=== PATIENT | male | born 1950 | race Caucasian/White ===

== ENCOUNTER 2017-03-23 23:19 | Emergency (ER) | payer MEDICARE, OTHER ==
[~2017-03-23] VITALS: Ht 182.9 cm; Wt 88.0 kg
[~2017-03-23 23:19] MED LIST: ASPI81 PO; LORTA5 PO; NAPR550 PO; PRED20 PO; TOPR25TA2 PO
[2017-03-23] MEDS ORDERED: IOHEXOL 350 MG/ML 10 ML VIAL (for RAD DIAG) IVCONTRAST ONE (23:20)
[2017-03-23 23:23] VITALS: BP 179/100; PULSE 106; RESP 18; TEMP 98; O2SAT 98
[2017-03-23] MEDS ORDERED: ALLO100T PO (23:42)
[2017-03-23] MEDS ORDERED: LISI10TA3 PO (23:42)
[2017-03-23] MEDS ORDERED: ASPI81TA23 PO (23:42)
[2017-03-23] MEDS ORDERED: METO1TAB43 PO (23:42)
[2017-03-23] MEDS ORDERED: SERT-132 PO (23:42)
[2017-03-23] MEDS ORDERED: HYDR12.57 PO (23:42)
[2017-03-23] MEDS ORDERED: METF500T PO (23:42)
[2017-03-23] MEDS ORDERED: OMEP20TA93 PO (23:42)
[2017-03-23] MEDS ORDERED: SODIUM CHLOR 0.9% 1000 ML INJ 1,000 ML IV SCH (23:47)
[2017-03-24] MEDS ORDERED: SODIUM CHLORIDE 0.9% FLUSH 10 ML FLUSH IV FLUSH PRN
[2017-03-24 00:01] VITALS: O2SAT 96
--- NOTE | 2017-03-24 00:03 | PD ---
HPI Chief Complaint: Abdominal Pain Time Seen by Provider: 23:42 Travel History International Travel<30 days: No Contact w/Intl Traveler<30days: No Traveled to known affect area: No History of Present Illness HPI 66-year-old male here for evaluation of abdominal pain. The patient reports having right mid and right lower quadrant abdominal pain for the last 2 days, worse today. He describes the pain as sharp, moderate to severe, worse with movements, improved with rest. He endorses history of diverticulitis with partial colectomy about 16 years ago. He denies fevers or chills. No trauma. No vomiting or diarrhea. No melena or hematochezia. No urinary symptoms. PFSH Past Medical History Arthritis: Yes Diminished Hearing: Yes ([facility]) Diverticulitis: Yes Hypertension: Yes Tetanus Vaccination: < 5 Years Influenza Vaccination: Yes Past Surgical History Abdominal Surgery: Yes (PART OF COLON REMOVED FROM DIVERTICULITIS) Appendectomy: Yes Genitourinary Surgery: Yes (VASECTOMY) Joint Replacement: Yes (left knee) Tonsillectomy: Yes Social History Alcohol Use: Yes (2 LIQUOR DRINKS DAILY) Tobacco Use: Yes (1/2 PPD) Substance Use: No Allergies-Medications (Allergen,Severity, Reaction): Coded Allergies: No Known Allergies (Verified Adverse Reaction, Unknown, 03/23/17) Reported Meds & Prescriptions Reported Meds & Active Scripts Active Reported Allopurinol 100 Mg Tab 100 Mg PO DAILY Aspirin EC (Aspirin) 81 Mg Tabdr 81 Mg PO DAILY Metformin (Metformin HCl) 500 Mg Tab 500 Mg PO DAILY With a meal Sertraline (Sertraline HCl) 50 Mg Tab 50 Mg PO DAILY Hydrochlorothiazide 12.5 Mg Cap 12.5 Mg PO DAILY Metoprolol Succinate ER 24 HR (Metoprolol Succinate) 100 Mg Tab 100 Mg PO DAILY Lisinopril 10 Mg Tab 10 Mg PO DAILY Omeprazole 20 Mg Tab 20 Mg PO DAILY Review of Systems Except as stated in HPI: all other systems reviewed are Neg Physical Exam Narrative GENERAL: Well-developed, well-nourished, awake, alert, no apparent distress. SKIN: Focused skin assessment warm/dry. No rash. HEAD: Atraumatic. Normocephalic. EYES: Pupils equal and round. No scleral icterus. No injection or drainage. ENT: Mucous membranes pink and moist. NECK: Trachea midline. No JVD. CARDIOVASCULAR: Regular rate and rhythm. No murmur appreciated. RESPIRATORY: No accessory muscle use. Clear to auscultation. Breath sounds equal bilaterally. GASTROINTESTINAL: Abdomen soft, nondistended. Moderate right mid and right lower quadrant tenderness without peritoneal signs. Normal bowel sounds. Large ventral hernia that is easily reducible. MUSCULOSKELETAL: No obvious deformities. No clubbing. No cyanosis. No edema. No CVA tenderness. NEUROLOGICAL: Awake and alert. No obvious cranial nerve deficits. Motor grossly within normal limits. Normal speech. PSYCHIATRIC: Appropriate mood and affect; insight and judgment normal. Data Data Last Documented VS Vital Signs Date Time Temp Pulse Resp B/P (MAP) Pulse Ox O2 Delivery O2 Flow Rate FiO2 03/24/17 00:01 96 Room Air 03/23/17 23:23 98.0 106 18 Orders Orders Complete Blood Count With Diff (03/23/17 23:47) Comprehensive Metabolic Panel (03/23/17 23:47) Lipase (03/23/17 23:47) Lactic Acid (03/23/17 23:47) Prothrombin Time / Inr (Pt) (03/23/17 23:47) Act Partial Throm Time (Ptt) (03/23/17 23:47) Urinalysis - C+S If Indicated (03/23/17 23:47) Ct Abd/Pel W Iv Contrast(Rout) (03/23/17 23:47) Iv Access Insert/Monitor (03/23/17 23:47) Ecg Monitoring (03/23/17 23:47) Oximetry (03/23/17 23:47) Sodium Chlor 0.9% 1000 Ml Inj (Ns 1000 M (03/23/17 23:47) Sodium Chloride 0.9% Flush (Ns Flush) (03/24/17 00:00) Morphine Inj (Morphine Inj) (03/24/17 00:00) Ondansetron Inj (Zofran Inj) (03/24/17 00:15) Ondansetron Inj (Zofran Inj) (03/24/17 00:11) Iohexol 350 Inj (Omnipaque 350 Inj) (03/23/17 23:20) Labs Laboratory Tests Test 03/24/17 00:12 White Blood Count 8.6 TH/MM3 Red Blood Count 4.17 MIL/MM3 Hemoglobin 16.6 GM/DL Hematocrit 46.3 % Mean Corpuscular Volume 111.0 FL Mean Corpuscular Hemoglobin 39.9 PG Mean Corpuscular Hemoglobin Concent 35.9 % Red Cell Distribution Width 13.6 % Platelet Count 178 TH/MM3 Mean Platelet Volume 8.2 FL Neutrophils (%) (Auto) 67.8 % Lymphocytes (%) (Auto) 20.3 % Monocytes (%) (Auto) 10.6 % Eosinophils (%) (Auto) 0.7 % Basophils (%) (Auto) 0.6 % Neutrophils # (Auto) 5.8 TH/MM3 Lymphocytes # (Auto) 1.7 TH/MM3 Monocytes # (Auto) 0.9 TH/MM3 Eosinophils # (Auto) 0.1 TH/MM3 Basophils # (Auto) 0.1 TH/MM3 CBC Comment DIFF FINAL Differential Comment Prothrombin Time 11.4 SEC Prothromb Time International Ratio 1.1 RATIO Activated Partial Thromboplast Time 29.2 SEC Blood Urea Nitrogen 12 MG/DL Creatinine 0.96 MG/DL Random Glucose 153 MG/DL Total Protein 7.8 GM/DL Albumin 3.8 GM/DL Calcium Level 8.9 MG/DL Alkaline Phosphatase 103 U/L Aspartate Amino Transf (AST/SGOT) 17 U/L Alanine Aminotransferase (ALT/SGPT) 20 U/L Total Bilirubin 1.8 MG/DL Sodium Level 137 MEQ/L Potassium Level 3.3 MEQ/L Chloride Level 100 MEQ/L Carbon Dioxide Level 27.8 MEQ/L Anion Gap 9 MEQ/L Estimat Glomerular Filtration Rate 79 ML/MIN Lactic Acid Level 1.2 mmol/L Lipase 132 U/L MDM Medical Decision Making Medical Screen Exam Complete: Yes Emergency Medical Condition: Yes Differential Diagnosis Colitis, diverticulitis, appendicitis, mesenteric ischemia, UTI, cystitis, adhesions, Narrative Course Vital signs reviewed. CBC: WBC 8.6, hemoglobin 16.6, hematocrit 46.3, platelets 178, MCV 111. CMP is remarkable for potassium 3.3, random glucose 153, otherwise unremarkable. Lipase is 132. Lactic acid is 1.2. CT abdomen pelvis: CONCLUSION: 1. Mild wall thickening of a short segment of distal ascending colon and hepatic flexure region of colon with surrounding inflammatory change. This could represent a colitis in the appropriate clinical setting. Suggest followup to confirm resolution. 2. 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 The patient was made aware of all findings. He is resting comfortably. There are no peritoneal signs on his exam. He was given a copy of his CT abdomen pelvis report. He will be started on Cipro and Flagyl and advised to follow-up with his primary care physician this week. I will also given the name of vascular surgeon community education specialist with whom to follow-up with. 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 He was advised on when to return to the emergency department. He verbalizes understanding and agreement with plan. Diagnosis Primary Impression: Colitis Additional Impressions: Atherosclerosis Abdominal aortic aneurysm Qualified Codes: I71.4 - Abdominal aortic aneurysm, without rupture Referrals: Lizandro Sunshine MD 3 days Vascular surgeon Primary Care Physician 3 days Additional Instructions: Follow-up with your primary care physician this week. Follow-up with your alum plant operator this week. Follow-up with vascular surgeon Dr. Sunshine this week. Take antibiotic as prescribed. Return to the emergency department for worsening symptoms or any other concerns. Scripts Ondansetron Odt (Zofran Odt) 4 Mg Tab 4 MG SL Q6HR Y for Nausea/Vomiting, #15 TAB 0 Refills Prov: Frankie Argueta MD 03/24/17 Hydrocodone-Acetaminophen (Hydrocodone-Acetaminophen) 5-325 mg Tab 1 TAB PO Q6H Y for PAIN, #15 TAB 0 Refills Prov: Frankie Argueta MD 03/24/17 Metronidazole (Flagyl) 500 Mg Tab 500 MG PO BID for Infection for 10 Days, #20 TAB 0 Refills Prov: Frankie Argueta MD 03/24/17 Ciprofloxacin (Cipro) 500 Mg Tab 500 MG PO BID for Infection for 10 Days, #20 TAB 0 Refills Prov: Frankie Argueta MD 03/24/17 Disposition: 01 DISCHARGE HOME Condition: Stable Frankie Argueta MD Mar 24, 2017 00:03
[2017-03-24] MEDS ORDERED: ONDANSETRON HCL 4 MG/2 ML VIAL ONE (00:11)
[2017-03-24] MEDS ORDERED: ONDANSETRON HCL 4 MG/2 ML VIAL IV PUSH ONE (00:15)
[2017-03-24 00:27] LABS: AUTOMATED NEUTROPHIL # 5.8 TH/MM3 (1.8-7.7); BASOPHIL # 0.1 TH/MM3 (0-0.2); BASOPHIL % 0.6 % (0.0-2.0); EOSINOPHIL # 0.1 TH/MM3 (0-0.4); EOSINOPHIL % 0.7 % (0.0-4.0); HEMATOCRIT 46.3 % (39.0-51.0); HEMOGLOBIN 16.6 GM/DL (13.0-17.0); LYMPH % 20.3 % (9.0-44.0); LYMPHOCYTE # 1.7 TH/MM3 (1.0-4.8); MEAN CORPUSCULAR HEMOGLOBIN 39.9 PG (27.0-34.0); MEAN CORPUSCULAR HGB CONC 35.9 % (32.0-36.0); MEAN PLATELET VOLUME 8.2 FL (7.0-11.0); MONO % 10.6 % (0.0-8.0); MONOCYTE # 0.9 TH/MM3 (0-0.9); NEUT % 67.8 % (16.0-70.0); PLATELET COUNT 178 TH/MM3 (150-450); RED BLOOD COUNT 4.17 MIL/MM3 (4.50-5.90); RED CELL DISTRIBUTION WIDTH 13.6 % (11.6-17.2); WHITE BLOOD COUNT 8.6 TH/MM3 (4.0-11.0)
[2017-03-24 00:37] LABS: INTERNATIONAL NORMALIZED RATIO 1.1 RATIO; PROTHROMBIN TIME - PATIENT 11.4 SEC (9.8-11.6)
[2017-03-24 00:41] LABS: ALBUMIN 3.8 GM/DL (3.4-5.0); ALT (GPT) 20 U/L (12-78); AST (GOT) 17 U/L (15-37); BICARBONATE 27.8 MEQ/L (21.0-32.0); BLOOD UREA NITROGEN 12 MG/DL (7-18); CALCIUM 8.9 MG/DL (8.5-10.1); CHLORIDE 100 MEQ/L (98-107); CREATININE 0.96 MG/DL (0.60-1.30); GLOMERULAR FILTRATION RATE 79 ML/MIN (>89); GLUCOSE,RANDOM 153 MG/DL (74-106); SODIUM (NA) 137 MEQ/L (136-145)
[2017-03-24 00:43] LABS: ALKALINE PHOSPHATASE 103 U/L (45-117); TOTAL BILIRUBIN ADULT 1.8 MG/DL (0.2-1.0); TOTAL PROTEIN 7.8 GM/DL (6.4-8.2)
--- NOTE | 2017-03-24 01:42 | RADRPT ---
EXAM DATE/TIME: 03/24/2017 01:17 [facility] COMPARISON: No previous studies available for comparison. INDICATIONS : Right sided abdomen pain past 2 days. IV CONTRAST: 95 cc Omnipaque 350 (iohexol) IV ORAL CONTRAST: No oral contrast ingested. RADIATION DOSE: 11.20 CTDIvol (mGy) MEDICAL HISTORY : Hypertension. Diverticulitis. SURGICAL HISTORY : Colon resection. Appendectomy.Total knee replacement, right. ENCOUNTER: Initial ACUITY: 2 days PAIN SCALE: 10/10 LOCATION: Right abdomen TECHNIQUE: Volumetric scanning of the abdomen and pelvis was performed. Using automated exposure control and ad justment of the mA and/or kV according to patient size, radiation dose was kept as low as reasonably achievable to obtain optimal diagnostic quality images. DICOM format image data is available electro nically for review and comparison. FINDINGS: LOWER LUNGS: There is atelectasis at the lung bases. LIVER: Homogeneous density with 2 incidental low density lesions measuring 5 mm and 6 mm that are too small to characterize. There is no dilation of the biliary tree. No calcified gallstones. SPLEEN: Normal size without lesion. PANCREAS: Within normal limits. KIDNEYS: Normal in size and shape. There is no mass, stone or hydronephrosis. ADRENAL GLANDS: Within normal limits. VASCULAR: There is severe atherosclerotic disease with infrarenal fusiform aneurysm measuring up to 3.1 cm. The re is a right common iliac artery aneurysm measuring 2 cm. Curvilinear calcification associated with the hepatic artery likely represents a 7 mm aneurysm. BOWEL/MESENTERY: The stomach and small bowel demonstrate no acute finding. There is mild wall thickening of a segment of distal ascending colon and hepatic flexure colon with mild inflammation of the adjacent fat. There is sigmoid diverticulosis and there has been prior surgery in the sigmoid colon region. There is no free intraperitoneal air or fluid. ABDOMINAL WALL: There is a fat containing right spigelian hernia. RETROPERITONEUM: There is no lymphadenopathy. BLADDER: No wall thickening or mass. REPRODUCTIVE: Prostate gland demonstrates no abnormality. There is calcification of the vas deferens. INGUINAL: There is no lymphadenopathy or hernia. MUSCULOSKELETAL: There are degenerative changes of the lumbar spine but no acute osseous abnormality is identified. CONCLUSION: 1. Mild wall thickening of a short segment of distal ascending colon and hepatic flexure region of co ole with surrounding inflammatory change. This could represent a colitis in the appropriate clinical setting. Suggest followup to confirm resolution. 2. 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 Stevenson Thomas MD on March 24, 2017 at 1:34 Board Certified Radiologist. This report was verified electronically.
[2017-03-24] MEDS ORDERED: CIPR-9 PO (01:57)
[2017-03-24] MEDS ORDERED: METR-1 PO (01:57)
[2017-03-24] MEDS ORDERED: ZOFR4TAB3 SL (01:57)
[2017-03-24] MEDS ORDERED: HYDR-3516 PO (01:57)
[2017-03-24] MEDS ORDERED: metroNIDAZOLE 500 MG TAB PO ONE (02:00)
[2017-03-24] MEDS ORDERED: MORPHINE SULFATE 2 MG/ML INJ IV PUSH ONE ×2 (02:00)
[2017-03-24] MEDS ORDERED: CIPROFLOXACIN 500 MG TAB PO ONE (02:00)
== END 2017-03-24 02:26 | disposition home or self-care (01) ==
LOC: NEPE 23:19
DX: K52.9 Noninfective gastroenteritis and colitis, unspecified (principal); I71.4 Abdominal aortic aneurysm, without rupture; I70.0 Atherosclerosis of aorta; M19.90 Unspecified osteoarthritis, unspecified site; I10 Essential (primary) hypertension; F17.200 Nicotine dependence, unspecified, uncomplicated; Z87.19 Personal history of other diseases of the digestive system; Z79.82 Long term (current) use of aspirin; Z79.899 Other long term (current) drug therapy
CPT/HCPCS: 74177; 80053; 83605; 83690; 85025; 85610; 85730; 96361; 96374; 96375; 96376; 99284; J2270; J2405; J7030; Q9967

== ENCOUNTER 2017-06-18 10:25 | Inpatient (IN) | payer MEDICARE, OTHER ==
[2017-06-18] VITALS (7 sets, daily range): BP systolic 151–179; BP diastolic 97–111; PULSE 82–104; RESP 14–16; TEMP 97.6–98.5; O2SAT 94–98
[~2017-06-18] VITALS: Ht 182.9 cm; Wt 76.6 kg
[~2017-06-18 10:25] MED LIST changes: +ALLO100T PO; -ASPI81 PO; +ASPI81TA23 PO; +CIPR-9 PO; +HYDR-3516 PO; +HYDR12.57 PO; +LISI10TA3 PO; -LORTA5 PO; +METF500T PO; +METO1TAB43 PO; +METR-1 PO; -NAPR550 PO; +OMEP20TA93 PO; -PRED20 PO; +SERT-132 PO; -TOPR25TA2 PO; +ZOFR4TAB3 SL
[2017-06-18 11:16] LABS: AUTOMATED NEUTROPHIL # 4.7 TH/MM3 (1.8-7.7); BASOPHIL % 0.4 % (0.0-2.0); EOSINOPHIL # 0.1 TH/MM3 (0-0.4); HEMATOCRIT 47.8 % (39.0-51.0); HEMOGLOBIN 16.9 GM/DL (13.0-17.0); LYMPH % 17.9 % (9.0-44.0); LYMPHOCYTE # 1.2 TH/MM3 (1.0-4.8); MEAN CORPUSCULAR HEMOGLOBIN 38.5 PG (27.0-34.0); MEAN CORPUSCULAR HGB CONC 35.3 % (32.0-36.0); MEAN PLATELET VOLUME 7.3 FL (7.0-11.0); MONO % 9.2 % (0.0-8.0); MONOCYTE # 0.6 TH/MM3 (0-0.9); NEUT % 71.5 % (16.0-70.0); PLATELET COUNT 150 TH/MM3 (150-450); RED BLOOD COUNT 4.39 MIL/MM3 (4.50-5.90); RED CELL DISTRIBUTION WIDTH 16.9 % (11.6-17.2); WHITE BLOOD COUNT 6.6 TH/MM3 (4.0-11.0)
[2017-06-18 11:24] LABS: INTERNATIONAL NORMALIZED RATIO 1.1 RATIO; PROTHROMBIN TIME - PATIENT 11.5 SEC (9.8-11.6)
[2017-06-18 11:34] LABS: ALBUMIN 3.7 GM/DL (3.4-5.0); ALT (GPT) 30 U/L (12-78); AST (GOT) 59 U/L (15-37); BICARBONATE 24.7 MEQ/L (21.0-32.0); BLOOD UREA NITROGEN 8 MG/DL (7-18); CHLORIDE 106 MEQ/L (98-107); CREATININE 0.81 MG/DL (0.60-1.30); GLOMERULAR FILTRATION RATE 96 ML/MIN (>89); GLUCOSE,RANDOM 124 MG/DL (74-106); SODIUM (NA) 141 MEQ/L (136-145)
[2017-06-18 11:36] LABS: ALKALINE PHOSPHATASE 105 U/L (45-117); TOTAL BILIRUBIN ADULT 1.5 MG/DL (0.2-1.0); TOTAL PROTEIN 7.1 GM/DL (6.4-8.2)
--- NOTE | 2017-06-18 12:32 | PD ---
HPI . Fall Chief Complaint: Fall Time Seen by Provider: 11:02 Travel History International Travel<30 days: No Contact w/Intl Traveler<30days: No Traveled to known affect area: No History of Present Illness HPI This patient presents to us status [place] market. History is obtained from the patient and his . His states that he has loose bowels every morning. This is normal for him. They were at the market when he became missing. She was looking for him and learned that someone had fallen in the restroom. She went to investigate and found that it was him. He had fallen and has apparently struck his head. He possibly had a brief loss of consciousness. He is complaining with feeling very weak. He is also complaining with some pain in the left shoulder and left chest wall. He has apparently struck these as well. Onset: Just prior to arrival Circumstances: As above Severity: Mild Modifying factors: Pain of his shoulder and chest is exacerbated by movement and breathing. PFSH Past Medical History Arthritis: Yes Diminished Hearing: Yes ([facility]) Diverticulitis: Yes Hypertension: Yes Past Surgical History Abdominal Surgery: Yes (PART OF COLON REMOVED FROM DIVERTICULITIS) Appendectomy: Yes Genitourinary Surgery: Yes (VASECTOMY) Joint Replacement: Yes (left knee) Tonsillectomy: Yes Social History Alcohol Use: Yes (2 LIQUOR DRINKS DAILY) Tobacco Use: Yes (1/2 PPD) Substance Use: No Allergies-Medications (Allergen,Severity, Reaction): Coded Allergies: No Known Allergies (Verified Adverse Reaction, Unknown, 03/23/17) Reported Meds & Prescriptions Reported Meds & Active Scripts Active Zofran Odt (Ondansetron Odt) 4 Mg Tab 4 Mg SL Q6HR PRN Hydrocodone-Acetaminophen 5-325 mg Tab 1 Tab PO Q6H PRN Flagyl (Metronidazole) 500 Mg Tab 500 Mg PO BID 10 Days Cipro (Ciprofloxacin HCl) 500 Mg Tab 500 Mg PO BID 10 Days Reported Allopurinol 100 Mg Tab 100 Mg PO DAILY Aspirin EC (Aspirin) 81 Mg Tabdr 81 Mg PO DAILY Metformin (Metformin HCl) 500 Mg Tab 500 Mg PO DAILY With a meal Sertraline (Sertraline HCl) 50 Mg Tab 50 Mg PO DAILY Hydrochlorothiazide 12.5 Mg Cap 12.5 Mg PO DAILY Metoprolol Succinate ER 24 HR (Metoprolol Succinate) 100 Mg Tab 100 Mg PO DAILY Lisinopril 10 Mg Tab 10 Mg PO DAILY Omeprazole 20 Mg Tab 20 Mg PO DAILY Review of Systems Except as stated in HPI: all other systems reviewed are Neg Physical Exam Narrative GENERAL: Awake and alert and in no acute distress. SKIN: warm/dry. He does have some bruising of the left anterior shoulder. There is a 1 cm laceration in the left eyebrow which is well approximated and scabbed over. HEAD: Normocephalic. He has some bruising to the left side of his face. EYES: Pupils equal and round. No scleral icterus. No injection or drainage. ENT: No nasal bleeding or discharge. Mucous membranes pink and moist. NECK: Trachea midline. Full range of motion without pain.. CARDIOVASCULAR: Regular rate and rhythm. Heart sounds are normal. RESPIRATORY: No accessory muscle use. Clear to auscultation. Breath sounds equal bilaterally. Left chest wall is tender to palpation. GASTROINTESTINAL: Abdomen soft. Nontender. Bowel sounds present. Nondistended. MUSCULOSKELETAL: No obvious deformities. NEUROLOGICAL: Awake and alert. No obvious cranial nerve deficits. Motor grossly within normal limits. Normal speech. PSYCHIATRIC: Appropriate mood and affect; insight and judgment normal. Data Data Last Documented VS Vital Signs Date Time Temp Pulse Resp B/P (MAP) Pulse Ox O2 Delivery O2 Flow Rate FiO2 06/18/17 14:12 96 16 166/107 (126) 98 Room Air 06/18/17 10:31 97.6 Orders Orders Electrocardiogram (06/18/17 10:53) Complete Blood Count With Diff (06/18/17 10:53) Comprehensive Metabolic Panel (06/18/17 10:53) Iv Access Insert/Monitor (06/18/17 10:53) Coag Profile (06/18/17 10:53) Ct Brain W/O Iv Contrast(Rout) (06/18/17 11:53) Ct Cerv Spine W/O Contrast (06/18/17 11:53) Troponin I (06/18/17 12:32) Chest, Pa & Lat (06/18/17 12:32) Morphine Inj (Morphine Inj) (06/18/17 14:00) Ondansetron Inj (Zofran Inj) (06/18/17 14:00) Labs Laboratory Tests Test 06/18/17 10:50 White Blood Count 6.6 TH/MM3 Red Blood Count 4.39 MIL/MM3 Hemoglobin 16.9 GM/DL Hematocrit 47.8 % Mean Corpuscular Volume 109.0 FL Mean Corpuscular Hemoglobin 38.5 PG Mean Corpuscular Hemoglobin Concent 35.3 % Red Cell Distribution Width 16.9 % Platelet Count 150 TH/MM3 Mean Platelet Volume 7.3 FL Neutrophils (%) (Auto) 71.5 % Lymphocytes (%) (Auto) 17.9 % Monocytes (%) (Auto) 9.2 % Eosinophils (%) (Auto) 1.0 % Basophils (%) (Auto) 0.4 % Neutrophils # (Auto) 4.7 TH/MM3 Lymphocytes # (Auto) 1.2 TH/MM3 Monocytes # (Auto) 0.6 TH/MM3 Eosinophils # (Auto) 0.1 TH/MM3 Basophils # (Auto) 0.0 TH/MM3 CBC Comment DIFF FINAL Differential Comment Prothrombin Time 11.5 SEC Prothromb Time International Ratio 1.1 RATIO Activated Partial Thromboplast Time 24.5 SEC Blood Urea Nitrogen 8 MG/DL Creatinine 0.81 MG/DL Random Glucose 124 MG/DL Total Protein 7.1 GM/DL Albumin 3.7 GM/DL Calcium Level 9.0 MG/DL Alkaline Phosphatase 105 U/L Aspartate Amino Transf (AST/SGOT) 59 U/L Alanine Aminotransferase (ALT/SGPT) 30 U/L Total Bilirubin 1.5 MG/DL Sodium Level 141 MEQ/L Potassium Level 3.3 MEQ/L Chloride Level 106 MEQ/L Carbon Dioxide Level 24.7 MEQ/L Anion Gap 10 MEQ/L Estimat Glomerular Filtration Rate 96 ML/MIN MDM Medical Decision Making Medical Screen Exam Complete: Yes Emergency Medical Condition: Yes Interpretation(s) EKG shows a sinus rhythm with a ventricular rate of 93. No acute ischemic changes. Differential Diagnosis Differential diagnosis of weakness includes but is not limited to infection, CVA , electrolyte disturbance, renal failure, hypoglycemia My differential diagnosis of head trauma includes but is not limited to scalp contusion, concussion, intracerebral hemorrhage. Narrative Course This patient presents to us for the evaluation of weakness causing a fall. Syncope workup is in process. CT of his head and neck is in process. CBC & BMP Diagram 06/18/17 10:50 Total Protein 7.1, Albumin 3.7, Calcium Level 9.0, Alkaline Phosphatase 105, Aspartate Amino Transf (AST/SGOT) 59 H, Alanine Aminotransferase (ALT/SGPT) 30, Total Bilirubin 1.5 H Last Impressions Chest X-Ray 06/18/17 1232 Signed Impressions: Service Date/Time: Sunday, June 18, 2017 13:32 - CONCLUSION: 1. No acute pulmonary infiltrates. 2. Nondisplaced fracture involving the lateral last at the left fourth rib. 3. Compensated cardiomegaly. Les Liao MD Head CT 06/18/17 1153 Signed Impressions: Service Date/Time: Sunday, June 18, 2017 13:43 - CONCLUSION: 1. Focal intra-axial hemorrhage in the bilateral frontal lobes consistent with hemorrhagic contusions. No definite extra-axial or intraventricular Hemorrhage. No hydrocephalus or herniation. Denzel Kelly MD Cervical Spine CT 06/18/17 1153 Signed Impressions: Service Date/Time: Sunday, June 18, 2017 13:43 - CONCLUSION: 1. No acute bony fracture. 2. Primary bony degenerative changes involving the cervical spine. Les Liao MD The laceration was repaired by the RN with a Steri-Strip. Physician Communication Physician Communication Dr. Cerrato will admit to obs Diagnosis Primary Impression: Frontal lobe contusion Qualified Codes: S06.330A - Contusion and laceration of cerebrum, unspecified , without loss of consciousness, initial encounter Additional Impression: Rib fracture Qualified Codes: S22.32XA - Fracture of one rib, left side, initial encounter for closed fracture Admitting Information Admitting Physician Requests: Observation Condition: Stable Viv Gonzalez MD June 18, 2017 12:32
--- NOTE | 2017-06-18 13:49 | RADRPT ---
EXAM DATE/TIME: 06/18/2017 13:32 [facility] COMPARISON: No previous studies available for comparison. INDICATIONS : Left side chest pain and bruising after syncope episode. MEDICAL HISTORY : Hypertension. Diverticulitis. SURGICAL HISTORY : Colon resection. Appendectomy.Total knee replacement, right. ENCOUNTER: Initial ACUITY: 1 day PAIN SCORE: 10/10 LOCATION: Left chest FINDINGS: PA and lateral views of the chest demonstrate the lungs to be symmetrically aerated without evidence of mass, infiltrate or effusion. No evidence of pneumothorax. The heart size is mildly enlarged.. Th ere appears to be a nondisplaced fracture involving the lateral aspect of the left fourth rib. CONCLUSION: 1. No acute pulmonary infiltrates. 2. Nondisplaced fracture involving the lateral last at the left fourth rib. 3. Compensated cardiomegaly. Les Liao MD on June 18, 2017 at 13:45 Board Certified Radiologist. This report was verified electronically.
[2017-06-18] MEDS ORDERED: MORPHINE SULFATE 4 MG/ML INJ IV PUSH ONE (14:00)
[2017-06-18] MEDS ORDERED: ONDANSETRON HCL 4 MG/2 ML VIAL IV PUSH ONE (14:00)
--- NOTE | 2017-06-18 14:13 | RADRPT ---
EXAM DATE/TIME: 06/18/2017 13:43 [facility] COMPARISON: No previous studies available for comparison. INDICATIONS : TRauma, patient fell hit head. RADIATION DOSE: 42.99 CTDIvol (mGy) MEDICAL HISTORY : Hypertension. SURGICAL HISTORY : None. ENCOUNTER: Initial ACUITY: 1 day PAIN SCALE: 4/10 LOCATION: neck TECHNIQUE: Volumetric scanning of the cervical spine was performed. Multiplanar reconstructions in the sagittal, coronal and oblique axial planes were performed. Using automated exposure control and adjustment o f the mA and/or kV according to patient size, radiation dose was kept as low as reasonably achievable to obtain optimal diagnostic quality images. DICOM format image data is available electronically f or review and comparison. FINDINGS: VERTEBRAE: Normal vertebral body height. No acute bony fractures. There are degenerative changes noted throughou t the cervical spine. There is disc space narrowing at C5-6 and C6-7. ALIGNMENT: No evidence of subluxation. C2-C3: The bony spinal canal is normal in size. No evidence of disc bulge or herniation. The neural forami na are bilaterally patent. Left-sided facet arthritis. C3-C4: The bony spinal canal is normal in size. No evidence of disc bulge or herniation. The neural forami na are bilaterally patent. C4-C5: Mild central bulging. The neural foramina are patent bilaterally. C5-C6: Mild broad-based bulging disc osteophyte complex. The neural foramina appear patent. C6-C7: The bony spinal canal is normal in size. No evidence of disc bulge or herniation. The neural forami na are bilaterally patent. C7-T1: The bony spinal canal is normal in size. No evidence of disc bulge or herniation. The neural forami na are bilaterally patent. CONCLUSION: 1. No acute bony fracture. 2. Primary bony degenerative changes involving the cervical spine. Les Liao MD on June 18, 2017 at 14:08 Board Certified Radiologist. This report was verified electronically.
--- NOTE | 2017-06-18 14:19 | RADRPT ---
EXAM DATE/TIME: 06/18/2017 13:43 [facility] COMPARISON: CT BRAIN W/O CONTRAST, July 10, 2012, 21:50. INDICATIONS : Trauma, patient fell hit head. RADIATION DOSE: 48.66 CTDIvol (mGy) MEDICAL HISTORY : Hypertension. SURGICAL HISTORY : None. ENCOUNTER: Initial ACUITY: 1 day PAIN SCALE: 3/10 LOCATION: cranial TECHNIQUE: Multiple contiguous axial images were obtained of the head. Using automated exposure control and adj ustment of the mA and/or kV according to patient size, radiation dose was kept as low as reasonably a chievable to obtain optimal diagnostic quality images. DICOM format image data is available electro nically for review and comparison. FINDINGS: CEREBRUM: Abnormal. There is an 8mm focal intra-axial hemorrhage in the left frontal high convexities. There is also a 13 mm focal intracranial hemorrhage in the right frontal mid convexities. No definite extra-a xial hemorrhage. Mild diffuse renal atrophy. Ventricles are normal for degree of atrophy. No intraven tricular hemorrhage. No significant mass effect or midline shift. POSTERIOR FOSSA: The cerebellum and brainstem are intact. The 4th ventricle is midline. The cerebellopontine angle i s unremarkable. EXTRACRANIAL: The visualized portion of the orbits is intact. SKULL: The calvaria is intact. No evidence of skull fracture. CONCLUSION: 1. Focal intra-axial hemorrhage in the bilateral frontal lobes consistent with hemorrhagic contusions . No definite extra-axial or intraventricular Hemorrhage. No hydrocephalus or herniation. Denzel Kelly MD on June 18, 2017 at 13:59 Board Certified Radiologist. This report was verified electronically.
[2017-06-18] MEDS ORDERED: CALCIUM GLUCONATE INJ 1 GM in SODIUM CHLORIDE 0.9% INJ 100 ML IV PRN (16:30)
[2017-06-18] MEDS ORDERED: GLUCAGON 1 MG/ML VIAL OTHER PRN (16:30)
[2017-06-18] MEDS ORDERED: DEXTROSE 50% IN WATER 50 ML VIAL(D50) IV PUSH PRN (16:30)
[2017-06-18] MEDS ORDERED: POTASSIUM CHLOR 20 MEQ PREMIX 100 ML IV PRN (16:30)
[2017-06-18] MEDS ORDERED: MENTHOL LOZENGE BUCCAL PRN (16:30)
[2017-06-18] MEDS ORDERED: ACETAMINOPHEN/HYDROcodone 325 MG/10 MG TAB PO PRN (16:30)
[2017-06-18] MEDS ORDERED: PROMETHAZINE INJ 25 MG/ML VIAL IM PRN (16:30)
[2017-06-18] MEDS ORDERED: SENNOSIDES 8.6 MG TAB PO PRN (16:30)
[2017-06-18] MEDS ORDERED: RESP: ALBUTEROL 2.5 MG/3 ML NEB (PRN) NEB (16:30)
[2017-06-18] MEDS ORDERED: MAGNESIUM HYDROXIDE SUSP 30 ML CUP PO PRN (16:30)
[2017-06-18] MEDS ORDERED: MAGNESIUM SULFATE INJ 2 GM in SODIUM CHLORIDE 0.9% INJ 100 ML IV PRN (16:30)
[2017-06-18] MEDS ORDERED: BISACODYL 10 MG SUPP RECTAL PRN (16:30)
[2017-06-18] MEDS ORDERED: ALUMINUM/MAGNESIUM/SIMETH 30 ML CUP PO PRN (16:30)
[2017-06-18] MEDS ORDERED: SODIUM CHLORIDE 0.9% FLUSH 10 ML FLUSH IV FLUSH PRN (16:30)
[2017-06-18] MEDS ORDERED: LACTULOSE SYRUP 20 GM/30 ML CUP PO PRN (16:30)
[2017-06-18] MEDS ORDERED: ZOLPIDEM TARTRATE 5 MG TAB PO PRN (16:30)
[2017-06-18] MEDS ORDERED: cloNIDine HCL 0.1 MG TAB PO PRN (16:30)
[2017-06-18] MEDS ORDERED: POTASSIUM CHLORIDE 10 MEQ CONTROLLED RELEASE TAB PO ONE (16:45)
--- NOTE | 2017-06-18 16:53 | RADRPT ---
EXAM DATE/TIME: 06/18/2017 16:45 [facility] COMPARISON: No previous studies available for comparison. INDICATIONS : Left shoulder bruising. Patient fell today. MEDICAL HISTORY : Hypertension. SURGICAL HISTORY : None. ENCOUNTER: Initial ACUITY: 1 day PAIN SCORE: 0/10 LOCATION: Left lateral shoulder. FINDINGS: Two view examination of the left shoulder demonstrates no evidence of fracture or dislocation. The g lenohumeral and acromioclavicular joints are maintained. Bony mineralization is normal. CONCLUSION: No acute fracture or joint dislocation. Les Liao MD on June 18, 2017 at 16:51 Board Certified Radiologist. This report was verified electronically.
[2017-06-18] MEDS: INSULIN NovoLIN REGULAR SUPPLEMENTAL SCALE SQ SCH ×2 (17:00→21:00)
[2017-06-18] MEDS ORDERED: niCARdipine INJ 25 MG in SODIUM CHLOR 0.9% 250 ML INJ 240 ML IV PRN (18:00)
[2017-06-18] MEDS: ACETAMINOPHEN/HYDROcodone 325 MG/10 MG TAB PO PRN ×2 (18:35→21:58)
--- NOTE | 2017-06-18 18:35 | HHI.HP ---
HPI Service Neurosurgery Primary Care Physician Unknown History of Present Illness 66-year-old gentleman who presented to [facility] emergency room after a fall. He relates a positive loss of consciousness and complains of severe left- sided chest wall pain and initially had left shoulder pain which has improved along with mild headache. He has a history of frequent falls and states that he is undergone extensive workup including evaluation at the [facility] and the only thing they could relate this to was possibly low blood pressure. He denies feeling lightheaded or dizzy or any chest pain prior to these falls and relates that his legs just give out on him and usually occurs about once a month. He had a similar episode today and fell [place] the bathroom [place] a market. Denies any nausea or vomiting and states that he is hungry. Denies any numbness or paresthesias in the upper lower extremities or any neck or back pain. Review of Systems Constitutional: DENIES: Diaphoretic episodes, Fatigue, Fever, Weight gain, Weight loss, Chills, Dizziness, Change in appetite, Night Sweats Endocrine: DENIES: Heat/cold intolerance, Polydipsia, Polyuria, Polyphagia Eyes: DENIES: Blurred vision, Diplopia, Eye inflammation, Eye pain, Vision loss , Photosensitivity, Double Vision Ears, nose, mouth, throat: DENIES: Tinnitus, Hearing loss, Vertigo, Nasal discharge, Oral lesions, Throat pain, Hoarseness, Ear Pain, Running Nose, Epistaxis, Sinus Pain, Toothache, Odynophagia Respiratory: DENIES: Apneas, Cough, Snoring, Wheezing, Hemoptysis, Sputum production, Shortness of breath Cardiovascular: COMPLAINS OF: Chest pain, DENIES: Palpitations, Syncope, Dyspnea on Exertion, PND, Lower Extremity Edema, Orthopnea, Claudication Gastrointestinal: DENIES: Abdominal pain, Black stools, Bloody stools, Constipation, Diarrhea, Nausea, Vomiting, Difficulty Swallowing, Anorexia Genitourinary: DENIES: Sexual dysfunction, Urinary frequency, Urinary incontinence, Urgency, Hematuria, Dysuria, Nocturia, Penile Discharge, Testicular Pain, Testicular Swelling Musculoskeletal: COMPLAINS OF: Joint pain, Muscle aches, Stiffness Integumentary: DENIES: Abnormal pigmentation, Nail changes, Pruritus, Rash Hematologic/lymphatic: COMPLAINS OF: Bruising, DENIES: Lymphadenopathy Immunologic/allergic: DENIES: Eczema, Urticaria Neurologic: COMPLAINS OF: Abnormal gait, Headache, Poor Balance, DENIES: Localized weakness, Paresthesias, Seizures, Speech Problems, Tremor Psychiatric: DENIES: Anxiety, Confusion, Mood changes, Depression, Hallucinations, Agitation, Suicidal Ideation, Homicidal Ideation, Delusions Past Family Social History Allergies: Coded Allergies: No Known Allergies (Verified Allergy, Unknown, 06/18/17) Past Medical History Diabetes mellitus, hypertension, osteoarthritis, gout, hard of hearing, diverticulitis Past Surgical History Abdominal Surgery: Yes (PART OF COLON REMOVED FROM DIVERTICULITIS) Appendectomy: Yes Genitourinary Surgery: Yes (VASECTOMY) Joint Replacement: Yes (left knee) Tonsillectomy: Yes Reported Medications Zofran Odt (Ondansetron Odt) 4 Mg Tab 4 Mg SL Q6HR PRN Hydrocodone-Acetaminophen 5-325 mg Tab 1 Tab PO Q6H PRN Flagyl (Metronidazole) 500 Mg Tab 500 Mg PO BID 10 Days Cipro (Ciprofloxacin HCl) 500 Mg Tab 500 Mg PO BID 10 Days Reported Allopurinol 100 Mg Tab 100 Mg PO DAILY Aspirin EC (Aspirin) 81 Mg Tabdr 81 Mg PO DAILY Metformin (Metformin HCl) 500 Mg Tab 500 Mg PO DAILY With a meal Sertraline (Sertraline HCl) 50 Mg Tab 50 Mg PO DAILY Hydrochlorothiazide 12.5 Mg Cap 12.5 Mg PO DAILY Metoprolol Succinate ER 24 HR (Metoprolol Succinate) 100 Mg Tab 100 Mg PO DAILY Lisinopril 10 Mg Tab 10 Mg PO DAILY Omeprazole 20 Mg Tab 20 Mg PO DAILY Active Ordered Medications Current Medications Medications (Trade) Dose Ordered Sig/Roby Route PRN Reason Start Time Stop Time Status Last Admin Dose Admin Sodium Chloride (NS Flush) 2 ml UNSCH PRN IV FLUSH FLUSH AFTER USING IV ACCESS 06/18/17 16:30 Sodium Chloride (NS Flush) 2 ml BID IV FLUSH 06/18/17 21:00 Lorazepam (Ativan Inj) 1 mg Q1H PRN IV PUSH SEIZURES 06/18/17 16:30 Al Hydrox/Mg Hydrox/Simethicone (Mag-Al Plus Susp Liq) 30 ml Q6H PRN PO DYSPEPSIA 06/18/17 16:30 Pantoprazole Sodium (Protonix) 40 mg DAILY PO 06/19/17 09:00 Ondansetron HCl (Zofran Inj) 4 mg Q6H PRN IV PUSH NAUSEA OR VOMITING 06/18/17 16:30 Promethazine HCl (Phenergan Inj) 25 mg Q4H PRN IM NAUSEA OR VOMITING 06/18/17 16:30 Calcium Gluconate 1 gm/Sodium Chloride 110 ml @ 110 mls/hr UNSCH PRN IV SEE LABEL COMMENTS 06/18/17 16:30 Potassium Chloride 100 ml @ 50 mls/hr UNSCH PRN IV POTASSIUM LESS THAN 4 06/18/17 16:30 Magnesium Sulfate 2 gm/Sodium Chloride 104 ml @ 100 mls/hr UNSCH PRN IV MAGNESIUM LESS THAN 2 06/18/17 16:30 Acetaminophen/ Hydrocodone Bitart ([place] 10-325 Mg) 1 tab Q4H PRN PO PAIN SCALE 1 TO 5 06/18/17 16:30 Acetaminophen/ Hydrocodone Bitart ([place] 10-325 Mg) 2 tab Q4H PRN PO PAIN SCALE 6 TO 10 06/18/17 16:30 Morphine Sulfate (Morphine Inj) 2 mg Q2H PRN IV PUSH breakthrough pain> 6 06/18/17 16:30 Labetalol HCl (Trandate Inj) 10 mg Q1H PRN IV PUSH SYS BP GREATER THAN 170 MMHG 06/18/17 16:30 Clonidine (Catapres) 0.1 mg Q6H PRN PO SYS BP GREATER THAN 170 MMHG 06/18/17 16:30 Acetaminophen (Tylenol) 650 mg Q4H PRN PO TEMPERATURE > 101.5 F 06/18/17 16:30 Bacitracin (Baciguent Oint) 1 applic BID TOP 06/18/17 21:00 Menthol ([place] Susan) 1 lozenge UNSCH PRN BUCCAL SORE THROAT 06/18/17 16:30 Zolpidem Tartrate (Ambien) 5 mg HS PRN PO INSOMNIA 06/18/17 16:30 Albuterol Sulfate (Albuterol Neb) 2.5 mg Q4HR NEB PRN NEB WHEEZING 06/18/17 16:30 Senna/Docusate Sodium (Jennifer-Colace) 1 tab BID PO 06/18/17 21:00 Magnesium Hydroxide (Milk Of Magnesia Liq) 30 ml Q12H PRN PO Mild constipation 06/18/17 16:30 Sennosides (Senokot) 17.2 mg Q12H PRN PO Moderate constipation 06/18/17 16:30 Bisacodyl (Dulcolax Supp) 10 mg DAILY PRN RECTAL SEVERE CONSITIPATION 06/18/17 16:30 Lactulose (Lactulose Liq) 30 ml DAILY PRN PO SEVERE CONSITIPATION 06/18/17 16:30 Allopurinol (Zyloprim) 100 mg DAILY PO 06/19/17 09:00 Ciprofloxacin (Cipro) 500 mg BID PO 06/18/17 21:00 Hydrochlorothiazide (Microzide) 12.5 mg DAILY PO 06/19/17 09:00 Lisinopril (Prinivil) 10 mg DAILY PO 06/19/17 09:00 Metronidazole (Flagyl) 500 mg BID PO 06/18/17 21:00 Sertraline HCl (Zoloft) 50 mg DAILY PO 06/19/17 09:00 Dextrose (D50w (Vial) Inj) 50 ml UNSCH PRN IV PUSH HYPOGLYCEMIA-SEE COMMENTS 06/18/17 16:30 Glucagon (Glucagon Inj) 1 mg UNSCH PRN OTHER HYPOGLYCEMIA-SEE COMMENTS 06/18/17 16:30 Insulin Human Regular (NovoLIN R SUPPLEMENTAL SCALE) 1 ACHS SLIDING SCALE SQ 06/18/17 17:00 Metoprolol Succinate (Toprol Xl) 100 mg DAILY PO 06/19/17 09:00 Nicardipine HCl 25 mg/Sodium Chloride 250 ml @ 50 mls/hr TITRATE PRN IV Blood pressure management 06/18/17 18:00 UNV Family History Unremarkable Social History He is and drinks 2 alcoholic beverages daily along with smoking half pack of cigarettes a day Physical Exam Vital Signs Vital Signs Date Time Temp Pulse Resp B/P (MAP) Pulse Ox O2 Delivery O2 Flow Rate FiO2 06/18/17 16:00 98 16 168/103 (124) 98 Room Air 06/18/17 14:12 96 16 166/107 (126) 98 Room Air 06/18/17 10:31 97.6 98 16 179/111 (133) 95 06/18/17 10:31 97 16 94 Room Air Physical Exam GENERAL: Well-nourished, well-developed patient in no acute distress. SKIN: Warm and dry. HEAD: Normocephalic, left eyebrow forehead laceration which has been Steri- Stripped. EYES: No scleral icterus. No injection or drainage. ENT: No nasal drainage noted. Mucous membranes pink. Airway patent. NECK: Supple, trachea midline. No JVD. CARDIOVASCULAR: Regular rate and rhythm without murmurs, gallops, or rubs. RESPIRATORY: Breath sounds equal bilaterally. No accessory muscle use. Complains of left-sided chest wall pain. GASTROINTESTINAL: Abdomen soft, non-tender, nondistended. EXTREMITIES: No cyanosis or edema in the legs. He has left shoulder ecchymosis. BACK: Nontender without obvious deformity. No CVA tenderness. NEUROLOGICAL: Awake and alert. Pupils Equal and reactive. EOMI. Face symmetric. Tongue midline. Cranial nerves II through XII intact. Motor and sensory grossly within normal limits. Five out of 5 muscle strength in all muscle groups. Normal speech. Normal comprehension. DTR's symmetric. Negative Veloz' s reflex. Negative Babinski. Laboratory Laboratory Tests Test 06/18/17 10:50 White Blood Count 6.6 Red Blood Count 4.39 Hemoglobin 16.9 Hematocrit 47.8 Mean Corpuscular Volume 109.0 Mean Corpuscular Hemoglobin 38.5 Mean Corpuscular Hemoglobin Concent 35.3 Red Cell Distribution Width 16.9 Platelet Count 150 Mean Platelet Volume 7.3 Neutrophils (%) (Auto) 71.5 Lymphocytes (%) (Auto) 17.9 Monocytes (%) (Auto) 9.2 Eosinophils (%) (Auto) 1.0 Basophils (%) (Auto) 0.4 Neutrophils # (Auto) 4.7 Lymphocytes # (Auto) 1.2 Monocytes # (Auto) 0.6 Eosinophils # (Auto) 0.1 Basophils # (Auto) 0.0 CBC Comment DIFF FINAL Differential Comment Prothrombin Time 11.5 Prothromb Time International Ratio 1.1 Activated Partial Thromboplast Time 24.5 Blood Urea Nitrogen 8 Creatinine 0.81 Random Glucose 124 Total Protein 7.1 Albumin 3.7 Calcium Level 9.0 Alkaline Phosphatase 105 Aspartate Amino Transf (AST/SGOT) 59 Alanine Aminotransferase (ALT/SGPT) 30 Total Bilirubin 1.5 Sodium Level 141 Potassium Level 3.3 Chloride Level 106 Carbon Dioxide Level 24.7 Anion Gap 10 Estimat Glomerular Filtration Rate 96 Troponin I LESS THAN 0.02 Result Diagram: 06/18/17 1050 06/18/17 1050 Imaging Last Impressions Chest X-Ray 06/18/17 1232 Signed Impressions: Service Date/Time: Sunday, June 18, 2017 13:32 - CONCLUSION: 1. No acute pulmonary infiltrates. 2. Nondisplaced fracture involving the lateral last at the left fourth rib. 3. Compensated cardiomegaly. Les Liao MD Head CT 06/18/17 1153 Signed Impressions: Service Date/Time: Sunday, June 18, 2017 13:43 - CONCLUSION: 1. Focal intra-axial hemorrhage in the bilateral frontal lobes consistent with hemorrhagic contusions. No definite extra-axial or intraventricular Hemorrhage. No hydrocephalus or herniation. Denzel Kelly MD Cervical Spine CT 06/18/17 1153 Signed Impressions: Service Date/Time: Sunday, June 18, 2017 13:43 - CONCLUSION: 1. No acute bony fracture. 2. Primary bony degenerative changes involving the cervical spine. Les Liao MD Shoulder X-Ray 06/18/17 0000 Signed Impressions: Service Date/Time: Sunday, June 18, 2017 16:45 - CONCLUSION: No acute fracture or joint dislocation. Les Liao MD Capjen VTE Risk Assessment Caprini VTE Risk Assessment: Mod/High Risk (score >= 2) VTE Pharm Contraindication: Hemorrhage Caprini Risk Assessment Model Point Value = 1 Point Value = 2 Point Value = 3 Point Value = 5 Age 41-60 Minor surgery BMI > 25 kg/m2 Swollen legs Varicose veins or History of unexplained or recurrent spontaneous Oral contraceptives or hormone replacement Sepsis (< 1 month) Serious lung disease, including pneumonia (< 1 month) Abnormal pulmonary function Acute myocardial infarction Congestive heart failure (< 1 month) History of inflammatory bowel disease Medical patient at bed rest Age 61-74 Arthroscopic surgery Major open surgery (> 45 min) Laparoscopic surgery (> 45 min) Malignancy Confined to bed (> 72 hours) Immobilizing plaster cast Central venous access Age >= 75 History of VTE Family history of VTE Factor V Leiden Prothrombin [id number] Lupus anticoagulant Anticardiolipin antibodies Elevated serum homocysteine Heparin-induced thrombocytopenia Other congenital or acquired thrombophilia Stroke (< 1 month) Elective arthroplasty Hip, pelvis, or leg fracture Acute spinal cord injury (< 1 month) Prophylaxis Regimen Total Risk Factor Score Risk Level Prophylaxis Regimen 0-1 Low Early ambulation 2 Moderate Order ONE of the following: *Sequential Compression Device (SCD) *Heparin 5000 units SQ BID 3-4 Higher Order ONE of the following medications: *Heparin 5000 units SQ TID *Enoxaparin/Lovenox 40 mg SQ daily (WT < 150 kg, CrCl > 30 mL/min) *Enoxaparin/Lovenox 30 mg SQ daily (WT < 150 kg, CrCl > 10-29 mL/min) *Enoxaparin/Lovenox 30 mg SQ BID (WT < 150 kg, CrCl > 30 mL/min) AND/OR *Sequential Compression Device (SCD) 5 or more Highest Order ONE of the following medications: *Heparin 5000 units SQ TID (Preferred with Epidurals) *Enoxaparin/Lovenox 40 mg SQ daily (WT < 150 kg, CrCl > 30 mL/min) *Enoxaparin/Lovenox 30 mg SQ daily (WT < 150 kg, CrCl > 10-29 mL/min) *Enoxaparin/Lovenox 30 mg SQ BID (WT < 150 kg, CrCl > 30 mL/min) AND *Sequential Compression Device (SCD) Assessment and Plan Diagnosis: (1) HTN (hypertension) ICD Codes: I10 - Essential (primary) hypertension (2) Diabetes ICD Codes: E11.9 - Type 2 diabetes mellitus without complications Status: Chronic (3) Frontal lobe contusion ICD Codes: S06.339A - Contusion and laceration of cerebrum, unspecified, with loss of consciousness of unspecified duration, initial encounter Status: Acute (4) Rib fracture ICD Codes: S22.39XA - Fracture of one rib, unspecified side, initial encounter for closed fracture Status: Acute Assessment and Plan 66-year-old gentleman with a chronic history of falls who apparently fell today with positive loss of consciousness with bilateral small frontal lobe contusions. Had extensive workup for his falls including evaluation at [facility] without any concrete underlying etiology other than what he states he relates that this could be related to possibly his blood pressure fluctuation. He has unregulated hypertension which will be controlled with the as needed medications and Cardene drip if needed to keep the systolic blood pressure less than 160. Insulin sliding scale coverage for his diabetes. Pain control for left-sided chest wall pain from rib fracture. Admit to intensive care unit for close neurologic monitoring and hypertension regulation along with pain control with follow-up CT scan of the head tomorrow morning to rule out any progression of the small areas of cerebral contusions. We will consult the trauma surgery for trauma clearance as well as hospitalist for assistance in his medical management. Problem Qualifiers (1) Diabetes: (2) Frontal lobe contusion: Qualified Codes: S06.331A - Contusion and laceration of cerebrum, unspecified, with loss of consciousness of 30 minutes or less, initial encounter (3) Rib fracture: Qualified Codes: S22.32XA - Fracture of one rib, left side, initial encounter for closed fracture Matt Cerrato MD June 18, 2017 18:35
[2017-06-18] MEDS: SODIUM CHLORIDE 0.9% FLUSH 10 ML FLUSH IV FLUSH SCH (21:00)
[2017-06-18] MEDS: DOCUSATE SODIUM 50 MG/SENNA 8.6 MG TAB PO SCH (21:00)
[2017-06-18] MEDS: metroNIDAZOLE 500 MG TAB PO SCH (21:39)
[2017-06-18] MEDS: CIPROFLOXACIN 500 MG TAB PO SCH (21:39)
[2017-06-18] MEDS: BACITRACIN TOP OINT 15 GM TUBE TOP SCH (21:39)
[2017-06-19] VITALS (15 sets, daily range): BP systolic 126–161; BP diastolic 81–95; PULSE 71–82; RESP 12–21; TEMP 98.2–98.9; O2SAT 94–100
[2017-06-19] MEDS: MORPHINE SULFATE 4 MG/ML INJ IV PUSH PRN ×3 (01:46→18:21)
[2017-06-19 06:15] LABS: AUTOMATED NEUTROPHIL # 4.6 TH/MM3 (1.8-7.7); BASOPHIL % 0.3 % (0.0-2.0); EOSINOPHIL # 0.1 TH/MM3 (0-0.4); EOSINOPHIL % 1.1 % (0.0-4.0); HEMATOCRIT 42.4 % (39.0-51.0); HEMOGLOBIN 15.2 GM/DL (13.0-17.0); LYMPH % 18.5 % (9.0-44.0); LYMPHOCYTE # 1.2 TH/MM3 (1.0-4.8); MEAN CELL VOLUME 109.6 FL (80.0-100.0); MEAN CORPUSCULAR HEMOGLOBIN 39.3 PG (27.0-34.0); MEAN CORPUSCULAR HGB CONC 35.8 % (32.0-36.0); MEAN PLATELET VOLUME 7.5 FL (7.0-11.0); MONO % 9.3 % (0.0-8.0); MONOCYTE # 0.6 TH/MM3 (0-0.9); NEUT % 70.8 % (16.0-70.0); PLATELET COUNT 125 TH/MM3 (150-450); RED BLOOD COUNT 3.87 MIL/MM3 (4.50-5.90); RED CELL DISTRIBUTION WIDTH 16.9 % (11.6-17.2); WHITE BLOOD COUNT 6.4 TH/MM3 (4.0-11.0)
[2017-06-19 06:54] LABS: BICARBONATE 25.4 MEQ/L (21.0-32.0); CALCIUM 8.6 MG/DL (8.5-10.1); CREATININE 0.64 MG/DL (0.60-1.30); MAGNESIUM 1.6 MG/DL (1.5-2.5)
[2017-06-19] MEDS: INSULIN NovoLIN REGULAR SUPPLEMENTAL SCALE SQ SCH ×4 (08:00→21:00)
[2017-06-19] MEDS: CIPROFLOXACIN 500 MG TAB PO SCH ×3 (09:00→21:30)
[2017-06-19] MEDS: metroNIDAZOLE 500 MG TAB PO SCH ×4 (09:00→21:55)
[2017-06-19] MEDS ORDERED: NON-FORMULARY DRUG (Metoprolol Succinate ER 24 HR 100 MG) PO SCH (09:00)
[2017-06-19] MEDS: BACITRACIN TOP OINT 15 GM TUBE TOP SCH ×2 (09:00→21:00)
[2017-06-19] MEDS: SODIUM CHLORIDE 0.9% FLUSH 10 ML FLUSH IV FLUSH SCH ×2 (09:00→21:00)
--- NOTE | 2017-06-19 09:17 | RADRPT ---
EXAM DATE/TIME: 06/19/2017 08:43 [facility] COMPARISON: CT BRAIN W/O CONTRAST, June 18, 2017, 13:43. INDICATIONS : Bilateral frontal lobe contusions. RADIATION DOSE: 56.35 CTDIvol (mGy) MEDICAL HISTORY : Diabetes mellitus type 2. Traumatic head injury. SURGICAL HISTORY : None. ENCOUNTER: Subsequent ACUITY: 2 days PAIN SCALE: 0/10 LOCATION: cranial TECHNIQUE: Multiple contiguous axial images were obtained of the head. Using automated exposure control and adj ustment of the mA and/or kV according to patient size, radiation dose was kept as low as reasonably a chievable to obtain optimal diagnostic quality images. DICOM format image data is available electro nically for review and comparison. FINDINGS: CEREBRUM: There has been interval increase in the size of the right lateral frontal hematoma, now measuring 1.9 cm (previously measured 1.2 cm). There is no significant mass effect or effacement of the surroundi ng sulci and the frontal horn of the right lateral ventricle is stable in appearance, not effaced. T he left high convexity medial frontal hemorrhage is stable in size measuring 8 mm. No new hemorrhage s seen. POSTERIOR FOSSA: The cerebellum and brainstem are intact. The 4th ventricle is midline. The cerebellopontine angle i s unremarkable. EXTRACRANIAL: The visualized portion of the orbits is intact. SKULL: The calvaria is intact. No evidence of skull fracture. CONCLUSION: 1. Increasing size right frontal hematoma, now measuring 1.9 cm. Stable left medial frontal hemorrha ge. 2. No new findings. Ronnell Pineda MD on June 19, 2017 at 9:13 Board Certified Radiologist. This report was verified electronically.
[2017-06-19] MEDS: HYDROCHLOROTHIAZIDE 12.5 MG CAP PO SCH (09:53)
[2017-06-19] MEDS: SERTRALINE HCL 50 MG TAB PO SCH (09:54)
[2017-06-19] MEDS: DOCUSATE SODIUM 50 MG/SENNA 8.6 MG TAB PO SCH ×2 (09:54→21:00)
[2017-06-19] MEDS: METOPROLOL SUCCINATE 50 MG EXTENDED RELEASE TAB PO SCH (09:54)
[2017-06-19] MEDS: LISINOPRIL 10 MG TAB PO SCH (09:54)
[2017-06-19] MEDS: PANTOPRAZOLE SOD 40 MG DELAYED RELEASE TAB PO SCH (09:54)
--- NOTE | 2017-06-19 10:11 | HHI.NSPN ---
(Mason Parker) History Chief Complaint: Mild headache. (Mason Parker) Interval History 66-year-old gentleman who presented to [facility] emergency room after a fall. He relates a positive loss of consciousness and complains of severe left- sided chest wall pain and initially had left shoulder pain which has improved along with mild headache. He has a history of frequent falls and states that he is undergone extensive workup including evaluation at the [facility] and the only thing they could relate this to was possibly low blood pressure. He denies feeling lightheaded or dizzy or any chest pain prior to these falls and relates that his legs just give out on him and usually occurs about once a month. He had a similar episode today and [place] market. Denies any nausea or vomiting and states that he is hungry. Denies any numbness or paresthesias in the upper lower extremities or any neck or back pain. 06/19/17: Pt awake and alert. Complains of headache but mild. No n/v. No paresthesias. Complains of left rib pain. (Mason Parker) Review of Systems General: Negative for: fever, chills, insomnia Respiratory: Negative for: shortness of breath, cough, sputum Cardiovascular: Negative for: chest pain Gastrointestinal: Negative for: nausea, vomitting, diarrhea, constipation ( Mason Parker) Exam Results Vital Signs Date Time Temp Pulse Resp B/P (MAP) Pulse Ox O2 Delivery O2 Flow Rate FiO2 06/19/17 07:00 98 Room Air 06/19/17 06:00 72 06/19/17 04:00 98.7 18 150/91 (110) Intake and Output 06/19/17 06/19/17 06/20/17 08:00 16:00 00:00 Intake Total 200 ml Balance 200 ml (Mason Parker) Physical Examination General: Pt sitting up in bed in NAD. Eyes: Pupils equal. Sclera anicteric. Resp: CTA bilaterally. Heart: NSR no murmurs Abd: Soft positive bs Skin: No cyanosis or erythema Muscle: Moves all 4 extremities. Some discomfort in left knee he states from previous left knee surgery. Neuro: Pt awake and alert. Follows commands well. Speech clear and appropriate. Sensation intact to light touch. (Mason Parker) Lab, Micro, Other Results Last Impressions Head CT 06/19/17 0800 Signed Impressions: Service Date/Time: June 08:43 - CONCLUSION: 1. Increasing size right frontal hematoma, now measuring 1.9 cm. Stable left medial frontal hemorrhage. 2. No new findings. Ronnell Pineda MD Chest X-Ray 06/18/17 1232 Signed Impressions: Service Date/Time: Sunday, June 18, 2017 13:32 - CONCLUSION: 1. No acute pulmonary infiltrates. 2. Nondisplaced fracture involving the lateral last at the left fourth rib. 3. Compensated cardiomegaly. Les Liao MD Cervical Spine CT 06/18/17 1153 Signed Impressions: Service Date/Time: Sunday, June 18, 2017 13:43 - CONCLUSION: 1. No acute bony fracture. 2. Primary bony degenerative changes involving the cervical spine. Les Liao MD Shoulder X-Ray 06/18/17 0000 Signed Impressions: Service Date/Time: Sunday, June 18, 2017 16:45 - CONCLUSION: No acute fracture or joint dislocation. Les Liao MD Laboratory Tests Test 06/18/17 10:50 06/18/17 20:51 06/19/17 05:27 White Blood Count 6.6 TH/MM3 6.4 TH/MM3 Red Blood Count 4.39 MIL/MM3 3.87 MIL/MM3 Hemoglobin 16.9 GM/DL 15.2 GM/DL Hematocrit 47.8 % 42.4 % Mean Corpuscular Volume 109.0 FL 109.6 FL Mean Corpuscular Hemoglobin 38.5 PG 39.3 PG Mean Corpuscular Hemoglobin Concent 35.3 % 35.8 % Red Cell Distribution Width 16.9 % 16.9 % Platelet Count 150 TH/MM3 125 TH/MM3 Mean Platelet Volume 7.3 FL 7.5 FL Neutrophils (%) (Auto) 71.5 % 70.8 % Lymphocytes (%) (Auto) 17.9 % 18.5 % Monocytes (%) (Auto) 9.2 % 9.3 % Eosinophils (%) (Auto) 1.0 % 1.1 % Basophils (%) (Auto) 0.4 % 0.3 % Neutrophils # (Auto) 4.7 TH/MM3 4.6 TH/MM3 Lymphocytes # (Auto) 1.2 TH/MM3 1.2 TH/MM3 Monocytes # (Auto) 0.6 TH/MM3 0.6 TH/MM3 Eosinophils # (Auto) 0.1 TH/MM3 0.1 TH/MM3 Basophils # (Auto) 0.0 TH/MM3 0.0 TH/MM3 CBC Comment DIFF FINAL DIFF FINAL Differential Comment Prothrombin Time 11.5 SEC Prothromb Time International Ratio 1.1 RATIO Activated Partial Thromboplast Time 24.5 SEC Blood Urea Nitrogen 8 MG/DL 11 MG/DL Creatinine 0.81 MG/DL 0.64 MG/DL Random Glucose 124 MG/DL 103 MG/DL Total Protein 7.1 GM/DL Albumin 3.7 GM/DL Calcium Level 9.0 MG/DL 8.6 MG/DL Alkaline Phosphatase 105 U/L Aspartate Amino Transf (AST/SGOT) 59 U/L Alanine Aminotransferase (ALT/SGPT) 30 U/L Total Bilirubin 1.5 MG/DL Sodium Level 141 MEQ/L 138 MEQ/L Potassium Level 3.3 MEQ/L 3.4 MEQ/L Chloride Level 106 MEQ/L 104 MEQ/L Carbon Dioxide Level 24.7 MEQ/L 25.4 MEQ/L Anion Gap 10 MEQ/L 9 MEQ/L Estimat Glomerular Filtration Rate 96 ML/MIN 126 ML/MIN Troponin I LESS THAN 0.02 NG/ML Nasal Screen MRSA (PCR) MRSA NOT DETECTED Magnesium Level 1.6 MG/DL (Mason Parker) Medical Decision Making Impression and Plan Diagnosis: (1) HTN (hypertension) ICD Codes: I10 - Essential (primary) hypertension (2) Diabetes ICD Codes: E11.9 - Type 2 diabetes mellitus without complications Status: Chronic (3) Frontal lobe contusion ICD Codes: S06.339A - Contusion and laceration of cerebrum, unspecified, with loss of consciousness of unspecified duration, initial encounter Status: Acute (4) Rib fracture ICD Codes: S22.39XA - Fracture of one rib, unspecified side, initial encounter for closed fracture Status: Acute Assessment and Plan 66-year-old gentleman with a chronic history of falls who apparently fell on 06/18 with positive loss of consciousness with bilateral small frontal lobe contusions. Had extensive workup for his falls including evaluation at [facility] without any concrete underlying etiology other than what he states he relates that this could be related to possibly his blood pressure fluctuation. He has unregulated hypertension which will be controlled with the as needed medications and Cardene drip if needed to keep the systolic blood pressure less than 160. Insulin sliding scale coverage for his diabetes. Pain control for left-sided chest wall pain from rib fracture. He has had some expansion of his cerebral contusions and will be monitored closely in intensive care unit. Continue with hypertension regulation along with pain control. (Mason Parker) Attending Statement The exam, history, and the medical decision-making described in the above note were completed with the assistance of the mid-level provider. I reviewed and agree with the findings presented. I attest that I had a [id number] encounter with the patient on the same day, and personally performed and documented my assessment and findings in the medical record. Follow-up CT scan of the head with the blossoming right frontal lobe contusion of the clinically exam is stable. Hypertension well-regulated at this point. Increase activity status as tolerated with observation and supportive care. (Matt Cerrato MD) Mason Parker June 19, 2017 10:11 Matt Cerarto MD June 19, 2017 13:00
[2017-06-19] MEDS: ALLOPURINOL 100 MG TAB PO SCH (10:12)
--- NOTE | 2017-06-19 10:35 | RADRPT ---
EXAM DATE/TIME: 06/19/2017 09:40 [facility] COMPARISON: CHEST PA & LAT, June 18, 2017, 13:32. SHOULDER LEFT LTD (2VWS), June 18, 2017, 16:45. INDICATIONS : Chest pain MEDICAL HISTORY : Hypertension. Diabetes mellitus type II. SURGICAL HISTORY : None. ENCOUNTER: Subsequent ACUITY: 2 days PAIN SCORE: 4/10 LOCATION: Left chest FINDINGS: The heart is mildly enlarged. There is blunting of the costophrenic sulcus at the left base. This wou ld suggest a small left basilar effusion. This is new when compared to previous dated 06/18/17. The rig ht lung is clear. No pneumothorax is seen. The osseous structures again demonstrate a minimally displaced left-sided rib fracture. CONCLUSION: 1. No pneumothorax identified. 2. Small left basilar effusion. 3. Left-sided rib fracture. Felipe Domingo MD on June 19, 2017 at 10:32 Board Certified Radiologist. This report was verified electronically.
[2017-06-19] MEDS: LABETALOL HCL 100 MG/20 ML VIAL IV PUSH PRN ×2 (11:20→18:34)
--- NOTE | 2017-06-19 11:51 | HHI.CCPN ---
Subjective Brief History Patient fell in the bathroom striking his head with a brief loss of consciousness. He was admitted to the neurosurgery service with bifrontal contusions and a single rib fracture. He is currently being worked up for frequent falls. Objective Vital Signs Date Time Temp Pulse Resp B/P (MAP) Pulse Ox O2 Delivery O2 Flow Rate FiO2 06/19/17 10:00 79 06/19/17 08:00 98.7 19 152/95 (114) 96 06/19/17 07:00 Room Air Intake and Output 06/19/17 06/19/17 06/20/17 08:00 16:00 00:00 Intake Total 200 ml Balance 200 ml Result Diagram: 06/19/17 0527 06/19/17 0527 Imaging Last [address] 06/19/17 0800 Signed Impressions: Service Date/Time: June 08:43 - CONCLUSION: 1. Increasing size right frontal hematoma, now measuring 1.9 cm. Stable left medial frontal hemorrhage. 2. No new findings. Ronnell Pineda MD Chest X-Ray 06/19/17 0000 Signed Impressions: Service Date/Time: June 09:40 - CONCLUSION: 1. No pneumothorax identified. 2. Small left basilar effusion. 3. Left-sided rib fracture. Felipe Domingo MD Chest X-Ray 06/18/17 1232 Signed Impressions: Service Date/Time: Sunday, June 18, 2017 13:32 - CONCLUSION: 1. No acute pulmonary infiltrates. 2. Nondisplaced fracture involving the lateral last at the left fourth rib. 3. Compensated cardiomegaly. Les Liao MD Head CT 06/18/17 115 Signed Impressions: Service Date/Time: Sunday, June 18, 2017 13:43 - CONCLUSION: 1. Focal intra-axial hemorrhage in the bilateral frontal lobes consistent with hemorrhagic contusions. No definite extra-axial or intraventricular Hemorrhage. No hydrocephalus or herniation. Denzel Kelly MD Cervical Spine CT 06/18/17 1150 Signed Impressions: Service Date/Time: Sunday, June 18, 2017 13:43 - CONCLUSION: 1. No acute bony fracture. 2. Primary bony degenerative changes involving the cervical spine. Les Liao MD Exam [employer] Alert and oriented no acute distress Hemodynamic/Cardiac Regular rate and rhythm Pulmonary/Respiratory Clear to auscultation bilaterally Abdomen/GI Nutrition Soft, nontender nondistended, tolerating diet Assessment and Plan Plan Continue management of the bifrontal contusions per neurosurgery Patient's chest x-ray appears stable with no indication for chest tube at this time. There is a small left-sided hemothorax recommend repeat chest x-ray tomorrow. Continue syncopal workup if indicated, patient is currently being worked up for this at an outside hospital Marco Julien MD June 19, 2017 11:51
--- NOTE | 2017-06-19 14:01 | EKG ---
Date Performed: 06/18/2017 Time Performed: 11:05:17 PTAGE: 66 years EKG: Sinus rhythm POSSIBLE LEFT ATRIAL ENLARGEMENT BORDERLINE ECG NO PREVIOUS TRACING DOCTOR: Cat Victor Interpretating Date/Time 06/19/2017 13:58:13
--- NOTE | 2017-06-19 14:53 | PD.CONS ---
HPI Service [facility] Consult Requested By Reason for Consult Medical Management Primary Care Physician Unknown Diagnoses: (1) Frontal lobe contusion (2) Rib fracture (3) HTN (hypertension) (4) Diabetes History of Present Illness This is a 66-year-old male with a history of hypertension and type 2 diabetes who fell at a grocery store yesterday. He fell onto his head causing loss of consciousness and suffered soft tissue injuries of the left shoulder as well as a left fractured rib. Due to head trauma he was admitted to neurosurgery, initial CT scan showed hematoma of the frontal lobe. Follow-up CT today shows worsening of his hematoma with expansion from 1.2 cm to 1.9 cm. He states that he still has a headache. He denies photophobia. Further history reveals that this is not his first fall. He had a small fall approximately 2 months ago and had a larger fall approximately 1 year ago. From his fall a year ago he suffered postconcussive syndrome for a few months, mostly exhibited as headaches and difficulty with concentration. His chief complaint at this time is left rib pain. Review of Systems Constitutional: DENIES: Diaphoretic episodes, Fatigue, Fever, Weight gain, Weight loss, Chills Eyes: DENIES: Blurred vision, Diplopia, Eye pain, Vision loss, Photosensitivity , Double Vision Ears, nose, mouth, throat: DENIES: Hearing loss, Throat pain, Ear Pain, Sinus Pain Respiratory: DENIES: Apneas, Cough, Wheezing, Hemoptysis, Sputum production Cardiovascular: DENIES: Chest pain, Palpitations, Syncope, Dyspnea on Exertion , PND, Lower Extremity Edema Gastrointestinal: DENIES: Black stools, Bloody stools, Constipation, Diarrhea, Nausea Musculoskeletal: COMPLAINS OF: Stiffness Neurologic: COMPLAINS OF: Headache, Poor Balance, DENIES: Abnormal gait, Localized weakness, Paresthesias, Seizures, Speech Problems, Tremor Psychiatric: DENIES: Anxiety, Confusion, Mood changes, Depression Past Family Social History Allergies: Coded Allergies: metronidazole (Verified Allergy, Mild, Itching, 06/19/17) Past Medical History Hypertension, type 2 diabetes, diverticulitis, postconcussive syndrome Past Surgical History Left knee replacement, right orthostatic knee cleanout, appendectomy, colonic resection for diverticulitis Family History Renal cell carcinoma and brother, breast cancer in sister Social History Drinks 2-3 glasses of scotch per day, smokes one half pack of cigarettes per day Physical Exam Vital Signs Vital Signs Date Time Temp Pulse Resp B/P (MAP) Pulse Ox O2 Delivery O2 Flow Rate FiO2 06/19/17 14:00 81 06/19/17 12:00 71 06/19/17 12:00 98.5 71 21 161/95 (117) 95 06/19/17 10:00 79 06/19/17 08:00 98.7 75 19 152/95 (114) 96 06/19/17 08:00 75 06/19/17 07:00 98 Room Air 06/19/17 06:00 72 06/19/17 04:00 72 06/19/17 04:00 98.7 72 18 150/91 (110) 95 06/19/17 02:00 72 06/19/17 00:00 98.5 75 12 126/81 (96) 96 06/19/17 00:00 78 06/18/17 22:00 94 06/18/17 21:00 98.5 82 14 151/104 (120) 94 06/18/17 19:15 104 16 160/97 (118) 96 Room Air 06/18/17 18:36 94 16 174/108 (130) 97 Room Air 06/18/17 16:00 98 16 168/103 (124) 98 Room Air Physical Exam GENERAL: This is a well-nourished, well-developed patient, uncomfortable from rib fractures SKIN: Bruise with Steri-Strips skin repair on left forehead HEAD: Atraumatic. Normocephalic. No temporal or scalp tenderness. EYES: Pupils equal round and reactive. Extraocular motions intact. No scleral icterus. No injection or drainage. ENT: Nose without bleeding, purulent drainage or septal hematoma. Throat without erythema, tonsillar hypertrophy or exudate. Uvula midline. Airway patent. NECK: Trachea midline. No JVD or lymphadenopathy. Supple, nontender, no meningeal signs. CARDIOVASCULAR: Sinus tachycardia without murmurs, gallops, or rubs. RESPIRATORY: Clear to auscultation. Breath sounds equal bilaterally. No wheezes , rales, or rhonchi. Shallow effort due to rib fracture GASTROINTESTINAL: Abdomen soft, non-tender, nondistended. No hepato-splenomegaly , or palpable masses. No guarding. MUSCULOSKELETAL: Extremities without clubbing, cyanosis, or edema. No joint tenderness, effusion, or edema noted. No calf tenderness. Negative Homans sign bilaterally. NEUROLOGICAL: Awake and alert. Cranial nerves II through XII intact. Motor and sensory grossly within normal limits. Five out of 5 muscle strength in all muscle groups. Normal speech. Laboratory Laboratory Tests Test 06/18/17 20:51 06/19/17 05:27 Nasal Screen MRSA (PCR) MRSA NOT DETECTED White Blood Count 6.4 Red Blood Count 3.87 Hemoglobin 15.2 Hematocrit 42.4 Mean Corpuscular Volume 109.6 Mean Corpuscular Hemoglobin 39.3 Mean Corpuscular Hemoglobin Concent 35.8 Red Cell Distribution Width 16.9 Platelet Count 125 Mean Platelet Volume 7.5 Neutrophils (%) (Auto) 70.8 Lymphocytes (%) (Auto) 18.5 Monocytes (%) (Auto) 9.3 Eosinophils (%) (Auto) 1.1 Basophils (%) (Auto) 0.3 Neutrophils # (Auto) 4.6 Lymphocytes # (Auto) 1.2 Monocytes # (Auto) 0.6 Eosinophils # (Auto) 0.1 Basophils # (Auto) 0.0 CBC Comment DIFF FINAL Differential Comment Blood Urea Nitrogen 11 Creatinine 0.64 Random Glucose 103 Calcium Level 8.6 Magnesium Level 1.6 Sodium Level 138 Potassium Level 3.4 Chloride Level 104 Carbon Dioxide Level 25.4 Anion Gap 9 Estimat Glomerular Filtration Rate 126 Result Diagram: 06/19/1752606/19/17526 Assessment and Plan Problem List: (1) Frontal lobe contusion ICD Code: S06.339A - Contusion and laceration of cerebrum, unspecified, with loss of consciousness of unspecified duration, initial encounter Status: Acute (2) Rib fracture ICD Code: S22.39XA - Fracture of one rib, unspecified side, initial encounter for closed fracture Status: Acute (3) Diabetes ICD Code: E11.9 - Type 2 diabetes mellitus without complications Status: Chronic (4) HTN (hypertension) ICD Code: I10 - Essential (primary) hypertension Assessment and Plan Fall with frontal lobe contusion Patient's mental status and physical abilities are clear Repeat CT shows evolution of frontal lobe hematoma from 1.2 cm to 1.9 cm Will monitor 1 more night in the ICU, if stable tomorrow can transfer to [facility] if neurosurgery agrees Continue supportive care and blood pressure management Left rib fracture Continue pain control with hydrocodone and morphine Hypertension Adequate control, systolic of 161, will add selected home medications Type 2 diabetes Sliding scale insulin coverage with Accu-Cheks DVT prophylaxis Chemoprophylaxis held due to traumatic frontal lobe hematoma Continue SCDs Problem Qualifiers (1) Frontal lobe contusion: Qualified Codes: S06.331A - Contusion and laceration of cerebrum, unspecified, with loss of consciousness of 30 minutes or less, initial encounter (2) Rib fracture: Qualified Codes: S22.32XA - Fracture of one rib, left side, initial encounter for closed fracture (3) Diabetes: Adan Estes MD June 19, 2017 14:53
[2017-06-19] MEDS: LORazepam 2 MG/ML VIAL IV PUSH PRN (19:15)
[2017-06-19] MEDS ORDERED: ETOMIDATE 40 MG/20 ML VIAL ONE (19:30)
[2017-06-19] MEDS ORDERED: SUCCINYLCHOLINE CHLORIDE 200 MG/10 ML VIAL ONE (19:30)
[2017-06-19] MEDS ORDERED: PROPOFOL 500 MG/50 ML INJ 50 ML ONE (19:39)
[2017-06-19] MEDS: PROPOFOL 1000 MG/100 ML INJ 100 ML IV PRN ×2 (19:51→21:31)
[2017-06-19] MEDS: CHLORHEXIDINE 0.12% (ORAL KIT) 15 ML CUP MT SCH (20:00)
--- NOTE | 2017-06-19 20:45 | RADRPT ---
EXAM DATE/TIME: 06/19/2017 20:15 [facility] COMPARISON: CT BRAIN W/O CONTRAST, June 19, 2017, 8:43. INDICATIONS : Altered mental status. Seizure. RADIATION DOSE: 66.34 CTDIvol (mGy) MEDICAL HISTORY : Diabetes mellitus type 2. Traumatic head injury. SURGICAL HISTORY : None. ENCOUNTER: Subsequent ACUITY: 2 days PAIN SCALE: Non-responsive LOCATION: cranial TECHNIQUE: Multiple contiguous axial images were obtained of the head. Using automated exposure control and adj ustment of the mA and/or kV according to patient size, radiation dose was kept as low as reasonably a chievable to obtain optimal diagnostic quality images. DICOM format image data is available electro nically for review and comparison. FINDINGS: Compare exam done earlier today. Approximately 2 cm hematoma in the right frontal lobe and 8 mm hemat trevor in the left frontal lobe are stable. Minimal surrounding edema. No new intracranial hemorrhage. N o mass effect or shift. No acute bony abnormality. CONCLUSION: 1. Relatively stable right frontal and left frontal lobe hematomas associated minimal edema. Comparis on exam from earlier today. Jonathan Jim MD on June 19, 2017 at 20:41 Board Certified Radiologist. This report was verified electronically.
[2017-06-19] MEDS ORDERED: MAGNESIUM OXIDE 400 MG TAB PO PRN (21:00)
[2017-06-19] MEDS ORDERED: MAGNESIUM SULFATE INJ 4 GM in SODIUM CHLORIDE 0.9% INJ 92 ML IV PRN (21:00)
[2017-06-19] MEDS ORDERED: POTASSIUM PHOSPHATE MONOBASIC 500 MG TAB PO PRN (21:00)
[2017-06-19] MEDS ORDERED: FLUMAZENIL 0.5 MG/5 ML VIAL IV PUSH PRN (21:00)
[2017-06-19] MEDS: levETIRAcetam INJ 100 ML IV SCH ×2 (21:00→21:30)
[2017-06-19] MEDS ORDERED: POTASSIUM CHLOR 20 MEQ PREMIX 100 ML IV PRN (21:00)
[2017-06-19] MEDS ORDERED: LORazepam 1 MG TAB PO PRN (21:00)
[2017-06-19] MEDS ORDERED: MAGNESIUM SULFATE INJ 2 GM in SODIUM CHLORIDE 0.9% INJ 96 ML IV PRN (21:00)
[2017-06-19] MEDS ORDERED: POTASSIUM CHLOR 40 MEQ PREMIX 100 ML IV PRN ×2 (21:00)
[2017-06-19] MEDS ORDERED: POTASSIUM CHLORIDE 25 MEQ EFFERVESCENT TAB PO PRN (21:00)
[2017-06-19] MEDS ORDERED: LORazepam 2 MG TAB PO PRN (21:00)
[2017-06-19] MEDS ORDERED: POTASSIUM PHOSPHATE MONOBASIC 500 MG TAB PO/TUBE PRN (21:00)
[2017-06-19] MEDS ORDERED: LORazepam 2 MG/ML VIAL IV PUSH PRN ×3 (21:00)
[2017-06-19] MEDS ORDERED: SODIUM PHOSPHATE INJ 30 MMOL in SODIUM CHLOR 0.9% 250 ML INJ 240 ML IV PRN (21:00)
[2017-06-19] MEDS ORDERED: POTASSIUM PHOSPHATE INJ 30 MMOL in SODIUM CHLOR 0.9% 250 ML INJ 250 ML IV PRN (21:00)
--- NOTE | 2017-06-19 21:01 | PD.CONS ---
HPI Service Critical Care Medicine Consult Requested By Primary Care Physician Unknown History of Present Illness 66-year-old gentleman presents after a fall. He did have a positive loss of consciousness and complains of severe left-sided chest wall pain and initially had left shoulder pain which has improved along with mild headache. He has a history of frequent falls and states that he is undergone extensive workup including evaluation at the [facility] and the only thing they could relate this to was possibly low blood pressure. The CT of the head performed in the emergency department shows right frontal hematoma, left medial frontal hemorrhage. He was admitted to the neurosurgical service. Today at around 7 PM he suffered with generalized seizure, with significant altered mental status and post ictal condition, unable to protect and airways requiring emergent intubation. Review of Systems ROS Unable to obtain patient sedated and intubated Past Family Social History Allergies: Coded Allergies: metronidazole (Verified Allergy, Mild, Itching, 06/19/17) Past Medical History Hypertension, type 2 diabetes, diverticulitis, postconcussive syndrome Past Surgical History Left knee replacement, right orthostatic knee cleanout, appendectomy, colonic resection for diverticulitis Reported Medications Reported Meds & Active Scripts Active Zofran Odt (Ondansetron Odt) 4 Mg Tab 4 Mg SL Q6HR PRN Hydrocodone-Acetaminophen 5-325 mg Tab 1 Tab PO Q6H PRN Flagyl (Metronidazole) 500 Mg Tab 500 Mg PO BID 10 Days Cipro (Ciprofloxacin HCl) 500 Mg Tab 500 Mg PO BID 10 Days Reported Allopurinol 100 Mg Tab 100 Mg PO DAILY Aspirin EC (Aspirin) 81 Mg Tabdr 81 Mg PO DAILY Metformin (Metformin HCl) 500 Mg Tab 500 Mg PO DAILY With a meal Sertraline (Sertraline HCl) 50 Mg Tab 50 Mg PO DAILY Hydrochlorothiazide 12.5 Mg Cap 12.5 Mg PO DAILY Metoprolol Succinate ER 24 HR (Metoprolol Succinate) 100 Mg Tab 100 Mg PO DAILY Lisinopril 10 Mg Tab 10 Mg PO DAILY Omeprazole 20 Mg Tab 20 Mg PO DAILY Active Ordered Medications Current Medications Medications (Trade) Dose Ordered Sig/Roby Route PRN Reason Start Time Stop Time Status Last Admin Dose Admin Sodium Chloride (NS Flush) 2 ml UNSCH PRN IV FLUSH FLUSH AFTER USING IV ACCESS 06/18/17 16:30 Sodium Chloride (NS Flush) 2 ml BID IV FLUSH 06/18/17 21:00 06/19/17 09:00 Lorazepam (Ativan Inj) 1 mg Q1H PRN IV PUSH SEIZURES 06/18/17 16:30 06/19/17 19:15 Al Hydrox/Mg Hydrox/Simethicone (Mag-Al Plus Susp Liq) 30 ml Q6H PRN PO DYSPEPSIA 06/18/17 16:30 Pantoprazole Sodium (Protonix) 40 mg DAILY PO 06/19/17 09:00 06/19/17 09:54 Ondansetron HCl (Zofran Inj) 4 mg Q6H PRN IV PUSH NAUSEA OR VOMITING 06/18/17 16:30 Promethazine HCl (Phenergan Inj) 25 mg Q4H PRN IM NAUSEA OR VOMITING 06/18/17 16:30 Calcium Gluconate 1 gm/Sodium Chloride 110 ml @ 110 mls/hr UNSCH PRN IV SEE LABEL COMMENTS 06/18/17 16:30 Potassium Chloride 100 ml @ 50 mls/hr UNSCH PRN IV POTASSIUM LESS THAN 4 06/18/17 16:30 06/19/17 09:55 Magnesium Sulfate 2 gm/Sodium Chloride 104 ml @ 100 mls/hr UNSCH PRN IV MAGNESIUM LESS THAN 2 06/18/17 16:30 Acetaminophen/ Hydrocodone Bitart (Maud 10-325 Mg) 1 tab Q4H PRN PO PAIN SCALE 1 TO 5 06/18/17 16:30 06/18/17 21:58 Acetaminophen/ Hydrocodone Bitart (Maud 10-325 Mg) 2 tab Q4H PRN PO PAIN SCALE 6 TO 10 06/18/17 16:30 Morphine Sulfate (Morphine Inj) 2 mg Q2H PRN IV PUSH breakthrough pain> 6 06/18/17 16:30 06/19/17 12:39 Labetalol HCl (Trandate Inj) 10 mg Q1H PRN IV PUSH SYS BP GREATER THAN 170 MMHG 06/18/17 16:30 06/19/17 18:34 Clonidine (Catapres) 0.1 mg Q6H PRN PO SYS BP GREATER THAN 170 MMHG 06/18/17 16:30 06/18/17 21:58 Acetaminophen (Tylenol) 650 mg Q4H PRN PO TEMPERATURE > 101.5 F 06/18/17 16:30 Bacitracin (Baciguent Oint) 1 applic BID TOP 06/18/17 21:00 06/19/17 09:00 Menthol ([place] Susan) 1 lozenge UNSCH PRN BUCCAL SORE THROAT 06/18/17 16:30 Zolpidem Tartrate (Ambien) 5 mg HS PRN PO INSOMNIA 06/18/17 16:30 Albuterol Sulfate (Albuterol Neb) 2.5 mg Q4HR NEB PRN NEB WHEEZING 06/18/17 16:30 Senna/Docusate Sodium (Jennifer-Colace) 1 tab BID PO 06/18/17 21:00 06/19/17 09:54 Magnesium Hydroxide (Milk Of Magnesia Liq) 30 ml Q12H PRN PO Mild constipation 06/18/17 16:30 Sennosides (Senokot) 17.2 mg Q12H PRN PO Moderate constipation 06/18/17 16:30 Bisacodyl (Dulcolax Supp) 10 mg DAILY PRN RECTAL SEVERE CONSITIPATION 06/18/17 16:30 Lactulose (Lactulose Liq) 30 ml DAILY PRN PO SEVERE CONSITIPATION 06/18/17 16:30 Allopurinol (Zyloprim) 100 mg DAILY PO 06/19/17 09:00 06/19/17 10:12 Ciprofloxacin (Cipro) 500 mg BID PO 06/18/17 21:00 06/18/17 21:39 Hydrochlorothiazide (Microzide) 12.5 mg DAILY PO 06/19/17 09:00 06/19/17 09:53 Lisinopril (Prinivil) 10 mg DAILY PO 06/19/17 09:00 06/19/17 09:54 Metronidazole (Flagyl) 500 mg BID PO 06/18/17 21:00 06/18/17 21:39 Sertraline HCl (Zoloft) 50 mg DAILY PO 06/19/17 09:00 06/19/17 09:54 Dextrose (D50w (Vial) Inj) 50 ml UNSCH PRN IV PUSH HYPOGLYCEMIA-SEE COMMENTS 06/18/17 16:30 Glucagon (Glucagon Inj) 1 mg UNSCH PRN OTHER HYPOGLYCEMIA-SEE COMMENTS 06/18/17 16:30 Insulin Human Regular (NovoLIN R SUPPLEMENTAL SCALE) 1 ACHS SLIDING SCALE SQ 06/18/17 17:00 Metoprolol Succinate (Toprol Xl) 100 mg DAILY PO 06/19/17 09:00 06/19/17 09:54 Nicardipine HCl 25 mg/Sodium Chloride 250 ml @ 50 mls/hr TITRATE PRN IV Blood pressure management 06/18/17 18:00 Chlorhexidine Gluconate (Peridex 0.12% Liq) 15 ml BID@08,20 MT 06/19/17 20:00 Propofol 100 ml @ 2.4 mls/hr TITRATE PRN IV SEDATION 06/19/17 19:45 06/19/17 19:51 Chlordiazepoxide (Librium) 50 mg Taper Q6H PO 06/19/17 20:00 06/27/17 19:59 Levetriacetam 100 ml @ 400 mls/hr Q12HR IV 06/19/17 20:00 Family History Renal cell carcinoma and brother, breast cancer in sister Social History Drinks 2-3 glasses of scotch per day, smokes one half pack of cigarettes per day Physical Exam Vital Signs Vital Signs Date Time Temp Pulse Resp B/P (MAP) Pulse Ox O2 Delivery O2 Flow Rate FiO2 06/19/17 20:35 100 100 06/19/17 20:33 100 45 06/19/17 18:00 82 06/19/17 16:00 72 06/19/17 16:00 98.2 72 21 143/92 (109) 97 06/19/17 14:00 81 06/19/17 12:00 71 06/19/17 12:00 98.5 71 21 161/95 (117) 95 06/19/17 10:00 79 06/19/17 08:00 98.7 75 19 152/95 (114) 96 06/19/17 08:00 75 06/19/17 07:00 98 Room Air 06/19/17 06:00 72 06/19/17 04:00 72 06/19/17 04:00 98.7 72 18 150/91 (110) 95 06/19/17 02:00 72 06/19/17 00:00 98.5 75 12 126/81 (96) 96 06/19/17 00:00 78 06/18/17 22:00 94 06/18/17 21:00 98.5 82 14 151/104 (120) 94 Physical Exam GENERAL: Well-nourished, well-developed patient. Sedated and intubated SKIN: Warm and dry. HEAD: Normocephalic. EYES: No scleral icterus. No injection or drainage. NECK: Supple, trachea midline. No JVD or lymphadenopathy. CARDIOVASCULAR: Regular rate and rhythm without murmurs, gallops, or rubs. RESPIRATORY: Breath sounds equal bilaterally. No accessory muscle use. GASTROINTESTINAL: Abdomen soft, non-tender, nondistended. MUSCULOSKELETAL: No cyanosis, or edema. BACK: Nontender without obvious deformity. NEURO EXAM: GCS:7T Mental Status: Now sedated and intubated, briskly localizes pain. In all 4 extremities Laboratory Laboratory Tests Test 06/18/17 20:51 06/19/17 05:27 Nasal Screen MRSA (PCR) MRSA NOT DETECTED White Blood Count 6.4 Red Blood Count 3.87 Hemoglobin 15.2 Hematocrit 42.4 Mean Corpuscular Volume 109.6 Mean Corpuscular Hemoglobin 39.3 Mean Corpuscular Hemoglobin Concent 35.8 Red Cell Distribution Width 16.9 Platelet Count 125 Mean Platelet Volume 7.5 Neutrophils (%) (Auto) 70.8 Lymphocytes (%) (Auto) 18.5 Monocytes (%) (Auto) 9.3 Eosinophils (%) (Auto) 1.1 Basophils (%) (Auto) 0.3 Neutrophils # (Auto) 4.6 Lymphocytes # (Auto) 1.2 Monocytes # (Auto) 0.6 Eosinophils # (Auto) 0.1 Basophils # (Auto) 0.0 CBC Comment DIFF FINAL Differential Comment Blood Urea Nitrogen 11 Creatinine 0.64 Random Glucose 103 Calcium Level 8.6 Magnesium Level 1.6 Sodium Level 138 Potassium Level 3.4 Chloride Level 104 Carbon Dioxide Level 25.4 Anion Gap 9 Estimat Glomerular Filtration Rate 126 Result Diagram: 06/19/17 0527 06/19/17 05 Imaging Last [address] 06/19/17 0800 Signed Impressions: Service Date/Time: June 08:43 - CONCLUSION: 1. Increasing size right frontal hematoma, now measuring 1.9 cm. Stable left medial frontal hemorrhage. 2. No new findings. Ronnell Pineda MD Chest X-Ray 06/19/17 0000 Signed Impressions: Service Date/Time: June 09:40 - CONCLUSION: 1. No pneumothorax identified. 2. Small left basilar effusion. 3. Left-sided rib fracture. Felipe Domingo MD Septic Shock Reassessment Septic shock perfusion: reassessment completed Assessment and Plan Assessment and Plan Respiratory failure -Intubated for airway protection -No weaning until neurologically improve -Vent bundle -DuoNeb's as needed Traumatic ICH -Repeat CT head -Coagulopathy within normal limits -No intervention indicated Seizure -Loaded with Keppra -Keppra 1000 every 12 Diabetes mellitus -Insulin sliding scale Hypertension -Labetalol as needed -Hydrochlorothiazide -Lisinopril -Metoprolol Alcohol abuse -CIWA protocol Hypokalemia -Electrolyte replacement per ICU protocol DVT GI prophylaxis -Quoc's and SCDs -No pharmacological DVT prophylaxis due to ICH -Protonix Critical Care: The total critical care time was 35 minutes. Time to perform other separately billable procedures was not included in the critical care time. Eddy Huerta MD June 19, 2017 21:01
--- NOTE | 2017-06-19 21:03 | PD.PROCEDR ---
Procedure Note Procedure Endotracheal Intubation A time-out was completed verifying correct patient, procedure, site, positioning , and special equipment if applicable. The patient was placed in a flat position. Sedation was obtained using Etomidate 20mg. The patient was easily ventilated using an ambu bag. The [employer]/ MAC 4 BLADE was used and inserted into the oropharynx at which time there was a Grade 1 view of the vocal cords. A 8-mongolian endotracheal tube was inserted and visualized going through the vocal cords. The stylette was removed. Colorimetric change was visualized on the CO2 meter. Breath sounds were heard in both lung vance equally. The endotracheal tube was placed at 23 cm, measured at the teeth. A chest x-ray was ordered to assess for pneumothorax and verify endotrachealtube placement. Estimated Blood Loss: 0 The patient tolerated the procedure well and there were no complications. Eddy Huerta MD June 19, 2017 9:03 pm
[2017-06-19] MEDS: chlordiazePOXIDE 25 MG CAP PO SCH (21:31)
[2017-06-19] MEDS: MAGNESIUM SULFATE 1 GM PREMIX 100 ML IV SCH (21:54)
--- NOTE | 2017-06-19 22:47 | RADRPT ---
EXAM DATE/TIME: 06/19/2017 22:16 [facility] COMPARISON: CHEST SINGLE AP, June 19, 2017, 9:40. INDICATIONS : Intubation MEDICAL HISTORY : Hypertension. Diabetes mellitus type II. SURGICAL HISTORY : None. ENCOUNTER: Subsequent ACUITY: 2 days PAIN SCORE: Non-responsive. LOCATION: Bilateral chest FINDINGS: Endotracheal tube and nasogastric tube in good position. Mild basilar airspace disease, left greater than right with small left effusion. No pneumothorax. CONCLUSION: 1. Endotracheal tube and nasogastric tube in good position. Mild left basilar airspace disease and sm all effusion. Jonathan Jim MD on June 19, 2017 at 22:44 Board Certified Radiologist. This report was verified electronically.
[2017-06-20] VITALS (17 sets, daily range): BP systolic 105–141; BP diastolic 67–90; PULSE 60–73; RESP 14–27; TEMP 97.9–99.5; O2SAT 98–100
[2017-06-20] MEDS: MAGNESIUM SULFATE 1 GM PREMIX 100 ML IV SCH (00:34)
[2017-06-20] MEDS: chlordiazePOXIDE 25 MG CAP PO SCH ×4 (01:35→19:44)
[2017-06-20] MEDS: PROPOFOL 1000 MG/100 ML INJ 100 ML IV PRN ×4 (04:09→20:00)
--- NOTE | 2017-06-20 04:15 | RADRPT ---
EXAM DATE/TIME: 06/20/2017 03:25 [facility] COMPARISON: CHEST SINGLE AP, June 19, 2017, 22:16. INDICATIONS : Hemothorax. MEDICAL HISTORY : Hypertension. Diabetes mellitus type II. SURGICAL HISTORY : None. ENCOUNTER: Subsequent ACUITY: 3 days PAIN SCORE: Non-responsive. LOCATION: Bilateral chest FINDINGS: Endotracheal tube and nasogastric tube are present in stable position. Left base consolidation and fl uid are unchanged. Minimal right base parenchymal opacity also appears unchanged. Cardiac catheter is grossly stable. CONCLUSION: No significant change Stevenson Landeros MD on June 20, 2017 at 4:13 Board Certified Radiologist. This report was verified electronically.
[2017-06-20] MEDS: CHLORHEXIDINE 0.12% (ORAL KIT) 15 ML CUP MT SCH ×2 (08:00→20:00)
[2017-06-20] MEDS: INSULIN NovoLIN REGULAR SUPPLEMENTAL SCALE SQ SCH ×4 (08:00→20:08)
[2017-06-20] MEDS: metroNIDAZOLE 500 MG TAB PO SCH (08:07)
[2017-06-20] MEDS: SODIUM CHLORIDE 0.9% FLUSH 10 ML FLUSH IV FLUSH SCH ×2 (08:07→19:44)
[2017-06-20] MEDS: CIPROFLOXACIN 500 MG TAB PO SCH (08:07)
[2017-06-20] MEDS: BACITRACIN TOP OINT 15 GM TUBE TOP SCH ×2 (08:08→19:44)
[2017-06-20] MEDS: METOPROLOL SUCCINATE 50 MG EXTENDED RELEASE TAB PO SCH (08:20)
[2017-06-20] MEDS: HYDROCHLOROTHIAZIDE 12.5 MG CAP PO SCH (08:20)
[2017-06-20] MEDS: levETIRAcetam INJ 100 ML IV SCH ×2 (08:20→19:44)
[2017-06-20] MEDS: SERTRALINE HCL 50 MG TAB PO SCH (08:20)
[2017-06-20] MEDS: DOCUSATE SODIUM 50 MG/SENNA 8.6 MG TAB PO SCH ×2 (08:20→19:44)
[2017-06-20] MEDS: ALLOPURINOL 100 MG TAB PO SCH (08:21)
[2017-06-20] MEDS: PANTOPRAZOLE SOD 40 MG DELAYED RELEASE TAB PO SCH (08:21)
[2017-06-20] MEDS: LISINOPRIL 10 MG TAB PO SCH (08:21)
[2017-06-20 09:45] LABS: HEMATOCRIT 44.5 % (39.0-51.0); HEMOGLOBIN 15.4 GM/DL (13.0-17.0); MEAN CELL VOLUME 110.9 FL (80.0-100.0); MEAN CORPUSCULAR HEMOGLOBIN 38.4 PG (27.0-34.0); MEAN CORPUSCULAR HGB CONC 34.6 % (32.0-36.0); MEAN PLATELET VOLUME 7.8 FL (7.0-11.0); PLATELET COUNT 117 TH/MM3 (150-450); RED BLOOD COUNT 4.01 MIL/MM3 (4.50-5.90); RED CELL DISTRIBUTION WIDTH 16.9 % (11.6-17.2); WHITE BLOOD COUNT 6.6 TH/MM3 (4.0-11.0)
--- NOTE | 2017-06-20 09:47 | HHI.NSPN ---
(Mason Parker) History Chief Complaint: Mild headache. (Mason Parker) Interval History 66-year-old gentleman who presented to [facility] emergency room after a fall. He relates a positive loss of consciousness and complains of severe left- sided chest wall pain and initially had left shoulder pain which has improved along with mild headache. He has a history of frequent falls and states that he is undergone extensive workup including evaluation at the [facility] and the only thing they could relate this to was possibly low blood pressure. He denies feeling lightheaded or dizzy or any chest pain prior to these falls and relates that his legs just give out on him and usually occurs about once a month. He had a similar episode today and [place]. Denies any nausea or vomiting and states that he is hungry. Denies any numbness or paresthesias in the upper lower extremities or any neck or back pain. 06/19/17: Pt awake and alert. Complains of headache but mild. No n/v. No paresthesias. Complains of left rib pain. 06/20/17: Pt sedated on Diprivan. He was intubated yesterday. He had a seizure yesterday. History of ETOH use. (Mason Parker) System Review Comments Not able to obtain. (Mason Parker) Exam Results Vital Signs Date Time Temp Pulse Resp B/P (MAP) Pulse Ox O2 Delivery O2 Flow Rate FiO2 06/20/17 08:01 100 30 06/20/17 08:00 98.1 61 14 131/84 (100) 06/20/17 07:00 Mechanical Ventilator Intake and Output 06/20/17 06/20/17 06/21/17 08:00 16:00 00:00 Intake Total 110 ml Output Total 700 ml Balance -590 ml (Mason Parker) Physical Examination General: Pt intubated and sedated on Diprivan. Eyes: Pupils equal 3mm bilaterally reactive bilaterally. Sclera anicteric. Resp: Intubated. Pressure controlled. FiO2 30%. Rate 14. Peep 5. CTA bilaterally. Heart: NSR no murmurs Abd: Soft positive bs Skin: No cyanosis or erythema Muscle: Moves all 4 extremities to pain but not following for me. Reportedly squeezed his hands to command for RN. Neuro: Pt sedated and Intubated. Pupils 3mm bilaterally reactive bilaterally. Not following commands for me but sedated. Moves and withdraws all 4 extremities to pain. (Mason Parker) Lab, Micro, Other Results Last Impressions Chest X-Ray 06/20/17 0600 Signed Impressions: Service Date/Time: Tuesday, June 20, 2017 03:25 - CONCLUSION: No significant change Stevenson Landeros MD Head CT 06/19/17 0800 Signed Impressions: Service Date/Time: June 08:43 - CONCLUSION: 1. Increasing size right frontal hematoma, now measuring 1.9 cm. Stable left medial frontal hemorrhage. 2. No new findings. Ronnell Pineda MD Cervical Spine CT 06/18/17 1153 Signed Impressions: Service Date/Time: Sunday, June 18, 2017 13:43 - CONCLUSION: 1. No acute bony fracture. 2. Primary bony degenerative changes involving the cervical spine. Les Liao MD Shoulder X-Ray 06/18/17 0000 Signed Impressions: Service Date/Time: Sunday, June 18, 2017 16:45 - CONCLUSION: No acute fracture or joint dislocation. Les Liao MD Laboratory Tests Test 06/19/17 22:14 06/20/17 09:00 Blood Gas Puncture Site RT BRACHIAL Blood Gas Patient Temperature 98.6 Blood Gas HCO3 24 mmol/L Blood Gas Base Excess -0.2 mmol/L Blood Gas Oxygen Saturation 96 % Arterial Blood pH 7.41 Arterial Blood Partial Pressure CO2 39 mmHg Arterial Blood Partial Pressure O2 101 mmHg Arterial Blood Oxygen Content 20.2 Vol % Arterial Blood Carboxyhemoglobin 1.8 % Arterial Blood Methemoglobin 1.0 % Blood Gas Hemoglobin 15.0 G/DL Oxygen Delivery Device VENTILATOR Blood Gas Ventilator Setting Blood Gas Inspired Oxygen 45 % (Mason Parker) Medical Decision Making Impression and Plan Diagnosis: (1) HTN (hypertension) ICD Codes: I10 - Essential (primary) hypertension (2) Diabetes ICD Codes: E11.9 - Type 2 diabetes mellitus without complications Status: Chronic (3) Frontal lobe contusion ICD Codes: S06.339A - Contusion and laceration of cerebrum, unspecified, with loss of consciousness of unspecified duration, initial encounter Status: Acute (4) Rib fracture ICD Codes: S22.39XA - Fracture of one rib, unspecified side, initial encounter for closed fracture Status: Acute Assessment and Plan 66-year-old gentleman with a chronic history of falls who apparently fell on 06/18 with positive loss of consciousness with bilateral small frontal lobe contusions. Had extensive workup for his falls including evaluation at [facility] without any concrete underlying etiology other than what he states he relates that this could be related to possibly his blood pressure fluctuation. He has unregulated hypertension which will be controlled with the as needed medications and Cardene drip if needed to keep the systolic blood pressure less than 160. Insulin sliding scale coverage for his diabetes. Pain control for left-sided chest wall pain from rib fracture. He has had some expansion of his cerebral contusions and will be monitored closely in intensive care unit. Continue with hypertension regulation along with pain control. Pt had seizures yesterday and was intubated. Follow up CT head was stable. Pt has history of ETOH use and is possibly going through withdrawal. He is on Keppra for seizures and Librium for possible ETOH withdrawal. (Mason Parker) Attending Statement The exam, history, and the medical decision-making described in the above note were completed with the assistance of the mid-level provider. I reviewed and agree with the findings presented. I attest that I had a [id number] encounter with the patient on the same day, and personally performed and documented my assessment and findings in the medical record. Patient intubated last night following a seizure for airway control. Follow-up CT scan of the head with stable small frontal contusions with no mass-effect or midline shift. Possibly alcohol withdrawal related seizures. Wean ventilation status as tolerated with a follow-up EEG study. Discussed with nursing staff. (Matt Cerrato MD) Mason Parker June 20, 2017 09:47 Matt Cerrato MD June 20, 2017 13:56
[2017-06-20 09:48] LABS: INTERNATIONAL NORMALIZED RATIO 1.2 RATIO; PROTHROMBIN TIME - PATIENT 12.6 SEC (9.8-11.6)
[2017-06-20 10:17] LABS: ALKALINE PHOSPHATASE 79 U/L (45-117); ALT (GPT) 17 U/L (12-78); AST (GOT) 29 U/L (15-37); BICARBONATE 24.5 MEQ/L (21.0-32.0); BLOOD UREA NITROGEN 8 MG/DL (7-18); CHLORIDE 101 MEQ/L (98-107); CREATININE 0.68 MG/DL (0.60-1.30); GLOMERULAR FILTRATION RATE 117 ML/MIN (>89); GLUCOSE,RANDOM 113 MG/DL (74-106); SODIUM (NA) 138 MEQ/L (136-145); TOTAL BILIRUBIN ADULT 1.2 MG/DL (0.2-1.0); TOTAL PROTEIN 5.9 GM/DL (6.4-8.2)
[2017-06-20] MEDS: POTASSIUM CHLOR 20 MEQ PREMIX 100 ML IV PRN ×4 (10:42→16:54)
--- NOTE | 2017-06-20 15:59 | HHI.CCPN ---
Subjective Remarks/Hospital Course 06/19: 66-year-old gentleman presents after a fall. He did have a positive loss of consciousness and complains of severe left-sided chest wall pain and initially had left shoulder pain which has improved along with mild headache. He has a history of frequent falls and states that he is undergone extensive workup including evaluation at [facility] and the only thing they could relate this to was possibly low blood pressure. The CT of the head performed in the emergency department shows right frontal hematoma, left medial frontal hemorrhage. He was admitted to the neurosurgical service. Today at around 7 PM he suffered with generalized seizure, with significant altered mental status and post ictal condition, unable to protect and airways requiring emergent intubation. 06/20: Remains sedated, orally intubated on mechanical ventilation. Objective Vital Signs Date Time Temp Pulse Resp B/P (MAP) Pulse Ox O2 Delivery O2 Flow Rate FiO2 06/20/17 14:00 62 06/20/17 12:00 40 06/20/17 12:00 99.2 17 115/81 (92) 100 06/20/17 07:00 Mechanical Ventilator Intake and Output 06/20/17 06/20/17 06/21/17 08:00 16:00 00:00 Intake Total 110 ml 395 ml Output Total 700 ml Balance -590 ml 395 ml Result Diagram: 06/20/17 0900 06/20/17 0900 Other Results Laboratory Tests Test 06/19/17 22:14 Blood Gas Puncture Site RT BRACHIAL Blood Gas Patient Temperature 98.6 Blood Gas HCO3 24 mmol/L (22-26) Blood Gas Base Excess -0.2 mmol/L (-2-2) Blood Gas Oxygen Saturation 96 % (90-100) Arterial Blood pH 7.41 (7.380-7.420) Arterial Blood Partial Pressure CO2 39 mmHg (38-42) Arterial Blood Partial Pressure O2 101 mmHg (61-120) Arterial Blood Oxygen Content 20.2 Vol % (12.0-20.0) Arterial Blood Carboxyhemoglobin 1.8 % (0-4) Arterial Blood Methemoglobin 1.0 % (0-2) Blood Gas Hemoglobin 15.0 G/DL (12.0-16.0) Oxygen Delivery Device VENTILATOR Blood Gas Ventilator Setting Blood Gas Inspired Oxygen 45 % Imaging Last [address] 06/19/17 0800 Signed Impressions: Service Date/Time: June 08:43 - CONCLUSION: 1. Increasing size right frontal hematoma, now measuring 1.9 cm. Stable left medial frontal hemorrhage. 2. No new findings. Ronnell Pineda MD Chest X-Ray 06/19/17 0000 Signed Impressions: Service Date/Time: June 09:40 - CONCLUSION: 1. No pneumothorax identified. 2. Small left basilar effusion. 3. Left-sided rib fracture. Felipe Domingo MD Objective Remarks GENERAL: Well-nourished, well-developed patient. Sedated and intubated SKIN: Warm and dry. HEAD: Normocephalic. EYES: No scleral icterus. No injection or drainage. NECK: Supple, trachea midline. No JVD or lymphadenopathy. CARDIOVASCULAR: Regular rate and rhythm without murmurs, gallops, or rubs. RESPIRATORY: Breath sounds equal bilaterally. No accessory muscle use. GASTROINTESTINAL: Abdomen soft, non-tender, nondistended. MUSCULOSKELETAL: No cyanosis, or edema. BACK: Nontender without obvious deformity. NEURO EXAM: GCS:7T Mental Status: Now sedated and intubated, briskly localizes pain. In all 4 extremities A/P Assessment and Plan Respiratory failure -Intubated for airway protection -No weaning until neurologically improve -Vent bundle -DuoNeb's as needed Traumatic ICH -Repeat CT head -Coagulopathy within normal limits -No intervention indicated Seizure -Loaded with Keppra -Keppra 1000 every 12 Diabetes mellitus -Insulin sliding scale Hypertension -Labetalol as needed -Hydrochlorothiazide -Lisinopril -Metoprolol Alcohol abuse -CINJ protocol Hypokalemia -Electrolyte replacement per ICU protocol DVT GI prophylaxis -Quoc's and SCDs -No pharmacological DVT prophylaxis due to ICH -Protonix Critical Care: The total critical care time was 35 minutes. Time to perform other separately billable procedures was not included in the critical care time. Manolo Donnelly MD June 20, 2017 15:59
--- NOTE | 2017-06-20 16:31 | MG ---
cc: Ed Hanson MD EEG NUMBER: [id number] INDICATION: Intubated, diprivan shut off for the EEG, right frontal hematoma, Keppra, Librium. DESCRIPTION: Diffuse beta rhythms along with some occasional sweat artifact and some at times 3 Hz slowing is noted. Recording overall synchronous and symmetric but I do not see any major hemispheric asymmetry. No epileptiform or seizure activity is noted. Photic stimulation was performed without significant posterior driving. IMPRESSION: Some mild to moderate diffuse slowing, but no focal abnormality was noted. No seizure activity was seen, especially on the right hemisphere. No seizure activity noted. Ed Hanson MD DJLester/HEYDI , 04:16 PM , 04:30 PM
[2017-06-21] VITALS (15 sets, daily range): BP systolic 11–143; BP diastolic 58–87; PULSE 70–101; RESP 14–28; TEMP 99.1–100.4; O2SAT 95–98
[2017-06-21] MEDS: chlordiazePOXIDE 25 MG CAP PO SCH ×2 (02:00→07:51)
[2017-06-21] MEDS: PROPOFOL 1000 MG/100 ML INJ 100 ML IV PRN ×2 (02:27→17:52)
[2017-06-21] MEDS: SERTRALINE HCL 50 MG TAB PO SCH (07:51)
[2017-06-21] MEDS: DOCUSATE SODIUM 50 MG/SENNA 8.6 MG TAB PO SCH ×2 (07:51→20:34)
[2017-06-21] MEDS: levETIRAcetam INJ 100 ML IV SCH ×2 (07:51→20:34)
[2017-06-21] MEDS: ALLOPURINOL 100 MG TAB PO SCH (07:51)
[2017-06-21] MEDS: HYDROCHLOROTHIAZIDE 12.5 MG CAP PO SCH (07:51)
[2017-06-21] MEDS: LISINOPRIL 10 MG TAB PO SCH (07:51)
[2017-06-21] MEDS: CHLORHEXIDINE 0.12% (ORAL KIT) 15 ML CUP MT SCH ×2 (08:00→20:34)
[2017-06-21] MEDS: INSULIN NovoLIN REGULAR SUPPLEMENTAL SCALE SQ SCH ×4 (08:00→21:00)
[2017-06-21] MEDS: METOPROLOL SUCCINATE 50 MG EXTENDED RELEASE TAB PO SCH (09:00)
[2017-06-21] MEDS: BACITRACIN TOP OINT 15 GM TUBE TOP SCH ×2 (09:00→20:35)
[2017-06-21] MEDS: SODIUM CHLORIDE 0.9% FLUSH 10 ML FLUSH IV FLUSH SCH ×2 (09:00→20:35)
[2017-06-21] MEDS: PANTOPRAZOLE SOD 40 MG DELAYED RELEASE TAB PO SCH (09:00)
[2017-06-21] MEDS ORDERED: FUROSEMIDE 20 MG/2 ML VIAL IV PUSH ONE (09:30)
--- NOTE | 2017-06-21 09:33 | HHI.CCPN ---
Subjective Remarks/Hospital Course 06/19: 66-year-old gentleman presents after a fall. He did have a positive loss of consciousness and complains of severe left-sided chest wall pain and initially had left shoulder pain which has improved along with mild headache. He has a history of frequent falls and states that he is undergone extensive workup including evaluation at the [facility] and the only thing they could relate this to was possibly low blood pressure. The CT of the head performed in the emergency department shows right frontal hematoma, left medial frontal hemorrhage. He was admitted to the neurosurgical service. Today at around 7 PM he suffered with generalized seizure, with significant altered mental status and post ictal condition, unable to protect and airways requiring emergent intubation. 06/20: Remains sedated, orally intubated on mechanical ventilation. 06/21: Sedation held for neuro exam. Follows commands bilateral lower extremity by wiggling toes. Not following an upper extremities at this time. Bilateral pupils are reactive. Start CPAP trial for possible extubation Objective Vital Signs Date Time Temp Pulse Resp B/P (MAP) Pulse Ox O2 Delivery O2 Flow Rate FiO2 06/21/17 09:23 95 35 06/21/17 08:00 75 06/21/17 08:00 99.1 17 11/69 (50) 06/21/17 07:00 Mechanical Ventilator Intake and Output 06/21/17 06/21/17 06/22/17 08:00 16:00 00:00 Intake Total 553 ml Output Total 300 ml Balance 253 ml Result Diagram: 06/20/17 0900 06/20/17 2334 Imaging Last [address] 06/19/17 0800 Signed Impressions: Service Date/Time: June 08:43 - CONCLUSION: 1. Increasing size right frontal hematoma, now measuring 1.9 cm. Stable left medial frontal hemorrhage. 2. No new findings. Ronnell Pineda MD Chest X-Ray 06/19/17 0000 Signed Impressions: Service Date/Time: June 09:40 - CONCLUSION: 1. No pneumothorax identified. 2. Small left basilar effusion. 3. Left-sided rib fracture. Felipe Domingo MD Objective Remarks GENERAL: Well-nourished, well-developed patient. Intubated, off on sedation SKIN: Warm and dry. HEAD: Normocephalic. EYES: No scleral icterus. No injection or drainage. NECK: Supple, trachea midline. No JVD or lymphadenopathy. CARDIOVASCULAR: Regular rate and rhythm without murmurs, gallops, or rubs. RESPIRATORY: Breath sounds equal bilaterally. No accessory muscle use. GASTROINTESTINAL: Abdomen soft, non-tender, nondistended. MUSCULOSKELETAL: No cyanosis, or edema. BACK: Nontender without obvious deformity. NEURO EXAM: GCS:10T Mental Status: Off sedation, follows commands bilateral lower extremity, partial eye opening A/P Assessment and Plan Respiratory failure -Intubated for airway protection -Start CPAP trials, evaluate for extubation -Vent bundle -DuoNeb's as needed Traumatic ICH -Repeat CT head 06/19 Increasing size right frontal hematoma, now measuring 1.9 cm. Stable left medial frontal hemorrhage. -Coagulopathy within normal limits -No surgical intervention indicated Seizure -Loaded with Keppra -Continue Keppra 1000 every 12 -EEG 06/20/2017 shows diffuse slowing, no seizure Diabetes mellitus -Insulin sliding scale Hypertension -Labetalol as needed -Hydrochlorothiazide -Lisinopril -Metoprolol Alcohol abuse -CIWA protocol Hypokalemia -Electrolyte replacement per ICU protocol DVT GI prophylaxis -Quoc's and SCDs -No pharmacological DVT prophylaxis due to ICH -Protonix Critical Care: The total critical care time was 35 minutes. Time to perform other separately billable procedures was not included in the critical care time. Remains critically ill with mild increase in frontal hemorrhage. Start weaning trials in an attempt to liberate from vent America Gamino MD June 21, 2017 09:33
--- NOTE | 2017-06-21 10:53 | HHI.NSPN ---
(Mason Parker) History Chief Complaint: Mild headache. (Mason Parker) Interval History 66-year-old gentleman who presented to [facility] emergency room after a fall. He relates a positive loss of consciousness and complains of severe left- sided chest wall pain and initially had left shoulder pain which has improved along with mild headache. He has a history of frequent falls and states that he is undergone extensive workup including evaluation at the [facility] and the only thing they could relate this to was possibly low blood pressure. He denies feeling lightheaded or dizzy or any chest pain prior to these falls and relates that his legs just give out on him and usually occurs about once a month. He had a similar episode today and [place] market. Denies any nausea or vomiting and states that he is hungry. Denies any numbness or paresthesias in the upper lower extremities or any neck or back pain. 06/19/17: Pt awake and alert. Complains of headache but mild. No n/v. No paresthesias. Complains of left rib pain. 06/20/17: Pt sedated on Diprivan. He was intubated yesterday. He had a seizure yesterday. History of ETOH use. 06/21/17: Pt sedated and intubated. He follows commands in all 4 extremities but not opening his eyes. (Mason Parker) System Review Comments Not able to obtain given level of alertness. (Mason Parker) Exam Results Vital Signs Date Time Temp Pulse Resp B/P (MAP) Pulse Ox O2 Delivery O2 Flow Rate FiO2 06/21/17 09:23 95 35 06/21/17 08:00 75 06/21/17 08:00 99.1 17 11/69 (50) 06/21/17 07:00 Mechanical Ventilator Intake and Output 06/21/17 06/21/17 06/22/17 08:00 16:00 00:00 Intake Total 553 ml Output Total 300 ml Balance 253 ml (Mason Parker) Physical Examination General: Pt intubated and sedated on Diprivan. Eyes: Pupils equal 3mm bilaterally reactive bilaterally. Sclera anicteric. Resp: Intubated. Pressure controlled. FiO2 30%. Rate 14. Peep 5. CTA bilaterally. Heart: NSR no murmurs Abd: Soft positive bs Skin: No cyanosis or erythema Muscle: Moves all 4 extremities, following commands. Neuro: Pt sedated and Intubated. Not opening eyes. Pupils 3mm bilaterally reactive bilaterally. Following commands in all 4 extremities. (Mason Parker) Lab, Micro, Other Results Last Impressions Chest X-Ray 06/20/17 0600 Signed Impressions: Service Date/Time: Tuesday, June 20, 2017 03:25 - CONCLUSION: No significant change Stevenson Landeros MD Head CT 06/19/17 0800 Signed Impressions: Service Date/Time: June 08:43 - CONCLUSION: 1. Increasing size right frontal hematoma, now measuring 1.9 cm. Stable left medial frontal hemorrhage. 2. No new findings. Ronnell Pineda MD Cervical Spine CT 06/18/17 1153 Signed Impressions: Service Date/Time: Sunday, June 18, 2017 13:43 - CONCLUSION: 1. No acute bony fracture. 2. Primary bony degenerative changes involving the cervical spine. Les Liao MD Shoulder X-Ray 06/18/17 0000 Signed Impressions: Service Date/Time: Sunday, June 18, 2017 16:45 - CONCLUSION: No acute fracture or joint dislocation. Les Liao MD Laboratory Tests Test 06/20/17 23:34 Potassium Level 4.5 MEQ/L (Mason Parker) Medical Decision Making Impression and Plan Diagnosis: (1) HTN (hypertension) ICD Codes: I10 - Essential (primary) hypertension (2) Diabetes ICD Codes: E11.9 - Type 2 diabetes mellitus without complications Status: Chronic (3) Frontal lobe contusion ICD Codes: S06.339A - Contusion and laceration of cerebrum, unspecified, with loss of consciousness of unspecified duration, initial encounter Status: Acute (4) Rib fracture ICD Codes: S22.39XA - Fracture of one rib, unspecified side, initial encounter for closed fracture Status: Acute Assessment and Plan 66-year-old gentleman with a chronic history of falls who apparently fell on 06/18 with positive loss of consciousness with bilateral small frontal lobe contusions. Had extensive workup for his falls including evaluation at [facility] without any concrete underlying etiology other than what he states he relates that this could be related to possibly his blood pressure fluctuation. He has unregulated hypertension which will be controlled with the as needed medications and Cardene drip if needed to keep the systolic blood pressure less than 160. Insulin sliding scale coverage for his diabetes. Pain control for left-sided chest wall pain from rib fracture. He has had some expansion of his cerebral contusions and will be monitored closely in intensive care unit. Continue with hypertension regulation along with pain control. Pt had seizures while he was in the ICU and was intubated. Follow up CT head was stable. Pt has history of ETOH use and is possibly going through withdrawal. He is on Keppra for seizures and Librium for possible ETOH withdrawal. (Mason Parker) Attending Statement The exam, history, and the medical decision-making described in the above note were completed with the assistance of the mid-level provider. I reviewed and agree with the findings presented. I attest that I had a [id number] encounter with the patient on the same day, and personally performed and documented my assessment and findings in the medical record. Tolerating CPAP trials well and follows simple commands but not alert enough to be extubated and protect airway yet. Continue with supportive care. Discussed with fitness manager Dr. Gamino. (Matt Cerrato MD) Mason Parker June 21, 2017 10:53 Matt Cerrato MD June 21, 2017 12:00
[2017-06-22] VITALS (15 sets, daily range): BP systolic 89–132; BP diastolic 55–86; PULSE 75–115; RESP 16–24; TEMP 98.6–100.7; O2SAT 93–98
[2017-06-22] MEDS ORDERED: SODIUM CHLORID 0.9% 500 ML INJ 500 ML IV ONE (01:30)
[2017-06-22] MEDS: SODIUM CHLOR 0.9% 1000 ML INJ 1,000 ML IV SCH ×2 (02:00→13:55)
[2017-06-22] MEDS: CHLORHEXIDINE 0.12% (ORAL KIT) 15 ML CUP MT SCH ×2 (08:00→20:00)
[2017-06-22] MEDS: INSULIN NovoLIN REGULAR SUPPLEMENTAL SCALE SQ SCH ×4 (08:00→21:00)
[2017-06-22] MEDS: ALLOPURINOL 100 MG TAB PO SCH (08:23)
[2017-06-22] MEDS: levETIRAcetam INJ 100 ML IV SCH ×2 (08:23→20:52)
[2017-06-22] MEDS: DOCUSATE SODIUM 50 MG/SENNA 8.6 MG TAB PO SCH ×2 (08:23→20:52)
[2017-06-22] MEDS: SERTRALINE HCL 50 MG TAB PO SCH (08:24)
[2017-06-22] MEDS: SODIUM CHLORIDE 0.9% FLUSH 10 ML FLUSH IV FLUSH SCH ×2 (09:00→20:52)
[2017-06-22] MEDS: PANTOPRAZOLE SOD 40 MG DELAYED RELEASE TAB PO SCH (09:00)
[2017-06-22] MEDS: HYDROCHLOROTHIAZIDE 12.5 MG CAP PO SCH (09:00)
[2017-06-22] MEDS: METOPROLOL SUCCINATE 50 MG EXTENDED RELEASE TAB PO SCH (09:00)
[2017-06-22] MEDS: BACITRACIN TOP OINT 15 GM TUBE TOP SCH ×2 (09:00→21:00)
[2017-06-22] MEDS: LISINOPRIL 10 MG TAB PO SCH (09:00)
--- NOTE | 2017-06-22 09:41 | HHI.NSPN ---
(Mason Parker) History Chief Complaint: Mild headache. (Mason Parker) Interval History 66-year-old gentleman who presented to [facility] emergency room after a fall. He relates a positive loss of consciousness and complains of severe left- sided chest wall pain and initially had left shoulder pain which has improved along with mild headache. He has a history of frequent falls and states that he is undergone extensive workup including evaluation at the [facility] and the only thing they could relate this to was possibly low blood pressure. He denies feeling lightheaded or dizzy or any chest pain prior to these falls and relates that his legs just give out on him and usually occurs about once a month. He had a similar episode today and [place]. Denies any nausea or vomiting and states that he is hungry. Denies any numbness or paresthesias in the upper lower extremities or any neck or back pain. 06/19/17: Pt awake and alert. Complains of headache but mild. No n/v. No paresthesias. Complains of left rib pain. 06/20/17: Pt sedated on Diprivan. He was intubated yesterday. He had a seizure yesterday. History of ETOH use. 06/21/17: Pt sedated and intubated. He follows commands in all 4 extremities but not opening his eyes. 06/22/17: Pt sedated on Diprivan. He is intubated. He was off sedation yesterday and placed on Diprivan last night. He follows commands when off sedation. (Mason Parker) System Review Comments Not able to obtain given clinical condition. (Mason Parker) Exam Results Vital Signs Date Time Temp Pulse Resp B/P (MAP) Pulse Ox O2 Delivery O2 Flow Rate FiO2 06/22/17 08:00 35 06/22/17 08:00 75 06/22/17 08:00 99.7 16 111/66 (81) 97 06/22/17 07:00 Mechanical Ventilator Intake and Output 06/22/17 06/22/17 06/23/17 08:00 16:00 00:00 Intake Total 672 ml Output Total 150 ml Balance 522 ml (Mason Parker) Physical Examination General: Pt intubated and sedated on Diprivan. Eyes: Pupils equal 3mm bilaterally reactive bilaterally. Sclera anicteric. Resp: Intubated. Pressure controlled. FiO2 50%. Rate 14. Peep 5. CTA bilaterally. Heart: NSR no murmurs Abd: Soft positive bs Skin: No cyanosis or erythema Muscle: Moves all 4 extremities, following commands when off sedation. Neuro: Pt sedated on Diprivan and Intubated. Not opening eyes. Pupils 3mm bilaterally reactive bilaterally. Following commands in all 4 extremities when off sedation. (Mason Parker) Lab, Micro, Other Results Last Impressions Chest X-Ray 06/20/17 0600 Signed Impressions: Service Date/Time: Tuesday, June 20, 2017 03:25 - CONCLUSION: No significant change Stevenson Landeros MD Head CT 06/19/17 0800 Signed Impressions: Service Date/Time: June 08:43 - CONCLUSION: 1. Increasing size right frontal hematoma, now measuring 1.9 cm. Stable left medial frontal hemorrhage. 2. No new findings. Ronnell Pineda MD Cervical Spine CT 06/18/17 1153 Signed Impressions: Service Date/Time: Sunday, June 18, 2017 13:43 - CONCLUSION: 1. No acute bony fracture. 2. Primary bony degenerative changes involving the cervical spine. Les Liao MD Shoulder X-Ray 06/18/17 0000 Signed Impressions: Service Date/Time: Sunday, June 18, 2017 16:45 - CONCLUSION: No acute fracture or joint dislocation. Les Liao MD (Mason Parker) Medical Decision Making Impression and Plan Diagnosis: (1) HTN (hypertension) ICD Codes: I10 - Essential (primary) hypertension (2) Diabetes ICD Codes: E11.9 - Type 2 diabetes mellitus without complications Status: Chronic (3) Frontal lobe contusion ICD Codes: S06.339A - Contusion and laceration of cerebrum, unspecified, with loss of consciousness of unspecified duration, initial encounter Status: Acute (4) Rib fracture ICD Codes: S22.39XA - Fracture of one rib, unspecified side, initial encounter for closed fracture Status: Acute Assessment and Plan 66-year-old gentleman with a chronic history of falls who apparently fell on 06/18 with positive loss of consciousness with bilateral small frontal lobe contusions. Had extensive workup for his falls including evaluation at [facility] without any concrete underlying etiology other than what he states he relates that this could be related to possibly his blood pressure fluctuation. He has unregulated hypertension which will be controlled with the as needed medications and Cardene drip if needed to keep the systolic blood pressure less than 160. Insulin sliding scale coverage for his diabetes. Pain control for left-sided chest wall pain from rib fracture. He has had some expansion of his cerebral contusions and will be monitored closely in intensive care unit. Continue with hypertension regulation along with pain control. Pt had seizures while he was in the ICU and was intubated. Follow up CT head was stable. Pt has history of ETOH use and is possibly going through withdrawal. He is on Keppra for seizures and Librium for possible ETOH withdrawal. Discontinue Diprivan if pt doing well off it without agitation. Ween to extubate when more awake and able to protect airway. (Mason Parker) Attending Statement The exam, history, and the medical decision-making described in the above note were completed with the assistance of the mid-level provider. I reviewed and agree with the findings presented. I attest that I had a [id number] encounter with the patient on the same day, and personally performed and documented my assessment and findings in the medical record. (Matt Cerrato MD) Mason Parker June 22, 2017 09:41 Matt Cerrato MD June 22, 2017 12:09
--- NOTE | 2017-06-22 10:52 | HHI.CCPN ---
Subjective Remarks/Hospital Course 06/19: 66-year-old gentleman presents after a fall. He did have a positive loss of consciousness and complains of severe left-sided chest wall pain and initially had left shoulder pain which has improved along with mild headache. He has a history of frequent falls and states that he is undergone extensive workup including evaluation at the [facility] and the only thing they could relate this to was possibly low blood pressure. The CT of the head performed in the emergency department shows right frontal hematoma, left medial frontal hemorrhage. He was admitted to the neurosurgical service. Today at around 7 PM he suffered with generalized seizure, with significant altered mental status and post ictal condition, unable to protect and airways requiring emergent intubation. 06/20: Remains sedated, orally intubated on mechanical ventilation. 06/21: Sedation held for neuro exam. Follows commands bilateral lower extremity by wiggling toes. Not following an upper extremities at this time. Bilateral pupils are reactive. Start CPAP trial for possible extubation. 06/22: Remains encephalopathic on holding sedation, orally intubated on mechanical ventilation. Awaiting improvement in neurologic status to extubated. Tolerating CPAP trials. Objective Vital Signs Date Time Temp Pulse Resp B/P (MAP) Pulse Ox O2 Delivery O2 Flow Rate FiO2 06/22/17 10:04 97 35 06/22/17 10:00 75 06/22/17 08:00 99.7 16 111/66 (81) 06/22/17 07:00 Mechanical Ventilator Intake and Output 06/22/17 06/22/17 06/23/17 08:00 16:00 00:00 Intake Total 672 ml Output Total 150 ml Balance 522 ml Result Diagram: 06/20/17 0900 06/20/17 2334 Imaging Last [address] 06/19/17 0800 Signed Impressions: Service Date/Time: June 08:43 - CONCLUSION: 1. Increasing size right frontal hematoma, now measuring 1.9 cm. Stable left medial frontal hemorrhage. 2. No new findings. Ronnell Pineda MD Chest X-Ray 06/19/17 0000 Signed Impressions: Service Date/Time: June 09:40 - CONCLUSION: 1. No pneumothorax identified. 2. Small left basilar effusion. 3. Left-sided rib fracture. Felipe Domingo MD Objective Remarks GENERAL: Well-nourished, well-developed patient. Intubated, off on sedation SKIN: Warm and dry. HEAD: Normocephalic. EYES: No scleral icterus. No injection or drainage. NECK: Supple, trachea midline. No JVD or lymphadenopathy. CARDIOVASCULAR: Regular rate and rhythm without murmurs, gallops, or rubs. RESPIRATORY: Orally intubated on mechanical ventilation. Breath sounds equal bilaterally. No wheezing or crackles GASTROINTESTINAL: Abdomen soft, non-tender, nondistended. MUSCULOSKELETAL: No cyanosis, or edema. BACK: Nontender without obvious deformity. NEURO EXAM: Remains encephalopathi off sedation, not following commands, withdraws both lower extremities A/P Assessment and Plan Respiratory failure -Intubated for airway protection -Start CPAP trials, evaluate for extubation -Vent bundle -DuoNeb's as needed Traumatic ICH -Repeat CT head 06/19 Increasing size right frontal hematoma, now measuring 1.9 cm. Stable left medial frontal hemorrhage. -Coagulopathy within normal limits -No surgical intervention indicated Seizure -Loaded with Keppra -Continue Keppra 1000 every 12 -EEG 06/20/2017 shows diffuse slowing, no seizure Diabetes mellitus -Insulin sliding scale Hypertension -Labetalol as needed -Hydrochlorothiazide -Lisinopril -Metoprolol Alcohol abuse -CIWA protocol Hypokalemia -Electrolyte replacement per ICU protocol DVT GI prophylaxis -Quoc's and SCDs -No pharmacological DVT prophylaxis due to ICH -Protonix Critical Care: The total critical care time was 35 minutes. Time to perform other separately billable procedures was not included in the critical care time. Remains critically ill with mild increase in frontal hemorrhage. Start weaning trials in an attempt to liberate from vent Manolo Donnelly MD June 22, 2017 10:52
[2017-06-22 11:32] LABS: BASOPHIL % 0.2 % (0.0-2.0); EOSINOPHIL % 0.3 % (0.0-4.0); HEMATOCRIT 44.7 % (39.0-51.0); HEMOGLOBIN 15.6 GM/DL (13.0-17.0); LYMPH % 11.3 % (9.0-44.0); LYMPHOCYTE # 1.5 TH/MM3 (1.0-4.8); MEAN CELL VOLUME 110.1 FL (80.0-100.0); MEAN CORPUSCULAR HEMOGLOBIN 38.3 PG (27.0-34.0); MEAN CORPUSCULAR HGB CONC 34.8 % (32.0-36.0); MEAN PLATELET VOLUME 8.7 FL (7.0-11.0); MONO % 11.5 % (0.0-8.0); MONOCYTE # 1.5 TH/MM3 (0-0.9); NEUT % 76.7 % (16.0-70.0); PLATELET COUNT 195 TH/MM3 (150-450); RED BLOOD COUNT 4.06 MIL/MM3 (4.50-5.90); RED CELL DISTRIBUTION WIDTH 17.4 % (11.6-17.2)
[2017-06-22 12:34] LABS: ALBUMIN 2.9 GM/DL (3.4-5.0); ALKALINE PHOSPHATASE 86 U/L (45-117); ALT (GPT) 18 U/L (12-78); AST (GOT) 25 U/L (15-37); BICARBONATE 28.6 MEQ/L (21.0-32.0); BLOOD UREA NITROGEN 29 MG/DL (7-18); CALCIUM 9.8 MG/DL (8.5-10.1); CHLORIDE 98 MEQ/L (98-107); GLOMERULAR FILTRATION RATE 67 ML/MIN (>89); GLUCOSE,RANDOM 126 MG/DL (74-106); SODIUM (NA) 135 MEQ/L (136-145); TOTAL BILIRUBIN ADULT 1.2 MG/DL (0.2-1.0); TOTAL PROTEIN 6.8 GM/DL (6.4-8.2)
--- NOTE | 2017-06-22 15:27 | RADRPT ---
EXAM DATE/TIME: 06/22/2017 15:02 [place] COMPARISON: CHEST SINGLE AP, June 20, 2017, 3:25. INDICATIONS : Follow up with respiratory failure and shortness of breath. MEDICAL HISTORY : Unresponsive. SURGICAL HISTORY : Unresponsive. ENCOUNTER: Subsequent ACUITY: 4 - 6 days PAIN SCORE: Non-responsive. LOCATION: Bilateral chest FINDINGS: 2 AP views of the chest. Endotracheal tube, nasogastric tube remain in place. Left lower lobe atelect asis versus consolidation unchanged. Small left pleural effusion unchanged. No evidence of pneumothor ax. CONCLUSION: No significant interval change. Enrique Whyte MD on June 22, 2017 at 15:22 Board Certified Radiologist. This report was verified electronically.
[2017-06-22 15:57] LABS: BILIRUBIN, URINE NEG (NEG); BLOOD, URINE TRACE (NEG); GLUCOSE,URINE NEG (NEG); KETONE, URINE NEG (NEG); MUCUS URINE FEW /lpf (OCC); NITRITE,URINE NEG (NEG); SQUAMOUS EPITHELIAL CELL URINE 1 /hpf (0-5); URINE COLOR YELLOW (YELLW/STRAW); URINE LEUKOCYTE ESTERASE NEG (NEG)
[2017-06-22] MEDS: ACETAMINOPHEN 325 MG TAB PO PRN (18:50)
[2017-06-22] MEDS: PIPERACIL-TAZO 4.5 GM PREMIX 100 ML IV SCH (20:52)
[2017-06-22] MEDS: PROPOFOL 1000 MG/100 ML INJ 100 ML IV PRN (22:00)
[2017-06-23] VITALS (17 sets, daily range): BP systolic 77–121; BP diastolic 51–74; PULSE 72–119; RESP 15–20; TEMP 98–99.3; O2SAT 93–98
[2017-06-23] MEDS: SODIUM CHLOR 0.9% 1000 ML INJ 1,000 ML IV SCH ×2 (01:27→13:16)
[2017-06-23] MEDS: PIPERACIL-TAZO 4.5 GM PREMIX 100 ML IV SCH ×4 (02:10→20:00)
[2017-06-23] MEDS: ACETAMINOPHEN/HYDROcodone 325 MG/10 MG TAB PO PRN (02:10)
[2017-06-23 04:37] LABS: AUTOMATED NEUTROPHIL # 7.1 TH/MM3 (1.8-7.7); BASOPHIL % 0.3 % (0.0-2.0); EOSINOPHIL % 0.1 % (0.0-4.0); HEMATOCRIT 44.3 % (39.0-51.0); HEMOGLOBIN 15.6 GM/DL (13.0-17.0); LYMPH % 5.4 % (9.0-44.0); LYMPHOCYTE # 0.5 TH/MM3 (1.0-4.8); MEAN CELL VOLUME 109.5 FL (80.0-100.0); MEAN CORPUSCULAR HEMOGLOBIN 38.6 PG (27.0-34.0); MEAN CORPUSCULAR HGB CONC 35.2 % (32.0-36.0); MEAN PLATELET VOLUME 8.6 FL (7.0-11.0); MONO % 12.1 % (0.0-8.0); NEUT % 82.1 % (16.0-70.0); PLATELET COUNT 191 TH/MM3 (150-450); RED BLOOD COUNT 4.05 MIL/MM3 (4.50-5.90); RED CELL DISTRIBUTION WIDTH 16.8 % (11.6-17.2); WHITE BLOOD COUNT 8.7 TH/MM3 (4.0-11.0)
[2017-06-23 04:53] LABS: ALBUMIN 2.6 GM/DL (3.4-5.0); ALT (GPT) 16 U/L (12-78); AST (GOT) 22 U/L (15-37); BICARBONATE 24.5 MEQ/L (21.0-32.0); BLOOD UREA NITROGEN 27 MG/DL (7-18); CALCIUM 9.5 MG/DL (8.5-10.1); CHLORIDE 100 MEQ/L (98-107); CREATININE 0.93 MG/DL (0.60-1.30); GLOMERULAR FILTRATION RATE 82 ML/MIN (>89); GLUCOSE,RANDOM 170 MG/DL (74-106); SODIUM (NA) 136 MEQ/L (136-145)
[2017-06-23 04:56] LABS: ALKALINE PHOSPHATASE 80 U/L (45-117); TOTAL BILIRUBIN ADULT 1.3 MG/DL (0.2-1.0); TOTAL PROTEIN 6.7 GM/DL (6.4-8.2)
[2017-06-23 07:44] LABS: BANDS 22 % (0-6); LYMPHOCYTES 8 % (9-44); METAMYELOCYTES 1 % (0-1); MONOCYTES 9 % (0-8); NEUTROPHIL # MANUAL DIFF 7.2 TH/MM3 (1.8-7.7); POLYS (SEG NEUTROPHILS) 60 % (16-70)
[2017-06-23] MEDS: HYDROCHLOROTHIAZIDE 12.5 MG CAP PO SCH (07:52)
[2017-06-23] MEDS: LISINOPRIL 10 MG TAB PO SCH (07:53)
[2017-06-23] MEDS: SODIUM CHLORIDE 0.9% FLUSH 10 ML FLUSH IV FLUSH SCH ×2 (07:53→21:00)
[2017-06-23] MEDS: METOPROLOL SUCCINATE 50 MG EXTENDED RELEASE TAB PO SCH (07:53)
[2017-06-23] MEDS: DOCUSATE SODIUM 50 MG/SENNA 8.6 MG TAB PO SCH ×2 (07:53→21:00)
[2017-06-23] MEDS: CHLORHEXIDINE 0.12% (ORAL KIT) 15 ML CUP MT SCH ×2 (07:53→20:00)
[2017-06-23] MEDS: PANTOPRAZOLE SOD 40 MG DELAYED RELEASE TAB PO SCH (07:53)
[2017-06-23] MEDS: BACITRACIN TOP OINT 15 GM TUBE TOP SCH ×2 (07:53→21:00)
[2017-06-23] MEDS: ALLOPURINOL 100 MG TAB PO SCH (07:53)
[2017-06-23] MEDS: levETIRAcetam INJ 100 ML IV SCH ×2 (07:53→21:00)
[2017-06-23] MEDS: SERTRALINE HCL 50 MG TAB PO SCH (07:53)
--- NOTE | 2017-06-23 10:11 | HHI.NSPN ---
(Mason Parker) History Chief Complaint: Mild headache. (Mason Parker) Interval History 66-year-old gentleman who presented to [facility] emergency room after a fall. He relates a positive loss of consciousness and complains of severe left- sided chest wall pain and initially had left shoulder pain which has improved along with mild headache. He has a history of frequent falls and states that he is undergone extensive workup including evaluation at the [facility] and the only thing they could relate this to was possibly low blood pressure. He denies feeling lightheaded or dizzy or any chest pain prior to these falls and relates that his legs just give out on him and usually occurs about once a month. He had a similar episode today and [place]. Denies any nausea or vomiting and states that he is hungry. Denies any numbness or paresthesias in the upper lower extremities or any neck or back pain. 06/19/17: Pt awake and alert. Complains of headache but mild. No n/v. No paresthesias. Complains of left rib pain. 06/20/17: Pt sedated on Diprivan. He was intubated yesterday. He had a seizure yesterday. History of ETOH use. 06/21/17: Pt sedated and intubated. He follows commands in all 4 extremities but not opening his eyes. 06/22/17: Pt sedated on Diprivan. He is intubated. He was off sedation yesterday and placed on Diprivan last night. He follows commands when off sedation. 06/23/17: Pt opens eyes slightly to voice. He follows some commands intermittently. Pupils equal. (Mason Parker) System Review Comments Not able to obtain given clinical condition. (Mason Parker) Exam Results Vital Signs Date Time Temp Pulse Resp B/P (MAP) Pulse Ox O2 Delivery O2 Flow Rate FiO2 06/23/17 08:00 35 06/23/17 08:00 87 06/23/17 08:00 98.2 17 110/69 (83) 97 06/23/17 07:00 Mechanical Ventilator Intake and Output 06/23/17 06/23/17 06/24/17 08:00 16:00 00:00 Intake Total 635 ml Output Total 350 ml Balance 285 ml (Mason Parker) Physical Examination General: Pt intubated and sedated on Diprivan. Eyes: Pupils equal 3mm bilaterally reactive bilaterally. Sclera anicteric. Resp: Intubated. Pressure controlled. Rate 14. Peep 10. CTA bilaterally. Heart: NSR no murmurs Abd: Soft positive bs Skin: No cyanosis or erythema. Healing laceration left eyebrow with steri strips in place. Muscle: Moves all 4 extremities, following commands when off sedation. Neuro: Pt sedated on Diprivan and Intubated. Opening eyes some today. Pupils 3mm bilaterally reactive bilaterally. Following commands in all 4 extremities when off sedation. (Mason Parker) Lab, Micro, Other Results Last Impressions Chest X-Ray 06/22/17 0000 Signed Impressions: Service Date/Time: Thursday, June 22, 2017 15:02 - CONCLUSION: No significant interval change. Enrique Whyte MD Head CT 06/19/17 0800 Signed Impressions: Service Date/Time: June 08:43 - CONCLUSION: 1. Increasing size right frontal hematoma, now measuring 1.9 cm. Stable left medial frontal hemorrhage. 2. No new findings. Ronnell Pineda MD Cervical Spine CT 06/18/17 1153 Signed Impressions: Service Date/Time: Sunday, June 18, 2017 13:43 - CONCLUSION: 1. No acute bony fracture. 2. Primary bony degenerative changes involving the cervical spine. Les Liao MD Shoulder X-Ray 06/18/17 0000 Signed Impressions: Service Date/Time: Sunday, June 18, 2017 16:45 - CONCLUSION: No acute fracture or joint dislocation. Les Liao MD Laboratory Tests Test 06/22/17 10:48 06/22/17 14:20 06/22/17 15:40 06/23/17 04:04 White Blood Count 13.0 TH/MM3 8.7 TH/MM3 Red Blood Count 4.06 MIL/MM3 4.05 MIL/MM3 Hemoglobin 15.6 GM/DL 15.6 GM/DL Hematocrit 44.7 % 44.3 % Mean Corpuscular Volume 110.1 FL 109.5 FL Mean Corpuscular Hemoglobin 38.3 PG 38.6 PG Mean Corpuscular Hemoglobin Concent 34.8 % 35.2 % Red Cell Distribution Width 17.4 % 16.8 % Platelet Count 195 TH/MM3 191 TH/MM3 Mean Platelet Volume 8.7 FL 8.6 FL Neutrophils (%) (Auto) 76.7 % 82.1 % Lymphocytes (%) (Auto) 11.3 % 5.4 % Monocytes (%) (Auto) 11.5 % 12.1 % Eosinophils (%) (Auto) 0.3 % 0.1 % Basophils (%) (Auto) 0.2 % 0.3 % Neutrophils # (Auto) 10.0 TH/MM3 7.1 TH/MM3 Lymphocytes # (Auto) 1.5 TH/MM3 0.5 TH/MM3 Monocytes # (Auto) 1.5 TH/MM3 1.0 TH/MM3 Eosinophils # (Auto) 0.0 TH/MM3 0.0 TH/MM3 Basophils # (Auto) 0.0 TH/MM3 0.0 TH/MM3 CBC Comment DIFF FINAL AUTO DIFF Differential Comment FINAL DIFF MANUAL Blood Urea Nitrogen 29 MG/DL 27 MG/DL Creatinine 1.10 MG/DL 0.93 MG/DL Random Glucose 126 MG/DL 170 MG/DL Total Protein 6.8 GM/DL 6.7 GM/DL Albumin 2.9 GM/DL 2.6 GM/DL Calcium Level 9.8 MG/DL 9.5 MG/DL Alkaline Phosphatase 86 U/L 80 U/L Aspartate Amino Transf (AST/SGOT) 25 U/L 22 U/L Alanine Aminotransferase (ALT/SGPT) 18 U/L 16 U/L Total Bilirubin 1.2 MG/DL 1.3 MG/DL Sodium Level 135 MEQ/L 136 MEQ/L Potassium Level 4.2 MEQ/L 4.4 MEQ/L Chloride Level 98 MEQ/L 100 MEQ/L Carbon Dioxide Level 28.6 MEQ/L 24.5 MEQ/L Anion Gap 8 MEQ/L 12 MEQ/L Estimat Glomerular Filtration Rate 67 ML/MIN 82 ML/MIN Blood Gas Puncture Site LT RADIAL Blood Gas Patient Temperature 98.6 Blood Gas HCO3 23 mmol/L Blood Gas Base Excess -0.3 mmol/L Blood Gas Oxygen Saturation 91 % Arterial Blood pH 7.44 Arterial Blood Partial Pressure CO2 35 mmHg Arterial Blood Partial Pressure O2 66 mmHg Arterial Blood Oxygen Content 21.7 Vol % Arterial Blood Carboxyhemoglobin 1.2 % Arterial Blood Methemoglobin 0.7 % Blood Gas Hemoglobin 17.0 G/DL Oxygen Delivery Device VENTILATOR Blood Gas Ventilator Setting Blood Gas Inspired Oxygen 60 % Urine Color YELLOW Urine Turbidity CLEAR Urine pH 6.0 Urine Specific [place] 1.020 Urine Protein TRACE mg/dL Urine Glucose (UA) NEG mg/dL Urine Ketones NEG mg/dL Urine Occult Blood TRACE Urine Nitrite NEG Urine Bilirubin NEG Urine Urobilinogen 4.0 MG/DL Urine Leukocyte Esterase NEG Urine RBC 2 /hpf Urine WBC 6 /hpf Urine Squamous Epithelial Cells 1 /hpf Urine Mucus FEW /lpf Microscopic Urinalysis Comment CATH-CULT NOT IND Differential Total Cells Counted 100 Neutrophils % (Manual) 60 % Band Neutrophils % 22 % Lymphocytes % 8 % Monocytes % 9 % Neutrophils # (Manual) 7.2 TH/MM3 Metamyelocytes 1 % Platelet Estimate NORMAL Platelet Morphology Comment NORMAL Red Cell Morphology Comment NORMAL (Mason Parker) Medical Decision Making Impression and Plan Diagnosis: (1) HTN (hypertension) ICD Codes: I10 - Essential (primary) hypertension (2) Diabetes ICD Codes: E11.9 - Type 2 diabetes mellitus without complications Status: Chronic (3) Frontal lobe contusion ICD Codes: S06.339A - Contusion and laceration of cerebrum, unspecified, with loss of consciousness of unspecified duration, initial encounter Status: Acute (4) Rib fracture ICD Codes: S22.39XA - Fracture of one rib, unspecified side, initial encounter for closed fracture Status: Acute Assessment and Plan 66-year-old gentleman with a chronic history of falls who apparently fell on 06/18 with positive loss of consciousness with bilateral small frontal lobe contusions. Had extensive workup for his falls including evaluation at [facility] without any concrete underlying etiology other than what he states he relates that this could be related to possibly his blood pressure fluctuation. He has unregulated hypertension which will be controlled with the as needed medications and Cardene drip if needed to keep the systolic blood pressure less than 160. Insulin sliding scale coverage for his diabetes. Pain control for left-sided chest wall pain from rib fracture. He has had some expansion of his cerebral contusions and will be monitored closely in intensive care unit. Continue with hypertension regulation along with pain control. Pt had seizures while he was in the ICU and was intubated. Follow up CT head was stable. Pt has history of ETOH use and is possibly going through withdrawal. He is on Keppra for seizures and Librium for possible ETOH withdrawal. Discontinue Diprivan if pt doing well off it without agitation. Ween to extubate when more awake and able to protect airway. (Mason Parker) Attending Statement The exam, history, and the medical decision-making described in the above note were completed with the assistance of the mid-level provider. I reviewed and agree with the findings presented. I attest that I had a [id number] encounter with the patient on the same day, and personally performed and documented my assessment and findings in the medical record. (Matt Cerrato MD) Mason Parker June 23, 2017 10:11 Matt Cerrato MD June 23, 2017 16:17
[2017-06-23] MEDS: INSULIN NovoLIN REGULAR SUPPLEMENTAL SCALE SQ SCH ×4 (10:41→21:00)
--- NOTE | 2017-06-23 12:33 | HHI.CCPN ---
Subjective Remarks/Hospital Course 06/19: 66-year-old gentleman presents after a fall. He did have a positive loss of consciousness and complains of severe left-sided chest wall pain and initially had left shoulder pain which has improved along with mild headache. He has a history of frequent falls and states that he is undergone extensive workup including evaluation at the [facility] and the only thing they could relate this to was possibly low blood pressure. The CT of the head performed in the emergency department shows right frontal hematoma, left medial frontal hemorrhage. He was admitted to the neurosurgical service. Today at around 7 PM he suffered with generalized seizure, with significant altered mental status and post ictal condition, unable to protect and airways requiring emergent intubation. 06/20: Remains sedated, orally intubated on mechanical ventilation. 06/21: Sedation held for neuro exam. Follows commands bilateral lower extremity by wiggling toes. Not following an upper extremities at this time. Bilateral pupils are reactive. Start CPAP trial for possible extubation. 06/22: Remains encephalopathic on holding sedation, orally intubated on mechanical ventilation. Awaiting improvement in neurologic status to extubated. Tolerating CPAP trials. 06/23: Patient remains encephalopathic following fall and head injury 4 days ago. A right frontal hematoma was sustained and was complicated by generalized seizure activity shortly thereafter. He has developed bilateral pulmonary infiltrates and considerable atelectasis involving the left lung. He requires 60% oxygen at this point on mechanical ventilation and elevated positive end expiratory pressure. Responsiveness is considerably diminished. Objective Vital Signs Date Time Temp Pulse Resp B/P (MAP) Pulse Ox O2 Delivery O2 Flow Rate FiO2 06/23/17 12:00 35 06/23/17 12:00 98.0 76 20 98/66 (77) 95 06/23/17 07:00 Mechanical Ventilator Intake and Output 06/23/17 06/23/17 06/24/17 08:00 16:00 00:00 Intake Total 635 ml Output Total 350 ml Balance 285 ml Result Diagram: 06/23/17 0404 06/23/17 0404 Other Results Laboratory Tests Test 06/22/17 14:20 Blood Gas Puncture Site LT RADIAL Blood Gas Patient Temperature 98.6 Blood Gas HCO3 23 mmol/L (22-26) Blood Gas Base Excess -0.3 mmol/L (-2-2) Blood Gas Oxygen Saturation 91 % (90-100) Arterial Blood pH 7.44 (7.380-7.420) Arterial Blood Partial Pressure CO2 35 mmHg (38-42) Arterial Blood Partial Pressure O2 66 mmHg (61-120) Arterial Blood Oxygen Content 21.7 Vol % (12.0-20.0) Arterial Blood Carboxyhemoglobin 1.2 % (0-4) Arterial Blood Methemoglobin 0.7 % (0-2) Blood Gas Hemoglobin 17.0 G/DL (12.0-16.0) Oxygen Delivery Device VENTILATOR Blood Gas Ventilator Setting Blood Gas Inspired Oxygen 60 % Imaging Last [address] 06/19/17 0800 Signed Impressions: Service Date/Time: June 08:43 - CONCLUSION: 1. Increasing size right frontal hematoma, now measuring 1.9 cm. Stable left medial frontal hemorrhage. 2. No new findings. Ronnell Pineda MD Chest X-Ray 06/19/17 0000 Signed Impressions: Service Date/Time: June 09:40 - CONCLUSION: 1. No pneumothorax identified. 2. Small left basilar effusion. 3. Left-sided rib fracture. Felipe Domingo MD Objective Remarks GENERAL: Well-nourished, well-developed patient. Intubated, off on sedation SKIN: Warm and dry. HEAD: Normocephalic. EYES: No scleral icterus. No injection or drainage. NECK: Supple, trachea midline. No JVD or lymphadenopathy. CARDIOVASCULAR: Regular rate and rhythm without murmurs, gallops, or rubs. RESPIRATORY: Orally intubated on mechanical ventilation. Breath sounds equal bilaterally. No wheezing or crackles GASTROINTESTINAL: Abdomen soft, non-tender, nondistended. No guarding, bowel sounds active. MUSCULOSKELETAL: No cyanosis, or edema. Warm, well-perfused. NEURO EXAM: Remains encephalopathic off sedation, not following commands, withdraws both lower extremities. Left pupil reactive to light down to 3 mm. Right pupil reactive to light down to 2 mm. A/P Assessment and Plan Respiratory failure -Intubated for airway protection -Start CPAP trials when FiO2 declines to 0.4, evaluate for extubation -Vent bundle -DuoNeb's as needed Traumatic ICH -Repeat CT head 06/19 Increasing size right frontal hematoma, now measuring 1.9 cm. Stable left medial frontal hemorrhage. -Coagulopathy within normal limits -No surgical intervention indicated Seizure -Loaded with Keppra -Continue Keppra 1000 every 12 -EEG 06/20/2017 shows diffuse slowing, no seizure Diabetes mellitus -Insulin sliding scale Hypertension -Labetalol as needed -Hydrochlorothiazide -Lisinopril -Metoprolol Alcohol abuse -CIWA protocol Hypokalemia -Electrolyte replacement per ICU protocol DVT GI prophylaxis -Quoc's and SCDs -No pharmacological DVT prophylaxis due to ICH -Protonix Overall impression: The patient remains critically ill and cannot be weaned from mechanical ventilation yet. His neurologic status is considerably impaired following a closed head injury complicated by seizures. Critical care time 45 minutes aside from procedures. Manjit Gatica MD June 23, 2017 12:33
[2017-06-23] MEDS ORDERED: SODIUM CHLOR 0.9% 1000 ML INJ 1,000 ML IV ONE (18:00)
[2017-06-24] VITALS (18 sets, daily range): BP systolic 112–134; BP diastolic 67–78; PULSE 71–88; RESP 14–28; TEMP 98.1–101; O2SAT 96–100
[2017-06-24] MEDS: SODIUM CHLOR 0.9% 1000 ML INJ 1,000 ML IV SCH ×2 (01:12→13:35)
[2017-06-24] MEDS: PIPERACIL-TAZO 4.5 GM PREMIX 100 ML IV SCH ×4 (01:16→20:44)
[2017-06-24 05:08] LABS: AUTOMATED NEUTROPHIL # 3.9 TH/MM3 (1.8-7.7); BASOPHIL % 0.4 % (0.0-2.0); EOSINOPHIL # 0.1 TH/MM3 (0-0.4); HEMATOCRIT 40.5 % (39.0-51.0); HEMOGLOBIN 13.9 GM/DL (13.0-17.0); LYMPH % 10.5 % (9.0-44.0); LYMPHOCYTE # 0.6 TH/MM3 (1.0-4.8); MEAN CELL VOLUME 111.5 FL (80.0-100.0); MEAN CORPUSCULAR HEMOGLOBIN 38.4 PG (27.0-34.0); MEAN CORPUSCULAR HGB CONC 34.5 % (32.0-36.0); MEAN PLATELET VOLUME 8.8 FL (7.0-11.0); MONO % 14.5 % (0.0-8.0); MONOCYTE # 0.8 TH/MM3 (0-0.9); NEUT % 72.6 % (16.0-70.0); PLATELET COUNT 179 TH/MM3 (150-450); RED BLOOD COUNT 3.63 MIL/MM3 (4.50-5.90); RED CELL DISTRIBUTION WIDTH 16.9 % (11.6-17.2); WHITE BLOOD COUNT 5.4 TH/MM3 (4.0-11.0)
[2017-06-24 05:17] LABS: ALBUMIN 2.3 GM/DL (3.4-5.0); AST (GOT) 29 U/L (15-37); BICARBONATE 25.2 MEQ/L (21.0-32.0); BLOOD UREA NITROGEN 31 MG/DL (7-18); CHLORIDE 102 MEQ/L (98-107); CREATININE 0.74 MG/DL (0.60-1.30); GLOMERULAR FILTRATION RATE 106 ML/MIN (>89); GLUCOSE,RANDOM 125 MG/DL (74-106); SODIUM (NA) 138 MEQ/L (136-145)
[2017-06-24 05:21] LABS: ALKALINE PHOSPHATASE 81 U/L (45-117); ALT (GPT) 19 U/L (12-78); TOTAL BILIRUBIN ADULT 0.9 MG/DL (0.2-1.0); TOTAL PROTEIN 6.2 GM/DL (6.4-8.2)
[2017-06-24] MEDS: INSULIN NovoLIN REGULAR SUPPLEMENTAL SCALE SQ SCH ×4 (07:38→20:39)
[2017-06-24] MEDS: BACITRACIN TOP OINT 15 GM TUBE TOP SCH ×2 (07:39→20:44)
[2017-06-24] MEDS: SODIUM CHLORIDE 0.9% FLUSH 10 ML FLUSH IV FLUSH SCH ×2 (07:39→20:44)
[2017-06-24] MEDS: CHLORHEXIDINE 0.12% (ORAL KIT) 15 ML CUP MT SCH ×2 (07:39→20:44)
[2017-06-24] MEDS: ALLOPURINOL 100 MG TAB PO SCH (08:13)
[2017-06-24] MEDS: HYDROCHLOROTHIAZIDE 12.5 MG CAP PO SCH (08:13)
[2017-06-24] MEDS: PANTOPRAZOLE SOD 40 MG DELAYED RELEASE TAB PO SCH (08:13)
[2017-06-24] MEDS: METOPROLOL SUCCINATE 50 MG EXTENDED RELEASE TAB PO SCH (08:14)
[2017-06-24] MEDS: SERTRALINE HCL 50 MG TAB PO SCH (08:14)
[2017-06-24] MEDS: LISINOPRIL 10 MG TAB PO SCH (08:14)
[2017-06-24] MEDS: levETIRAcetam INJ 100 ML IV SCH ×2 (08:14→20:44)
[2017-06-24] MEDS: DOCUSATE SODIUM 50 MG/SENNA 8.6 MG TAB PO SCH ×2 (08:14→20:43)
--- NOTE | 2017-06-24 10:02 | HHI.NSPN ---
(Mason Parker) History Chief Complaint: Mild headache. (Mason Parker) Interval History 66-year-old gentleman who presented to [facility] emergency room after a fall. He relates a positive loss of consciousness and complains of severe left- sided chest wall pain and initially had left shoulder pain which has improved along with mild headache. He has a history of frequent falls and states that he is undergone extensive workup including evaluation at the [facility] and the only thing they could relate this to was possibly low blood pressure. He denies feeling lightheaded or dizzy or any chest pain prior to these falls and relates that his legs just give out on him and usually occurs about once a month. He had a similar episode today and [place] Denies any nausea or vomiting and states that he is hungry. Denies any numbness or paresthesias in the upper lower extremities or any neck or back pain. 06/19/17: Pt awake and alert. Complains of headache but mild. No n/v. No paresthesias. Complains of left rib pain. 06/20/17: Pt sedated on Diprivan. He was intubated yesterday. He had a seizure yesterday. History of ETOH use. 06/21/17: Pt sedated and intubated. He follows commands in all 4 extremities but not opening his eyes. 06/22/17: Pt sedated on Diprivan. He is intubated. He was off sedation yesterday and placed on Diprivan last night. He follows commands when off sedation. 06/23/17: Pt opens eyes slightly to voice. He follows some commands intermittently. Pupils equal. 06/24/17: Pt lethargic but does open his eyes slightly. He Follows simple commands. He is on Diprivan which when held for prolonged period pt reportedly becomes tachypneic. (Mason Parker) System Review Comments Not able to obtain given clinical condition. (Mason Parker) Exam Results Vital Signs Date Time Temp Pulse Resp B/P (MAP) Pulse Ox O2 Delivery O2 Flow Rate FiO2 06/24/17 08:00 98.7 82 28 134/78 (96) 96 06/24/17 07:30 40 06/24/17 07:00 Mechanical Ventilator Intake and Output 06/24/17 06/24/17 06/25/17 08:00 16:00 00:00 Intake Total 200 ml Output Total 650 ml Balance -450 ml (Mason Parker) Physical Examination General: Pt intubated and sedated on Diprivan. Eyes: Pupils equal 3mm bilaterally reactive bilaterally. Sclera anicteric. Resp: Intubated. CPAP currently. CTA bilaterally. Heart: NSR no murmurs Abd: Soft positive bs Skin: No cyanosis or erythema. Healing laceration left eyebrow clean and dry. Muscle: Moves all 4 extremities, following commands when off sedation. Neuro: Pt sedated on Diprivan and Intubated, held during exam. Opening eyes some today. Pupils 3mm bilaterally reactive bilaterally. Following commands in all 4 extremities when off sedation. (Mason Parker) Lab, Micro, Other Results Last Impressions Chest X-Ray 06/22/17 0000 Signed Impressions: Service Date/Time: Thursday, June 22, 2017 15:02 - CONCLUSION: No significant interval change. Enrique Whyte MD Head CT 06/19/17 0800 Signed Impressions: Service Date/Time: June 08:43 - CONCLUSION: 1. Increasing size right frontal hematoma, now measuring 1.9 cm. Stable left medial frontal hemorrhage. 2. No new findings. Ronnell Pineda MD Cervical Spine CT 06/18/17 1153 Signed Impressions: Service Date/Time: Sunday, June 18, 2017 13:43 - CONCLUSION: 1. No acute bony fracture. 2. Primary bony degenerative changes involving the cervical spine. Les Liao MD Shoulder X-Ray 06/18/17 0000 Signed Impressions: Service Date/Time: Sunday, June 18, 2017 16:45 - CONCLUSION: No acute fracture or joint dislocation. Les Liao MD Laboratory Tests Test 06/24/17 03:49 White Blood Count 5.4 TH/MM3 Red Blood Count 3.63 MIL/MM3 Hemoglobin 13.9 GM/DL Hematocrit 40.5 % Mean Corpuscular Volume 111.5 FL Mean Corpuscular Hemoglobin 38.4 PG Mean Corpuscular Hemoglobin Concent 34.5 % Red Cell Distribution Width 16.9 % Platelet Count 179 TH/MM3 Mean Platelet Volume 8.8 FL Neutrophils (%) (Auto) 72.6 % Lymphocytes (%) (Auto) 10.5 % Monocytes (%) (Auto) 14.5 % Eosinophils (%) (Auto) 2.0 % Basophils (%) (Auto) 0.4 % Neutrophils # (Auto) 3.9 TH/MM3 Lymphocytes # (Auto) 0.6 TH/MM3 Monocytes # (Auto) 0.8 TH/MM3 Eosinophils # (Auto) 0.1 TH/MM3 Basophils # (Auto) 0.0 TH/MM3 CBC Comment DIFF FINAL Differential Comment Blood Urea Nitrogen 31 MG/DL Creatinine 0.74 MG/DL Random Glucose 125 MG/DL Total Protein 6.2 GM/DL Albumin 2.3 GM/DL Calcium Level 9.0 MG/DL Alkaline Phosphatase 81 U/L Aspartate Amino Transf (AST/SGOT) 29 U/L Alanine Aminotransferase (ALT/SGPT) 19 U/L Total Bilirubin 0.9 MG/DL Sodium Level 138 MEQ/L Potassium Level 4.3 MEQ/L Chloride Level 102 MEQ/L Carbon Dioxide Level 25.2 MEQ/L Anion Gap 11 MEQ/L Estimat Glomerular Filtration Rate 106 ML/MIN (Mason Parker) Medical Decision Making Impression and Plan Diagnosis: (1) HTN (hypertension) ICD Codes: I10 - Essential (primary) hypertension (2) Diabetes ICD Codes: E11.9 - Type 2 diabetes mellitus without complications Status: Chronic (3) Frontal lobe contusion ICD Codes: S06.339A - Contusion and laceration of cerebrum, unspecified, with loss of consciousness of unspecified duration, initial encounter Status: Acute (4) Rib fracture ICD Codes: S22.39XA - Fracture of one rib, unspecified side, initial encounter for closed fracture Status: Acute Assessment and Plan 66-year-old gentleman with a chronic history of falls who apparently fell on 06/18 with positive loss of consciousness with bilateral small frontal lobe contusions. Had extensive workup for his falls including evaluation at [facility] without any concrete underlying etiology other than what he states he relates that this could be related to possibly his blood pressure fluctuation. He has unregulated hypertension which will be controlled with the as needed medications and Cardene drip if needed to keep the systolic blood pressure less than 160. Insulin sliding scale coverage for his diabetes. Pain control for left-sided chest wall pain from rib fracture. He has had some expansion of his cerebral contusions and will be monitored closely in intensive care unit. Continue with hypertension regulation along with pain control. Pt had seizures while he was in the ICU and was intubated. Follow up CT head was stable. Pt has history of ETOH use and is in impending alcohol withdrawal. He is on Keppra for seizures and Librium for impending ETOH withdrawal. Discontinue Diprivan if pt doing well off it without agitation, currently needing it for tachypnea. Ween to extubate when more awake and able to protect airway. (Mason Parker) Attending Statement The exam, history, and the medical decision-making described in the above note were completed with the assistance of the mid-level provider. I reviewed and agree with the findings presented. I attest that I had a [id number] encounter with the patient on the same day, and personally performed and documented my assessment and findings in the medical record. (Matt Cerrato MD) Mason Parker June 24, 2017 10:02 Matt Cerrato MD June 24, 2017 18:22
[2017-06-24] MEDS: PROPOFOL 1000 MG/100 ML INJ 100 ML IV PRN (12:51)
--- NOTE | 2017-06-24 14:09 | HHI.CCPN ---
Subjective Remarks/Hospital Course 06/19: 66-year-old gentleman presents after a fall. He did have a positive loss of consciousness and complains of severe left-sided chest wall pain and initially had left shoulder pain which has improved along with mild headache. He has a history of frequent falls and states that he is undergone extensive workup including evaluation at the [facility] and the only thing they could relate this to was possibly low blood pressure. The CT of the head performed in the emergency department shows right frontal hematoma, left medial frontal hemorrhage. He was admitted to the neurosurgical service. Today at around 7 PM he suffered with generalized seizure, with significant altered mental status and post ictal condition, unable to protect and airways requiring emergent intubation. 06/20: Remains sedated, orally intubated on mechanical ventilation. 06/21: Sedation held for neuro exam. Follows commands bilateral lower extremity by wiggling toes. Not following an upper extremities at this time. Bilateral pupils are reactive. Start CPAP trial for possible extubation. 06/22: Remains encephalopathic on holding sedation, orally intubated on mechanical ventilation. Awaiting improvement in neurologic status to extubated. Tolerating CPAP trials. 06/23: Patient remains encephalopathic following fall and head injury 4 days ago. A right frontal hematoma was sustained and was complicated by generalized seizure activity shortly thereafter. He has developed bilateral pulmonary infiltrates and considerable atelectasis involving the left lung. He requires 60% oxygen at this point on mechanical ventilation and elevated positive end expiratory pressure. Responsiveness is considerably diminished. 06/24: Oxygenation much improved overnight, PEEP down to 5 and FiO2 down to 40% . Following commands today. We will attempt to wean at this point. Objective Vital Signs Date Time Temp Pulse Resp B/P (MAP) Pulse Ox O2 Delivery O2 Flow Rate FiO2 06/24/17 12:10 100 40 06/24/17 12:00 71 06/24/17 12:00 98.6 16 134/78 (96) 06/24/17 07:00 Mechanical Ventilator Intake and Output 06/24/17 06/24/17 06/25/17 08:00 16:00 00:00 Intake Total 200 ml 1245 ml Output Total 650 ml Balance -450 ml 1245 ml Result Diagram: 06/24/17 0349 06/24/17 0349 Other Results Microbiology Date/Time Source Procedure Growth Status 06/22/17 15:40 Sputum Endotracheal Gram Stain - Final Complete 06/22/17 15:40 Sputum Endotracheal Sputum Culture - Final HEAVY GROWTH NORMAL RESPIRATORY LUÍS Complete Imaging Last [address] 06/19/17 0800 Signed Impressions: Service Date/Time: June 08:43 - CONCLUSION: 1. Increasing size right frontal hematoma, now measuring 1.9 cm. Stable left medial frontal hemorrhage. 2. No new findings. Ronnell Pineda MD Chest X-Ray 06/19/17 0000 Signed Impressions: Service Date/Time: June 09:40 - CONCLUSION: 1. No pneumothorax identified. 2. Small left basilar effusion. 3. Left-sided rib fracture. Felipe Domingo MD Objective Remarks GENERAL: Well-nourished, well-developed patient. Intubated, off on sedation SKIN: Warm and dry. HEAD: Normocephalic. EYES: No scleral icterus. No injection or drainage. NECK: Supple, trachea midline. Orally intubated. CARDIOVASCULAR: Regular rate and rhythm without murmurs, gallops, or rubs. No JVD. RESPIRATORY: Orally intubated on mechanical ventilation. Breath sounds equal bilaterally. No wheezing or crackles GASTROINTESTINAL: Abdomen soft, non-tender, nondistended. No guarding, bowel sounds active. MUSCULOSKELETAL: No cyanosis, or edema. Warm, well-perfused. NEURO EXAM: Remains encephalopathic off sedation, following commands, withdraws both lower extremities. Left pupil reactive to light down to 3 mm. Right pupil reactive to light down to 2 mm. A/P Assessment and Plan Respiratory failure -Intubated for airway protection -Start CPAP trials when FiO2 declines to 0.4, evaluate for extubation -Vent bundle -DuoNeb's as needed Traumatic ICH -Repeat CT head 06/19 Increasing size right frontal hematoma, now measuring 1.9 cm. Stable left medial frontal hemorrhage. -Coagulopathy within normal limits -No surgical intervention indicated Seizure -Loaded with Keppra -Continue Keppra 1000 every 12 -EEG 06/20/2017 shows diffuse slowing, no seizure Diabetes mellitus -Insulin sliding scale Hypertension -Labetalol as needed -Hydrochlorothiazide -Lisinopril -Metoprolol Alcohol abuse -CIWA protocol Hypokalemia -Electrolyte replacement per ICU protocol DVT GI prophylaxis -Quoc's and SCDs -No pharmacological DVT prophylaxis due to ICH -Protonix Overall impression: Improved gas exchange and lung function. Working toward extubation. No further seizures. Manjit Gatica MD June 24, 2017 14:09
[2017-06-24] MEDS: ACETAMINOPHEN 325 MG TAB PO PRN (21:19)
--- NOTE | 2017-06-24 22:55 | RADRPT ---
EXAM DATE/TIME: 06/24/2017 21:57 [place] COMPARISON: No previous studies available for comparison. INDICATIONS : Left arm swelling. MEDICAL HISTORY : Diverticulitis. Arthritis. Hypertension. SURGICAL HISTORY : Appendectomy. Colon resection. Left knee replacement. ENCOUNTER: Initial ACUITY: 1 day PAIN SCORE: Non-responsive LOCATION: Left arm. FINDINGS: There is some thrombus of the mid and distal cephalic vein. It is noncompressible. There is spontaneo us flow documented in the brachial, basilic, axillary, and subclavian veins. The vessels are araseli sible and augmentation response is documented. No filling defects are seen. The flow is phasic with respiration. Direction of flow in the jugular vein is caudal. CONCLUSION: Positive thrombus in the mid and distal cephalic vein which is enlarged and noncompressible suspiciou s for an acute venous thrombosis. Norberto Sandra MD on June 24, 2017 at 22:53 Board Certified Radiologist. This report was verified electronically.
[2017-06-25] VITALS (19 sets, daily range): BP systolic 86–138; BP diastolic 58–94; PULSE 67–90; RESP 14–24; TEMP 98.9–101; O2SAT 93–96
[2017-06-25] MEDS: PROPOFOL 1000 MG/100 ML INJ 100 ML IV PRN (00:42)
[2017-06-25] MEDS: PIPERACIL-TAZO 4.5 GM PREMIX 100 ML IV SCH ×4 (01:10→19:43)
[2017-06-25] MEDS: SODIUM CHLOR 0.9% 1000 ML INJ 1,000 ML IV SCH ×3 (01:48→19:43)
[2017-06-25 06:18] LABS: BICARBONATE 27.9 MEQ/L (21.0-32.0); CREATININE 0.84 MG/DL (0.60-1.30)
[2017-06-25] MEDS: INSULIN NovoLIN REGULAR SUPPLEMENTAL SCALE SQ SCH ×4 (08:00→21:00)
[2017-06-25] MEDS: CHLORHEXIDINE 0.12% (ORAL KIT) 15 ML CUP MT SCH ×2 (08:00→19:43)
[2017-06-25 08:51] LABS: AUTOMATED NEUTROPHIL # 5.2 TH/MM3 (1.8-7.7); BASOPHIL % 0.2 % (0.0-2.0); EOSINOPHIL % 0.7 % (0.0-4.0); HEMATOCRIT 41.2 % (39.0-51.0); HEMOGLOBIN 14.6 GM/DL (13.0-17.0); LYMPH % 5.4 % (9.0-44.0); LYMPHOCYTE # 0.3 TH/MM3 (1.0-4.8); MEAN CELL VOLUME 109.5 FL (80.0-100.0); MEAN CORPUSCULAR HEMOGLOBIN 38.7 PG (27.0-34.0); MEAN CORPUSCULAR HGB CONC 35.3 % (32.0-36.0); MEAN PLATELET VOLUME 8.3 FL (7.0-11.0); MONO % 11.7 % (0.0-8.0); MONOCYTE # 0.7 TH/MM3 (0-0.9); PLATELET COUNT 190 TH/MM3 (150-450); RED BLOOD COUNT 3.76 MIL/MM3 (4.50-5.90); RED CELL DISTRIBUTION WIDTH 17.1 % (11.6-17.2); WHITE BLOOD COUNT 6.3 TH/MM3 (4.0-11.0)
[2017-06-25] MEDS: SODIUM CHLORIDE 0.9% FLUSH 10 ML FLUSH IV FLUSH SCH ×2 (09:00→21:00)
[2017-06-25] MEDS: DOCUSATE SODIUM 50 MG/SENNA 8.6 MG TAB PO SCH ×2 (09:00→21:00)
[2017-06-25] MEDS: BACITRACIN TOP OINT 15 GM TUBE TOP SCH ×2 (09:00→22:11)
[2017-06-25] MEDS: SERTRALINE HCL 50 MG TAB PO SCH (09:06)
[2017-06-25] MEDS: ALLOPURINOL 100 MG TAB PO SCH (09:06)
[2017-06-25] MEDS: PANTOPRAZOLE SOD 40 MG DELAYED RELEASE TAB PO SCH (09:06)
[2017-06-25] MEDS: LISINOPRIL 10 MG TAB PO SCH (09:06)
[2017-06-25] MEDS: ACETAMINOPHEN 325 MG TAB PO PRN (09:06)
[2017-06-25] MEDS: HYDROCHLOROTHIAZIDE 12.5 MG CAP PO SCH (09:06)
[2017-06-25] MEDS: levETIRAcetam INJ 100 ML IV SCH ×2 (09:06→22:10)
[2017-06-25] MEDS: METOPROLOL SUCCINATE 50 MG EXTENDED RELEASE TAB PO SCH (09:06)
--- NOTE | 2017-06-25 09:11 | HHI.NSPN ---
(Mason Parker) History Chief Complaint: Mild headache. (Mason Parker) Interval History 66-year-old gentleman who presented to [facility] emergency room after a fall. He relates a positive loss of consciousness and complains of severe left- sided chest wall pain and initially had left shoulder pain which has improved along with mild headache. He has a history of frequent falls and states that he is undergone extensive workup including evaluation at the [facility] and the only thing they could relate this to was possibly low blood pressure. He denies feeling lightheaded or dizzy or any chest pain prior to these falls and relates that his legs just give out on him and usually occurs about once a month. He had a similar episode today and [place]. Denies any nausea or vomiting and states that he is hungry. Denies any numbness or paresthesias in the upper lower extremities or any neck or back pain. 06/19/17: Pt awake and alert. Complains of headache but mild. No n/v. No paresthesias. Complains of left rib pain. 06/20/17: Pt sedated on Diprivan. He was intubated yesterday. He had a seizure yesterday. History of ETOH use. 06/21/17: Pt sedated and intubated. He follows commands in all 4 extremities but not opening his eyes. 06/22/17: Pt sedated on Diprivan. He is intubated. He was off sedation yesterday and placed on Diprivan last night. He follows commands when off sedation. 06/23/17: Pt opens eyes slightly to voice. He follows some commands intermittently. Pupils equal. 06/24/17: Pt lethargic but does open his eyes slightly. He Follows simple commands. He is on Diprivan which when held for prolonged period pt reportedly becomes tachypneic. 06/25/17: Pt opens eyes slightly to voice. He follows some simple commands more easily than others. Intubated. (Mason Parker) System Review Comments Not able to obtain given clinical condition. (Mason Parker) Exam Results Vital Signs Date Time Temp Pulse Resp B/P (MAP) Pulse Ox O2 Delivery O2 Flow Rate FiO2 06/25/17 07:44 40 06/25/17 07:44 95 06/25/17 06:00 77 06/25/17 04:00 99.4 19 111/65 (80) 06/24/17 19:00 Mechanical Ventilator Intake and Output 06/25/17 06/25/17 06/26/17 08:00 16:00 00:00 Intake Total 1745 ml Output Total 1000 ml Balance 745 ml (Mason Parker) Physical Examination General: Pt intubated and sedated on Diprivan. Eyes: Pupils equal 3mm bilaterally reactive bilaterally. Sclera anicteric. Resp: Intubated. CPAP. CTA bilaterally. Heart: NSR no murmurs Abd: Soft positive bs Skin: No cyanosis or erythema. Healing laceration left eyebrow clean and dry. Muscle: Moves all 4 extremities, following commands when off sedation intermittently. Neuro: Pt sedated on Diprivan and Intubated, held during exam. Opening eyes some today. Pupils 3mm bilaterally reactive bilaterally. Following commands in all 4 extremities when off sedation. (Mason Parker) Lab, Micro, Other Results Last Impressions Upper Extremity Ultrasound 06/24/17 0000 Signed Impressions: Service Date/Time: Saturday, June 24, 2017 21:57 - CONCLUSION: Positive thrombus in the mid and distal cephalic vein which is enlarged and noncompressible suspicious for an acute venous thrombosis. Norberto Sandra MD Chest X-Ray 06/22/17 0000 Signed Impressions: Service Date/Time: Thursday, June 22, 2017 15:02 - CONCLUSION: No significant interval change. Enrique Whyte MD Head CT 06/19/17 0800 Signed Impressions: Service Date/Time: June 08:43 - CONCLUSION: 1. Increasing size right frontal hematoma, now measuring 1.9 cm. Stable left medial frontal hemorrhage. 2. No new findings. Ronnell Pineda MD Cervical Spine CT 06/18/17 1153 Signed Impressions: Service Date/Time: Sunday, June 18, 2017 13:43 - CONCLUSION: 1. No acute bony fracture. 2. Primary bony degenerative changes involving the cervical spine. Les Liao MD Shoulder X-Ray 06/18/17 0000 Signed Impressions: Service Date/Time: Sunday, June 18, 2017 16:45 - CONCLUSION: No acute fracture or joint dislocation. Les Liao MD Laboratory Tests Test 06/25/17 05:09 06/25/17 08:43 Blood Urea Nitrogen 23 MG/DL Creatinine 0.84 MG/DL Random Glucose 121 MG/DL Calcium Level 9.0 MG/DL Sodium Level 135 MEQ/L Potassium Level 4.7 MEQ/L Chloride Level 99 MEQ/L Carbon Dioxide Level 27.9 MEQ/L Anion Gap 8 MEQ/L Estimat Glomerular Filtration Rate 92 ML/MIN White Blood Count 6.3 TH/MM3 Red Blood Count 3.76 MIL/MM3 Hemoglobin 14.6 GM/DL Hematocrit 41.2 % Mean Corpuscular Volume 109.5 FL Mean Corpuscular Hemoglobin 38.7 PG Mean Corpuscular Hemoglobin Concent 35.3 % Red Cell Distribution Width 17.1 % Platelet Count 190 TH/MM3 Mean Platelet Volume 8.3 FL Neutrophils (%) (Auto) 82.0 % Lymphocytes (%) (Auto) 5.4 % Monocytes (%) (Auto) 11.7 % Eosinophils (%) (Auto) 0.7 % Basophils (%) (Auto) 0.2 % Neutrophils # (Auto) 5.2 TH/MM3 Lymphocytes # (Auto) 0.3 TH/MM3 Monocytes # (Auto) 0.7 TH/MM3 Eosinophils # (Auto) 0.0 TH/MM3 Basophils # (Auto) 0.0 TH/MM3 CBC Comment AUTO DIFF (Mason Parker) Medical Decision Making Impression and Plan Diagnosis: (1) HTN (hypertension) ICD Codes: I10 - Essential (primary) hypertension (2) Diabetes ICD Codes: E11.9 - Type 2 diabetes mellitus without complications Status: Chronic (3) Frontal lobe contusion ICD Codes: S06.339A - Contusion and laceration of cerebrum, unspecified, with loss of consciousness of unspecified duration, initial encounter Status: Acute (4) Rib fracture ICD Codes: S22.39XA - Fracture of one rib, unspecified side, initial encounter for closed fracture Status: Acute Assessment and Plan 66-year-old gentleman with a chronic history of falls who apparently fell on 06/18 with positive loss of consciousness with bilateral small frontal lobe contusions. Had extensive workup for his falls including evaluation at [facility] without any concrete underlying etiology other than what he states he relates that this could be related to possibly his blood pressure fluctuation. He has unregulated hypertension which will be controlled with the as needed medications and Cardene drip if needed to keep the systolic blood pressure less than 160. Insulin sliding scale coverage for his diabetes. Pain control for left-sided chest wall pain from rib fracture. He has had some expansion of his cerebral contusions and will be monitored closely in intensive care unit. Continue with hypertension regulation along with pain control. Pt had seizures while he was in the ICU and was intubated. Follow up CT head was stable. Pt has history of ETOH use and is in impending alcohol withdrawal. He is on Keppra for seizures and Librium for impending ETOH withdrawal. Discontinue Diprivan if pt doing well off it without agitation, currently needing it for tachypnea. Ween to extubate when more awake and able to protect airway. (Mason Parker) Attending Statement The exam, history, and the medical decision-making described in the above note were completed with the assistance of the mid-level provider. I reviewed and agree with the findings presented. I attest that I had a [id number] encounter with the patient on the same day, and personally performed and documented my assessment and findings in the medical record. (Matt Cerrato MD) Mason Parker June 25, 2017 09:11 Matt Cerrato MD June 25, 2017 16:59
[2017-06-25 10:07] LABS: BANDS 6 % (0-6); LYMPHOCYTES 4 % (9-44); METAMYELOCYTES 1 % (0-1); MONOCYTES 9 % (0-8); NEUTROPHIL # MANUAL DIFF 5.5 TH/MM3 (1.8-7.7); POLYS (SEG NEUTROPHILS) 80 % (16-70)
--- NOTE | 2017-06-25 13:13 | HHI.CCPN ---
Subjective Remarks/Hospital Course 06/19: 66-year-old gentleman presents after a fall. He did have a positive loss of consciousness and complains of severe left-sided chest wall pain and initially had left shoulder pain which has improved along with mild headache. He has a history of frequent falls and states that he is undergone extensive workup including evaluation at the [facility] and the only thing they could relate this to was possibly low blood pressure. The CT of the head performed in the emergency department shows right frontal hematoma, left medial frontal hemorrhage. He was admitted to the neurosurgical service. Today at around 7 PM he suffered with generalized seizure, with significant altered mental status and post ictal condition, unable to protect and airways requiring emergent intubation. 06/20: Remains sedated, orally intubated on mechanical ventilation. 06/21: Sedation held for neuro exam. Follows commands bilateral lower extremity by wiggling toes. Not following an upper extremities at this time. Bilateral pupils are reactive. Start CPAP trial for possible extubation. 06/22: Remains encephalopathic on holding sedation, orally intubated on mechanical ventilation. Awaiting improvement in neurologic status to extubated. Tolerating CPAP trials. 06/23: Patient remains encephalopathic following fall and head injury 4 days ago. A right frontal hematoma was sustained and was complicated by generalized seizure activity shortly thereafter. He has developed bilateral pulmonary infiltrates and considerable atelectasis involving the left lung. He requires 60% oxygen at this point on mechanical ventilation and elevated positive end expiratory pressure. Responsiveness is considerably diminished. 06/24: Oxygenation much improved overnight, PEEP down to 5 and FiO2 down to 40% . Following commands today. We will attempt to wean at this point. 06/25: Stronger on CPAP. BP control acceptable. Remains weak. Objective Vital Signs Date Time Temp Pulse Resp B/P (MAP) Pulse Ox O2 Delivery O2 Flow Rate FiO2 06/25/17 12:18 99.0 71 20 93/58 (70) 96 06/25/17 11:12 40 06/25/17 07:00 Mechanical Ventilator Intake and Output 06/25/17 06/25/17 06/26/17 08:00 16:00 00:00 Intake Total 1745 ml Output Total 1000 ml Balance 745 ml Result Diagram: 06/25/17 0843 06/25/17 050 Other Results Microbiology Date/Time Source Procedure Growth Status 06/22/17 15:40 Sputum Endotracheal Gram Stain - Final Complete 06/22/17 15:40 Sputum Endotracheal Sputum Culture - Final HEAVY GROWTH NORMAL RESPIRATORY LUÍS Complete Imaging Last [address] 06/19/17 0800 Signed Impressions: Service Date/Time: June 08:43 - CONCLUSION: 1. Increasing size right frontal hematoma, now measuring 1.9 cm. Stable left medial frontal hemorrhage. 2. No new findings. Ronnell Pineda MD Chest X-Ray 06/19/17 0000 Signed Impressions: Service Date/Time: June 09:40 - CONCLUSION: 1. No pneumothorax identified. 2. Small left basilar effusion. 3. Left-sided rib fracture. Felipe Domingo MD Objective Remarks GENERAL: Well-nourished, well-developed patient. Intubated, off on sedation SKIN: Warm and dry. HEAD: Normocephalic. EYES: No scleral icterus. No injection or drainage. NECK: Supple, trachea midline. Orally intubated. CARDIOVASCULAR: Regular rate and rhythm without murmurs, gallops, or rubs. No JVD. RESPIRATORY: Orally intubated on mechanical ventilation. Breath sounds equal bilaterally. No wheezing or crackles GASTROINTESTINAL: Abdomen soft, non-tender, nondistended. No guarding, bowel sounds active. MUSCULOSKELETAL: No cyanosis, or edema. Warm, well-perfused. NEURO EXAM: Remains encephalopathic off sedation, following commands, withdraws both lower extremities. Left pupil reactive to light down to 3 mm. Right pupil reactive to light down to 2 mm. A/P Assessment and Plan Respiratory failure -Intubated for airway protection -Start CPAP trials when FiO2 declines to 0.4, evaluate for extubation -Vent bundle -DuoNeb's as needed -Trial extubation. Traumatic ICH -Repeat CT head 06/19 Increasing size right frontal hematoma, now measuring 1.9 cm. Stable left medial frontal hemorrhage. -Coagulopathy within normal limits -No surgical intervention indicated Seizure -Loaded with Keppra -Continue Keppra 1000 every 12 -EEG 06/20/2017 shows diffuse slowing, no seizure Diabetes mellitus -Insulin sliding scale Hypertension -Labetalol as needed -Hydrochlorothiazide -Lisinopril -Metoprolol Alcohol abuse -CIWA protocol Hypokalemia -Electrolyte replacement per ICU protocol DVT GI prophylaxis -Quoc's and SCDs -No pharmacological DVT prophylaxis due to ICH -Protonix Overall impression: Improved gas exchange and lung function. Trial extubation. No further seizures. Manjit Gatica MD June 25, 2017 13:13
[2017-06-25] MEDS: MORPHINE SULFATE 4 MG/ML INJ IV PUSH PRN (22:09)
[2017-06-26] VITALS (12 sets, daily range): BP systolic 100–153; BP diastolic 63–93; PULSE 75–100; RESP 16–28; TEMP 98–98.9; O2SAT 93–99
[2017-06-26] MEDS: MORPHINE SULFATE 4 MG/ML INJ IV PUSH PRN ×3 (00:51→22:10)
[2017-06-26] MEDS: PIPERACIL-TAZO 4.5 GM PREMIX 100 ML IV SCH ×3 (00:51→12:57)
[2017-06-26] MEDS: CHLORHEXIDINE 0.12% (ORAL KIT) 15 ML CUP MT SCH ×2 (08:00→19:54)
[2017-06-26] MEDS: INSULIN NovoLIN REGULAR SUPPLEMENTAL SCALE SQ SCH ×4 (08:00→21:00)
[2017-06-26] MEDS: SODIUM CHLORIDE 0.9% FLUSH 10 ML FLUSH IV FLUSH SCH ×2 (09:00→19:55)
[2017-06-26] MEDS: ALLOPURINOL 100 MG TAB PO SCH (09:00)
[2017-06-26] MEDS: METOPROLOL SUCCINATE 50 MG EXTENDED RELEASE TAB PO SCH (09:00)
[2017-06-26] MEDS: DOCUSATE SODIUM 50 MG/SENNA 8.6 MG TAB PO SCH ×2 (09:00→19:55)
[2017-06-26] MEDS: BACITRACIN TOP OINT 15 GM TUBE TOP SCH ×2 (09:00→19:55)
[2017-06-26] MEDS: HYDROCHLOROTHIAZIDE 12.5 MG CAP PO SCH (09:00)
[2017-06-26] MEDS: SERTRALINE HCL 50 MG TAB PO SCH (09:00)
[2017-06-26] MEDS: LISINOPRIL 10 MG TAB PO SCH (09:00)
[2017-06-26] MEDS: PANTOPRAZOLE SOD 40 MG DELAYED RELEASE TAB PO SCH (09:00)
[2017-06-26] MEDS: levETIRAcetam INJ 100 ML IV SCH ×2 (09:33→19:54)
[2017-06-26] MEDS: SODIUM CHLOR 0.9% 1000 ML INJ 1,000 ML IV SCH (10:07)
--- NOTE | 2017-06-26 12:35 | HHI.NSPN ---
(Mason Parker) History Chief Complaint: Mild headache. (Mason Parker) Interval History 66-year-old gentleman who presented to [facility] emergency room after a fall. He relates a positive loss of consciousness and complains of severe left- sided chest wall pain and initially had left shoulder pain which has improved along with mild headache. He has a history of frequent falls and states that he is undergone extensive workup including evaluation at the [facility] and the only thing they could relate this to was possibly low blood pressure. He denies feeling lightheaded or dizzy or any chest pain prior to these falls and relates that his legs just give out on him and usually occurs about once a month. He had a similar episode today and [place]. Denies any nausea or vomiting and states that he is hungry. Denies any numbness or paresthesias in the upper lower extremities or any neck or back pain. 06/19/17: Pt awake and alert. Complains of headache but mild. No n/v. No paresthesias. Complains of left rib pain. 06/20/17: Pt sedated on Diprivan. He was intubated yesterday. He had a seizure yesterday. History of ETOH use. 06/21/17: Pt sedated and intubated. He follows commands in all 4 extremities but not opening his eyes. 06/22/17: Pt sedated on Diprivan. He is intubated. He was off sedation yesterday and placed on Diprivan last night. He follows commands when off sedation. 06/23/17: Pt opens eyes slightly to voice. He follows some commands intermittently. Pupils equal. 06/24/17: Pt lethargic but does open his eyes slightly. He Follows simple commands. He is on Diprivan which when held for prolonged period pt reportedly becomes tachypneic. 06/25/17: Pt opens eyes slightly to voice. He follows some simple commands more easily than others. Intubated. 06/26/17: Pt extubated this morning. He awakens to voice. Follows simple commands. Difficult to get much of history currently. (Mason Parker) System Review Comments Not able to obtain given level of alertness. (Mason Parker) Exam Results Vital Signs Date Time Temp Pulse Resp B/P (MAP) Pulse Ox O2 Delivery O2 Flow Rate FiO2 06/26/17 08:00 98.9 80 28 125/76 (92) 93 06/26/17 07:00 Nasal Cannula 4.00 06/25/17 13:34 40 Intake and Output 06/26/17 06/26/17 06/27/17 08:00 16:00 00:00 Intake Total 100 ml Output Total 850 ml Balance -750 ml (Mason Parker) Physical Examination General: Pt intubated and sedated on Diprivan. Eyes: Pupils equal 3mm bilaterally reactive bilaterally. Sclera anicteric. Resp: Intubated. CPAP. CTA bilaterally. Heart: NSR no murmurs Abd: Soft positive bs Skin: No cyanosis or erythema. Healing laceration left eyebrow clean and dry. Muscle: Moves all 4 extremities, following commands when off sedation intermittently. Neuro: Pt sedated on Diprivan and Intubated, held during exam. Opening eyes some today. Pupils 3mm bilaterally reactive bilaterally. Following commands in all 4 extremities when off sedation. (Mason Parker) Lab, Micro, Other Results Last Impressions Upper Extremity Ultrasound 06/24/17 0000 Signed Impressions: Service Date/Time: Saturday, June 24, 2017 21:57 - CONCLUSION: Positive thrombus in the mid and distal cephalic vein which is enlarged and noncompressible suspicious for an acute venous thrombosis. Norberto Sandra MD Chest X-Ray 06/22/17 0000 Signed Impressions: Service Date/Time: Thursday, June 22, 2017 15:02 - CONCLUSION: No significant interval change. Enrique Whyte MD Head CT 06/19/17 0800 Signed Impressions: Service Date/Time: June 08:43 - CONCLUSION: 1. Increasing size right frontal hematoma, now measuring 1.9 cm. Stable left medial frontal hemorrhage. 2. No new findings. Ronnell Pineda MD Cervical Spine CT 06/18/17 1153 Signed Impressions: Service Date/Time: Sunday, June 18, 2017 13:43 - CONCLUSION: 1. No acute bony fracture. 2. Primary bony degenerative changes involving the cervical spine. Les Liao MD Shoulder X-Ray 06/18/17 0000 Signed Impressions: Service Date/Time: Sunday, June 18, 2017 16:45 - CONCLUSION: No acute fracture or joint dislocation. Les Liao MD (Mason Parker) Medical Decision Making Impression and Plan Diagnosis: (1) HTN (hypertension) ICD Codes: I10 - Essential (primary) hypertension (2) Diabetes ICD Codes: E11.9 - Type 2 diabetes mellitus without complications Status: Chronic (3) Frontal lobe contusion ICD Codes: S06.339A - Contusion and laceration of cerebrum, unspecified, with loss of consciousness of unspecified duration, initial encounter Status: Acute (4) Rib fracture ICD Codes: S22.39XA - Fracture of one rib, unspecified side, initial encounter for closed fracture Status: Acute Assessment and Plan 66-year-old gentleman with a chronic history of falls who apparently fell on 06/18 with positive loss of consciousness with bilateral small frontal lobe contusions. Had extensive workup for his falls including evaluation at [facility] without any concrete underlying etiology other than what he states he relates that this could be related to possibly his blood pressure fluctuation. He has unregulated hypertension which will be controlled with the as needed medications and Cardene drip if needed to keep the systolic blood pressure less than 160. Insulin sliding scale coverage for his diabetes. Pain control for left-sided chest wall pain from rib fracture. He has had some expansion of his cerebral contusions and will be monitored closely in intensive care unit. Continue with hypertension regulation along with pain control. Pt had seizures while he was in the ICU and was intubated. Follow up CT head was stable. Pt has history of ETOH use and is in impending alcohol withdrawal. He is on Keppra for seizures and Librium for impending ETOH withdrawal. Discontinue Diprivan if pt doing well off it without agitation, currently needing it for tachypnea. Ween to extubate when more awake and able to protect airway. (Mason Parker) Attending Statement The exam, history, and the medical decision-making described in the above note were completed with the assistance of the mid-level provider. I reviewed and agree with the findings presented. I attest that I had a [id number] encounter with the patient on the same day, and personally performed and documented my assessment and findings in the medical record. Extubated and protecting airway well. Continue with seizure prophylaxis as per neurology. Stable for rehab transfer from neurosurgical standpoint. (Mtat Cerrato MD) Mason Parker June 26, 2017 12:35 Matt Cerrato MD June 26, 2017 16:32
--- NOTE | 2017-06-26 14:40 | HHI.CCPN ---
Subjective Remarks/Hospital Course 06/19: 66-year-old gentleman presents after a fall. He did have a positive loss of consciousness and complains of severe left-sided chest wall pain and initially had left shoulder pain which has improved along with mild headache. He has a history of frequent falls and states that he is undergone extensive workup including evaluation at the [facility] and the only thing they could relate this to was possibly low blood pressure. The CT of the head performed in the emergency department shows right frontal hematoma, left medial frontal hemorrhage. He was admitted to the neurosurgical service. Today at around 7 PM he suffered with generalized seizure, with significant altered mental status and post ictal condition, unable to protect and airways requiring emergent intubation. 06/20: Remains sedated, orally intubated on mechanical ventilation. 06/21: Sedation held for neuro exam. Follows commands bilateral lower extremity by wiggling toes. Not following an upper extremities at this time. Bilateral pupils are reactive. Start CPAP trial for possible extubation. 06/22: Remains encephalopathic on holding sedation, orally intubated on mechanical ventilation. Awaiting improvement in neurologic status to extubated. Tolerating CPAP trials. 06/23: Patient remains encephalopathic following fall and head injury 4 days ago. A right frontal hematoma was sustained and was complicated by generalized seizure activity shortly thereafter. He has developed bilateral pulmonary infiltrates and considerable atelectasis involving the left lung. He requires 60% oxygen at this point on mechanical ventilation and elevated positive end expiratory pressure. Responsiveness is considerably diminished. 06/24: Oxygenation much improved overnight, PEEP down to 5 and FiO2 down to 40% . Following commands today. We will attempt to wean at this point. 06/25: Stronger on CPAP. BP control acceptable. Remains weak. 06/26: Extubated and protects airway acceptably. Frontal lobe injury pattern persists. Objective Vital Signs Date Time Temp Pulse Resp B/P (MAP) Pulse Ox O2 Delivery O2 Flow Rate FiO2 06/26/17 12:00 98.0 84 28 144/86 (105) 98 06/26/17 07:00 Nasal Cannula 4.00 06/25/17 13:34 40 Intake and Output 06/26/17 06/26/17 06/27/17 08:00 16:00 00:00 Intake Total 100 ml Output Total 850 ml Balance -750 ml Result Diagram: 06/25/17 0843 06/25/17 0505 Imaging Last [address] 06/19/17 0800 Signed Impressions: Service Date/Time: June 08:43 - CONCLUSION: 1. Increasing size right frontal hematoma, now measuring 1.9 cm. Stable left medial frontal hemorrhage. 2. No new findings. Ronnell Pineda MD Chest X-Ray 06/19/17 0000 Signed Impressions: Service Date/Time: June 09:40 - CONCLUSION: 1. No pneumothorax identified. 2. Small left basilar effusion. 3. Left-sided rib fracture. Felipe Domingo MD Objective Remarks GENERAL: Well-nourished, well-developed patient. Intubated, off on sedation SKIN: Warm and dry. HEAD: Normocephalic. EYES: No scleral icterus. No injection or drainage. NECK: Supple, trachea midline. Airway widely patent. CARDIOVASCULAR: Regular rate and rhythm without murmurs, gallops, or rubs. No JVD. RESPIRATORY: Orally intubated on mechanical ventilation. Breath sounds equal bilaterally. No wheezing or crackles GASTROINTESTINAL: Abdomen soft, non-tender, nondistended. No guarding, bowel sounds active. MUSCULOSKELETAL: No cyanosis, or edema. Warm, well-perfused. NEURO EXAM: Remains encephalopathic, withdraws both lower extremities. Moves 4 limbs. Left pupil reactive to light down to 3 mm. Right pupil reactive to light down to 2 mm. A/P Assessment and Plan Respiratory failure Extubated 06/25. Traumatic ICH -Repeat CT head 06/19 Increasing size right frontal hematoma, now measuring 1.9 cm. Stable left medial frontal hemorrhage. -Coagulopathy within normal limits -No surgical intervention indicated Seizure -Loaded with Keppra -Continue Keppra 1000 every 12 -EEG 06/20/2017 shows diffuse slowing, no seizure Diabetes mellitus -Insulin sliding scale Hypertension -Labetalol as needed -Hydrochlorothiazide -Lisinopril -Metoprolol Alcohol abuse -CINY protocol Hypokalemia -Electrolyte replacement per ICU protocol DVT GI prophylaxis -Quoc's and SCDs -No pharmacological DVT prophylaxis due to ICH -Protonix Overall impression: Improved gas exchange and lung function. Extubated. Manjit Gatica MD June 26, 2017 14:40
[2017-06-27] VITALS (14 sets, daily range): BP systolic 134–156; BP diastolic 79–99; PULSE 94–103; RESP 20–27; TEMP 98.3; O2SAT 94–95
[2017-06-27] MEDS: SODIUM CHLOR 0.9% 1000 ML INJ 1,000 ML IV SCH ×2 (00:21→13:05)
[2017-06-27] MEDS: LORazepam 2 MG/ML VIAL IV PUSH PRN ×3 (00:21→22:12)
[2017-06-27] MEDS: LABETALOL HCL 100 MG/20 ML VIAL IV PUSH PRN ×2 (03:12→18:25)
[2017-06-27] MEDS: MORPHINE SULFATE 4 MG/ML INJ IV PUSH PRN (03:14)
[2017-06-27] MEDS: INSULIN NovoLIN REGULAR SUPPLEMENTAL SCALE SQ SCH ×4 (08:00→19:36)
[2017-06-27] MEDS: CHLORHEXIDINE 0.12% (ORAL KIT) 15 ML CUP MT SCH ×2 (08:00→19:35)
[2017-06-27] MEDS: BACITRACIN TOP OINT 15 GM TUBE TOP SCH ×2 (09:00→19:36)
[2017-06-27] MEDS: SODIUM CHLORIDE 0.9% FLUSH 10 ML FLUSH IV FLUSH SCH ×2 (09:00→19:36)
[2017-06-27] MEDS: LISINOPRIL 10 MG TAB PO SCH (09:00)
[2017-06-27] MEDS: DOCUSATE SODIUM 50 MG/SENNA 8.6 MG TAB PO SCH ×2 (09:00→19:36)
[2017-06-27] MEDS: levETIRAcetam INJ 100 ML IV SCH ×2 (09:13→19:44)
[2017-06-27] MEDS: ALLOPURINOL 100 MG TAB PO SCH (09:13)
[2017-06-27] MEDS: HYDROCHLOROTHIAZIDE 12.5 MG CAP PO SCH (09:14)
[2017-06-27] MEDS: PANTOPRAZOLE SOD 40 MG DELAYED RELEASE TAB PO SCH (09:14)
[2017-06-27] MEDS: METOPROLOL SUCCINATE 50 MG EXTENDED RELEASE TAB PO SCH (09:14)
[2017-06-27] MEDS: ACETAMINOPHEN/HYDROcodone 325 MG/10 MG TAB PO PRN (09:15)
[2017-06-27] MEDS: SERTRALINE HCL 50 MG TAB PO SCH (09:15)
--- NOTE | 2017-06-27 10:41 | HHI.NSPN ---
(Varsha Kessler) Note Status Status: Progress Note (Varsha Kessler) Interval History Interval History 66-year-old gentleman who presented to [facility] emergency room after a fall. He relates a positive loss of consciousness and complains of severe left- sided chest wall pain and initially had left shoulder pain which has improved along with mild headache. He has a history of frequent falls and states that he is undergone extensive workup including evaluation at the [facility] and the only thing they could relate this to was possibly low blood pressure. He denies feeling lightheaded or dizzy or any chest pain prior to these falls and relates that his legs just give out on him and usually occurs about once a month. He had a similar episode today [place] Denies any nausea or vomiting and states that he is hungry. Denies any numbness or paresthesias in the upper lower extremities or any neck or back pain. 06/19/17: Pt awake and alert. Complains of headache but mild. No n/v. No paresthesias. Complains of left rib pain. 06/20/17: Pt sedated on Diprivan. He was intubated yesterday. He had a seizure yesterday. History of ETOH use. 06/21/17: Pt sedated and intubated. He follows commands in all 4 extremities but not opening his eyes. 06/22/17: Pt sedated on Diprivan. He is intubated. He was off sedation yesterday and placed on Diprivan last night. He follows commands when off sedation. 06/23/17: Pt opens eyes slightly to voice. He follows some commands intermittently. Pupils equal. 06/24/17: Pt lethargic but does open his eyes slightly. He Follows simple commands. He is on Diprivan which when held for prolonged period pt reportedly becomes tachypneic. 06/25/17: Pt opens eyes slightly to voice. He follows some simple commands more easily than others. Intubated. 06/26/17: Pt extubated this morning. He awakens to voice. Follows simple commands. Difficult to get much of history currently. 06/27/17: Appears lethargic, opens eyes briefly. was given pain medication this morning, otherwise not on sedative drip. Groaning. Aphasic. Not consistently following commands. Hx of seizures, prior EEG 06/20 neg. No reports of seizures overnight. Per nursing reports patient appears same clinically today. (Varsha Kessler) Labs, Micro, & Vital Signs Results Date Time Temp Pulse Resp B/P (MAP) Pulse Ox O2 Delivery O2 Flow Rate FiO2 06/27/17 06:00 94 06/27/17 04:03 94 Nasal Cannula 3.00 06/27/17 04:00 98.3 101 23 134/79 (97) 94 06/27/17 04:00 101 06/27/17 02:00 103 06/27/17 00:00 98 06/27/17 00:00 98 23 156/89 (111) 95 06/26/17 23:30 96 Nasal Cannula 3.00 06/26/17 22:00 100 06/26/17 20:30 96 Nasal Cannula 3.00 06/26/17 20:00 95 06/26/17 20:00 98.5 96 27 141/93 (109) 95 06/26/17 19:53 99 Nasal Cannula 3.00 06/26/17 19:00 98 Nasal Cannula 4.00 06/26/17 16:00 98.6 89 16 153/83 (106) 98 06/26/17 12:00 98.0 84 28 144/86 (105) 98 Constitutional Vital Signs Date Time Temp Pulse Resp B/P (MAP) Pulse Ox O2 Delivery O2 Flow Rate FiO2 06/27/17 06:00 94 06/27/17 04:03 94 Nasal Cannula 3.00 06/27/17 04:00 98.3 101 23 134/79 (97) 94 06/27/17 04:00 101 06/27/17 02:00 103 06/27/17 00:00 98 06/27/17 00:00 98 23 156/89 (111) 95 06/26/17 23:30 96 Nasal Cannula 3.00 06/26/17 22:00 100 06/26/17 20:30 96 Nasal Cannula 3.00 06/26/17 20:00 95 06/26/17 20:00 98.5 96 27 141/93 (109) 95 06/26/17 19:53 99 Nasal Cannula 3.00 06/26/17 19:00 98 Nasal Cannula 4.00 06/26/17 16:00 98.6 89 16 153/83 (106) 98 06/26/17 12:00 98.0 84 28 144/86 (105) 98 (Varsha Kessler) Review of Systems ROS Limitations: Clinical Condition, Altered Mental Status, Speech Impaired, Poor Historian (Varsha Kessler) Physical Exam General: Lethargic. Eyes: Pupils equal 3mm bilaterally reactive bilaterally. Sclera anicteric. Resp: Extubated, CTA bilaterally. Heart: NSR no murmurs Abd: Soft positive bs Skin: No cyanosis or erythema. Muscle: moves all four extremities, appears weaker and slower left side Neuro: Lethargic, no sedation running. Aphasic, only mumbling. Minimal eye opening. Pupils 3mm bilaterally. Plantars neutral bilaterally. (Varsha Kessler) General: Lethargic. Eyes: Pupils equal 3mm bilaterally reactive bilaterally. Sclera anicteric. Resp: Extubated, CTA bilaterally. Heart: NSR no murmurs Abd: Soft positive bs Skin: No cyanosis or erythema. Muscle: moves all four extremities, appears weaker and slower left side Neuro: Lethargic, no sedation running. Aphasic, only mumbling. Minimal eye opening. Pupils 3mm bilaterally. Plantars neutral bilaterally. (Art Noel MD) Medications Current Medications Current Medications Medications (Trade) Dose Ordered Sig/Roby Route PRN Reason Start Time Stop Time Status Last Admin Dose Admin Sodium Chloride (NS Flush) 2 ml UNSCH PRN IV FLUSH FLUSH AFTER USING IV ACCESS 06/18/17 16:30 Sodium Chloride (NS Flush) 2 ml BID IV FLUSH 06/18/17 21:00 06/27/17 09:00 Lorazepam (Ativan Inj) 1 mg Q1H PRN IV PUSH SEIZURES 06/18/17 16:30 06/19/17 19:15 Al Hydrox/Mg Hydrox/Simethicone (Mag-Al Plus Susp Liq) 30 ml Q6H PRN PO DYSPEPSIA 06/18/17 16:30 Pantoprazole Sodium (Protonix) 40 mg DAILY PO 06/19/17 09:00 06/27/17 09:14 Ondansetron HCl (Zofran Inj) 4 mg Q6H PRN IV PUSH NAUSEA OR VOMITING 06/18/17 16:30 Promethazine HCl (Phenergan Inj) 25 mg Q4H PRN IM NAUSEA OR VOMITING 06/18/17 16:30 Calcium Gluconate 1 gm/Sodium Chloride 110 ml @ 110 mls/hr UNSCH PRN IV SEE LABEL COMMENTS 06/18/17 16:30 Potassium Chloride 100 ml @ 50 mls/hr UNSCH PRN IV POTASSIUM LESS THAN 4 06/18/17 16:30 06/19/17 09:55 Magnesium Sulfate 2 gm/Sodium Chloride 104 ml @ 100 mls/hr UNSCH PRN IV MAGNESIUM LESS THAN 2 06/18/17 16:30 Acetaminophen/ Hydrocodone Bitart ([place] 10-325 Mg) 1 tab Q4H PRN PO PAIN SCALE 1 TO 5 06/18/17 16:30 06/27/17 09:15 Acetaminophen/ Hydrocodone Bitart ([place] 10-325 Mg) 2 tab Q4H PRN PO PAIN SCALE 6 TO 10 06/18/17 16:30 Morphine Sulfate (Morphine Inj) 2 mg Q2H PRN IV PUSH breakthrough pain> 6 06/18/17 16:30 06/27/17 03:14 Labetalol HCl (Trandate Inj) 10 mg Q1H PRN IV PUSH SYS BP GREATER THAN 170 MMHG 06/18/17 16:30 06/27/17 03:12 Clonidine (Catapres) 0.1 mg Q6H PRN PO SYS BP GREATER THAN 170 MMHG 06/18/17 16:30 06/18/17 21:58 Acetaminophen (Tylenol) 650 mg Q4H PRN PO TEMPERATURE > 101.5 F 06/18/17 16:30 06/25/17 09:06 Bacitracin (Baciguent Oint) 1 applic BID TOP 06/18/17 21:00 06/27/17 09:00 Menthol (Koppel Susan) 1 lozenge UNSCH PRN BUCCAL SORE THROAT 06/18/17 16:30 Zolpidem Tartrate (Ambien) 5 mg HS PRN PO INSOMNIA 06/18/17 16:30 Albuterol Sulfate (Albuterol Neb) 2.5 mg Q4HR NEB PRN NEB WHEEZING 06/18/17 16:30 06/26/17 02:59 Senna/Docusate Sodium (Jennifer-Colace) 1 tab BID PO 06/18/17 21:00 06/24/17 20:43 Magnesium Hydroxide (Milk Of Magnesia Liq) 30 ml Q12H PRN PO Mild constipation 06/18/17 16:30 Sennosides (Senokot) 17.2 mg Q12H PRN PO Moderate constipation 06/18/17 16:30 Bisacodyl (Dulcolax Supp) 10 mg DAILY PRN RECTAL SEVERE CONSITIPATION 06/18/17 16:30 Lactulose (Lactulose Liq) 30 ml DAILY PRN PO SEVERE CONSITIPATION 06/18/17 16:30 Allopurinol (Zyloprim) 100 mg DAILY PO 06/19/17 09:00 06/27/17 09:13 Hydrochlorothiazide (Microzide) 12.5 mg DAILY PO 06/19/17 09:00 06/27/17 09:14 Lisinopril (Prinivil) 10 mg DAILY PO 06/19/17 09:00 06/27/17 09:00 Sertraline HCl (Zoloft) 50 mg DAILY PO 06/19/17 09:00 06/27/17 09:15 Dextrose (D50w (Vial) Inj) 50 ml UNSCH PRN IV PUSH HYPOGLYCEMIA-SEE COMMENTS 06/18/17 16:30 Glucagon (Glucagon Inj) 1 mg UNSCH PRN OTHER HYPOGLYCEMIA-SEE COMMENTS 06/18/17 16:30 Insulin Human Regular (NovoLIN R SUPPLEMENTAL SCALE) 1 ACHS SLIDING SCALE SQ 06/18/17 17:00 06/23/17 10:41 Metoprolol Succinate (Toprol Xl) 100 mg DAILY PO 06/19/17 09:00 06/27/17 09:14 Nicardipine HCl 25 mg/Sodium Chloride 250 ml @ 50 mls/hr TITRATE PRN IV Blood pressure management 06/18/17 18:00 Chlorhexidine Gluconate (Peridex 0.12% Liq) 15 ml BID@08,20 MT 06/19/17 20:00 06/27/17 08:00 Propofol 100 ml @ 2.4 mls/hr TITRATE PRN IV SEDATION 06/19/17 19:45 06/25/17 00:42 Levetriacetam 100 ml @ 400 mls/hr Q12HR IV 06/19/17 20:00 06/27/17 09:13 Potassium Chloride 100 ml @ 50 mls/hr Q2H PRN IV For Potassium 2.8 - 3.2 mEq/L 06/19/17 21:00 Potassium Chloride 100 ml @ 50 mls/hr Q2H PRN IV For Potassium 2.8 - 3.2 mEq/L 06/19/17 21:00 06/20/17 16:54 Potassium Bicarb/ Potassium Chloride (K-Lyte Cl Eff) 50 meq UNSCH PRN PO For Potassium 3.3 - 3.5 mEq/L 06/19/17 21:00 Potassium Chloride 100 ml @ 25 mls/hr UNSCH PRN IV For Potassium 3.3 - 3.5 mEq/L 06/19/17 21:00 Potassium Chloride 100 ml @ 50 mls/hr Q2H PRN IV For Potassium 3.3 - 3.5 mEq/L 06/19/17 21:00 Magnesium Sulfate 4 gm/Sodium Chloride 100 ml @ 50 mls/hr UNSCH PRN IV For Magnesium 0.9 - 1.1 mg/dL 06/19/17 21:00 Magnesium Oxide (Mag-Ox) 800 mg UNSCH PRN PO For Magnesium 1.2 - 1.6 mg/dL 06/19/17 21:00 Magnesium Sulfate 2 gm/Sodium Chloride 100 ml @ 50 mls/hr UNSCH PRN IV For Magnesium 1.2 - 1.6 mg/dL 06/19/17 21:00 Potassium Phosphate (K-Phos) 2,000 mg Q4H PRN PO For Phosphorus < 2.5 mg/dL 06/19/17 21:00 Sodium Phosphate 30 mmol/Sodium Chloride 250 ml @ 42 mls/hr UNSCH PRN IV For Phosphorus < 2.5 mg/dL 06/19/17 21:00 Potassium Phosphate (K-Phos) 2,000 mg UNSCH PRN PO/TUBE SEE LABEL COMMENTS 06/19/17 21:00 Potassium Phosphate 30 mmol/ Sodium Chloride 260 ml @ 42 mls/hr UNSCH PRN IV SEE LABEL COMMENTS 06/19/17 21:00 Flumazenil (Romazicon Inj) 0.2 mg Q1M PRN IV PUSH SEE LABEL COMMENTS 06/19/17 21:00 Lorazepam (Ativan) 1 mg Q4H PRN PO CIWA 8 - 10 06/19/17 21:00 Lorazepam (Ativan Inj) 1 mg Q4H PRN IV PUSH CIWA 8 - 10 06/19/17 21:00 Lorazepam (Ativan) 2 mg Q2H PRN PO CIWA 11-14 06/19/17 21:00 Lorazepam (Ativan Inj) 2 mg Q2H PRN IV PUSH CIWA 11-14 06/19/17 21:00 06/27/17 00:21 Lorazepam (Ativan Inj) 2 mg Q1H PRN IV PUSH CIWA 15-20 06/19/17 21:00 Lorazepam (Ativan Inj) 2 mg Q15M PRN IV PUSH CIWA > 20 06/19/17 21:00 Sodium Chloride 1,000 ml @ 84 mls/hr [id number] IV 06/22/17 02:00 06/27/17 00:21 (Varsha Kessler) Current Medications Current Medications Morphine Sulfate (Morphine Inj) 4 mg ONCE ONCE IV PUSH Last administered on 06/18/17at 14:13; Start 06/18/17 at 14:00; Stop 06/18/17 at 14:01; Status DC Ondansetron HCl (Zofran Inj) 4 mg ONCE ONCE IV PUSH Last administered on at 14:13; Start 06/18/17 at 14:00; Stop 06/18/17 at 14:01; Status DC Sodium Chloride (NS Flush) 2 ml UNSCH PRN IV FLUSH FLUSH AFTER USING IV ACCESS ; Start 06/18/17 at 16:30 Sodium Chloride (NS Flush) 2 ml BID IV FLUSH Last administered on 06/29/17at 09: 00; Start 06/18/17 at 21:00 Lorazepam (Ativan Inj) 1 mg Q1H PRN IV PUSH SEIZURES Last administered on at 19:15; Start 06/18/17 at 16:30 Al Hydrox/Mg Hydrox/Simethicone (Mag-Al Plus Susp Liq) 30 ml Q6H PRN PO DYSPEPSIA; Start 06/18/17 at 16:30 Pantoprazole Sodium (Protonix) 40 mg DAILY PO Last administered on 06/27/17at 09 :14; Start 06/19/17 at 09:00; Stop 06/28/17 at 08:45; Status DC Ondansetron HCl (Zofran Inj) 4 mg Q6H PRN IV PUSH NAUSEA OR VOMITING Last administered on 06/27/17at 22:12; Start 06/18/17 at 16:30 Promethazine HCl (Phenergan Inj) 25 mg Q4H PRN IM NAUSEA OR VOMITING; Start 06/18/17 at 16:30 Calcium Gluconate 1 gm/Sodium Chloride 110 ml @ 110 mls/hr UNSCH PRN IV SEE LABEL COMMENTS; Start 06/18/17 at 16:30 Potassium Chloride 100 ml @ 50 mls/hr UNSCH PRN IV POTASSIUM LESS THAN 4 Last administered on 06/19/17at 09:55; Start 06/18/17 at 16:30 Magnesium Sulfate 2 gm/Sodium Chloride 104 ml @ 100 mls/hr UNSCH PRN IV MAGNESIUM LESS THAN 2; Start 06/18/17 at 16:30 Acetaminophen/ Hydrocodone Bitart ([place] 10-325 Mg) 1 tab Q4H PRN PO PAIN SCALE 1 TO 5 Last administered on 06/27/17at 09:15; Start 06/18/17 at 16:30; Stop 06/28/17 at 08:45; Status DC Acetaminophen/ Hydrocodone Bitart ([place] 10-325 Mg) 2 tab Q4H PRN PO PAIN SCALE 6 TO 10; Start 06/18/17 at 16:30; Stop 06/28/17 at 08:45; Status DC Morphine Sulfate (Morphine Inj) 2 mg Q2H PRN IV PUSH breakthrough pain> 6 Last administered on 06/28/17at 03:10; Start 06/18/17 at 16:30 Labetalol HCl (Trandate Inj) 10 mg Q1H PRN IV PUSH SYS BP GREATER THAN 180 MMHG Last administered on 06/28/17at 17:20; Start 06/18/17 at 16:30 Clonidine (Catapres) 0.1 mg Q6H PRN PO SYS BP GREATER THAN 170 MMHG Last administered on 06/18/17at 21:58; Start 06/18/17 at 16:30; Stop 06/28/17 at 08:45; Status DC Acetaminophen (Tylenol) 650 mg Q4H PRN PO TEMPERATURE > 101.5 F Last administered on 06/25/17at 09:06; Start 06/18/17 at 16:30; Stop 06/28/17 at 08:45; Status DC Bacitracin (Baciguent Oint) 1 applic BID TOP Last administered on 06/29/17at 09: 00; Start 06/18/17 at 21:00 Menthol (Koppel Susan) 1 lozenge UNSCH PRN BUCCAL SORE THROAT; Start 06/18/17 at 16 :30 Zolpidem Tartrate (Ambien) 5 mg HS PRN PO INSOMNIA; Start 06/18/17 at 16:30; Stop 06/28/17 at 08:45; Status DC Albuterol Sulfate (Albuterol Neb) 2.5 mg Q4HR NEB PRN NEB WHEEZING Last administered on 06/26/17at 02:59; Start 06/18/17 at 16:30 Senna/Docusate Sodium (Jennifer-Colace) 1 tab BID PO Last administered on 06/24/17at 20:43; Start 06/18/17 at 21:00; Stop 06/28/17 at 08:45; Status DC Magnesium Hydroxide (Milk Of Magnesia Liq) 30 ml Q12H PRN PO Mild constipation ; Start 06/18/17 at 16:30; Stop 06/28/17 at 08:45; Status DC Sennosides (Senokot) 17.2 mg Q12H PRN PO Moderate constipation; Start 06/18/17 at 16:30; Stop 06/28/17 at 08:45; Status DC Bisacodyl (Dulcolax Supp) 10 mg DAILY PRN RECTAL SEVERE CONSITIPATION; Start at 16:30 Lactulose (Lactulose Liq) 30 ml DAILY PRN PO SEVERE CONSITIPATION; Start at 16:30; Stop 06/28/17 at 08:45; Status DC Allopurinol (Zyloprim) 100 mg DAILY PO Last administered on 06/27/17at 09:13; Start 06/19/17 at 09:00; Stop 06/28/17 at 08:45; Status DC Ciprofloxacin (Cipro) 500 mg BID PO Last administered on 06/19/17at 21:30; Start 06/18/17 at 21:00; Stop 06/20/17 at 15:05; Status DC Hydrochlorothiazide (Microzide) 12.5 mg DAILY PO Last administered on at 09:14; Start 06/19/17 at 09:00; Stop 06/28/17 at 08:45; Status DC Lisinopril (Prinivil) 10 mg DAILY PO Last administered on 06/27/17at 09:00; Start 06/19/17 at 09:00; Stop 06/28/17 at 08:45; Status DC Metronidazole (Flagyl) 500 mg BID PO Last administered on 06/19/17at 21:55; Start 06/18/17 at 21:00; Stop 06/20/17 at 15:05; Status DC Sertraline HCl (Zoloft) 50 mg DAILY PO Last administered on 06/27/17at 09:15; Start 06/19/17 at 09:00; Stop 06/28/17 at 08:45; Status DC Non-Formulary Medication 100 mg DAILY PO ; Start 06/19/17 at 09:00; Status UNV Dextrose (D50w (Vial) Inj) 50 ml UNSCH PRN IV PUSH HYPOGLYCEMIA-SEE COMMENTS; Start 06/18/17 at 16:30 Glucagon (Glucagon Inj) 1 mg UNSCH PRN OTHER HYPOGLYCEMIA-SEE COMMENTS; Start 06/18/17 at 16:30 Insulin Human Regular (NovoLIN R SUPPLEMENTAL SCALE) 1 ACHS SLIDING SCALE SQ Last administered on 06/23/17at 10:41; Start 06/18/17 at 17:00 Potassium Chloride (KCl) 30 meq ONCE ONCE PO Last administered on 06/18/17at 18: 34; Start 06/18/17 at 16:45; Stop 06/18/17 at 17:18; Status DC Metoprolol Succinate (Toprol Xl) 100 mg DAILY PO Last administered on at 09:14; Start 06/19/17 at 09:00; Stop 06/28/17 at 09:43; Status DC Nicardipine HCl 25 mg/Sodium Chloride 250 ml @ 50 mls/hr TITRATE PRN IV Blood pressure management; Start 06/18/17 at 18:00 Etomidate (Amidate Inj) 40 mg STK-MED ONCE .ROUTE Last administered on at 19:30; Start 06/19/17 at 19:30; Stop 06/19/17 at 19:31; Status DC Succinylcholine Chloride (Quelicin Inj) 200 mg STK-MED ONCE .ROUTE Last administered on 06/19/17at 19:30; Start 06/19/17 at 19:30; Stop 06/19/17 at 19:31; Status DC Propofol 50 ml @ As Directed STK-MED ONCE .ROUTE Last administered on 06/19/17at 19:39; Start 06/19/17 at 19:39; Stop 06/19/17 at 19:40; Status DC Chlorhexidine Gluconate (Peridex 0.12% Liq) 15 ml BID@08,20 MT Last administered on 06/29/17at 08:00; Start 06/19/17 at 20:00 Propofol 100 ml @ 2.4 mls/hr TITRATE PRN IV SEDATION Last administered on at 00:42; Start 06/19/17 at 19:45 Chlordiazepoxide (Librium) 50 mg Taper Q6H PO Last administered on 06/21/17at 07: 51; Start 06/19/17 at 20:00; Stop 06/21/17 at 09:41; Status DC Levetriacetam 100 ml @ 400 mls/hr Q12HR IV Last administered on 06/27/17at 19: 44; Start 06/19/17 at 20:00; Stop 06/28/17 at 08:45; Status DC Potassium Chloride 100 ml @ 50 mls/hr Q2H PRN IV For Potassium 2.8 - 3.2 mEq/L ; Start 06/19/17 at 21:00 Potassium Chloride 100 ml @ 50 mls/hr Q2H PRN IV For Potassium 2.8 - 3.2 mEq/ L Last administered on 06/20/17at 16:54; Start 06/19/17 at 21:00 Potassium Bicarb/ Potassium Chloride (K-Lyte Cl Eff) 50 meq UNSCH PRN PO For Potassium 3.3 - 3.5 mEq/L; Start 06/19/17 at 21:00; Stop 06/28/17 at 08:45; Status DC Potassium Chloride 100 ml @ 25 mls/hr UNSCH PRN IV For Potassium 3.3 - 3.5 mEq /L; Start 06/19/17 at 21:00 Potassium Chloride 100 ml @ 50 mls/hr Q2H PRN IV For Potassium 3.3 - 3.5 mEq/L ; Start 06/19/17 at 21:00 Magnesium Sulfate 4 gm/Sodium Chloride 100 ml @ 50 mls/hr UNSCH PRN IV For Magnesium 0.9 - 1.1 mg/dL; Start 06/19/17 at 21:00 Magnesium Oxide (Mag-Ox) 800 mg UNSCH PRN PO For Magnesium 1.2 - 1.6 mg/dL; Start 06/19/17 at 21:00; Stop 06/28/17 at 08:45; Status DC Magnesium Sulfate 2 gm/Sodium Chloride 100 ml @ 50 mls/hr UNSCH PRN IV For Magnesium 1.2 - 1.6 mg/dL; Start 06/19/17 at 21:00 Potassium Phosphate (K-Phos) 2,000 mg Q4H PRN PO For Phosphorus < 2.5 mg/dL; Start 06/19/17 at 21:00; Stop 06/28/17 at 08:45; Status DC Sodium Phosphate 30 mmol/Sodium Chloride 250 ml @ 42 mls/hr UNSCH PRN IV For Phosphorus < 2.5 mg/dL; Start 06/19/17 at 21:00 Potassium Phosphate (K-Phos) 2,000 mg UNSCH PRN PO/TUBE SEE LABEL COMMENTS; Start 06/19/17 at 21:00 Potassium Phosphate 30 mmol/ Sodium Chloride 260 ml @ 42 mls/hr UNSCH PRN IV SEE LABEL COMMENTS; Start 06/19/17 at 21:00 Magnesium Sulfate/ Dextrose 100 ml @ 100 mls/hr Q1H IV Last administered on 06/20/17at 00:34; Start 06/19/17 at 21:00; Stop 06/19/17 at 22:59; Status DC Flumazenil (Romazicon Inj) 0.2 mg Q1M PRN IV PUSH SEE LABEL COMMENTS; Start 06/19/17 at 21:00 Lorazepam (Ativan) 1 mg Q4H PRN PO CIWA 8 - 10; Start 06/19/17 at 21:00; Stop at 08:47; Status DC Lorazepam (Ativan Inj) 1 mg Q4H PRN IV PUSH CIWA 8 - 10; Start 06/19/17 at 21:00 ; Stop 06/28/17 at 08:47; Status DC Lorazepam (Ativan) 2 mg Q2H PRN PO CIWA 11-14; Start 06/19/17 at 21:00; Stop 02/03 at 08:47; Status DC Lorazepam (Ativan Inj) 2 mg Q2H PRN IV PUSH CIWA 11-14 Last administered on 01/04at 22:12; Start 06/19/17 at 21:00; Stop 06/28/17 at 08:47; Status DC Lorazepam (Ativan Inj) 2 mg Q1H PRN IV PUSH CIWA 15-20; Start 06/19/17 at 21:00 ; Stop 06/28/17 at 08:47; Status DC Lorazepam (Ativan Inj) 2 mg Q15M PRN IV PUSH CIWA > 20; Start 06/19/17 at 21:00 ; Stop 06/28/17 at 08:47; Status DC Furosemide (Lasix Inj) 20 mg ONCE ONCE IV PUSH Last administered on 06/21/17at 09:52; Start 06/21/17 at 09:30; Stop 06/21/17 at 09:41; Status DC Sodium Chloride 500 ml @ 500 mls/hr BOLUS ONCE IV Last administered on at 01:30; Start 06/22/17 at 01:30; Stop 06/22/17 at 02:29; Status DC Sodium Chloride 1,000 ml @ 84 mls/hr [id number] IV Last administered on at 01:00; Start 06/22/17 at 02:00; Stop 06/28/17 at 08:45; Status DC Piperacillin Sod/ Tazobactam Sod 100 ml @ 200 mls/hr Q6H IV Last administered on 06/26/17at 12:57; Start 06/22/17 at 20:00; Stop 06/26/17 at 14:43; Status DC Sodium Chloride 1,000 ml @ 1,000 mls/hr Q1H ONCE IV Last administered on at 18:00; Start 06/23/17 at 18:00; Stop 06/23/17 at 18:59; Status DC Acetaminophen/ Hydrocodone Bitart ([place] 10-325 Mg) 1 tab Q4H PRN NG PAIN SCALE 1 TO 5 Last administered on 06/28/17at 20:00; Start 06/28/17 at 12:30 Acetaminophen/ Hydrocodone Bitart ([place] 10-325 Mg) 2 tab Q4H PRN NG PAIN SCALE 6 TO 10; Start 06/28/17 at 12:30 Acetaminophen (Tylenol) 650 mg Q4H PRN NG TEMPERATURE > 101.5 F; Start at 12:30 Allopurinol (Zyloprim) 100 mg DAILY NG Last administered on 06/29/17at 09:05; Start 06/28/17 at 09:00 Clonidine (Catapres) 0.1 mg Q6H PRN NG SYS BP GREATER THAN 170 MMHG; Start 02/03 at 10:30 Senna/Docusate Sodium (Jennifer-Colace) 1 tab BID NG Last administered on at 09:05; Start 06/28/17 at 09:00 Hydrochlorothiazide (Hydrodiuril) 12.5 mg DAILY NG Last administered on at 09:04; Start 06/28/17 at 09:00 Lactulose (Lactulose Liq) 30 ml DAILY PRN NG SEVERE CONSITIPATION; Start at 08:45 Lisinopril (Prinivil) 10 mg DAILY NG ; Start 06/28/17 at 09:00; Stop 06/28/17 at 09:00; Status DC Magnesium Hydroxide (Milk Of Magnesia Liq) 30 ml Q12H PRN NG Mild constipation ; Start 06/28/17 at 16:30 Magnesium Oxide (Mag-Ox) 800 mg UNSCH PRN NG For Magnesium 1.2 - 1.6 mg/dL; Start 06/28/17 at 08:45 Potassium Bicarb/ Potassium Chloride (K-Lyte Cl Eff) 50 meq UNSCH PRN NG For Potassium 3.3 - 3.5 mEq/L; Start 06/28/17 at 08:45 Potassium Phosphate (K-Phos) 2,000 mg Q4H PRN NG For Phosphorus < 2.5 mg/dL; Start 06/28/17 at 09:00 Sennosides (Senokot) 17.2 mg Q12H PRN NG Moderate constipation; Start 06/28/17 at 16:30 Sertraline HCl (Zoloft) 50 mg DAILY NG Last administered on 06/29/17at 09:05; Start 06/28/17 at 09:00 Zolpidem Tartrate (Ambien) 5 mg HS PRN NG INSOMNIA; Start 06/28/17 at 08:45 Levetriacetam (Keppra Liq) 1,000 mg Q12HR NG Last administered on 06/29/17at 09 :04; Start 06/28/17 at 09:00 Lansoprazole (Prevacid Odt) 15 mg DAILY NG Last administered on 06/29/17at 09:00 ; Start 06/28/17 at 09:00 Lisinopril (Prinivil) 20 mg DAILY NG Last administered on 06/29/17at 09:05; Start 06/28/17 at 09:00 Metoprolol Tartrate (Lopressor) 50 mg BID NG Last administered on 06/29/17at 09: 05; Start 06/28/17 at 10:00 Lorazepam (Ativan Inj) 1 mg ONCE ONCE IV PUSH Last administered on 06/28/17at 16:18; Start 06/28/17 at 13:45; Stop 06/28/17 at 13:52; Status DC (Art Noel MD) Medical Decision Making MDM Remarks 66 y/o 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, TBI, right frontal intraparenchymal hemorrhage history seizures, EEG 06/20/17 negative for seizure activities (Varsha Kessler) Plan Plan Remarks cont close neuro checks in [facility], cont Keppra 1000 mg q12, obtain f/u EEG to assess breakthrough seizures f/u CT Brain tomorrow am critical care following (Varsha Kessler) Attending Statement I reviewed his follow up ct brain Chest X-Ray 06/29/17 0000 Signed Impressions: Service Date/Time: Thursday, June 29, 2017 10:56 - CONCLUSION: Persistent left lower lobe airspace consolidation and findings suggestive of volume overload versus congestive heart failure.. Elif Shaw MD Head CT 06/28/17 0800 Signed Impressions: Service Date/Time: Wednesday, June 28, 2017 04:00 - CONCLUSION: 1. Interval decrease in the size of the high density right frontal hematoma. 2. Interval resolution of previously noted smaller left frontal hematoma. 3. No acute hemorrhage or mass effect. Marek Pope MD Abdomen X-Ray 06/28/17 0000 Signed Impressions: Service Date/Time: Wednesday, June 28, 2017 17:25 - CONCLUSION: NG tube in the stomach. Les Liao MD Continue neuro checks in a serial fashion.Continue nonoperative treatment of head injury Pulmonary. Continue aggressive pulmonary toilette, nasotracheal suction, and breathing treatments with nebulizers. Daily PT and OT Renal. Continue to monitor closely urine output, BUN and creatinine Endocrine. Continue to Monitor serial Acu checks and SSI as needed in detail ID continue to monitor for signs of infection Continue Protonix for stress ulcer prophylaxis Continue Quoc hose and SCD's for DVT prophylaxis (Art Noel MD) Varsha Kessler June 27, 2017 10:41 Art Noel MD June 29, 2017 14:22
--- NOTE | 2017-06-27 15:45 | HHI.CCPN ---
Subjective Remarks/Hospital Course 06/19: 66-year-old gentleman presents after a fall. He did have a positive loss of consciousness and complains of severe left-sided chest wall pain and initially had left shoulder pain which has improved along with mild headache. He has a history of frequent falls and states that he is undergone extensive workup including evaluation at the [facility] and the only thing they could relate this to was possibly low blood pressure. The CT of the head performed in the emergency department shows right frontal hematoma, left medial frontal hemorrhage. He was admitted to the neurosurgical service. Today at around 7 PM he suffered with generalized seizure, with significant altered mental status and post ictal condition, unable to protect and airways requiring emergent intubation. 06/20: Remains sedated, orally intubated on mechanical ventilation. 06/21: Sedation held for neuro exam. Follows commands bilateral lower extremity by wiggling toes. Not following an upper extremities at this time. Bilateral pupils are reactive. Start CPAP trial for possible extubation. 06/22: Remains encephalopathic on holding sedation, orally intubated on mechanical ventilation. Awaiting improvement in neurologic status to extubated. Tolerating CPAP trials. 06/23: Patient remains encephalopathic following fall and head injury 4 days ago. A right frontal hematoma was sustained and was complicated by generalized seizure activity shortly thereafter. He has developed bilateral pulmonary infiltrates and considerable atelectasis involving the left lung. He requires 60% oxygen at this point on mechanical ventilation and elevated positive end expiratory pressure. Responsiveness is considerably diminished. 06/24: Oxygenation much improved overnight, PEEP down to 5 and FiO2 down to 40% . Following commands today. We will attempt to wean at this point. 06/25: Stronger on CPAP. BP control acceptable. Remains weak. 06/26: Extubated and protects airway acceptably. Frontal lobe injury pattern persists. 06/27: Protects airway, failed swallow. Objective Vital Signs Date Time Temp Pulse Resp B/P (MAP) Pulse Ox O2 Delivery O2 Flow Rate FiO2 06/27/17 10:19 95 Nasal Cannula 5.00 06/27/17 10:15 20 06/27/17 06:00 94 06/27/17 04:00 98.3 134/79 (97) 06/25/17 13:34 40 Intake and Output 06/27/17 06/27/17 06/28/17 08:00 16:00 00:00 Intake Total 0 ml Output Total 700 ml Balance -700 ml Result Diagram: 06/25/17 0843 06/25/17 0509 Imaging Last [address] 06/19/17 0800 Signed Impressions: Service Date/Time: June 08:43 - CONCLUSION: 1. Increasing size right frontal hematoma, now measuring 1.9 cm. Stable left medial frontal hemorrhage. 2. No new findings. Ronnell Pineda MD Chest X-Ray 06/19/17 0000 Signed Impressions: Service Date/Time: June 09:40 - CONCLUSION: 1. No pneumothorax identified. 2. Small left basilar effusion. 3. Left-sided rib fracture. Felipe Domingo MD Objective Remarks GENERAL: Well-nourished, well-developed patient. Extubated. SKIN: Warm and dry. HEAD: Normocephalic. EYES: No scleral icterus. No injection or drainage. NECK: Supple, trachea midline. Airway widely patent. No obstructive noises. CARDIOVASCULAR: Regular rate and rhythm without murmurs, gallops, or rubs. No JVD. RESPIRATORY: Breath sounds equal bilaterally. No wheezing or crackles GASTROINTESTINAL: Abdomen soft, non-tender, nondistended. No guarding, bowel sounds active. MUSCULOSKELETAL: No cyanosis, or edema. Warm, well-perfused. NEURO EXAM: Remains encephalopathic, withdraws both lower extremities. Moves 4 limbs. Left pupil reactive to light down to 3 mm. Right pupil reactive to light down to 2 mm. A/P Assessment and Plan Respiratory failure Extubated 06/25. Traumatic ICH -Repeat CT head 06/19 Increasing size right frontal hematoma, now measuring 1.9 cm. Stable left medial frontal hemorrhage. -Coagulopathy within normal limits -No surgical intervention indicated Seizure -Loaded with Keppra -Continue Keppra 1000 every 12 -EEG 06/20/2017 shows diffuse slowing, no seizure Diabetes mellitus -Insulin sliding scale Hypertension -Labetalol as needed -Hydrochlorothiazide -Lisinopril -Metoprolol Alcohol abuse -CIWA protocol, d/c Hypokalemia -Electrolyte replacement per ICU protocol DVT GI prophylaxis -Quoc's and SCDs -No pharmacological DVT prophylaxis due to ICH -Protonix Overall impression: Improved gas exchange and lung function. Extubated. Controls airway well. Rehab or SNF placement. Manjit Gatica MD June 27, 2017 15:45
--- NOTE | 2017-06-27 16:01 | MG ---
cc: Elaine Choe MD DATE OF : 1950 AGE: [age] years old EEG NUMBER: [id number] REFERRING PHYSICIAN: Francisca Kessler PA-C ROOM: 1310 NOTE: With hyperventilation. Followup EEG. Awake, drowsy, asleep. Does not follow commands. EEG on 06/20/2017 showed mild to moderate slowing. CT shows increasing size right frontal hematoma. Stable left medial frontal hemorrhage. A 66-year-old man, lethargic, aphasic. Had a seizure on 06/20/2017. MEDICATIONS: On Zosyn, Microzide, Zyloprim, Keppra, [place], Trandate. DESCRIPTION OF RECORD: Quite a bit of artifact and movement in the background but overall 3-4 Hz background noted. No epileptiform features, just moderate slowing noted bilaterally with superimposed muscle movement artifact. IMPRESSION: Abnormal EEG due to some moderate slowing of background consistent with encephalopathic process of various etiology, without any epileptiform features in this one recording. Clinical correlation. Elaine Choe MD DF/MONIQUE , 03:16 PM , 04:00 PM
[2017-06-27] MEDS: ONDANSETRON HCL 4 MG/2 ML VIAL IV PUSH PRN (22:12)
[2017-06-28] VITALS (14 sets, daily range): BP systolic 141–163; BP diastolic 82–112; PULSE 80–113; RESP 18–28; TEMP 97.9–99.3; O2SAT 92–99
[2017-06-28] MEDS: LABETALOL HCL 100 MG/20 ML VIAL IV PUSH PRN ×3 (00:06→17:20)
[2017-06-28] MEDS: SODIUM CHLOR 0.9% 1000 ML INJ 1,000 ML IV SCH (01:00)
[2017-06-28] MEDS: MORPHINE SULFATE 4 MG/ML INJ IV PUSH PRN (03:10)
--- NOTE | 2017-06-28 04:16 | RADRPT ---
EXAM DATE/TIME: 06/28/2017 04:00 [place] COMPARISON: CT BRAIN W/O CONTRAST, June 19, 2017, 20:15. INDICATIONS : Followup intracranial hemorrhage. RADIATION DOSE: 66.24 CTDIvol (mGy) MEDICAL HISTORY : Hypertension. Cardiovascular disease Traumatic brain injury SURGICAL HISTORY : Tonsillectomy. Appendectomy. ENCOUNTER: Subsequent ACUITY: 1 week PAIN SCALE: Non-responsive LOCATION: cranial TECHNIQUE: Multiple contiguous axial images were obtained of the head. Using automated exposure control and adj ustment of the mA and/or kV according to patient size, radiation dose was kept as low as reasonably a chievable to obtain optimal diagnostic quality images. DICOM format image data is available electro [facility] for review and comparison. FINDINGS: The high density right frontal hematoma has decreased mildly in size and now measures approximat tate 1.6 cm in greatest diameter compared to 2 cm on the prior study. There is mild surrounding vasoge elizabeth edema. Smaller left frontal high density hemorrhage seen on the prior study has resolved with no definite residual. There is no new hemorrhage or mass effect. The ventricular system remains within n ormal limits. The posterior fossa and brainstem are unremarkable. Bone windows demonstrate no evidenc e of fracture. There is mild mucosal thickening in the maxillary sinuses. CONCLUSION: 1. Interval decrease in the size of the high density right frontal hematoma. 2. Interval resolution of previously noted smaller left frontal hematoma. 3. No acute hemorrhage or mass effect. Marek Pope MD on June 28, 2017 at 4:12 Board Certified Radiologist. This report was verified electronically.
[2017-06-28 04:19] LABS: AUTOMATED NEUTROPHIL # 7.3 TH/MM3 (1.8-7.7); BASOPHIL % 0.4 % (0.0-2.0); EOSINOPHIL # 0.1 TH/MM3 (0-0.4); EOSINOPHIL % 0.8 % (0.0-4.0); HEMATOCRIT 40.4 % (39.0-51.0); HEMOGLOBIN 13.8 GM/DL (13.0-17.0); LYMPHOCYTE # 0.7 TH/MM3 (1.0-4.8); MEAN CORPUSCULAR HEMOGLOBIN 37.5 PG (27.0-34.0); MEAN CORPUSCULAR HGB CONC 34.1 % (32.0-36.0); MEAN PLATELET VOLUME 8.5 FL (7.0-11.0); MONO % 8.4 % (0.0-8.0); MONOCYTE # 0.8 TH/MM3 (0-0.9); NEUT % 82.4 % (16.0-70.0); PLATELET COUNT 274 TH/MM3 (150-450); RED BLOOD COUNT 3.67 MIL/MM3 (4.50-5.90); RED CELL DISTRIBUTION WIDTH 17.1 % (11.6-17.2); WHITE BLOOD COUNT 8.9 TH/MM3 (4.0-11.0)
[2017-06-28 04:39] LABS: BICARBONATE 26.6 MEQ/L (21.0-32.0); CALCIUM 8.9 MG/DL (8.5-10.1); CREATININE 0.54 MG/DL (0.60-1.30)
[2017-06-28] MEDS: CHLORHEXIDINE 0.12% (ORAL KIT) 15 ML CUP MT SCH ×2 (08:00→20:00)
[2017-06-28] MEDS: INSULIN NovoLIN REGULAR SUPPLEMENTAL SCALE SQ SCH ×4 (08:00→21:00)
--- NOTE | 2017-06-28 08:31 | HHI.PR ---
Subjective Remarks Consulted by critical care medicine for medical management transfer of care. Patient status post fall with TBI complicated by seizure and respiratory failure requiring intubation. Patient awake but not answering questions and following commands. He is mumbling. Discussed with RN. Objective Vitals Vital Signs Date Time Temp Pulse Resp B/P (MAP) Pulse Ox O2 Delivery O2 Flow Rate FiO2 06/28/17 06:00 94 06/28/17 04:00 99.3 88 18 154/90 (111) 94 06/28/17 04:00 91 06/28/17 02:55 98.9 104 24 162/82 (108) 94 06/28/17 02:00 93 06/28/17 00:00 97.9 98 20 162/112 (129) 99 06/28/17 00:00 94 06/27/17 22:32 98 Nasal Cannula 4.00 06/27/17 22:00 94 06/27/17 20:00 98 06/27/17 18:00 94 06/27/17 16:00 101 06/27/17 16:00 98.3 94 20 154/99 (117) 95 06/27/17 14:00 94 06/27/17 12:00 101 06/27/17 12:00 98.3 96 27 143/84 (103) 95 06/27/17 10:19 95 Nasal Cannula 5.00 06/27/17 10:15 20 06/27/17 10:00 94 I/O 06/27/17 06/27/17 06/27/17 06/28/17 06/28/17 06/28/17 07:00 15:00 23:00 07:00 15:00 23:00 Intake Total 0 ml 0 ml Output Total 700 ml 600 ml Balance -700 ml -600 ml Intake Oral 0 ml 0 ml Output Urine Total 700 ml 600 ml # Voids 4 # Bowel Movements 0 0 Result Diagram: 06/28/17 0322 06/28/17 0322 Imaging Last Impressions Head CT 06/28/17 0800 Signed Impressions: Service Date/Time: Wednesday, June 28, 2017 04:00 - CONCLUSION: 1. Interval decrease in the size of the high density right frontal hematoma. 2. Interval resolution of previously noted smaller left frontal hematoma. 3. No acute hemorrhage or mass effect. Marek Pope MD Upper Extremity Ultrasound 06/24/17 0000 Signed Impressions: Service Date/Time: Saturday, June 24, 2017 21:57 - CONCLUSION: Positive thrombus in the mid and distal cephalic vein which is enlarged and noncompressible suspicious for an acute venous thrombosis. Norberto Sandra MD Chest X-Ray 06/22/17 0000 Signed Impressions: Service Date/Time: Thursday, June 22, 2017 15:02 - CONCLUSION: No significant interval change. Enrique Whyte MD Cervical Spine CT 06/18/17 1153 Signed Impressions: Service Date/Time: Sunday, June 18, 2017 13:43 - CONCLUSION: 1. No acute bony fracture. 2. Primary bony degenerative changes involving the cervical spine. Les Liao MD Shoulder X-Ray 06/18/17 0000 Signed Impressions: Service Date/Time: Sunday, June 18, 2017 16:45 - CONCLUSION: No acute fracture or joint dislocation. Les Liao MD Objective Remarks GENERAL: Well-nourished, well-developed patient in no distress. SKIN: Warm and dry. Good CARDIOVASCULAR: Regular rate and rhythm without murmurs, gallops, or rubs. No JVD. RESPIRATORY: Breath sounds equal bilaterally. No wheezing or crackles GASTROINTESTINAL: Abdomen soft, non-tender, nondistended. No guarding, bowel sounds active. MUSCULOSKELETAL: No cyanosis, or edema. Warm, well-perfused. NEURO EXAM: Remains encephalopathic. Moves 4 limbs. Left pupil reactive to light down to 3 mm. Right pupil reactive to light down to 2 mm. Procedures none A/P Problem List: (1) Frontal lobe contusion ICD Code: S06.339A - Contusion and laceration of cerebrum, unspecified, with loss of consciousness of unspecified duration, initial encounter Status: Acute (2) Rib fracture ICD Code: S22.39XA - Fracture of one rib, unspecified side, initial encounter for closed fracture Status: Acute (3) Diabetes ICD Code: E11.9 - Type 2 diabetes mellitus without complications Status: Chronic (4) HTN (hypertension) ICD Code: I10 - Essential (primary) hypertension Assessment and Plan Respiratory failure Extubated 06/25. Traumatic ICH -Repeat CT head 06/28 improved ICH -Coagulopathy within normal limits -No surgical intervention indicated Seizure -Loaded with Keppra -Continue Keppra 1000 every 12 -EEG 06/20/2017 shows diffuse slowing, no seizure Diabetes mellitus. Stable -Insulin sliding scale Hypertension. Not well controlled -Labetalol and clonidine as needed -Hydrochlorothiazide -Lisinopril will be increased to 20 mg QD -Metoprolol Alcohol abuse -CIWA protocol, d/c Hypokalemia -Electrolyte replacement per ICU protocol FEN. TF dc IVF consider PEG ST to follow Cephalic v thrombosis, this is superficial. DVT GI prophylaxis -Quoc's and SCDs -No pharmacological DVT prophylaxis due to ICH -PPI Discharge Planning To Tele then rehab or SNF needs PEG if no improvement with swallowing Problem Qualifiers (1) Frontal lobe contusion: Qualified Codes: S06.331A - Contusion and laceration of cerebrum, unspecified, with loss of consciousness of 30 minutes or less, initial encounter (2) Rib fracture: Qualified Codes: S22.32XA - Fracture of one rib, left side, initial encounter for closed fracture (3) Diabetes: Sp Lugo MD June 28, 2017 08:31
[2017-06-28] MEDS ORDERED: MAGNESIUM OXIDE 400 MG TAB NG PRN (08:45)
[2017-06-28] MEDS ORDERED: POTASSIUM CHLORIDE 25 MEQ EFFERVESCENT TAB NG PRN (08:45)
[2017-06-28] MEDS ORDERED: LACTULOSE SYRUP 20 GM/30 ML CUP NG PRN (08:45)
[2017-06-28] MEDS ORDERED: POTASSIUM PHOSPHATE MONOBASIC 500 MG TAB NG PRN (09:00)
[2017-06-28] MEDS: LANSOPRAZOLE SOLUTAB 15 MG TAB NG SCH (09:00)
[2017-06-28] MEDS ORDERED: LISINOPRIL 10 MG TAB NG SCH (09:00)
[2017-06-28] MEDS: SODIUM CHLORIDE 0.9% FLUSH 10 ML FLUSH IV FLUSH SCH ×2 (09:33→21:00)
--- NOTE | 2017-06-28 09:35 | HHI.NSPN ---
(Varsha Kessler) Note Status Status: Progress Note (Varsha Kessler) Interval History Interval History 66-year-old gentleman who presented to [facility] emergency room after a fall. He relates a positive loss of consciousness and complains of severe left- sided chest wall pain and initially had left shoulder pain which has improved along with mild headache. He has a history of frequent falls and states that he is undergone extensive workup including evaluation at the [facility] and the only thing they could relate this to was possibly low blood pressure. He denies feeling lightheaded or dizzy or any chest pain prior to these falls and relates that his legs just give out on him and usually occurs about once a month. He had a similar episode today [place] Denies any nausea or vomiting and states that he is hungry. Denies any numbness or paresthesias in the upper lower extremities or any neck or back pain. 06/19/17: Pt awake and alert. Complains of headache but mild. No n/v. No paresthesias. Complains of left rib pain. 06/20/17: Pt sedated on Diprivan. He was intubated yesterday. He had a seizure yesterday. History of ETOH use. 06/21/17: Pt sedated and intubated. He follows commands in all 4 extremities but not opening his eyes. 06/22/17: Pt sedated on Diprivan. He is intubated. He was off sedation yesterday and placed on Diprivan last night. He follows commands when off sedation. 06/23/17: Pt opens eyes slightly to voice. He follows some commands intermittently. Pupils equal. 06/24/17: Pt lethargic but does open his eyes slightly. He Follows simple commands. He is on Diprivan which when held for prolonged period pt reportedly becomes tachypneic. 06/25/17: Pt opens eyes slightly to voice. He follows some simple commands more easily than others. Intubated. 06/26/17: Pt extubated this morning. He awakens to voice. Follows simple commands. Difficult to get much of history currently. 06/27/17: Appears lethargic, opens eyes briefly. was given pain medication this morning, otherwise not on sedative drip. Groaning. Aphasic. Not consistently following commands. Hx of seizures, prior EEG 06/20 neg. No reports of seizures overnight. Per nursing reports patient appears same clinically today. 06/28/17: appearing more awake this am, although still aphasic, not following commands. moving all four extremities, left leg seen hanging off bed. EEG yesterday without seizures, moderate slowing. f/u CT Brain improving hemorrhage , no acute. (Varsha Kessler) Labs, Micro, & Vital Signs Results Date Time Temp Pulse Resp B/P (MAP) Pulse Ox O2 Delivery O2 Flow Rate FiO2 06/28/17 06:00 94 06/28/17 04:00 99.3 88 18 154/90 (111) 94 06/28/17 04:00 91 06/28/17 02:55 98.9 104 24 162/82 (108) 94 06/28/17 02:00 93 06/28/17 00:00 97.9 98 20 162/112 (129) 99 06/28/17 00:00 94 06/27/17 22:32 98 Nasal Cannula 4.00 06/27/17 22:00 94 06/27/17 20:00 98 06/27/17 18:00 94 06/27/17 16:00 101 06/27/17 16:00 98.3 94 20 154/99 (117) 95 06/27/17 14:00 94 06/27/17 12:00 101 06/27/17 12:00 98.3 96 27 143/84 (103) 95 06/27/17 10:19 95 Nasal Cannula 5.00 06/27/17 10:15 20 06/27/17 10:00 94 Constitutional Vital Signs Date Time Temp Pulse Resp B/P (MAP) Pulse Ox O2 Delivery O2 Flow Rate FiO2 06/28/17 06:00 94 06/28/17 04:00 99.3 88 18 154/90 (111) 94 06/28/17 04:00 91 06/28/17 02:55 98.9 104 24 162/82 (108) 94 06/28/17 02:00 93 06/28/17 00:00 97.9 98 20 162/112 (129) 99 06/28/17 00:00 94 06/27/17 22:32 98 Nasal Cannula 4.00 06/27/17 22:00 94 06/27/17 20:00 98 06/27/17 18:00 94 06/27/17 16:00 101 06/27/17 16:00 98.3 94 20 154/99 (117) 95 06/27/17 14:00 94 06/27/17 12:00 101 06/27/17 12:00 98.3 96 27 143/84 (103) 95 06/27/17 10:19 95 Nasal Cannula 5.00 06/27/17 10:15 20 06/27/17 10:00 94 (Varsha Kessler) Review of Systems ROS Limitations: Altered Mental Status (Varsha Kessler) Physical Exam General: No acute distress Eyes: Pupils equal 3mm bilaterally reactive bilaterally. Sclera anicteric. Resp: clear Heart: regular rate rhythm Abd: Soft positive bs Skin: No cyanosis or erythema. Muscle: moves all four extremities spontaneously, not following for commands Neuro: Awake, appears drowsy, no sedation running. Aphasic, only mumbling. Pupils 3mm bilaterally. Plantars neutral bilaterally. (Varsha Kessler) General: Lethargic. Eyes: Pupils equal 3mm bilaterally reactive bilaterally. Sclera anicteric. Resp: Extubated, CTA bilaterally. Heart: NSR no murmurs Abd: Soft positive bs Skin: No cyanosis or erythema. Muscle: moves all four extremities, appears weaker and slower left side Neuro: Lethargic, no sedation running. Aphasic, only mumbling. Minimal eye opening. Pupils 3mm bilaterally. Plantars neutral bilaterally. (Art Noel MD) Medications Current Medications Current Medications Medications (Trade) Dose Ordered Sig/Roby Route PRN Reason Start Time Stop Time Status Last Admin Dose Admin Sodium Chloride (NS Flush) 2 ml UNSCH PRN IV FLUSH FLUSH AFTER USING IV ACCESS 06/18/17 16:30 Sodium Chloride (NS Flush) 2 ml BID IV FLUSH 06/18/17 21:00 06/27/17 09:00 Lorazepam (Ativan Inj) 1 mg Q1H PRN IV PUSH SEIZURES 06/18/17 16:30 06/19/17 19:15 Al Hydrox/Mg Hydrox/Simethicone (Mag-Al Plus Susp Liq) 30 ml Q6H PRN PO DYSPEPSIA 06/18/17 16:30 Ondansetron HCl (Zofran Inj) 4 mg Q6H PRN IV PUSH NAUSEA OR VOMITING 06/18/17 16:30 06/27/17 22:12 Promethazine HCl (Phenergan Inj) 25 mg Q4H PRN IM NAUSEA OR VOMITING 06/18/17 16:30 Calcium Gluconate 1 gm/Sodium Chloride 110 ml @ 110 mls/hr UNSCH PRN IV SEE LABEL COMMENTS 06/18/17 16:30 Potassium Chloride 100 ml @ 50 mls/hr UNSCH PRN IV POTASSIUM LESS THAN 4 06/18/17 16:30 06/19/17 09:55 Magnesium Sulfate 2 gm/Sodium Chloride 104 ml @ 100 mls/hr UNSCH PRN IV MAGNESIUM LESS THAN 2 06/18/17 16:30 Morphine Sulfate (Morphine Inj) 2 mg Q2H PRN IV PUSH breakthrough pain> 6 06/18/17 16:30 06/28/17 03:10 Labetalol HCl (Trandate Inj) 10 mg Q1H PRN IV PUSH SYS BP GREATER THAN 180 MMHG 06/18/17 16:30 06/28/17 03:10 Bacitracin (Baciguent Oint) 1 applic BID TOP 06/18/17 21:00 06/27/17 19:36 Menthol ([place] Susan) 1 lozenge UNSCH PRN BUCCAL SORE THROAT 06/18/17 16:30 Albuterol Sulfate (Albuterol Neb) 2.5 mg Q4HR NEB PRN NEB WHEEZING 06/18/17 16:30 06/26/17 02:59 Bisacodyl (Dulcolax Supp) 10 mg DAILY PRN RECTAL SEVERE CONSITIPATION 06/18/17 16:30 Dextrose (D50w (Vial) Inj) 50 ml UNSCH PRN IV PUSH HYPOGLYCEMIA-SEE COMMENTS 06/18/17 16:30 Glucagon (Glucagon Inj) 1 mg UNSCH PRN OTHER HYPOGLYCEMIA-SEE COMMENTS 06/18/17 16:30 Insulin Human Regular (NovoLIN R SUPPLEMENTAL SCALE) 1 ACHS SLIDING SCALE SQ 06/18/17 17:00 06/23/17 10:41 Metoprolol Succinate (Toprol Xl) 100 mg DAILY PO 06/19/17 09:00 06/27/17 09:14 Nicardipine HCl 25 mg/Sodium Chloride 250 ml @ 50 mls/hr TITRATE PRN IV Blood pressure management 06/18/17 18:00 Chlorhexidine Gluconate (Peridex 0.12% Liq) 15 ml BID@08,20 MT 06/19/17 20:00 06/27/17 08:00 Propofol 100 ml @ 2.4 mls/hr TITRATE PRN IV SEDATION 06/19/17 19:45 06/25/17 00:42 Potassium Chloride 100 ml @ 50 mls/hr Q2H PRN IV For Potassium 2.8 - 3.2 mEq/L 06/19/17 21:00 Potassium Chloride 100 ml @ 50 mls/hr Q2H PRN IV For Potassium 2.8 - 3.2 mEq/L 06/19/17 21:00 06/20/17 16:54 Potassium Chloride 100 ml @ 25 mls/hr UNSCH PRN IV For Potassium 3.3 - 3.5 mEq/L 06/19/17 21:00 Potassium Chloride 100 ml @ 50 mls/hr Q2H PRN IV For Potassium 3.3 - 3.5 mEq/L 06/19/17 21:00 Magnesium Sulfate 4 gm/Sodium Chloride 100 ml @ 50 mls/hr UNSCH PRN IV For Magnesium 0.9 - 1.1 mg/dL 06/19/17 21:00 Magnesium Sulfate 2 gm/Sodium Chloride 100 ml @ 50 mls/hr UNSCH PRN IV For Magnesium 1.2 - 1.6 mg/dL 06/19/17 21:00 Sodium Phosphate 30 mmol/Sodium Chloride 250 ml @ 42 mls/hr UNSCH PRN IV For Phosphorus < 2.5 mg/dL 06/19/17 21:00 Potassium Phosphate (K-Phos) 2,000 mg UNSCH PRN PO/TUBE SEE LABEL COMMENTS 06/19/17 21:00 Potassium Phosphate 30 mmol/ Sodium Chloride 260 ml @ 42 mls/hr UNSCH PRN IV SEE LABEL COMMENTS 06/19/17 21:00 Flumazenil (Romazicon Inj) 0.2 mg Q1M PRN IV PUSH SEE LABEL COMMENTS 06/19/17 21:00 Acetaminophen/ Hydrocodone Bitart ([place] 10-325 Mg) 1 tab Q4H PRN NG PAIN SCALE 1 TO 5 06/28/17 12:30 Acetaminophen/ Hydrocodone Bitart ([place] 10-325 Mg) 2 tab Q4H PRN NG PAIN SCALE 6 TO 10 06/28/17 12:30 Acetaminophen (Tylenol) 650 mg Q4H PRN NG TEMPERATURE > 101.5 F 06/28/17 12:30 Allopurinol (Zyloprim) 100 mg DAILY NG 06/28/17 09:00 Clonidine (Catapres) 0.1 mg Q6H PRN NG SYS BP GREATER THAN 170 MMHG 06/28/17 10:30 Senna/Docusate Sodium (Jennifer-Colace) 1 tab BID NG 06/28/17 09:00 Hydrochlorothiazide (Hydrodiuril) 12.5 mg DAILY NG 06/28/17 09:00 Lactulose (Lactulose Liq) 30 ml DAILY PRN NG SEVERE CONSITIPATION 06/28/17 08:45 Magnesium Hydroxide (Milk Of Magnesia Liq) 30 ml Q12H PRN NG Mild constipation 06/28/17 16:30 Magnesium Oxide (Mag-Ox) 800 mg UNSCH PRN NG For Magnesium 1.2 - 1.6 mg/dL 06/28/17 08:45 Potassium Bicarb/ Potassium Chloride (K-Lyte Cl Eff) 50 meq UNSCH PRN NG For Potassium 3.3 - 3.5 mEq/L 06/28/17 08:45 Potassium Phosphate (K-Phos) 2,000 mg Q4H PRN NG For Phosphorus < 2.5 mg/dL 06/28/17 09:00 Sennosides (Senokot) 17.2 mg Q12H PRN NG Moderate constipation 06/28/17 16:30 Sertraline HCl (Zoloft) 50 mg DAILY NG 06/28/17 09:00 Zolpidem Tartrate (Ambien) 5 mg HS PRN NG INSOMNIA 06/28/17 08:45 Levetriacetam (Keppra Liq) 1,000 mg Q12HR NG 06/28/17 09:00 Lansoprazole (Prevacid Odt) 15 mg DAILY NG 06/28/17 09:00 Lisinopril (Prinivil) 20 mg DAILY NG 06/28/17 09:00 (Varsha Kessler) Current Medications Current Medications Morphine Sulfate (Morphine Inj) 4 mg ONCE ONCE IV PUSH Last administered on 06/18/17at 14:13; Start 06/18/17 at 14:00; Stop 06/18/17 at 14:01; Status DC Ondansetron HCl (Zofran Inj) 4 mg ONCE ONCE IV PUSH Last administered on at 14:13; Start 06/18/17 at 14:00; Stop 06/18/17 at 14:01; Status DC Sodium Chloride (NS Flush) 2 ml UNSCH PRN IV FLUSH FLUSH AFTER USING IV ACCESS ; Start 06/18/17 at 16:30 Sodium Chloride (NS Flush) 2 ml BID IV FLUSH Last administered on 06/29/17at 09: 00; Start 06/18/17 at 21:00 Lorazepam (Ativan Inj) 1 mg Q1H PRN IV PUSH SEIZURES Last administered on at 19:15; Start 06/18/17 at 16:30 Al Hydrox/Mg Hydrox/Simethicone (Mag-Al Plus Susp Liq) 30 ml Q6H PRN PO DYSPEPSIA; Start 06/18/17 at 16:30 Pantoprazole Sodium (Protonix) 40 mg DAILY PO Last administered on 06/27/17at 09 :14; Start 06/19/17 at 09:00; Stop 06/28/17 at 08:45; Status DC Ondansetron HCl (Zofran Inj) 4 mg Q6H PRN IV PUSH NAUSEA OR VOMITING Last administered on 06/27/17at 22:12; Start 06/18/17 at 16:30 Promethazine HCl (Phenergan Inj) 25 mg Q4H PRN IM NAUSEA OR VOMITING; Start 06/18/17 at 16:30 Calcium Gluconate 1 gm/Sodium Chloride 110 ml @ 110 mls/hr UNSCH PRN IV SEE LABEL COMMENTS; Start 06/18/17 at 16:30 Potassium Chloride 100 ml @ 50 mls/hr UNSCH PRN IV POTASSIUM LESS THAN 4 Last administered on 06/19/17at 09:55; Start 06/18/17 at 16:30 Magnesium Sulfate 2 gm/Sodium Chloride 104 ml @ 100 mls/hr UNSCH PRN IV MAGNESIUM LESS THAN 2; Start 06/18/17 at 16:30 Acetaminophen/ Hydrocodone Bitart ([place] 10-325 Mg) 1 tab Q4H PRN PO PAIN SCALE 1 TO 5 Last administered on 06/27/17at 09:15; Start 06/18/17 at 16:30; Stop 06/28/17 at 08:45; Status DC Acetaminophen/ Hydrocodone Bitart ([place] 10-325 Mg) 2 tab Q4H PRN PO PAIN SCALE 6 TO 10; Start 06/18/17 at 16:30; Stop 06/28/17 at 08:45; Status DC Morphine Sulfate (Morphine Inj) 2 mg Q2H PRN IV PUSH breakthrough pain> 6 Last administered on 06/28/17at 03:10; Start 06/18/17 at 16:30 Labetalol HCl (Trandate Inj) 10 mg Q1H PRN IV PUSH SYS BP GREATER THAN 180 MMHG Last administered on 06/28/17at 17:20; Start 06/18/17 at 16:30 Clonidine (Catapres) 0.1 mg Q6H PRN PO SYS BP GREATER THAN 170 MMHG Last administered on 06/18/17at 21:58; Start 06/18/17 at 16:30; Stop 06/28/17 at 08:45; Status DC Acetaminophen (Tylenol) 650 mg Q4H PRN PO TEMPERATURE > 101.5 F Last administered on 06/25/17at 09:06; Start 06/18/17 at 16:30; Stop 06/28/17 at 08:45; Status DC Bacitracin (Baciguent Oint) 1 applic BID TOP Last administered on 06/29/17at 09: 00; Start 06/18/17 at 21:00 Menthol ([place] Susan) 1 lozenge UNSCH PRN BUCCAL SORE THROAT; Start 06/18/17 at 16 :30 Zolpidem Tartrate (Ambien) 5 mg HS PRN PO INSOMNIA; Start 06/18/17 at 16:30; Stop 06/28/17 at 08:45; Status DC Albuterol Sulfate (Albuterol Neb) 2.5 mg Q4HR NEB PRN NEB WHEEZING Last administered on 06/26/17at 02:59; Start 06/18/17 at 16:30 Senna/Docusate Sodium (Jennifer-Colace) 1 tab BID PO Last administered on 06/24/17at 20:43; Start 06/18/17 at 21:00; Stop 06/28/17 at 08:45; Status DC Magnesium Hydroxide (Milk Of Magnesia Liq) 30 ml Q12H PRN PO Mild constipation ; Start 06/18/17 at 16:30; Stop 06/28/17 at 08:45; Status DC Sennosides (Senokot) 17.2 mg Q12H PRN PO Moderate constipation; Start 06/18/17 at 16:30; Stop 06/28/17 at 08:45; Status DC Bisacodyl (Dulcolax Supp) 10 mg DAILY PRN RECTAL SEVERE CONSITIPATION; Start at 16:30 Lactulose (Lactulose Liq) 30 ml DAILY PRN PO SEVERE CONSITIPATION; Start at 16:30; Stop 06/28/17 at 08:45; Status DC Allopurinol (Zyloprim) 100 mg DAILY PO Last administered on 06/27/17at 09:13; Start 06/19/17 at 09:00; Stop 06/28/17 at 08:45; Status DC Ciprofloxacin (Cipro) 500 mg BID PO Last administered on 06/19/17at 21:30; Start 06/18/17 at 21:00; Stop 06/20/17 at 15:05; Status DC Hydrochlorothiazide (Microzide) 12.5 mg DAILY PO Last administered on at 09:14; Start 06/19/17 at 09:00; Stop 06/28/17 at 08:45; Status DC Lisinopril (Prinivil) 10 mg DAILY PO Last administered on 06/27/17at 09:00; Start 06/19/17 at 09:00; Stop 06/28/17 at 08:45; Status DC Metronidazole (Flagyl) 500 mg BID PO Last administered on 06/19/17at 21:55; Start 06/18/17 at 21:00; Stop 06/20/17 at 15:05; Status DC Sertraline HCl (Zoloft) 50 mg DAILY PO Last administered on 06/27/17at 09:15; Start 06/19/17 at 09:00; Stop 06/28/17 at 08:45; Status DC Non-Formulary Medication 100 mg DAILY PO ; Start 06/19/17 at 09:00; Status UNV Dextrose (D50w (Vial) Inj) 50 ml UNSCH PRN IV PUSH HYPOGLYCEMIA-SEE COMMENTS; Start 06/18/17 at 16:30 Glucagon (Glucagon Inj) 1 mg UNSCH PRN OTHER HYPOGLYCEMIA-SEE COMMENTS; Start 06/18/17 at 16:30 Insulin Human Regular (NovoLIN R SUPPLEMENTAL SCALE) 1 ACHS SLIDING SCALE SQ Last administered on 06/23/17at 10:41; Start 06/18/17 at 17:00 Potassium Chloride (KCl) 30 meq ONCE ONCE PO Last administered on 06/18/17at 18: 34; Start 06/18/17 at 16:45; Stop 06/18/17 at 17:18; Status DC Metoprolol Succinate (Toprol Xl) 100 mg DAILY PO Last administered on at 09:14; Start 06/19/17 at 09:00; Stop 06/28/17 at 09:43; Status DC Nicardipine HCl 25 mg/Sodium Chloride 250 ml @ 50 mls/hr TITRATE PRN IV Blood pressure management; Start 06/18/17 at 18:00 Etomidate (Amidate Inj) 40 mg STK-MED ONCE .ROUTE Last administered on 19:30; Start 06/19/17 at 19:30; Stop 06/19/17 at 19:31; Status DC Succinylcholine Chloride (Quelicin Inj) 200 mg STK-MED ONCE .ROUTE Last administered on 06/19/17 19:30; Start 06/19/17 at 19:30; Stop 06/19/17 at 19:31; Status DC Propofol 50 ml @ As Directed STK-MED ONCE .ROUTE Last administered on 06/19/17 19:39; Start 06/19/17 at 19:39; Stop 06/19/17 at 19:40; Status DC Chlorhexidine Gluconate (Peridex 0.12% Liq) 15 ml BID@08,20 MT Last administered on 06/29/17at 08:00; Start 06/19/17 at 20:00 Propofol 100 ml @ 2.4 mls/hr TITRATE PRN IV SEDATION Last administered on at 00:42; Start 06/19/17 at 19:45 Chlordiazepoxide (Librium) 50 mg Taper Q6H PO Last administered on 06/21/17at 07: 51; Start 06/19/17 at 20:00; Stop 06/21/17 at 09:41; Status DC Levetriacetam 100 ml @ 400 mls/hr Q12HR IV Last administered on 06/27/17at 19: 44; Start 06/19/17 at 20:00; Stop 06/28/17 at 08:45; Status DC Potassium Chloride 100 ml @ 50 mls/hr Q2H PRN IV For Potassium 2.8 - 3.2 mEq/L ; Start 06/19/17 at 21:00 Potassium Chloride 100 ml @ 50 mls/hr Q2H PRN IV For Potassium 2.8 - 3.2 mEq/ L Last administered on 06/20/17at 16:54; Start 06/19/17 at 21:00 Potassium Bicarb/ Potassium Chloride (K-Lyte Cl Eff) 50 meq UNSCH PRN PO For Potassium 3.3 - 3.5 mEq/L; Start 06/19/17 at 21:00; Stop 06/28/17 at 08:45; Status DC Potassium Chloride 100 ml @ 25 mls/hr UNSCH PRN IV For Potassium 3.3 - 3.5 mEq /L; Start 06/19/17 at 21:00 Potassium Chloride 100 ml @ 50 mls/hr Q2H PRN IV For Potassium 3.3 - 3.5 mEq/L ; Start 06/19/17 at 21:00 Magnesium Sulfate 4 gm/Sodium Chloride 100 ml @ 50 mls/hr UNSCH PRN IV For Magnesium 0.9 - 1.1 mg/dL; Start 06/19/17 at 21:00 Magnesium Oxide (Mag-Ox) 800 mg UNSCH PRN PO For Magnesium 1.2 - 1.6 mg/dL; Start 06/19/17 at 21:00; Stop 06/28/17 at 08:45; Status DC Magnesium Sulfate 2 gm/Sodium Chloride 100 ml @ 50 mls/hr UNSCH PRN IV For Magnesium 1.2 - 1.6 mg/dL; Start 06/19/17 at 21:00 Potassium Phosphate (K-Phos) 2,000 mg Q4H PRN PO For Phosphorus < 2.5 mg/dL; Start 06/19/17 at 21:00; Stop 06/28/17 at 08:45; Status DC Sodium Phosphate 30 mmol/Sodium Chloride 250 ml @ 42 mls/hr UNSCH PRN IV For Phosphorus < 2.5 mg/dL; Start 06/19/17 at 21:00 Potassium Phosphate (K-Phos) 2,000 mg UNSCH PRN PO/TUBE SEE LABEL COMMENTS; Start 06/19/17 at 21:00 Potassium Phosphate 30 mmol/ Sodium Chloride 260 ml @ 42 mls/hr UNSCH PRN IV SEE LABEL COMMENTS; Start 06/19/17 at 21:00 Magnesium Sulfate/ Dextrose 100 ml @ 100 mls/hr Q1H IV Last administered on 06/20/17at 00:34; Start 06/19/17 at 21:00; Stop 06/19/17 at 22:59; Status DC Flumazenil (Romazicon Inj) 0.2 mg Q1M PRN IV PUSH SEE LABEL COMMENTS; Start 06/19/17 at 21:00 Lorazepam (Ativan) 1 mg Q4H PRN PO CIWA 8 - 10; Start 06/19/17 at 21:00; Stop at 08:47; Status DC Lorazepam (Ativan Inj) 1 mg Q4H PRN IV PUSH CIWA 8 - 10; Start 06/19/17 at 21:00 ; Stop 06/28/17 at 08:47; Status DC Lorazepam (Ativan) 2 mg Q2H PRN PO CIWA 11-14; Start 06/19/17 at 21:00; Stop 02/03 at 08:47; Status DC Lorazepam (Ativan Inj) 2 mg Q2H PRN IV PUSH CIWA 11-14 Last administered on 01/04at 22:12; Start 06/19/17 at 21:00; Stop 06/28/17 at 08:47; Status DC Lorazepam (Ativan Inj) 2 mg Q1H PRN IV PUSH CIWA 15-20; Start 06/19/17 at 21:00 ; Stop 06/28/17 at 08:47; Status DC Lorazepam (Ativan Inj) 2 mg Q15M PRN IV PUSH CIWA > 20; Start 06/19/17 at 21:00 ; Stop 06/28/17 at 08:47; Status DC Furosemide (Lasix Inj) 20 mg ONCE ONCE IV PUSH Last administered on 06/21/17at 09:52; Start 06/21/17 at 09:30; Stop 06/21/17 at 09:41; Status DC Sodium Chloride 500 ml @ 500 mls/hr BOLUS ONCE IV Last administered on at 01:30; Start 06/22/17 at 01:30; Stop 06/22/17 at 02:29; Status DC Sodium Chloride 1,000 ml @ 84 mls/hr [id number] IV Last administered on at 01:00; Start 06/22/17 at 02:00; Stop 06/28/17 at 08:45; Status DC Piperacillin Sod/ Tazobactam Sod 100 ml @ 200 mls/hr Q6H IV Last administered on 06/26/17at 12:57; Start 06/22/17 at 20:00; Stop 06/26/17 at 14:43; Status DC Sodium Chloride 1,000 ml @ 1,000 mls/hr Q1H ONCE IV Last administered on at 18:00; Start 06/23/17 at 18:00; Stop 06/23/17 at 18:59; Status DC Acetaminophen/ Hydrocodone Bitart ([place] 10-325 Mg) 1 tab Q4H PRN NG PAIN SCALE 1 TO 5 Last administered on 06/28/17at 20:00; Start 06/28/17 at 12:30 Acetaminophen/ Hydrocodone Bitart ([place] 10-325 Mg) 2 tab Q4H PRN NG PAIN SCALE 6 TO 10; Start 06/28/17 at 12:30 Acetaminophen (Tylenol) 650 mg Q4H PRN NG TEMPERATURE > 101.5 F; Start at 12:30 Allopurinol (Zyloprim) 100 mg DAILY NG Last administered on 06/29/17at 09:05; Start 06/28/17 at 09:00 Clonidine (Catapres) 0.1 mg Q6H PRN NG SYS BP GREATER THAN 170 MMHG; Start 02/03 at 10:30 Senna/Docusate Sodium (Jennifer-Colace) 1 tab BID NG Last administered on at 09:05; Start 06/28/17 at 09:00 Hydrochlorothiazide (Hydrodiuril) 12.5 mg DAILY NG Last administered on at 09:04; Start 06/28/17 at 09:00 Lactulose (Lactulose Liq) 30 ml DAILY PRN NG SEVERE CONSITIPATION; Start at 08:45 Lisinopril (Prinivil) 10 mg DAILY NG ; Start 06/28/17 at 09:00; Stop 06/28/17 at 09:00; Status DC Magnesium Hydroxide (Milk Of Magnesia Liq) 30 ml Q12H PRN NG Mild constipation ; Start 06/28/17 at 16:30 Magnesium Oxide (Mag-Ox) 800 mg UNSCH PRN NG For Magnesium 1.2 - 1.6 mg/dL; Start 06/28/17 at 08:45 Potassium Bicarb/ Potassium Chloride (K-Lyte Cl Eff) 50 meq UNSCH PRN NG For Potassium 3.3 - 3.5 mEq/L; Start 06/28/17 at 08:45 Potassium Phosphate (K-Phos) 2,000 mg Q4H PRN NG For Phosphorus < 2.5 mg/dL; Start 06/28/17 at 09:00 Sennosides (Senokot) 17.2 mg Q12H PRN NG Moderate constipation; Start 06/28/17 at 16:30 Sertraline HCl (Zoloft) 50 mg DAILY NG Last administered on 06/29/17at 09:05; Start 06/28/17 at 09:00 Zolpidem Tartrate (Ambien) 5 mg HS PRN NG INSOMNIA; Start 06/28/17 at 08:45 Levetriacetam (Keppra Liq) 1,000 mg Q12HR NG Last administered on 06/29/17at 09 :04; Start 06/28/17 at 09:00 Lansoprazole (Prevacid Odt) 15 mg DAILY NG Last administered on 06/29/17at 09:00 ; Start 06/28/17 at 09:00 Lisinopril (Prinivil) 20 mg DAILY NG Last administered on 06/29/17at 09:05; Start 06/28/17 at 09:00 Metoprolol Tartrate (Lopressor) 50 mg BID NG Last administered on 06/29/17at 09: 05; Start 06/28/17 at 10:00 Lorazepam (Ativan Inj) 1 mg ONCE ONCE IV PUSH Last administered on 06/28/17at 16:18; Start 06/28/17 at 13:45; Stop 06/28/17 at 13:52; Status DC (Art Noel MD) Medical Decision Making MDM Remarks 66 y/o 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, TBI, right frontal intraparenchymal hemorrhage history seizures, EEG 06/20/17 negative for seizure activities AMS, Encephalopathy, repeat EEG 06/27 neg for seizures f/u CT Brain 06/28 with improving intracranial hemorrhage, no acute findings (Varsha Kessler) Plan Plan Remarks EEG and follow-up CT brain reviewed, medicine following, continue neuro checks and follow-up examination continue Keppra 1000 mg q12, seizure precautions (Varsha Kessler) Attending Statement I reviewed his follow up ct brain Chest X-Ray 06/29/17 0000 Signed Impressions: Service Date/Time: Thursday, June 29, 2017 10:56 - CONCLUSION: Persistent left lower lobe airspace consolidation and findings suggestive of volume overload versus congestive heart failure.. Elif Shaw MD Head CT 06/28/17 0800 Signed Impressions: Service Date/Time: Wednesday, June 28, 2017 04:00 - CONCLUSION: 1. Interval decrease in the size of the high density right frontal hematoma. 2. Interval resolution of previously noted smaller left frontal hematoma. 3. No acute hemorrhage or mass effect. Marek Pope MD Abdomen X-Ray 06/28/17 0000 Signed Impressions: Service Date/Time: Wednesday, June 28, 2017 17:25 - CONCLUSION: NG tube in the stomach. Les Liao MD Continue neuro checks in a serial fashion.Continue nonoperative treatment of head injury Pulmonary. Continue aggressive pulmonary toilette, nasotracheal suction, and breathing treatments with nebulizers. Daily PT and OT Renal. Continue to monitor closely urine output, BUN and creatinine Endocrine. Continue to Monitor serial Acu checks and SSI as needed in detail ID continue to monitor for signs of infection Continue Protonix for stress ulcer prophylaxis Continue Quoc hose and SCD's for DVT prophylaxis (Art Noel MD) Varsha Kessler June 28, 2017 09:35 Art Noel MD June 29, 2017 14:24
[2017-06-28] MEDS: DOCUSATE SODIUM 50 MG/SENNA 8.6 MG TAB NG SCH ×2 (09:42→21:00)
[2017-06-28] MEDS: levETIRAcetam 500 MG/5 ML UDC NG SCH ×2 (09:42→21:00)
[2017-06-28] MEDS: ALLOPURINOL 100 MG TAB NG SCH (09:42)
[2017-06-28] MEDS: SERTRALINE HCL 50 MG TAB NG SCH (09:42)
[2017-06-28] MEDS: LISINOPRIL 20 MG TAB NG SCH (09:42)
[2017-06-28] MEDS: HYDROCHLOROTHIAZIDE 25 MG TAB NG SCH (09:43)
[2017-06-28] MEDS: BACITRACIN TOP OINT 15 GM TUBE TOP SCH ×2 (09:44→21:00)
[2017-06-28] MEDS: METOPROLOL TARTRATE 50 MG TAB NG SCH ×2 (10:00→21:00)
[2017-06-28] MEDS ORDERED: cloNIDine HCL 0.1 MG TAB NG PRN (10:30)
[2017-06-28] MEDS ORDERED: ACETAMINOPHEN 325 MG TAB NG PRN (12:30)
[2017-06-28] MEDS ORDERED: LORazepam 2 MG/ML VIAL IV PUSH ONE (13:45)
[2017-06-28] MEDS ORDERED: SENNOSIDES 8.6 MG TAB NG PRN (16:30)
[2017-06-28] MEDS ORDERED: MAGNESIUM HYDROXIDE SUSP 30 ML CUP NG PRN (16:30)
--- NOTE | 2017-06-28 18:03 | RADRPT ---
EXAM DATE/TIME: 06/28/2017 17:25 [facility] COMPARISON: No previous studies available for comparison. INDICATIONS : NG tube placment. MEDICAL HISTORY : Hypertension. Cardiovascular disease Traumatic brain injury SURGICAL HISTORY : Tonsillectomy. Appendectomy. ENCOUNTER: Initial ACUITY: 1 day PAIN SCORE: Non-responsive. LOCATION: Abdomen. FINDINGS: Examination of the abdomen demonstrates a normal bowel gas pattern. There is an NG tube coiled in the stomach. CONCLUSION: NG tube in the stomach. Les Liao MD on June 28, 2017 at 18:00 Board Certified Radiologist. This report was verified electronically.
[2017-06-28] MEDS: ACETAMINOPHEN/HYDROcodone 325 MG/10 MG TAB NG PRN (20:00)
[2017-06-29] VITALS (14 sets, daily range): BP systolic 119–150; BP diastolic 24–100; PULSE 76–92; RESP 18–25; TEMP 97.4–99.1; O2SAT 91–94
[2017-06-29] MEDS: CHLORHEXIDINE 0.12% (ORAL KIT) 15 ML CUP MT SCH ×2 (08:00→20:56)
[2017-06-29] MEDS: INSULIN NovoLIN REGULAR SUPPLEMENTAL SCALE SQ SCH ×4 (08:00→21:00)
[2017-06-29] MEDS: SODIUM CHLORIDE 0.9% FLUSH 10 ML FLUSH IV FLUSH SCH ×2 (09:00→20:56)
[2017-06-29] MEDS: BACITRACIN TOP OINT 15 GM TUBE TOP SCH ×2 (09:00→20:56)
[2017-06-29] MEDS: LANSOPRAZOLE SOLUTAB 15 MG TAB NG SCH (09:00)
[2017-06-29] MEDS: levETIRAcetam 500 MG/5 ML UDC NG SCH ×2 (09:04→20:33)
[2017-06-29] MEDS: HYDROCHLOROTHIAZIDE 25 MG TAB NG SCH (09:04)
[2017-06-29] MEDS: ALLOPURINOL 100 MG TAB NG SCH (09:05)
[2017-06-29] MEDS: METOPROLOL TARTRATE 50 MG TAB NG SCH ×2 (09:05→20:33)
[2017-06-29] MEDS: SERTRALINE HCL 50 MG TAB NG SCH (09:05)
[2017-06-29] MEDS: DOCUSATE SODIUM 50 MG/SENNA 8.6 MG TAB NG SCH ×2 (09:05→20:33)
[2017-06-29] MEDS: LISINOPRIL 20 MG TAB NG SCH (09:05)
--- NOTE | 2017-06-29 10:07 | HHI.NSPN ---
(Varsha Kessler) Note Status Status: Progress Note (Varsha Kessler) Interval History Interval History 66-year-old gentleman who presented to [facility] emergency room after a fall. He relates a positive loss of consciousness and complains of severe left- sided chest wall pain and initially had left shoulder pain which has improved along with mild headache. He has a history of frequent falls and states that he is undergone extensive workup including evaluation at the [facility] and the only thing they could relate this to was possibly low blood pressure. He denies feeling lightheaded or dizzy or any chest pain prior to these falls and relates that his legs just give out on him and usually occurs about once a month. He had a similar episode today and fell [place] market. Denies any nausea or vomiting and states that he is hungry. Denies any numbness or paresthesias in the upper lower extremities or any neck or back pain. 06/19/17: Pt awake and alert. Complains of headache but mild. No n/v. No paresthesias. Complains of left rib pain. 06/20/17: Pt sedated on Diprivan. He was intubated yesterday. He had a seizure yesterday. History of ETOH use. 06/21/17: Pt sedated and intubated. He follows commands in all 4 extremities but not opening his eyes. 06/22/17: Pt sedated on Diprivan. He is intubated. He was off sedation yesterday and placed on Diprivan last night. He follows commands when off sedation. 06/23/17: Pt opens eyes slightly to voice. He follows some commands intermittently. Pupils equal. 06/24/17: Pt lethargic but does open his eyes slightly. He Follows simple commands. He is on Diprivan which when held for prolonged period pt reportedly becomes tachypneic. 06/25/17: Pt opens eyes slightly to voice. He follows some simple commands more easily than others. Intubated. 06/26/17: Pt extubated this morning. He awakens to voice. Follows simple commands. Difficult to get much of history currently. 06/27/17: Appears lethargic, opens eyes briefly. was given pain medication this morning, otherwise not on sedative drip. Groaning. Aphasic. Not consistently following commands. Hx of seizures, prior EEG 06/20 neg. No reports of seizures overnight. Per nursing reports patient appears same clinically today. 06/28/17: appearing more awake this am, although still aphasic, not following commands. moving all four extremities, left leg seen hanging off bed. EEG yesterday without seizures, moderate slowing. f/u CT Brain improving hemorrhage , no acute. 06/29/17: no overall changes to neuro exam, with nasogastric tube suction. (Varsha Kessler) Labs, Micro, & Vital Signs Results Date Time Temp Pulse Resp B/P (MAP) Pulse Ox O2 Delivery O2 Flow Rate FiO2 06/29/17 07:38 94 Nasal Cannula 5.00 06/29/17 06:00 90 06/29/17 04:00 98.7 92 20 150/100 (117) 93 06/29/17 04:00 89 06/29/17 02:00 80 06/29/17 00:00 97.4 80 24 140/91 (107) 91 06/29/17 00:00 80 06/28/17 22:00 80 06/28/17 20:00 98.8 81 26 141/87 (105) 92 06/28/17 20:00 99 06/28/17 20:00 96 Nasal Cannula 2.00 06/28/17 18:00 93 06/28/17 16:00 113 06/28/17 16:00 98.7 111 28 142/89 (106) 95 06/28/17 14:00 110 06/28/17 12:00 112 06/28/17 12:00 98.4 105 25 163/99 (120) 96 Constitutional Vital Signs Date Time Temp Pulse Resp B/P (MAP) Pulse Ox O2 Delivery O2 Flow Rate FiO2 06/29/17 07:38 94 Nasal Cannula 5.00 06/29/17 06:00 90 06/29/17 04:00 98.7 92 20 150/100 (117) 93 06/29/17 04:00 89 06/29/17 02:00 80 06/29/17 00:00 97.4 80 24 140/91 (107) 91 06/29/17 00:00 80 06/28/17 22:00 80 06/28/17 20:00 98.8 81 26 141/87 (105) 92 06/28/17 20:00 99 06/28/17 20:00 96 Nasal Cannula 2.00 06/28/17 18:00 93 06/28/17 16:00 113 06/28/17 16:00 98.7 111 28 142/89 (106) 95 06/28/17 14:00 110 06/28/17 12:00 112 06/28/17 12:00 98.4 105 25 163/99 (120) 96 (Varsha Kessler) Review of Systems ROS Limitations: Clinical Condition, Altered Mental Status (Varsha Kessler) Physical Exam General: No acute distress Eyes: Pupils equal 3mm bilaterally reactive bilaterally. Sclera anicteric. Resp: clear Heart: regular rate rhythm Abd: Soft positive bs, NG tube Skin: No cyanosis or erythema. Muscle: moves all four extremities spontaneously, not following for commands Neuro: Awake, appears drowsy, no sedation running. Aphasic, only mumbling. Pupils 3mm bilaterally. Plantars neutral bilaterally. (Varsha Kessler) Medications Current Medications Current Medications Medications (Trade) Dose Ordered Sig/Roby Route PRN Reason Start Time Stop Time Status Last Admin Dose Admin Sodium Chloride (NS Flush) 2 ml UNSCH PRN IV FLUSH FLUSH AFTER USING IV ACCESS 06/18/17 16:30 Sodium Chloride (NS Flush) 2 ml BID IV FLUSH 06/18/17 21:00 06/29/17 09:00 Lorazepam (Ativan Inj) 1 mg Q1H PRN IV PUSH SEIZURES 06/18/17 16:30 06/19/17 19:15 Al Hydrox/Mg Hydrox/Simethicone (Mag-Al Plus Susp Liq) 30 ml Q6H PRN PO DYSPEPSIA 06/18/17 16:30 Ondansetron HCl (Zofran Inj) 4 mg Q6H PRN IV PUSH NAUSEA OR VOMITING 06/18/17 16:30 06/27/17 22:12 Promethazine HCl (Phenergan Inj) 25 mg Q4H PRN IM NAUSEA OR VOMITING 06/18/17 16:30 Calcium Gluconate 1 gm/Sodium Chloride 110 ml @ 110 mls/hr UNSCH PRN IV SEE LABEL COMMENTS 06/18/17 16:30 Potassium Chloride 100 ml @ 50 mls/hr UNSCH PRN IV POTASSIUM LESS THAN 4 06/18/17 16:30 06/19/17 09:55 Magnesium Sulfate 2 gm/Sodium Chloride 104 ml @ 100 mls/hr UNSCH PRN IV MAGNESIUM LESS THAN 2 06/18/17 16:30 Morphine Sulfate (Morphine Inj) 2 mg Q2H PRN IV PUSH breakthrough pain> 6 06/18/17 16:30 06/28/17 03:10 Labetalol HCl (Trandate Inj) 10 mg Q1H PRN IV PUSH SYS BP GREATER THAN 180 MMHG 06/18/17 16:30 06/28/17 17:20 Bacitracin (Baciguent Oint) 1 applic BID TOP 06/18/17 21:00 06/29/17 09:00 Menthol (Crawley Susan) 1 lozenge UNSCH PRN BUCCAL SORE THROAT 06/18/17 16:30 Albuterol Sulfate (Albuterol Neb) 2.5 mg Q4HR NEB PRN NEB WHEEZING 06/18/17 16:30 06/26/17 02:59 Bisacodyl (Dulcolax Supp) 10 mg DAILY PRN RECTAL SEVERE CONSITIPATION 06/18/17 16:30 Dextrose (D50w (Vial) Inj) 50 ml UNSCH PRN IV PUSH HYPOGLYCEMIA-SEE COMMENTS 06/18/17 16:30 Glucagon (Glucagon Inj) 1 mg UNSCH PRN OTHER HYPOGLYCEMIA-SEE COMMENTS 06/18/17 16:30 Insulin Human Regular (NovoLIN R SUPPLEMENTAL SCALE) 1 ACHS SLIDING SCALE SQ 06/18/17 17:00 06/23/17 10:41 Nicardipine HCl 25 mg/Sodium Chloride 250 ml @ 50 mls/hr TITRATE PRN IV Blood pressure management 06/18/17 18:00 Chlorhexidine Gluconate (Peridex 0.12% Liq) 15 ml BID@08,20 MT 06/19/17 20:00 06/29/17 08:00 Propofol 100 ml @ 2.4 mls/hr TITRATE PRN IV SEDATION 06/19/17 19:45 06/25/17 00:42 Potassium Chloride 100 ml @ 50 mls/hr Q2H PRN IV For Potassium 2.8 - 3.2 mEq/L 06/19/17 21:00 Potassium Chloride 100 ml @ 50 mls/hr Q2H PRN IV For Potassium 2.8 - 3.2 mEq/L 06/19/17 21:00 06/20/17 16:54 Potassium Chloride 100 ml @ 25 mls/hr UNSCH PRN IV For Potassium 3.3 - 3.5 mEq/L 06/19/17 21:00 Potassium Chloride 100 ml @ 50 mls/hr Q2H PRN IV For Potassium 3.3 - 3.5 mEq/L 06/19/17 21:00 Magnesium Sulfate 4 gm/Sodium Chloride 100 ml @ 50 mls/hr UNSCH PRN IV For Magnesium 0.9 - 1.1 mg/dL 06/19/17 21:00 Magnesium Sulfate 2 gm/Sodium Chloride 100 ml @ 50 mls/hr UNSCH PRN IV For Magnesium 1.2 - 1.6 mg/dL 06/19/17 21:00 Sodium Phosphate 30 mmol/Sodium Chloride 250 ml @ 42 mls/hr UNSCH PRN IV For Phosphorus < 2.5 mg/dL 06/19/17 21:00 Potassium Phosphate (K-Phos) 2,000 mg UNSCH PRN PO/TUBE SEE LABEL COMMENTS 06/19/17 21:00 Potassium Phosphate 30 mmol/ Sodium Chloride 260 ml @ 42 mls/hr UNSCH PRN IV SEE LABEL COMMENTS 06/19/17 21:00 Flumazenil (Romazicon Inj) 0.2 mg Q1M PRN IV PUSH SEE LABEL COMMENTS 06/19/17 21:00 Acetaminophen/ Hydrocodone Bitart (Minden 10-325 Mg) 1 tab Q4H PRN NG PAIN SCALE 1 TO 5 06/28/17 12:30 06/28/17 20:00 Acetaminophen/ Hydrocodone Bitart (Minden 10-325 Mg) 2 tab Q4H PRN NG PAIN SCALE 6 TO 10 06/28/17 12:30 Acetaminophen (Tylenol) 650 mg Q4H PRN NG TEMPERATURE > 101.5 F 06/28/17 12:30 Allopurinol (Zyloprim) 100 mg DAILY NG 06/28/17 09:00 06/29/17 09:05 Clonidine (Catapres) 0.1 mg Q6H PRN NG SYS BP GREATER THAN 170 MMHG 5/12/18 10:30 Senna/Docusate Sodium (Jennifer-Colace) 1 tab BID NG 06/28/17 09:00 06/29/17 09:05 Hydrochlorothiazide (Hydrodiuril) 12.5 mg DAILY NG 06/28/17 09:00 06/29/17 09:04 Lactulose (Lactulose Liq) 30 ml DAILY PRN NG SEVERE CONSITIPATION 06/28/17 08:45 Magnesium Hydroxide (Milk Of Magnesia Liq) 30 ml Q12H PRN NG Mild constipation 06/28/17 16:30 Magnesium Oxide (Mag-Ox) 800 mg UNSCH PRN NG For Magnesium 1.2 - 1.6 mg/dL 06/28/17 08:45 Potassium Bicarb/ Potassium Chloride (K-Lyte Cl Eff) 50 meq UNSCH PRN NG For Potassium 3.3 - 3.5 mEq/L 06/28/17 08:45 Potassium Phosphate (K-Phos) 2,000 mg Q4H PRN NG For Phosphorus < 2.5 mg/dL 06/28/17 09:00 Sennosides (Senokot) 17.2 mg Q12H PRN NG Moderate constipation 06/28/17 16:30 Sertraline HCl (Zoloft) 50 mg DAILY NG 06/28/17 09:00 06/29/17 09:05 Zolpidem Tartrate (Ambien) 5 mg HS PRN NG INSOMNIA 06/28/17 08:45 Levetriacetam (Keppra Liq) 1,000 mg Q12HR NG 06/28/17 09:00 06/29/17 09:04 Lansoprazole (Prevacid Odt) 15 mg DAILY NG 06/28/17 09:00 06/29/17 09:00 Lisinopril (Prinivil) 20 mg DAILY NG 06/28/17 09:00 06/29/17 09:05 Metoprolol Tartrate (Lopressor) 50 mg BID NG 06/28/17 10:00 06/29/17 09:05 (Varsha Kessler) Medical Decision Making MDM Remarks 66 y/o 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, TBI, right frontal intraparenchymal hemorrhage history seizures, EEG 06/20/17 negative for seizure activities AMS, Encephalopathy, repeat EEG 06/27 neg for seizures f/u CT Brain 06/28 with improving intracranial hemorrhage, no acute findings (Varsha Kessler) Plan Plan Remarks EEG and follow-up CT brain reviewed, cont medical management continue neuro checks and follow-up examination continue Keppra 1000 mg q12, seizure precautions (Varsha Kessler) Attending Statement The exam, history, and the medical decision-making described in the above note were completed with the assistance of the mid-level provider. I reviewed and agree with the findings presented. I attest that I had a [id number] encounter with the patient on the same day, and personally performed and documented my assessment and findings in the medical record. (Art Noel MD) Varsha Kessler June 29, 2017 10:07 Art Noel MD June 29, 2017 14:31
--- NOTE | 2017-06-29 11:17 | RADRPT ---
EXAM DATE/TIME: 06/29/2017 10:56 [place] COMPARISON: CHEST SINGLE AP, June 22, 2017, 15:02. INDICATIONS : Cough MEDICAL HISTORY : Hypertension. Cardiovascular disease Traumatic brain injury SURGICAL HISTORY : Tonsillectomy. Appendectomy ENCOUNTER: Subsequent ACUITY: 1 week PAIN SCORE: Non-responsive. LOCATION: chest FINDINGS: There has been interval extubation. Nasogastric tubing overlying extending beyond the imaged portion of the film. Heart size is mildly enlarged with tortuosity of the thoracic aorta. The lungs are somew hat hypoinflated There is persistent left basilar airspace consolidation. Bilateral diffuse perivascu lar acinar airspace opacities. CONCLUSION: Persistent left lower lobe airspace consolidation and findings suggestive of volume overload versus c ongestive heart failure.. Elif Shaw MD on June 29, 2017 at 11:13 Board Certified Radiologist. This report was verified electronically.
[2017-06-29] MEDS ORDERED: FUROSEMIDE 40 MG/4 ML VIAL IV PUSH ONE (14:30)
--- NOTE | 2017-06-29 14:53 | HHI.PR ---
Subjective Remarks Follow-up for fall, TBI, right frontal intra-parenchymal hemorrhage. Patient is resting in bed. Nasogastric tube is in place and on suction. Afebrile. Objective Vitals Vital Signs Date Time Temp Pulse Resp B/P (MAP) Pulse Ox O2 Delivery O2 Flow Rate FiO2 06/29/17 07:38 94 Nasal Cannula 5.00 06/29/17 06:00 90 06/29/17 04:00 98.7 92 20 150/100 (117) 93 06/29/17 04:00 89 06/29/17 02:00 80 06/29/17 00:00 97.4 80 24 140/91 (107) 91 06/29/17 00:00 80 06/28/17 22:00 80 06/28/17 20:00 98.8 81 26 141/87 (105) 92 06/28/17 20:00 99 06/28/17 20:00 96 Nasal Cannula 2.00 06/28/17 18:00 93 06/28/17 16:00 113 06/28/17 16:00 98.7 111 28 142/89 (106) 95 I/O 06/28/17 06/28/17 06/28/17 06/29/17 06/29/17 06/29/17 06:59 14:59 22:59 06:59 14:59 22:59 Intake Total 450 ml 105 ml Balance 450 ml 105 ml IV Total 450 ml Tube Feeding 105 ml # Voids 4 6 4 Result Diagram: 06/28/17 0322 06/28/17 0322 Imaging Last Impressions Chest X-Ray 06/29/17 0000 Signed Impressions: Service Date/Time: Thursday, June 29, 2017 10:56 - CONCLUSION: Persistent left lower lobe airspace consolidation and findings suggestive of volume overload versus congestive heart failure.. Elif Shaw MD Head CT 06/28/17 0800 Signed Impressions: Service Date/Time: Wednesday, June 28, 2017 04:00 - CONCLUSION: 1. Interval decrease in the size of the high density right frontal hematoma. 2. Interval resolution of previously noted smaller left frontal hematoma. 3. No acute hemorrhage or mass effect. Marek Pope MD Abdomen X-Ray 06/28/17 0000 Signed Impressions: Service Date/Time: Wednesday, June 28, 2017 17:25 - CONCLUSION: NG tube in the stomach. Les Liao MD Upper Extremity Ultrasound 06/24/17 0000 Signed Impressions: Service Date/Time: Saturday, June 24, 2017 21:57 - CONCLUSION: Positive thrombus in the mid and distal cephalic vein which is enlarged and noncompressible suspicious for an acute venous thrombosis. Norberto Sandra MD Cervical Spine CT 06/18/17 1153 Signed Impressions: Service Date/Time: Sunday, June 18, 2017 13:43 - CONCLUSION: 1. No acute bony fracture. 2. Primary bony degenerative changes involving the cervical spine. Les Liao MD Shoulder X-Ray 06/18/17 0000 Signed Impressions: Service Date/Time: Sunday, June 18, 2017 16:45 - CONCLUSION: No acute fracture or joint dislocation. Les Liao MD Objective Remarks GENERAL: Does not follow any commands, no acute distress. SKIN: Warm and dry. HEAD: Normocephalic. EYES: No scleral icterus. No injection or drainage. NECK: Supple, trachea midline. No JVD or lymphadenopathy. CARDIOVASCULAR: Regular rate and rhythm without murmurs, gallops, or rubs. RESPIRATORY: Breath sounds equal bilaterally. No accessory muscle use. GASTROINTESTINAL: Abdomen soft, non-tender, nondistended. MUSCULOSKELETAL: No cyanosis, or edema. BACK: Nontender without obvious deformity. No CVA tenderness. Procedures 06/27/2017 EEG Abnormal EEG due to some moderate slowing of background consistent with encephalopathic process of various etiology, without any epileptiform features in this one recording. Clinical correlation. 06/20/2017 EEG Some mild to moderate diffuse slowing, but no focal abnormality was noted. No seizure activity was seen, especially on the right hemisphere. No seizure activity noted. A/P Problem List: (1) Frontal lobe contusion ICD Code: S06.339A - Contusion and laceration of cerebrum, unspecified, with loss of consciousness of unspecified duration, initial encounter Status: Acute (2) Rib fracture ICD Code: S22.39XA - Fracture of one rib, unspecified side, initial encounter for closed fracture Status: Acute (3) Diabetes ICD Code: E11.9 - Type 2 diabetes mellitus without complications Status: Chronic (4) HTN (hypertension) ICD Code: I10 - Essential (primary) hypertension Assessment and Plan On 06/18/2017, Mr. Abebe, a 66-year-old male who presented to the emergency department after a fall. He had an episode of loss of consciousness. He reported that he has been evaluated at [facility] for multiple falls. Apparently the reason was possible low blood pressure. The CT of the head performed in the emergency department shows right frontal hematoma, left medial frontal hemorrhage. He was admitted to the neurosurgical service. On 06/19/2017 patient had generalized seizure activity and altered mental status. Due to inability to protect airways, patient was emergently intubated. Patient was extubated on 06/26/2017. Fall Traumatic brain injury Intra-parenchymal hemorrhage -Neurosurgery is following. Patient is currently on Keppra 1000 mg every 12 hours. -Repeat CT head 06/28 improved ICH Hypertension -Continue HCTZ 12.5 mg daily, lisinopril 20 mg daily. Labetalol IV as needed. -Continue metoprolol 50 mg twice daily Diabetes mellitus - continue sliding scale insulin. Acute respiratory failure hypoxia - Currently on 5-6L of O2 via NC. Wean off O2 as much as possible - CXR on 06/29/2017 shows increased fluid build up. - Will give a trial of 40mg IV Lasix once. Nutrition - Patient was on tube feed. He was not tolerating well and residual was significant. Tube feed was stopped and NG suction was started. Full code. No pharmacological DVT prophylaxis due to ICH. Will continue SCDs. Problem Qualifiers (1) Frontal lobe contusion: Qualified Codes: S06.331A - Contusion and laceration of cerebrum, unspecified, with loss of consciousness of 30 minutes or less, initial encounter (2) Rib fracture: Qualified Codes: S22.32XA - Fracture of one rib, left side, initial encounter for closed fracture (3) Diabetes: Jerald Gardiner DO June 29, 2017 2:53 pm
[2017-06-29] MEDS: ACETAMINOPHEN/HYDROcodone 325 MG/10 MG TAB NG PRN (17:46)
[2017-06-30] VITALS (14 sets, daily range): BP systolic 89–145; BP diastolic 56–81; PULSE 72–92; RESP 16–20; TEMP 97.5–98.9; O2SAT 88–99
[2017-06-30] MEDS: HYOSCYAMINE SOLN 0.125 MG/ML 15 ML BTL PO PRN ×2 (03:42→11:57)
[2017-06-30] MEDS: INSULIN NovoLIN REGULAR SUPPLEMENTAL SCALE SQ SCH ×4 (08:00→21:00)
[2017-06-30] MEDS: CHLORHEXIDINE 0.12% (ORAL KIT) 15 ML CUP MT SCH ×2 (08:00→21:26)
[2017-06-30] MEDS: BACITRACIN TOP OINT 15 GM TUBE TOP SCH ×2 (09:00→21:26)
[2017-06-30] MEDS: SODIUM CHLORIDE 0.9% FLUSH 10 ML FLUSH IV FLUSH SCH ×2 (09:51→21:26)
[2017-06-30] MEDS: HYDROCHLOROTHIAZIDE 25 MG TAB NG SCH (09:51)
[2017-06-30] MEDS: LANSOPRAZOLE SOLUTAB 15 MG TAB NG SCH (09:52)
[2017-06-30] MEDS: LISINOPRIL 20 MG TAB NG SCH (09:52)
[2017-06-30] MEDS: SERTRALINE HCL 50 MG TAB NG SCH (09:52)
[2017-06-30] MEDS: ALLOPURINOL 100 MG TAB NG SCH (09:52)
[2017-06-30] MEDS: METOPROLOL TARTRATE 50 MG TAB NG SCH ×2 (09:52→21:25)
[2017-06-30] MEDS: DOCUSATE SODIUM 50 MG/SENNA 8.6 MG TAB NG SCH ×2 (09:53→21:25)
--- NOTE | 2017-06-30 10:27 | HHI.NSPN ---
(Mason Parker) History Chief Complaint: Mild headache. (Mason Parker) Interval History 66-year-old gentleman who presented to [facility] emergency room after a fall. He relates a positive loss of consciousness and complains of severe left- sided chest wall pain and initially had left shoulder pain which has improved along with mild headache. He has a history of frequent falls and states that he is undergone extensive workup including evaluation at the [facility] and the only thing they could relate this to was possibly low blood pressure. He denies feeling lightheaded or dizzy or any chest pain prior to these falls and relates that his legs just give out on him and usually occurs about once a month. He had a similar episode today and fell [place] bathroom [place] market. Denies any nausea or vomiting and states that he is hungry. Denies any numbness or paresthesias in the upper lower extremities or any neck or back pain. 06/19/17: Pt awake and alert. Complains of headache but mild. No n/v. No paresthesias. Complains of left rib pain. 06/20/17: Pt sedated on Diprivan. He was intubated yesterday. He had a seizure yesterday. History of ETOH use. 06/21/17: Pt sedated and intubated. He follows commands in all 4 extremities but not opening his eyes. 06/22/17: Pt sedated on Diprivan. He is intubated. He was off sedation yesterday and placed on Diprivan last night. He follows commands when off sedation. 06/23/17: Pt opens eyes slightly to voice. He follows some commands intermittently. Pupils equal. 06/24/17: Pt lethargic but does open his eyes slightly. He Follows simple commands. He is on Diprivan which when held for prolonged period pt reportedly becomes tachypneic. 06/25/17: Pt opens eyes slightly to voice. He follows some simple commands more easily than others. Intubated. 06/26/17: Pt extubated this morning. He awakens to voice. Follows simple commands. Difficult to get much of history currently. 06/30/17: Pt extubated confused. He is on O2 via mask. He follows some simple commands. Not able to verbalize much but he denies headaches. (Mason Parker) System Review Comments Not able to obtain given clinical condition. (Mason Parker) Exam Results Vital Signs Date Time Temp Pulse Resp B/P (MAP) Pulse Ox O2 Delivery O2 Flow Rate FiO2 06/30/17 07:00 95 Non-Rebreather 15.00 100 06/30/17 06:00 81 06/30/17 04:00 98.9 19 106/67 (80) Intake and Output 06/30/17 06/30/17 07/01/17 08:00 16:00 00:00 Intake Total 40 ml Output Total 870 ml Balance -830 ml (Mason Parker) Physical Examination General: Lethargic. Opens eyes and follows some simple commands. Eyes: Pupils equal 3mm bilaterally reactive bilaterally. Sclera anicteric. Resp: Extubated, mild coarse bs bilaterally. Requires NT suctioning. Heart: NSR no murmurs Abd: Soft positive bs Skin: No cyanosis or erythema. Muscle: moves all four extremities, appears weaker and slower left side Neuro: Lethargic, no sedation running. Not conversing much but states no headache, mumbling a lot. Opens eyes. Pupils 3mm bilaterally, reactive bilaterally. (Mason Parker) Lab, Micro, Other Results Last Impressions Chest X-Ray 06/29/17 0000 Signed Impressions: Service Date/Time: Thursday, June 29, 2017 10:56 - CONCLUSION: Persistent left lower lobe airspace consolidation and findings suggestive of volume overload versus congestive heart failure.. Elif Shaw MD Head CT 06/28/17 0800 Signed Impressions: Service Date/Time: Wednesday, June 28, 2017 04:00 - CONCLUSION: 1. Interval decrease in the size of the high density right frontal hematoma. 2. Interval resolution of previously noted smaller left frontal hematoma. 3. No acute hemorrhage or mass effect. Marek Pope MD Abdomen X-Ray 06/28/17 0000 Signed Impressions: Service Date/Time: Wednesday, June 28, 2017 17:25 - CONCLUSION: NG tube in the stomach. Les Liao MD Upper Extremity Ultrasound 06/24/17 0000 Signed Impressions: Service Date/Time: Saturday, June 24, 2017 21:57 - CONCLUSION: Positive thrombus in the mid and distal cephalic vein which is enlarged and noncompressible suspicious for an acute venous thrombosis. Norberto Sandra MD Cervical Spine CT 06/18/17 1153 Signed Impressions: Service Date/Time: Sunday, June 18, 2017 13:43 - CONCLUSION: 1. No acute bony fracture. 2. Primary bony degenerative changes involving the cervical spine. Les Liao MD Shoulder X-Ray 06/18/17 0000 Signed Impressions: Service Date/Time: Sunday, June 18, 2017 16:45 - CONCLUSION: No acute fracture or joint dislocation. Les Liao MD Laboratory Tests Test 06/30/17 00:44 Blood Gas Puncture Site LT RADIAL Blood Gas Patient Temperature 98.6 Blood Gas HCO3 29 mmol/L Blood Gas Base Excess 4.2 mmol/L Blood Gas Oxygen Saturation 97 % Arterial Blood pH 7.38 Arterial Blood Partial Pressure CO2 50 mmHg Arterial Blood Partial Pressure O2 143 mmHg Arterial Blood Oxygen Content 20.7 Vol % Arterial Blood Carboxyhemoglobin 1.4 % Arterial Blood Methemoglobin 0.8 % Blood Gas Hemoglobin 15.0 G/DL Oxygen Delivery Device Non-Rebreathing Mask Blood Gas Liter Flow 15 L/M Blood Gas Inspired Oxygen 100 % (Mason Parker) Medical Decision Making Impression and Plan Diagnosis: (1) HTN (hypertension) ICD Codes: I10 - Essential (primary) hypertension (2) Diabetes ICD Codes: E11.9 - Type 2 diabetes mellitus without complications Status: Chronic (3) Frontal lobe contusion ICD Codes: S06.339A - Contusion and laceration of cerebrum, unspecified, with loss of consciousness of unspecified duration, initial encounter Status: Acute (4) Rib fracture ICD Codes: S22.39XA - Fracture of one rib, unspecified side, initial encounter for closed fracture Status: Acute Assessment and Plan 66-year-old gentleman with a chronic history of falls who apparently fell on 06/18 with positive loss of consciousness with bilateral small frontal lobe contusions. Had extensive workup for his falls including evaluation at [facility] without any concrete underlying etiology other than what he states he relates that this could be related to possibly his blood pressure fluctuation. He has unregulated hypertension which is now controlled with the as needed medications and Cardene drip if needed to keep the systolic blood pressure less than 160. Insulin sliding scale coverage for his diabetes. Pain control for left-sided chest wall pain from rib fracture. He has had some expansion of his cerebral contusions. Follow up CT head with improvement. Pt had seizures while he was in the ICU and was intubated. Follow up CT head was stable. He is on Keppra Pt has history of ETOH use and is in impending alcohol withdrawal. He has finished his Librium. (Mason Parker) Attending Statement The exam, history, and the medical decision-making described in the above note were completed with the assistance of the mid-level provider. I reviewed and agree with the findings presented. I attest that I had a [id number]-weya encounter with the patient on the same day, and personally performed and documented my assessment and findings in the medical record. (Matt Cerrato MD) Mason Parker June 30, 2017 10:27 Matt Cerrato MD June 30, 2017 18:53
[2017-06-30] MEDS: LORazepam 2 MG/ML VIAL IV PUSH PRN (11:17)
[2017-06-30] MEDS: levETIRAcetam 500 MG/5 ML UDC NG SCH ×2 (11:58→21:25)
--- NOTE | 2017-06-30 14:16 | HHI.PR ---
Subjective Remarks Follow-up for fall, TBI, right frontal intra-parenchymal hemorrhage. Afebrile. NG tube on suction. Objective Vitals Vital Signs Date Time Temp Pulse Resp B/P (MAP) Pulse Ox O2 Delivery O2 Flow Rate FiO2 06/30/17 11:24 96 Simple Mask 6.00 06/30/17 11:00 88 Nasal Cannula 4.00 06/30/17 07:00 95 Non-Rebreather 15.00 100 06/30/17 06:00 81 06/30/17 04:00 98.9 83 19 106/67 (80) 93 06/30/17 04:00 83 06/30/17 02:00 82 06/30/17 00:40 97 Non-Rebreather 15.00 100 06/30/17 00:00 98.1 85 20 106/67 (80) 94 06/30/17 00:00 85 06/29/17 23:00 91 Simple Mask 10.00 06/29/17 22:00 83 06/29/17 20:30 95 Simple Mask 8.00 06/29/17 20:00 83 06/29/17 20:00 98.0 83 18 119/75 (90) 92 06/29/17 19:00 88 Nasal Cannula 6.00 06/29/17 18:49 24 06/29/17 18:00 87 06/29/17 16:00 87 06/29/17 16:00 98.7 87 24 146/24 (64) 94 I/O 06/29/17 06/29/17 06/29/17 06/30/17 06/30/17 06/30/17 07:00 15:00 23:00 07:00 15:00 23:00 Intake Total 105 ml 240 ml 40 ml Output Total 500 ml 870 ml Balance 105 ml -260 ml -830 ml Tube Feeding 105 ml Other 240 ml 40 ml Output Urine Total 270 ml Stool Total 0 ml Gastric Drainage Total 500 ml 600 ml Bladder Scan Volume Amount 261 ml # Voids 4 6 Result Diagram: 06/28/17 0322 06/28/17 0322 Objective Remarks GENERAL: Does not follow any commands, no acute distress. SKIN: Warm and dry. HEAD: Normocephalic. EYES: No scleral icterus. No injection or drainage. NECK: Supple, trachea midline. No JVD or lymphadenopathy. CARDIOVASCULAR: Regular rate and rhythm without murmurs, gallops, or rubs. RESPIRATORY: Breath sounds equal bilaterally. No accessory muscle use. GASTROINTESTINAL: Abdomen soft, non-tender, nondistended. MUSCULOSKELETAL: No cyanosis, or edema. BACK: Nontender without obvious deformity. No CVA tenderness. Procedures 06/27/2017 EEG Abnormal EEG due to some moderate slowing of background consistent with encephalopathic process of various etiology, without any epileptiform features in this one recording. Clinical correlation. 06/20/2017 EEG Some mild to moderate diffuse slowing, but no focal abnormality was noted. No seizure activity was seen, especially on the right hemisphere. No seizure activity noted. A/P Problem List: (1) Frontal lobe contusion ICD Code: S06.339A - Contusion and laceration of cerebrum, unspecified, with loss of consciousness of unspecified duration, initial encounter Status: Acute (2) Rib fracture ICD Code: S22.39XA - Fracture of one rib, unspecified side, initial encounter for closed fracture Status: Acute (3) Diabetes ICD Code: E11.9 - Type 2 diabetes mellitus without complications Status: Chronic (4) HTN (hypertension) ICD Code: I10 - Essential (primary) hypertension Assessment and Plan On 06/18/2017, Mr. Abebe, a 66-year-old male who presented to the emergency department after a fall. He had an episode of loss of consciousness. He reported that he has been evaluated at [facility] for multiple falls. Apparently the reason was possible low blood pressure. The CT of the head performed in the emergency department shows right frontal hematoma, left medial frontal hemorrhage. He was admitted to the neurosurgical service. On 06/19/2017 patient had generalized seizure activity and altered mental status. Due to inability to protect airways, patient was emergently intubated. Patient was extubated on 06/26/2017. Fall Traumatic brain injury Intra-parenchymal hemorrhage -Neurosurgery is following. Patient is currently on Keppra 1000 mg every 12 hours. -Repeat CT head 06/28 improved ICH Hypertension -Continue HCTZ 12.5 mg daily, lisinopril 20 mg daily. Labetalol IV as needed. -Continue metoprolol 50 mg twice daily Diabetes mellitus - continue sliding scale insulin. Acute respiratory failure hypoxia - Currently on 5-6L of O2 via NC. Wean off O2 as much as possible - CXR on 06/29/2017 shows increased fluid build up. - May need more lasix. Nutrition - Patient was on tube feed. He was not tolerating well and residual was significant. Tube feed was stopped and NG suction was started. Full code. No pharmacological DVT prophylaxis due to ICH. Will continue SCDs. Problem Qualifiers (1) Frontal lobe contusion: Qualified Codes: S06.331A - Contusion and laceration of cerebrum, unspecified, with loss of consciousness of 30 minutes or less, initial encounter (2) Rib fracture: Qualified Codes: S22.32XA - Fracture of one rib, left side, initial encounter for closed fracture (3) Diabetes: Jerald Gardiner DO June 30, 2017 14:16
[2017-06-30] MEDS: ENOXAPARIN SODIUM 40 MG/0.4 ML SYRINGE SQ SCH (15:58)
[2017-06-30] MEDS: ACETAMINOPHEN/HYDROcodone 325 MG/10 MG TAB NG PRN (21:25)
[2017-07-01] VITALS (13 sets, daily range): BP systolic 128–146; BP diastolic 86–98; PULSE 66–93; RESP 19–24; TEMP 97.5–98.3; O2SAT 95–99
[2017-07-01] MEDS: INSULIN NovoLIN REGULAR SUPPLEMENTAL SCALE SQ SCH ×4 (08:00→20:17)
[2017-07-01] MEDS: SERTRALINE HCL 50 MG TAB NG SCH (09:11)
[2017-07-01] MEDS: ALLOPURINOL 100 MG TAB NG SCH (09:11)
[2017-07-01] MEDS: LISINOPRIL 20 MG TAB NG SCH (09:11)
[2017-07-01] MEDS: HYDROCHLOROTHIAZIDE 25 MG TAB NG SCH (09:12)
[2017-07-01] MEDS: DOCUSATE SODIUM 50 MG/SENNA 8.6 MG TAB NG SCH ×2 (09:12→20:00)
[2017-07-01] MEDS: levETIRAcetam 500 MG/5 ML UDC NG SCH ×2 (09:12→20:01)
[2017-07-01] MEDS: METOPROLOL TARTRATE 50 MG TAB NG SCH ×2 (09:12→20:00)
[2017-07-01] MEDS: CHLORHEXIDINE 0.12% (ORAL KIT) 15 ML CUP MT SCH ×2 (09:13→19:24)
[2017-07-01] MEDS: SODIUM CHLORIDE 0.9% FLUSH 10 ML FLUSH IV FLUSH SCH ×2 (09:13→20:00)
[2017-07-01] MEDS: LANSOPRAZOLE SOLUTAB 15 MG TAB NG SCH (09:13)
[2017-07-01] MEDS: BACITRACIN TOP OINT 15 GM TUBE TOP SCH ×2 (09:24→20:00)
--- NOTE | 2017-07-01 09:25 | HHI.NSPN ---
(Mason Parker) History Chief Complaint: Mild headache. (Mason Parker) Interval History 66-year-old gentleman who presented to [facility] emergency room after a fall. He relates a positive loss of consciousness and complains of severe left- sided chest wall pain and initially had left shoulder pain which has improved along with mild headache. He has a history of frequent falls and states that he is undergone extensive workup including evaluation at the [facility] and the only thing they could relate this to was possibly low blood pressure. He denies feeling lightheaded or dizzy or any chest pain prior to these falls and relates that his legs just give out on him and usually occurs about once a month. He had a similar episode today and [place]. Denies any nausea or vomiting and states that he is hungry. Denies any numbness or paresthesias in the upper lower extremities or any neck or back pain. 06/19/17: Pt awake and alert. Complains of headache but mild. No n/v. No paresthesias. Complains of left rib pain. 06/20/17: Pt sedated on Diprivan. He was intubated yesterday. He had a seizure yesterday. History of ETOH use. 06/21/17: Pt sedated and intubated. He follows commands in all 4 extremities but not opening his eyes. 06/22/17: Pt sedated on Diprivan. He is intubated. He was off sedation yesterday and placed on Diprivan last night. He follows commands when off sedation. 06/23/17: Pt opens eyes slightly to voice. He follows some commands intermittently. Pupils equal. 06/24/17: Pt lethargic but does open his eyes slightly. He Follows simple commands. He is on Diprivan which when held for prolonged period pt reportedly becomes tachypneic. 06/25/17: Pt opens eyes slightly to voice. He follows some simple commands more easily than others. Intubated. 06/26/17: Pt extubated this morning. He awakens to voice. Follows simple commands. Difficult to get much of history currently. 06/30/17: Pt extubated confused. He is on O2 via mask. He follows some simple commands. Not able to verbalize much but he denies headaches. 07/01/17: Pt resting in bed. He is confused but verbalizing more. He has O2 via NC. He is following more simple commands. (Mason Parker) System Review Comments Not able to obtain given clinical condition. (Mason Parker) Exam Results Vital Signs Date Time Temp Pulse Resp B/P (MAP) Pulse Ox O2 Delivery O2 Flow Rate FiO2 07/01/17 07:49 98 Nasal Cannula 4.00 07/01/17 06:00 83 07/01/17 04:00 97.5 20 146/86 (106) 06/30/17 07:00 100 Intake and Output 07/01/17 07/01/17 07/02/17 08:00 16:00 00:00 Intake Total 120 ml Output Total 900 ml Balance -780 ml (Mason Parker) Physical Examination General: Waking more but still lethargic. Opens eyes and follows some simple commands. Eyes: Pupils equal 3mm bilaterally reactive bilaterally. Sclera anicteric. Resp: Extubated, mild coarse bs bilaterally. Heart: NSR no murmurs Abd: Soft positive bs Skin: No cyanosis or erythema. Muscle: moves all four extremities. Requires soft restraints secondary to confusion. Neuro: Waking more but still lethargic. Conversing more but very confused. Opens eyes. Pupils 3mm bilaterally, reactive bilaterally. (Mason Parker) Lab, Micro, Other Results Last Impressions Chest X-Ray 06/29/17 0000 Signed Impressions: Service Date/Time: Thursday, June 29, 2017 10:56 - CONCLUSION: Persistent left lower lobe airspace consolidation and findings suggestive of volume overload versus congestive heart failure.. Elif Shaw MD Head CT 06/28/17 0800 Signed Impressions: Service Date/Time: Wednesday, June 28, 2017 04:00 - CONCLUSION: 1. Interval decrease in the size of the high density right frontal hematoma. 2. Interval resolution of previously noted smaller left frontal hematoma. 3. No acute hemorrhage or mass effect. Marek Pope MD Abdomen X-Ray 06/28/17 0000 Signed Impressions: Service Date/Time: Wednesday, June 28, 2017 17:25 - CONCLUSION: NG tube in the stomach. Les Liao MD Upper Extremity Ultrasound 06/24/17 0000 Signed Impressions: Service Date/Time: Saturday, June 24, 2017 21:57 - CONCLUSION: Positive thrombus in the mid and distal cephalic vein which is enlarged and noncompressible suspicious for an acute venous thrombosis. Norberto Sandra MD Cervical Spine CT 06/18/17 1153 Signed Impressions: Service Date/Time: Sunday, June 18, 2017 13:43 - CONCLUSION: 1. No acute bony fracture. 2. Primary bony degenerative changes involving the cervical spine. Les Liao MD Shoulder X-Ray 06/18/17 0000 Signed Impressions: Service Date/Time: Sunday, June 18, 2017 16:45 - CONCLUSION: No acute fracture or joint dislocation. Les Liao MD Laboratory Tests Test 07/01/17 09:00 Blood Gas Puncture Site LT RADIAL Blood Gas Patient Temperature 98.6 Blood Gas HCO3 25 mmol/L Blood Gas Base Excess 1.9 mmol/L Blood Gas Oxygen Saturation 94 % Arterial Blood pH 7.46 Arterial Blood Partial Pressure CO2 36 mmHg Arterial Blood Partial Pressure O2 79 mmHg Arterial Blood Oxygen Content 19.9 Vol % Arterial Blood Carboxyhemoglobin 1.5 % Arterial Blood Methemoglobin 0.7 % Blood Gas Hemoglobin 15.1 G/DL Oxygen Delivery Device NASAL CANNULA Blood Gas Liter Flow 4 L/M (Mason Parker) Medical Decision Making Impression and Plan Diagnosis: (1) HTN (hypertension) ICD Codes: I10 - Essential (primary) hypertension (2) Diabetes ICD Codes: E11.9 - Type 2 diabetes mellitus without complications Status: Chronic (3) Frontal lobe contusion ICD Codes: S06.339A - Contusion and laceration of cerebrum, unspecified, with loss of consciousness of unspecified duration, initial encounter Status: Acute (4) Rib fracture ICD Codes: S22.39XA - Fracture of one rib, unspecified side, initial encounter for closed fracture Status: Acute Assessment and Plan 66-year-old gentleman with a chronic history of falls who apparently fell on 06/18 with positive loss of consciousness with bilateral small frontal lobe contusions. Had extensive workup for his falls including evaluation at [facility] without any concrete underlying etiology other than what he states he relates that this could be related to possibly his blood pressure fluctuation. He has unregulated hypertension which is now controlled with the as needed medications and Cardene drip if needed to keep the systolic blood pressure less than 160. Insulin sliding scale coverage for his diabetes. Pain control for left-sided chest wall pain from rib fracture. He has had some expansion of his cerebral contusions. Follow up CT head with improvement. Pt had seizures while he was in the ICU and was intubated. Follow up CT head was stable. He is on Keppra Pt has history of ETOH use and is in impending alcohol withdrawal. He has finished his Librium. He is very confused but becoming more alert. (Mason Parker) Attending Statement The exam, history, and the medical decision-making described in the above note were completed with the assistance of the mid-level provider. I reviewed and agree with the findings presented. I attest that I had a [id number] encounter with the patient on the same day, and personally performed and documented my assessment and findings in the medical record. (Matt Cerrato MD) Mason Parker July 01, 2017 09:25 Matt Cerrato MD July 01, 2017 16:43
--- NOTE | 2017-07-01 15:02 | HHI.PR ---
Subjective Remarks Follow-up for fall, TBI, right frontal intra-parenchymal hemorrhage. Patient is awake but does not respond much to verbal commands. Follows simple commands. Afebrile. Objective Vitals Vital Signs Date Time Temp Pulse Resp B/P (MAP) Pulse Ox O2 Delivery O2 Flow Rate FiO2 07/01/17 12:00 79 07/01/17 12:00 98.3 79 19 129/98 (108) 95 07/01/17 10:00 80 07/01/17 08:00 88 07/01/17 08:00 97.8 88 20 142/89 (106) 99 07/01/17 07:49 98 Nasal Cannula 4.00 07/01/17 07:00 98 Nasal Cannula 4.00 Humidified 07/01/17 06:00 83 07/01/17 04:00 89 07/01/17 04:00 97.5 89 20 146/86 (106) 99 07/01/17 02:00 92 07/01/17 00:00 90 07/01/17 00:00 97.5 75 22 128/92 (104) 95 06/30/17 22:00 90 06/30/17 22:00 93 Nasal Cannula 4.00 Humidified 06/30/17 20:00 97.7 88 20 129/81 (97) 92 06/30/17 20:00 88 06/30/17 19:00 93 Nasal Cannula 4.00 Humidified 06/30/17 18:00 90 06/30/17 16:00 85 06/30/17 16:00 98.0 85 16 145/77 (99) 96 I/O 06/30/17 06/30/17 06/30/17 07/01/17 07/01/17 07/01/17 07:00 15:00 23:00 07:00 15:00 23:00 Intake Total 40 ml 100 ml 120 ml Output Total 870 ml 525 ml 900 ml Balance -830 ml -425 ml -780 ml Tube Irrigant 120 ml Other 40 ml 100 ml Output Urine Total 270 ml 400 ml 400 ml Stool Total 0 ml 0 ml Gastric Drainage Total 600 ml 125 ml 500 ml Bladder Scan Volume Amount 261 ml Result Diagram: 06/28/17 0322 06/28/17 0322 Imaging Last Impressions Chest X-Ray 06/29/17 0000 Signed Impressions: Service Date/Time: Thursday, June 29, 2017 10:56 - CONCLUSION: Persistent left lower lobe airspace consolidation and findings suggestive of volume overload versus congestive heart failure.. Elif Shaw MD Head CT 06/28/17 0800 Signed Impressions: Service Date/Time: Wednesday, June 28, 2017 04:00 - CONCLUSION: 1. Interval decrease in the size of the high density right frontal hematoma. 2. Interval resolution of previously noted smaller left frontal hematoma. 3. No acute hemorrhage or mass effect. Marek Pope MD Abdomen X-Ray 06/28/17 0000 Signed Impressions: Service Date/Time: Wednesday, June 28, 2017 17:25 - CONCLUSION: NG tube in the stomach. Les Liao MD Upper Extremity Ultrasound 06/24/17 0000 Signed Impressions: Service Date/Time: Saturday, June 24, 2017 21:57 - CONCLUSION: Positive thrombus in the mid and distal cephalic vein which is enlarged and noncompressible suspicious for an acute venous thrombosis. Norberto Sandra MD Cervical Spine CT 06/18/17 1153 Signed Impressions: Service Date/Time: Sunday, June 18, 2017 13:43 - CONCLUSION: 1. No acute bony fracture. 2. Primary bony degenerative changes involving the cervical spine. Les Liao MD Shoulder X-Ray 06/18/17 0000 Signed Impressions: Service Date/Time: Sunday, June 18, 2017 16:45 - CONCLUSION: No acute fracture or joint dislocation. Les Liao MD Objective Remarks GENERAL: Does not follow any commands, no acute distress. SKIN: Warm and dry. HEAD: Normocephalic. EYES: No scleral icterus. No injection or drainage. NECK: Supple, trachea midline. No JVD or lymphadenopathy. CARDIOVASCULAR: Regular rate and rhythm without murmurs, gallops, or rubs. RESPIRATORY: Breath sounds equal bilaterally. No accessory muscle use. GASTROINTESTINAL: Abdomen soft, non-tender, nondistended. MUSCULOSKELETAL: No cyanosis, or edema. BACK: Nontender without obvious deformity. No CVA tenderness. Procedures 06/27/2017 EEG Abnormal EEG due to some moderate slowing of background consistent with encephalopathic process of various etiology, without any epileptiform features in this one recording. Clinical correlation. 06/20/2017 EEG Some mild to moderate diffuse slowing, but no focal abnormality was noted. No seizure activity was seen, especially on the right hemisphere. No seizure activity noted. A/P Problem List: (1) Frontal lobe contusion ICD Code: S06.339A - Contusion and laceration of cerebrum, unspecified, with loss of consciousness of unspecified duration, initial encounter Status: Acute (2) Rib fracture ICD Code: S22.39XA - Fracture of one rib, unspecified side, initial encounter for closed fracture Status: Acute (3) Diabetes ICD Code: E11.9 - Type 2 diabetes mellitus without complications Status: Chronic (4) HTN (hypertension) ICD Code: I10 - Essential (primary) hypertension Assessment and Plan On 06/18/2017, Mr. Abebe, a 66-year-old male who presented to the emergency department after a fall. He had an episode of loss of consciousness. He reported that he has been evaluated at [facility] for multiple falls. Apparently the reason was possible low blood pressure. The CT of the head performed in the emergency department shows right frontal hematoma, left medial frontal hemorrhage. He was admitted to the neurosurgical service. On 06/19/2017 patient had generalized seizure activity and altered mental status. Due to inability to protect airways, patient was emergently intubated. Patient was extubated on 06/26/2017. Fall Traumatic brain injury Intra-parenchymal hemorrhage -Neurosurgery is following. Patient is currently on Keppra 1000 mg every 12 hours. -Repeat CT head 06/28 improved ICH Hypertension -Continue HCTZ 12.5 mg daily, lisinopril 20 mg daily. Labetalol IV as needed. -Continue metoprolol 50 mg twice daily Diabetes mellitus - continue sliding scale insulin. Acute respiratory failure hypoxia - Currently on 4L of O2 via NC. We will try to wean off O2 requirements. - CXR on 06/29/2017 shows increased fluid build up. - Start Lasix 20mg BID. Nutrition - Patient was on tube feed. He was not tolerating well and residual was significant. Tube feed was stopped and NG suction was started. - Will start D5. Will have to address how to give nutrition to patient. May need to consider PEG tube placement. Full code. No pharmacological DVT prophylaxis due to ICH. Will continue SCDs. Problem Qualifiers (1) Frontal lobe contusion: Qualified Codes: S06.331A - Contusion and laceration of cerebrum, unspecified, with loss of consciousness of 30 minutes or less, initial encounter (2) Rib fracture: Qualified Codes: S22.32XA - Fracture of one rib, left side, initial encounter for closed fracture (3) Diabetes: Jerald Gardiner DO July 01, 2017 15:02
[2017-07-01] MEDS: DEXTROSE 5%-LACTATED RING INJ 1,000 ML IV SCH (15:08)
[2017-07-01] MEDS: ENOXAPARIN SODIUM 40 MG/0.4 ML SYRINGE SQ SCH (15:08)
[2017-07-01] MEDS: ZOLPIDEM TARTRATE 5 MG TAB NG PRN (20:00)
[2017-07-01] MEDS: ACETAMINOPHEN/HYDROcodone 325 MG/10 MG TAB NG PRN (20:00)
[2017-07-01] MEDS: MORPHINE SULFATE 4 MG/ML INJ IV PUSH PRN (20:04)
[2017-07-02] VITALS (12 sets, daily range): BP systolic 133–162; BP diastolic 86–98; PULSE 70–95; RESP 17–26; TEMP 97.6–98.5; O2SAT 92–96
[2017-07-02] MEDS: DEXTROSE 5%-LACTATED RING INJ 1,000 ML IV SCH ×2 (01:40→14:43)
[2017-07-02 05:09] LABS: AUTOMATED NEUTROPHIL # 8.9 TH/MM3 (1.8-7.7); BASOPHIL # 0.1 TH/MM3 (0-0.2); BASOPHIL % 0.9 % (0.0-2.0); EOSINOPHIL # 0.1 TH/MM3 (0-0.4); EOSINOPHIL % 1.2 % (0.0-4.0); HEMATOCRIT 46.2 % (39.0-51.0); LYMPH % 10.3 % (9.0-44.0); LYMPHOCYTE # 1.2 TH/MM3 (1.0-4.8); MEAN CELL VOLUME 107.7 FL (80.0-100.0); MEAN CORPUSCULAR HEMOGLOBIN 37.4 PG (27.0-34.0); MEAN CORPUSCULAR HGB CONC 34.7 % (32.0-36.0); MEAN PLATELET VOLUME 8.1 FL (7.0-11.0); MONO % 9.8 % (0.0-8.0); MONOCYTE # 1.1 TH/MM3 (0-0.9); NEUT % 77.8 % (16.0-70.0); PLATELET COUNT 390 TH/MM3 (150-450); RED BLOOD COUNT 4.28 MIL/MM3 (4.50-5.90); WHITE BLOOD COUNT 11.4 TH/MM3 (4.0-11.0)
[2017-07-02 05:30] LABS: BICARBONATE 28.9 MEQ/L (21.0-32.0); CALCIUM 9.7 MG/DL (8.5-10.1); CREATININE 0.52 MG/DL (0.60-1.30)
[2017-07-02] MEDS ORDERED: POTASSIUM CHLOR 20 MEQ PREMIX 100 ML IV ONE (06:00)
[2017-07-02] MEDS ORDERED: FUROSEMIDE 20 MG/2 ML VIAL IV PUSH ONE (06:00)
[2017-07-02] MEDS: CHLORHEXIDINE 0.12% (ORAL KIT) 15 ML CUP MT SCH ×2 (07:48→20:25)
[2017-07-02] MEDS: INSULIN NovoLIN REGULAR SUPPLEMENTAL SCALE SQ SCH ×4 (08:00→21:00)
[2017-07-02] MEDS: METOPROLOL TARTRATE 50 MG TAB NG SCH ×2 (08:05→20:24)
[2017-07-02] MEDS: SERTRALINE HCL 50 MG TAB NG SCH (08:05)
[2017-07-02] MEDS: DOCUSATE SODIUM 50 MG/SENNA 8.6 MG TAB NG SCH ×2 (08:05→20:24)
[2017-07-02] MEDS: LANSOPRAZOLE SOLUTAB 15 MG TAB NG SCH (08:05)
[2017-07-02] MEDS: ALLOPURINOL 100 MG TAB NG SCH (08:05)
[2017-07-02] MEDS: LISINOPRIL 20 MG TAB NG SCH (08:05)
[2017-07-02] MEDS: levETIRAcetam 500 MG/5 ML UDC NG SCH ×2 (08:06→20:24)
[2017-07-02] MEDS: SODIUM CHLORIDE 0.9% FLUSH 10 ML FLUSH IV FLUSH SCH ×2 (08:06→20:25)
[2017-07-02] MEDS: BACITRACIN TOP OINT 15 GM TUBE TOP SCH ×2 (08:06→20:24)
[2017-07-02] MEDS ORDERED: FUROSEMIDE 20 MG/2 ML VIAL IV PUSH SCH (09:00)
--- NOTE | 2017-07-02 09:07 | HHI.NSPN ---
(Mason Parker) History Chief Complaint: Confusion s/p TBI. (Mason Parker) Interval History 66-year-old gentleman who presented to [facility] emergency room after a fall. He relates a positive loss of consciousness and complains of severe left- sided chest wall pain and initially had left shoulder pain which has improved along with mild headache. He has a history of frequent falls and states that he is undergone extensive workup including evaluation at the [facility] and the only thing they could relate this to was possibly low blood pressure. He denies feeling lightheaded or dizzy or any chest pain prior to these falls and relates that his legs just give out on him and usually occurs about once a month. He had a similar episode today and [place]. Denies any nausea or vomiting and states that he is hungry. Denies any numbness or paresthesias in the upper lower extremities or any neck or back pain. 06/19/17: Pt awake and alert. Complains of headache but mild. No n/v. No paresthesias. Complains of left rib pain. 06/20/17: Pt sedated on Diprivan. He was intubated yesterday. He had a seizure yesterday. History of ETOH use. 06/21/17: Pt sedated and intubated. He follows commands in all 4 extremities but not opening his eyes. 06/22/17: Pt sedated on Diprivan. He is intubated. He was off sedation yesterday and placed on Diprivan last night. He follows commands when off sedation. 06/23/17: Pt opens eyes slightly to voice. He follows some commands intermittently. Pupils equal. 06/24/17: Pt lethargic but does open his eyes slightly. He Follows simple commands. He is on Diprivan which when held for prolonged period pt reportedly becomes tachypneic. 06/25/17: Pt opens eyes slightly to voice. He follows some simple commands more easily than others. Intubated. 06/26/17: Pt extubated this morning. He awakens to voice. Follows simple commands. Difficult to get much of history currently. 06/30/17: Pt extubated confused. He is on O2 via mask. He follows some simple commands. Not able to verbalize much but he denies headaches. 07/01/17: Pt resting in bed. He is confused but verbalizing more. He has O2 via NC. He is following more simple commands. 07/02/17: Pt awake but confused. He continues to verbalize more. He follows simple commands in all 4. (Mason Parker) System Review Comments Not able to obtain given confusion and clinical condition. (Mason Parker) Exam Results Vital Signs Date Time Temp Pulse Resp B/P (MAP) Pulse Ox O2 Delivery O2 Flow Rate FiO2 07/02/17 07:00 98 Simple Mask 8.00 07/02/17 06:00 86 07/02/17 04:00 98.5 17 151/88 (109) 06/30/17 07:00 100 Intake and Output 07/02/17 07/02/17 07/03/17 08:00 16:00 00:00 Output Total 375 ml Balance -375 ml (Mason Parker) Physical Examination General: Waking more but still lethargic. Opens eyes and follows simple commands. VSS. Eyes: Pupils equal 3mm bilaterally reactive bilaterally. Sclera anicteric. Resp: Extubated, mild coarse bs bilaterally. coughing secretions. Heart: NSR no murmurs Abd: Soft positive bs. NG tube in place. Skin: No cyanosis or erythema. Muscle: moves all four extremities. Requires soft restraints secondary to confusion. Neuro: Waking more but still lethargic. Conversing more but very confused. Opens eyes. Pupils 3mm bilaterally, reactive bilaterally. Follows commands more easily in all 4 extremities. (Mason Parkre) Lab, Micro, Other Results Last Impressions Chest X-Ray 06/29/17 0000 Signed Impressions: Service Date/Time: Thursday, June 29, 2017 10:56 - CONCLUSION: Persistent left lower lobe airspace consolidation and findings suggestive of volume overload versus congestive heart failure.. Elif Shaw MD Head CT 06/28/17 0800 Signed Impressions: Service Date/Time: Wednesday, June 28, 2017 04:00 - CONCLUSION: 1. Interval decrease in the size of the high density right frontal hematoma. 2. Interval resolution of previously noted smaller left frontal hematoma. 3. No acute hemorrhage or mass effect. Marek Pope MD Abdomen X-Ray 06/28/17 0000 Signed Impressions: Service Date/Time: Wednesday, June 28, 2017 17:25 - CONCLUSION: NG tube in the stomach. Les Liao MD Upper Extremity Ultrasound 06/24/17 0000 Signed Impressions: Service Date/Time: Saturday, June 24, 2017 21:57 - CONCLUSION: Positive thrombus in the mid and distal cephalic vein which is enlarged and noncompressible suspicious for an acute venous thrombosis. Norberto Sandra MD Cervical Spine CT 06/18/17 1153 Signed Impressions: Service Date/Time: Sunday, June 18, 2017 13:43 - CONCLUSION: 1. No acute bony fracture. 2. Primary bony degenerative changes involving the cervical spine. Les Liao MD Shoulder X-Ray 06/18/17 0000 Signed Impressions: Service Date/Time: Sunday, June 18, 2017 16:45 - CONCLUSION: No acute fracture or joint dislocation. Les Liao MD Laboratory Tests Test 07/02/17 04:38 White Blood Count 11.4 TH/MM3 Red Blood Count 4.28 MIL/MM3 Hemoglobin 16.0 GM/DL Hematocrit 46.2 % Mean Corpuscular Volume 107.7 FL Mean Corpuscular Hemoglobin 37.4 PG Mean Corpuscular Hemoglobin Concent 34.7 % Red Cell Distribution Width 17.0 % Platelet Count 390 TH/MM3 Mean Platelet Volume 8.1 FL Neutrophils (%) (Auto) 77.8 % Lymphocytes (%) (Auto) 10.3 % Monocytes (%) (Auto) 9.8 % Eosinophils (%) (Auto) 1.2 % Basophils (%) (Auto) 0.9 % Neutrophils # (Auto) 8.9 TH/MM3 Lymphocytes # (Auto) 1.2 TH/MM3 Monocytes # (Auto) 1.1 TH/MM3 Eosinophils # (Auto) 0.1 TH/MM3 Basophils # (Auto) 0.1 TH/MM3 CBC Comment DIFF FINAL Differential Comment Blood Urea Nitrogen 15 MG/DL Creatinine 0.52 MG/DL Random Glucose 121 MG/DL Calcium Level 9.7 MG/DL Sodium Level 136 MEQ/L Potassium Level 3.3 MEQ/L Chloride Level 95 MEQ/L Carbon Dioxide Level 28.9 MEQ/L Anion Gap 12 MEQ/L Estimat Glomerular Filtration Rate 159 ML/MIN (Mason Parker) Medical Decision Making Impression and Plan Diagnosis: (1) HTN (hypertension) ICD Codes: I10 - Essential (primary) hypertension (2) Diabetes ICD Codes: E11.9 - Type 2 diabetes mellitus without complications Status: Chronic (3) Frontal lobe contusion ICD Codes: S06.339A - Contusion and laceration of cerebrum, unspecified, with loss of consciousness of unspecified duration, initial encounter Status: Acute (4) Rib fracture ICD Codes: S22.39XA - Fracture of one rib, unspecified side, initial encounter for closed fracture Status: Acute Assessment and Plan 66-year-old gentleman with a chronic history of falls who apparently fell on 06/18 with positive loss of consciousness with bilateral small frontal lobe contusions. Had extensive workup for his falls including evaluation at [facility] without any concrete underlying etiology other than what he states he relates that this could be related to possibly his blood pressure fluctuation. He has unregulated hypertension which is now controlled with the as needed medications and Cardene drip if needed to keep the systolic blood pressure less than 160. Insulin sliding scale coverage for his diabetes. Pain control for left-sided chest wall pain from rib fracture. He has had some expansion of his cerebral contusions. Follow up CT head with improvement. Pt had seizures while he was in the ICU and was intubated. Follow up CT head was stable. He is on Keppra Pt has history of ETOH use and is in impending alcohol withdrawal. He has finished his Librium. He is very confused but becoming more alert. (Mason Parker) Attending Statement The exam, history, and the medical decision-making described in the above note were completed with the assistance of the mid-level provider. I reviewed and agree with the findings presented. I attest that I had a [id number] encounter with the patient on the same day, and personally performed and documented my assessment and findings in the medical record. (Matt Cerrato MD) Mason Parker July 02, 2017 09:07 Matt Cerrato MD July 02, 2017 17:36
[2017-07-02] MEDS: ENOXAPARIN SODIUM 40 MG/0.4 ML SYRINGE SQ SCH (14:44)
[2017-07-02] MEDS: POTASSIUM CHLOR 20 MEQ PREMIX 100 ML IV PRN ×4 (16:30→22:31)
--- NOTE | 2017-07-02 16:57 | HHI.PR ---
Subjective Remarks Follow-up for fall, TBI, right frontal intra-parenchymal hemorrhage. Patient is resting in bed, does not communicate. Afebrile. Objective Vitals Vital Signs Date Time Temp Pulse Resp B/P (MAP) Pulse Ox O2 Delivery O2 Flow Rate FiO2 07/02/17 16:00 91 07/02/17 14:00 92 07/02/17 12:00 81 07/02/17 12:00 97.6 81 19 133/86 (102) 94 07/02/17 10:00 83 07/02/17 08:00 85 07/02/17 08:00 97.7 85 18 138/92 (107) 92 07/02/17 07:00 98 Simple Mask 8.00 07/02/17 06:00 86 07/02/17 04:00 98.5 75 17 151/88 (109) 94 07/02/17 04:00 73 07/02/17 02:00 73 07/02/17 00:00 73 07/02/17 00:00 98.0 73 19 162/98 (119) 94 07/01/17 22:00 66 07/01/17 20:00 93 07/01/17 20:00 96 Nasal Cannula 4.00 Humidified 07/01/17 20:00 97.8 93 24 142/91 (108) 95 07/01/17 18:00 84 I/O 07/01/17 07/01/17 07/01/17 07/02/17 07/02/17 07/02/17 07:00 15:00 23:00 07:00 15:00 23:00 Intake Total 120 ml 331 ml 1190 ml Output Total 900 ml 900 ml 375 ml 1000 ml Balance -780 ml -569 ml -375 ml 190 ml IV Total 301 ml 1100 ml Tube Irrigant 120 ml Other 30 ml 90 ml Output Urine Total 400 ml 600 ml 375 ml 1000 ml Stool Total 0 ml 0 ml 0 ml 0 ml Gastric Drainage Total 500 ml 300 ml 0 ml 0 ml Result Diagram: 07/02/17 0438 07/02/17 1235 Imaging Last Impressions Chest X-Ray 06/29/17 0000 Signed Impressions: Service Date/Time: Thursday, June 29, 2017 10:56 - CONCLUSION: Persistent left lower lobe airspace consolidation and findings suggestive of volume overload versus congestive heart failure.. Elif Shaw MD Head CT 06/28/17 0800 Signed Impressions: Service Date/Time: Wednesday, June 28, 2017 04:00 - CONCLUSION: 1. Interval decrease in the size of the high density right frontal hematoma. 2. Interval resolution of previously noted smaller left frontal hematoma. 3. No acute hemorrhage or mass effect. Marek Pope MD Abdomen X-Ray 06/28/17 0000 Signed Impressions: Service Date/Time: Wednesday, June 28, 2017 17:25 - CONCLUSION: NG tube in the stomach. Les Liao MD Upper Extremity Ultrasound 06/24/17 0000 Signed Impressions: Service Date/Time: Saturday, June 24, 2017 21:57 - CONCLUSION: Positive thrombus in the mid and distal cephalic vein which is enlarged and noncompressible suspicious for an acute venous thrombosis. Norberto Sandra MD Cervical Spine CT 06/18/17 1153 Signed Impressions: Service Date/Time: Sunday, June 18, 2017 13:43 - CONCLUSION: 1. No acute bony fracture. 2. Primary bony degenerative changes involving the cervical spine. Les Liao MD Shoulder X-Ray 06/18/17 0000 Signed Impressions: Service Date/Time: Sunday, June 18, 2017 16:45 - CONCLUSION: No acute fracture or joint dislocation. Les Liao MD Objective Remarks GENERAL: Does not follow any commands, no acute distress. SKIN: Warm and dry. HEAD: Normocephalic. EYES: No scleral icterus. No injection or drainage. NECK: Supple, trachea midline. No JVD or lymphadenopathy. CARDIOVASCULAR: Regular rate and rhythm without murmurs, gallops, or rubs. RESPIRATORY: Breath sounds equal bilaterally. No accessory muscle use. GASTROINTESTINAL: Abdomen soft, non-tender, nondistended. MUSCULOSKELETAL: No cyanosis, or edema. BACK: Nontender without obvious deformity. No CVA tenderness. Procedures 06/27/2017 EEG Abnormal EEG due to some moderate slowing of background consistent with encephalopathic process of various etiology, without any epileptiform features in this one recording. Clinical correlation. 06/20/2017 EEG Some mild to moderate diffuse slowing, but no focal abnormality was noted. No seizure activity was seen, especially on the right hemisphere. No seizure activity noted. A/P Problem List: (1) Frontal lobe contusion ICD Code: S06.339A - Contusion and laceration of cerebrum, unspecified, with loss of consciousness of unspecified duration, initial encounter Status: Acute (2) Rib fracture ICD Code: S22.39XA - Fracture of one rib, unspecified side, initial encounter for closed fracture Status: Acute (3) Diabetes ICD Code: E11.9 - Type 2 diabetes mellitus without complications Status: Chronic (4) HTN (hypertension) ICD Code: I10 - Essential (primary) hypertension Assessment and Plan On 06/18/2017, Mr. Abebe, a 66-year-old male who presented to the emergency department after a fall. He had an episode of loss of consciousness. He reported that he has been evaluated at [facility] for multiple falls. Apparently the reason was possible low blood pressure. The CT of the head performed in the emergency department shows right frontal hematoma, left medial frontal hemorrhage. He was admitted to the neurosurgical service. On 06/19/2017 patient had generalized seizure activity and altered mental status. Due to inability to protect airways, patient was emergently intubated. Patient was extubated on 06/26/2017. Fall Traumatic brain injury Intra-parenchymal hemorrhage -Neurosurgery is following. Patient is currently on Keppra 1000 mg every 12 hours. -Repeat CT head 06/28 improved ICH Hypertension -Continue HCTZ 12.5 mg daily, lisinopril 20 mg daily. Labetalol IV as needed. -Continue metoprolol 50 mg twice daily Diabetes mellitus - continue sliding scale insulin. Acute respiratory failure hypoxia - Currently on 4L of O2 via NC. We will try to wean off O2 requirements. - CXR on 06/29/2017 shows increased fluid build up. - Lasix 20mg BID. - WBC is slightly increased. CXR shows fluid overload. However, pneumonia is a possibility. No fever, however. - Will monitor for fever or worsening respiratory status. Nutrition - Patient was on tube feed. He was not tolerating well and residual was significant. Tube feed was stopped and NG suction was started. - Will start D5. Will have to address how to give nutrition to patient. May need to consider PEG tube placement. Full code. No pharmacological DVT prophylaxis due to ICH. Will continue SCDs. Problem Qualifiers (1) Frontal lobe contusion: Qualified Codes: S06.331A - Contusion and laceration of cerebrum, unspecified, with loss of consciousness of 30 minutes or less, initial encounter (2) Rib fracture: Qualified Codes: S22.32XA - Fracture of one rib, left side, initial encounter for closed fracture (3) Diabetes: Jerald Gardiner DO July 02, 2017 16:57
[2017-07-02] MEDS: FUROSEMIDE 20 MG/2 ML VIAL IV PUSH SCH (18:16)
[2017-07-02] MEDS: MORPHINE SULFATE 4 MG/ML INJ IV PUSH PRN (19:42)
[2017-07-02] MEDS: ACETAMINOPHEN/HYDROcodone 325 MG/10 MG TAB NG PRN (19:43)
[2017-07-02] MEDS: ZOLPIDEM TARTRATE 5 MG TAB NG PRN (20:24)
[2017-07-03] VITALS (13 sets, daily range): BP systolic 110–152; BP diastolic 58–92; PULSE 68–102; RESP 16–26; TEMP 98–98.6; O2SAT 90–96
[2017-07-03] MEDS: DEXTROSE 5%-LACTATED RING INJ 1,000 ML IV SCH ×2 (01:30→13:54)
[2017-07-03] MEDS: MORPHINE SULFATE 4 MG/ML INJ IV PUSH PRN ×3 (03:28→20:44)
[2017-07-03] MEDS: INSULIN NovoLIN REGULAR SUPPLEMENTAL SCALE SQ SCH ×4 (08:00→20:27)
[2017-07-03] MEDS: BACITRACIN TOP OINT 15 GM TUBE TOP SCH ×2 (09:00→20:17)
--- NOTE | 2017-07-03 09:31 | HHI.NSPN ---
(Mason Parker) History Chief Complaint: Confusion s/p TBI. (Mason Parker) Interval History 66-year-old gentleman who presented to [facility] emergency room after a fall. He relates a positive loss of consciousness and complains of severe left- sided chest wall pain and initially had left shoulder pain which has improved along with mild headache. He has a history of frequent falls and states that he is undergone extensive workup including evaluation at the [facility] and the only thing they could relate this to was possibly low blood pressure. He denies feeling lightheaded or dizzy or any chest pain prior to these falls and relates that his legs just give out on him and usually occurs about once a month. He had a similar episode today and [place]. Denies any nausea or vomiting and states that he is hungry. Denies any numbness or paresthesias in the upper lower extremities or any neck or back pain. 06/19/17: Pt awake and alert. Complains of headache but mild. No n/v. No paresthesias. Complains of left rib pain. 06/20/17: Pt sedated on Diprivan. He was intubated yesterday. He had a seizure yesterday. History of ETOH use. 06/21/17: Pt sedated and intubated. He follows commands in all 4 extremities but not opening his eyes. 06/22/17: Pt sedated on Diprivan. He is intubated. He was off sedation yesterday and placed on Diprivan last night. He follows commands when off sedation. 06/23/17: Pt opens eyes slightly to voice. He follows some commands intermittently. Pupils equal. 06/24/17: Pt lethargic but does open his eyes slightly. He Follows simple commands. He is on Diprivan which when held for prolonged period pt reportedly becomes tachypneic. 06/25/17: Pt opens eyes slightly to voice. He follows some simple commands more easily than others. Intubated. 06/26/17: Pt extubated this morning. He awakens to voice. Follows simple commands. Difficult to get much of history currently. 06/30/17: Pt extubated confused. He is on O2 via mask. He follows some simple commands. Not able to verbalize much but he denies headaches. 07/01/17: Pt resting in bed. He is confused but verbalizing more. He has O2 via NC. He is following more simple commands. 07/02/17: Pt awake but confused. He continues to verbalize more. He follows simple commands in all 4. 07/03/17: Pt lethargic but awakens to voice. He is mumbling. Got IV morphine last night. Not answering questions well. He follows commands. (Mason Parker) System Review Comments Not able to obtain given level of alertness and clinical condition. (Mason Parker) Exam Results Vital Signs Date Time Temp Pulse Resp B/P (MAP) Pulse Ox O2 Delivery O2 Flow Rate FiO2 07/03/17 06:45 95 Non-Rebreather 15.00 07/03/17 06:00 74 07/03/17 04:00 98.4 17 123/74 (90) 06/30/17 07:00 100 Intake and Output 07/03/17 07/03/17 07/04/17 08:00 16:00 00:00 Output Total 201 ml Balance -201 ml (Mason Parkre) Physical Examination General: Lethargic reportedly got Morphine last night. Opens eyes and follows simple commands. VSS. Eyes: Pupils equal 3mm bilaterally reactive bilaterally. Sclera anicteric. Resp: Extubated, mild coarse bs bilaterally. coughing secretions. Heart: NSR no murmurs Abd: Soft positive bs. NG tube in place. Skin: No cyanosis or erythema. Muscle: moves all four extremities. Requires soft restraints secondary to confusion. Neuro: Lethargic this morning and reportedly got Morphine last night. Not conversing today. Opens eyes. Pupils 3mm bilaterally, reactive bilaterally. Follows commands in all 4 extremities. (Mason Parker) Lab, Micro, Other Results Last Impressions Chest X-Ray 06/29/17 0000 Signed Impressions: Service Date/Time: Thursday, June 29, 2017 10:56 - CONCLUSION: Persistent left lower lobe airspace consolidation and findings suggestive of volume overload versus congestive heart failure.. Elif Shaw MD Head CT 06/28/17 0800 Signed Impressions: Service Date/Time: Wednesday, June 28, 2017 04:00 - CONCLUSION: 1. Interval decrease in the size of the high density right frontal hematoma. 2. Interval resolution of previously noted smaller left frontal hematoma. 3. No acute hemorrhage or mass effect. Marek Pope MD Abdomen X-Ray 06/28/17 0000 Signed Impressions: Service Date/Time: Wednesday, June 28, 2017 17:25 - CONCLUSION: NG tube in the stomach. Les Liao MD Upper Extremity Ultrasound 06/24/17 0000 Signed Impressions: Service Date/Time: Saturday, June 24, 2017 21:57 - CONCLUSION: Positive thrombus in the mid and distal cephalic vein which is enlarged and noncompressible suspicious for an acute venous thrombosis. Norberto Sandra MD Cervical Spine CT 06/18/17 1153 Signed Impressions: Service Date/Time: Sunday, June 18, 2017 13:43 - CONCLUSION: 1. No acute bony fracture. 2. Primary bony degenerative changes involving the cervical spine. Les Liao MD Shoulder X-Ray 06/18/17 0000 Signed Impressions: Service Date/Time: Sunday, June 18, 2017 16:45 - CONCLUSION: No acute fracture or joint dislocation. Les Liao MD Laboratory Tests Test 07/02/17 12:35 Potassium Level 3.2 MEQ/L (Mason Parker) Medical Decision Making Impression and Plan Diagnosis: (1) HTN (hypertension) ICD Codes: I10 - Essential (primary) hypertension (2) Diabetes ICD Codes: E11.9 - Type 2 diabetes mellitus without complications Status: Chronic (3) Frontal lobe contusion ICD Codes: S06.339A - Contusion and laceration of cerebrum, unspecified, with loss of consciousness of unspecified duration, initial encounter Status: Acute (4) Rib fracture ICD Codes: S22.39XA - Fracture of one rib, unspecified side, initial encounter for closed fracture Status: Acute Assessment and Plan 66-year-old gentleman with a chronic history of falls who apparently fell on 06/18 with positive loss of consciousness with bilateral small frontal lobe contusions. Had extensive workup for his falls including evaluation at [facility] without any concrete underlying etiology other than what he states he relates that this could be related to possibly his blood pressure fluctuation. He has unregulated hypertension which is now controlled with the as needed medications and Cardene drip if needed to keep the systolic blood pressure less than 160. Insulin sliding scale coverage for his diabetes. Pain control for left-sided chest wall pain from rib fracture. He has had some expansion of his cerebral contusions. Follow up CT head with improvement. Pt had seizures while he was in the ICU and was intubated. Follow up CT head was stable. He is on Keppra Pt has history of ETOH use and is in impending alcohol withdrawal. He has finished his Librium. He is very confused. (Mason Parker) Attending Statement The exam, history, and the medical decision-making described in the above note were completed with the assistance of the mid-level provider. I reviewed and agree with the findings presented. I attest that I had a [id number] encounter with the patient on the same day, and personally performed and documented my assessment and findings in the medical record. No neurosurgical issues at this point. Will transfer care to the medical service and sign off. (Matt Cerrato MD) Mason Parker July 03, 2017 09:31 Matt Cerrato MD July 03, 2017 12:05
[2017-07-03] MEDS: CHLORHEXIDINE 0.12% (ORAL KIT) 15 ML CUP MT SCH ×2 (10:25→19:58)
[2017-07-03] MEDS: METOPROLOL TARTRATE 50 MG TAB NG SCH ×2 (10:26→20:10)
[2017-07-03] MEDS: FUROSEMIDE 20 MG/2 ML VIAL IV PUSH SCH ×2 (10:26→17:37)
[2017-07-03] MEDS: SODIUM CHLORIDE 0.9% FLUSH 10 ML FLUSH IV FLUSH SCH ×2 (10:26→19:57)
[2017-07-03] MEDS: SERTRALINE HCL 50 MG TAB NG SCH (10:26)
[2017-07-03] MEDS: levETIRAcetam 500 MG/5 ML UDC NG SCH ×2 (10:26→19:56)
[2017-07-03] MEDS: DOCUSATE SODIUM 50 MG/SENNA 8.6 MG TAB NG SCH ×2 (10:26→19:57)
[2017-07-03] MEDS: LANSOPRAZOLE SOLUTAB 15 MG TAB NG SCH (10:27)
[2017-07-03] MEDS: ALLOPURINOL 100 MG TAB NG SCH (10:27)
[2017-07-03] MEDS: LISINOPRIL 20 MG TAB NG SCH (10:27)
--- NOTE | 2017-07-03 13:45 | HHI.PR ---
Subjective Remarks Follow-up for fall, TBI, right frontal intra-parenchymal hemorrhage. Patient is alert and follows commands but not able to converse. He is on non-rebreather mask. Afebrile. Objective Vitals Vital Signs Date Time Temp Pulse Resp B/P (MAP) Pulse Ox O2 Delivery O2 Flow Rate FiO2 07/03/17 06:45 95 Non-Rebreather 15.00 07/03/17 06:15 94 Non-Rebreather 07/03/17 06:00 74 07/03/17 04:00 74 07/03/17 04:00 98.4 74 17 123/74 (90) 94 07/03/17 02:00 78 07/03/17 00:00 68 07/03/17 00:00 98.0 68 26 151/92 (111) 95 07/02/17 22:00 70 07/02/17 20:00 94 07/02/17 20:00 98.4 94 26 149/92 (111) 96 07/02/17 19:00 95 Nasal Cannula 5.00 Humidified 07/02/17 18:00 95 07/02/17 16:00 91 07/02/17 16:00 97.9 91 19 143/86 (105) 95 07/02/17 14:00 92 I/O 07/02/17 07/02/17 07/02/17 07/03/17 07/03/17 07/03/17 07:00 15:00 23:00 07:00 15:00 23:00 Intake Total 1190 ml 100 ml Output Total 375 ml 1000 ml 400 ml 201 ml Balance -375 ml 190 ml -300 ml -201 ml IV Total 1100 ml 100 ml Other 90 ml Output Urine Total 375 ml 1000 ml 350 ml 200 ml Stool Total 0 ml 0 ml 0 ml 1 ml Gastric Drainage Total 0 ml 0 ml 50 ml 0 ml # Voids 2 Result Diagram: 07/02/17 0438 07/03/17 0913 Imaging Last Impressions Chest X-Ray 06/29/17 0000 Signed Impressions: Service Date/Time: Thursday, June 29, 2017 10:56 - CONCLUSION: Persistent left lower lobe airspace consolidation and findings suggestive of volume overload versus congestive heart failure.. Elif Shaw MD Head CT 06/28/17 0800 Signed Impressions: Service Date/Time: Wednesday, June 28, 2017 04:00 - CONCLUSION: 1. Interval decrease in the size of the high density right frontal hematoma. 2. Interval resolution of previously noted smaller left frontal hematoma. 3. No acute hemorrhage or mass effect. Marek Pope MD Abdomen X-Ray 06/28/17 0000 Signed Impressions: Service Date/Time: Wednesday, June 28, 2017 17:25 - CONCLUSION: NG tube in the stomach. Les Liao MD Upper Extremity Ultrasound 06/24/17 0000 Signed Impressions: Service Date/Time: Saturday, June 24, 2017 21:57 - CONCLUSION: Positive thrombus in the mid and distal cephalic vein which is enlarged and noncompressible suspicious for an acute venous thrombosis. Norberto Sandra MD Cervical Spine CT 06/18/17 1153 Signed Impressions: Service Date/Time: Sunday, June 18, 2017 13:43 - CONCLUSION: 1. No acute bony fracture. 2. Primary bony degenerative changes involving the cervical spine. Les Liao MD Shoulder X-Ray 06/18/17 0000 Signed Impressions: Service Date/Time: Sunday, June 18, 2017 16:45 - CONCLUSION: No acute fracture or joint dislocation. Les Liao MD Objective Remarks GENERAL: Does not follow any commands, no acute distress. SKIN: Warm and dry. HEAD: Normocephalic. EYES: No scleral icterus. No injection or drainage. NECK: Supple, trachea midline. No JVD or lymphadenopathy. CARDIOVASCULAR: Regular rate and rhythm without murmurs, gallops, or rubs. RESPIRATORY: Breath sounds equal bilaterally. No accessory muscle use. GASTROINTESTINAL: Abdomen soft, non-tender, nondistended. MUSCULOSKELETAL: No cyanosis, or edema. BACK: Nontender without obvious deformity. No CVA tenderness. Procedures 06/27/2017 EEG Abnormal EEG due to some moderate slowing of background consistent with encephalopathic process of various etiology, without any epileptiform features in this one recording. Clinical correlation. 06/20/2017 EEG Some mild to moderate diffuse slowing, but no focal abnormality was noted. No seizure activity was seen, especially on the right hemisphere. No seizure activity noted. A/P Problem List: (1) Frontal lobe contusion ICD Code: S06.339A - Contusion and laceration of cerebrum, unspecified, with loss of consciousness of unspecified duration, initial encounter Status: Acute (2) Rib fracture ICD Code: S22.39XA - Fracture of one rib, unspecified side, initial encounter for closed fracture Status: Acute (3) Diabetes ICD Code: E11.9 - Type 2 diabetes mellitus without complications Status: Chronic (4) HTN (hypertension) ICD Code: I10 - Essential (primary) hypertension Assessment and Plan On 06/18/2017, Mr. Abebe, a 66-year-old male who presented to the emergency department after a fall. He had an episode of loss of consciousness. He reported that he has been evaluated at [facility] for multiple falls. Apparently the reason was possible low blood pressure. The CT of the head performed in the emergency department shows right frontal hematoma, left medial frontal hemorrhage. He was admitted to the neurosurgical service. On 06/19/2017 patient had generalized seizure activity and altered mental status. Due to inability to protect airways, patient was emergently intubated. Patient was extubated on 06/26/2017. Fall Traumatic brain injury Intra-parenchymal hemorrhage -Neurosurgery is following. Patient is currently on Keppra 1000 mg every 12 hours. -Repeat CT head 06/28 improved ICH Hypertension -Continue HCTZ 12.5 mg daily, lisinopril 20 mg daily. Labetalol IV as needed. -Continue metoprolol 50 mg twice daily Diabetes mellitus - continue sliding scale insulin. Acute respiratory failure hypoxia - Currently on 4L of O2 via NC. We will try to wean off O2 requirements. - CXR on 06/29/2017 shows increased fluid build up. - Lasix 20mg BID. - Will obtain CT PE study and start patient on Zosyn to cover for possible aspiration pneumonia. Nutrition - Patient was on tube feed. He was not tolerating well and residual was significant. - Will start slow tube feed today goal 20cc/hour. Full code. No pharmacological DVT prophylaxis due to ICH. Will continue SCDs. Problem Qualifiers (1) Frontal lobe contusion: Qualified Codes: S06.331A - Contusion and laceration of cerebrum, unspecified, with loss of consciousness of 30 minutes or less, initial encounter (2) Rib fracture: Qualified Codes: S22.32XA - Fracture of one rib, left side, initial encounter for closed fracture (3) Diabetes: Jerald Gardiner DO July 03, 2017 1:45 pm
[2017-07-03] MEDS: ENOXAPARIN SODIUM 40 MG/0.4 ML SYRINGE SQ SCH (13:54)
[2017-07-03] MEDS: PIPERACIL-TAZO 4.5 GM PREMIX 100 ML IV SCH ×2 (13:54→19:56)
[2017-07-03] MEDS ORDERED: IOHEXOL 350 MG/ML 10 ML VIAL (for RAD DIAG) IVCONTRAST ONE (16:32)
--- NOTE | 2017-07-03 17:03 | RADRPT ---
EXAM DATE/TIME: 07/03/2017 16:24 [place] COMPARISON: No previous studies available for comparison. INDICATIONS : Short of breath. IV CONTRAST: 74 cc Omnipaque 350 (iohexol) IV RADIATION DOSE: 30.56 CTDIvol (mGy) MEDICAL HISTORY : Cardiovascular disease. SURGICAL HISTORY : None. ENCOUNTER: Initial ACUITY: 1 day PAIN SCALE: 4/10 LOCATION: chest TECHNIQUE: Volumetric scanning of the chest was performed using a pulmonary embolism protocol MIP images were re constructed. Using automated exposure control and adjustment of the mA and/or kV according to patien t size, radiation dose was kept as low as reasonably achievable to obtain optimal diagnostic quality images. DICOM format image data is available electronically for review and comparison. Follow-up recommendations for detected pulmonary nodules are based at a minimum on nodule size and pa tient risk factors according to Fleischner Society Guidelines. FINDINGS: PULMONARY ARTERIES: No filling defects are seen in the pulmonary arteries through the segmental level. LUNGS: Mild airspace consolidation in the lung bases, left greater than right. Patchy ground glass opacities in the upper lobes with mild centrilobular emphysema. PLEURAE: Trace left pleural effusion. MEDIASTINUM: Coronary artery calcifications. Heart is otherwise unremarkable without pericardial effusion. Ascendi ng aorta is aneurysmal measuring up to 4.6 cm. Remainder of the thoracic aorta is normal in caliber. MUSCULOSKELETAL: Degenerative spondylosis of the thoracic spine. MISCELLANEOUS: NGT coursing beyond the GE junction. Upper abdomen is otherwise unremarkable. CONCLUSION: 1. No CT evidence for pulmonary artery embolism to the proximal segmental level. 2. Left lower lobe airspace consolidation and adjacent trace left pleural effusion. 3. Minimal right lung base airspace consolidation, likely atelectasis. Differential consideration inc ludes aspiration. 4. Patchy groundglass opacities likely reflecting trace alveolar edema. 5. Coronary artery calcifications. 6. 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 Denzel Kelly MD on July 03, 2017 at 16:42 Board Certified Radiologist. This report was verified electronically.
[2017-07-03] MEDS: ACETAMINOPHEN/HYDROcodone 325 MG/10 MG TAB NG PRN (20:44)
[2017-07-03] MEDS: ZOLPIDEM TARTRATE 5 MG TAB NG PRN (20:44)
[2017-07-04] VITALS (13 sets, daily range): BP systolic 97–120; BP diastolic 62–77; PULSE 68–106; RESP 12–22; TEMP 97.7–98.7; O2SAT 92–96
[2017-07-04] MEDS: DEXTROSE 5%-LACTATED RING INJ 1,000 ML IV SCH ×2 (01:02→13:21)
[2017-07-04] MEDS: PIPERACIL-TAZO 4.5 GM PREMIX 100 ML IV SCH ×3 (04:34→20:25)
[2017-07-04] MEDS: ONDANSETRON HCL 4 MG/2 ML VIAL IV PUSH PRN (06:12)
[2017-07-04] MEDS: INSULIN NovoLIN REGULAR SUPPLEMENTAL SCALE SQ SCH ×4 (08:00→20:26)
[2017-07-04] MEDS: CHLORHEXIDINE 0.12% (ORAL KIT) 15 ML CUP MT SCH ×2 (08:48→20:00)
[2017-07-04] MEDS: LANSOPRAZOLE SOLUTAB 15 MG TAB NG SCH (08:58)
[2017-07-04] MEDS: levETIRAcetam 500 MG/5 ML UDC NG SCH ×2 (08:58→20:25)
[2017-07-04] MEDS: FUROSEMIDE 20 MG/2 ML VIAL IV PUSH SCH ×2 (08:58→17:34)
[2017-07-04] MEDS: DOCUSATE SODIUM 50 MG/SENNA 8.6 MG TAB NG SCH ×2 (08:58→20:25)
[2017-07-04] MEDS: SERTRALINE HCL 50 MG TAB NG SCH (08:58)
[2017-07-04] MEDS: LISINOPRIL 20 MG TAB NG SCH ×2 (08:58→09:00)
[2017-07-04] MEDS: SODIUM CHLORIDE 0.9% FLUSH 10 ML FLUSH IV FLUSH SCH ×2 (08:59→20:26)
[2017-07-04] MEDS: METOPROLOL TARTRATE 50 MG TAB NG SCH ×3 (08:59→20:26)
[2017-07-04] MEDS: ALLOPURINOL 100 MG TAB NG SCH (08:59)
[2017-07-04] MEDS: BACITRACIN TOP OINT 15 GM TUBE TOP SCH ×2 (08:59→20:26)
--- NOTE | 2017-07-04 09:53 | HHI.NSPN ---
History Chief Complaint: Confusion s/p TBI. Interval History 66-year-old gentleman who presented to [facility] emergency room after a fall. He relates a positive loss of consciousness and complains of severe left- sided chest wall pain and initially had left shoulder pain which has improved along with mild headache. He has a history of frequent falls and states that he is undergone extensive workup including evaluation at the [facility] and the only thing they could relate this to was possibly low blood pressure. He denies feeling lightheaded or dizzy or any chest pain prior to these falls and relates that his legs just give out on him and usually occurs about once a month. He had a similar episode today and [place]. Denies any nausea or vomiting and states that he is hungry. Denies any numbness or paresthesias in the upper lower extremities or any neck or back pain. 06/19/17: Pt awake and alert. Complains of headache but mild. No n/v. No paresthesias. Complains of left rib pain. 06/20/17: Pt sedated on Diprivan. He was intubated yesterday. He had a seizure yesterday. History of ETOH use. 06/21/17: Pt sedated and intubated. He follows commands in all 4 extremities but not opening his eyes. 06/22/17: Pt sedated on Diprivan. He is intubated. He was off sedation yesterday and placed on Diprivan last night. He follows commands when off sedation. 06/23/17: Pt opens eyes slightly to voice. He follows some commands intermittently. Pupils equal. 06/24/17: Pt lethargic but does open his eyes slightly. He Follows simple commands. He is on Diprivan which when held for prolonged period pt reportedly becomes tachypneic. 06/25/17: Pt opens eyes slightly to voice. He follows some simple commands more easily than others. Intubated. 06/26/17: Pt extubated this morning. He awakens to voice. Follows simple commands. Difficult to get much of history currently. 06/30/17: Pt extubated confused. He is on O2 via mask. He follows some simple commands. Not able to verbalize much but he denies headaches. 07/01/17: Pt resting in bed. He is confused but verbalizing more. He has O2 via NC. He is following more simple commands. 07/02/17: Pt awake but confused. He continues to verbalize more. He follows simple commands in all 4. 07/03/17: Pt lethargic but awakens to voice. He is mumbling. Got IV morphine last night. Not answering questions well. He follows commands. 07/04/17: Pt lethargic but awakens and becomes agitated. He is confused but states he is in hospital. He answers simple questions but periods of agitation and yelling out. System Review Comments Difficult to obtain given clinical condition. He does deny headache, chest pain or sob although he is on O2 7L via mask. Exam Results Vital Signs Date Time Temp Pulse Resp B/P (MAP) Pulse Ox O2 Delivery O2 Flow Rate FiO2 07/04/17 08:00 97.7 74 14 104/68 (80) 95 07/04/17 07:00 Venturi Mask 50 07/03/17 19:50 4.00 Intake and Output 07/04/17 07/04/17 07/05/17 08:00 16:00 00:00 Intake Total 102 ml Output Total 250 ml Balance -148 ml Physical Examination General: Lethargic but gets agitated when woken up. Opens eyes and follows simple commands. VSS. Eyes: Pupils equal 3mm bilaterally reactive bilaterally. Sclera anicteric. Resp: Extubated, mild coarse bs bilaterally. coughing secretions. He is on O2 mask 7L. Heart: NSR no murmurs Abd: Soft positive bs. NG tube in place. Skin: No cyanosis or erythema. Muscle: moves all four extremities. Requires soft restraints secondary to confusion. Neuro: Lethargic but opens eyes to voice. Pt oriented to place. He answers simple questions. He is confused and yells out. He tends to mumble. Pupils 3mm bilaterally, reactive bilaterally. Follows commands in all 4 extremities. Lab, Micro, Other Results Last Impressions CT Angiography 07/03/17 0000 Signed Impressions: Service Date/Time: June 16:24 - CONCLUSION: 1. No CT evidence for pulmonary artery embolism to the proximal segmental level. 2. Left lower lobe airspace consolidation and adjacent trace left pleural effusion. 3. Minimal right lung base airspace consolidation, likely atelectasis. Differential consideration includes aspiration. 4. Patchy groundglass opacities likely reflecting trace alveolar edema. 5. Coronary artery calcifications. 6. 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 Denzel Kelly MD Chest X-Ray 06/29/17 0000 Signed Impressions: Service Date/Time: Thursday, June 29, 2017 10:56 - CONCLUSION: Persistent left lower lobe airspace consolidation and findings suggestive of volume overload versus congestive heart failure.. Elif Shaw MD Head CT 06/28/17 0800 Signed Impressions: Service Date/Time: Wednesday, June 28, 2017 04:00 - CONCLUSION: 1. Interval decrease in the size of the high density right frontal hematoma. 2. Interval resolution of previously noted smaller left frontal hematoma. 3. No acute hemorrhage or mass effect. Marek Pope MD Abdomen X-Ray 06/28/17 0000 Signed Impressions: Service Date/Time: Wednesday, June 28, 2017 17:25 - CONCLUSION: NG tube in the stomach. Les Liao MD Upper Extremity Ultrasound 06/24/17 0000 Signed Impressions: Service Date/Time: Saturday, June 24, 2017 21:57 - CONCLUSION: Positive thrombus in the mid and distal cephalic vein which is enlarged and noncompressible suspicious for an acute venous thrombosis. Norberto Sandra MD Cervical Spine CT 06/18/17 1153 Signed Impressions: Service Date/Time: Sunday, June 18, 2017 13:43 - CONCLUSION: 1. No acute bony fracture. 2. Primary bony degenerative changes involving the cervical spine. Les Liao MD Shoulder X-Ray 06/18/17 0000 Signed Impressions: Service Date/Time: Sunday, June 18, 2017 16:45 - CONCLUSION: No acute fracture or joint dislocation. Les Liao MD Medical Decision Making Impression and Plan Diagnosis: (1) HTN (hypertension) ICD Codes: I10 - Essential (primary) hypertension (2) Diabetes ICD Codes: E11.9 - Type 2 diabetes mellitus without complications Status: Chronic (3) Frontal lobe contusion ICD Codes: S06.339A - Contusion and laceration of cerebrum, unspecified, with loss of consciousness of unspecified duration, initial encounter Status: Acute (4) Rib fracture ICD Codes: S22.39XA - Fracture of one rib, unspecified side, initial encounter for closed fracture Status: Acute Assessment and Plan 66-year-old gentleman with a chronic history of falls who apparently fell on 06/18 with positive loss of consciousness with bilateral small frontal lobe contusions. Had extensive workup for his falls including evaluation at [facility] without any concrete underlying etiology other than what he states he relates that this could be related to possibly his blood pressure fluctuation. He has unregulated hypertension which is now controlled with the as needed medications and Cardene drip if needed to keep the systolic blood pressure less than 160. Insulin sliding scale coverage for his diabetes. Pain control for left-sided chest wall pain from rib fracture. He has had some expansion of his cerebral contusions. Follow up CT head with improvement. Pt had seizures while he was in the ICU and was intubated. Follow up CT head was stable. He is on Keppra Pt has history of ETOH use and is in impending alcohol withdrawal. He has finished his Librium. He is very confused. Updated via phone. Appreciative of call. Mason Parker July 04, 2017 9:53 am
[2017-07-04] MEDS: MORPHINE SULFATE 4 MG/ML INJ IV PUSH PRN ×4 (12:52→22:55)
[2017-07-04] MEDS: ENOXAPARIN SODIUM 40 MG/0.4 ML SYRINGE SQ SCH (15:52)
--- NOTE | 2017-07-04 16:14 | HHI.PR ---
Subjective Remarks Follow-up for fall, TBI, right frontal intra-parenchymal hemorrhage. Patient is sitting in his chair. Somewhat more responsive and more alert. Afebrile. Objective Vitals Vital Signs Date Time Temp Pulse Resp B/P (MAP) Pulse Ox O2 Delivery O2 Flow Rate FiO2 07/04/17 14:00 78 07/04/17 12:00 85 07/04/17 12:00 97.7 94 14 99/68 (78) 96 07/04/17 10:15 96 Nasal Cannula 4.00 07/04/17 10:00 82 07/04/17 08:00 97.7 74 14 104/68 (80) 95 07/04/17 08:00 74 07/04/17 07:00 94 Venturi Mask 50 07/04/17 06:00 77 07/04/17 04:00 77 07/04/17 04:00 98.6 77 12 110/68 (82) 95 07/04/17 02:00 74 07/04/17 00:00 98.7 68 19 97/62 (74) 92 07/04/17 00:00 72 07/03/17 22:00 86 07/03/17 20:00 94 07/03/17 20:00 98.6 95 17 110/58 (75) 90 07/03/17 19:50 Nasal Cannula 4.00 Humidified 07/03/17 18:00 102 I/O 07/03/17 07/03/17 07/03/17 07/04/17 07/04/17 07/04/17 07:00 15:00 23:00 07:00 15:00 23:00 Intake Total 1100 ml 200 ml 102 ml Output Total 201 ml 200 ml 250 ml Balance -201 ml 1100 ml 0 ml -148 ml IV Total 1100 ml Tube Feeding 42 ml Tube Irrigant 60 ml Other 200 ml Output Urine Total 200 ml 200 ml 250 ml Stool Total 1 ml Gastric Drainage Total 0 ml 0 ml 0 ml # Voids 2 3 1 # Bowel Movements 0 0 Result Diagram: 07/02/17 0438 07/03/17 [address] Angiography 07/03/17 0000 Signed Impressions: Service Date/Time: June 16:24 - CONCLUSION: 1. No CT evidence for pulmonary artery embolism to the proximal segmental level. 2. Left lower lobe airspace consolidation and adjacent trace left pleural effusion. 3. Minimal right lung base airspace consolidation, likely atelectasis. Differential consideration includes aspiration. 4. Patchy groundglass opacities likely reflecting trace alveolar edema. 5. Coronary artery calcifications. 6. 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 Denzel Kelly MD Chest X-Ray 06/29/17 0000 Signed Impressions: Service Date/Time: Thursday, June 29, 2017 10:56 - CONCLUSION: Persistent left lower lobe airspace consolidation and findings suggestive of volume overload versus congestive heart failure.. Elif Shaw MD Head CT 06/28/17 0800 Signed Impressions: Service Date/Time: Wednesday, June 28, 2017 04:00 - CONCLUSION: 1. Interval decrease in the size of the high density right frontal hematoma. 2. Interval resolution of previously noted smaller left frontal hematoma. 3. No acute hemorrhage or mass effect. Marek Pope MD Abdomen X-Ray 06/28/17 0000 Signed Impressions: Service Date/Time: Wednesday, June 28, 2017 17:25 - CONCLUSION: NG tube in the stomach. Les Liao MD Upper Extremity Ultrasound 06/24/17 0000 Signed Impressions: Service Date/Time: Saturday, June 24, 2017 21:57 - CONCLUSION: Positive thrombus in the mid and distal cephalic vein which is enlarged and noncompressible suspicious for an acute venous thrombosis. Norberto Sandra MD Cervical Spine CT 06/18/17 1153 Signed Impressions: Service Date/Time: Sunday, June 18, 2017 13:43 - CONCLUSION: 1. No acute bony fracture. 2. Primary bony degenerative changes involving the cervical spine. Les Liao MD Shoulder X-Ray 06/18/17 0000 Signed Impressions: Service Date/Time: Sunday, June 18, 2017 16:45 - CONCLUSION: No acute fracture or joint dislocation. Les Liao MD Objective Remarks GENERAL: Does not follow any commands, no acute distress. SKIN: Warm and dry. HEAD: Normocephalic. EYES: No scleral icterus. No injection or drainage. NECK: Supple, trachea midline. No JVD or lymphadenopathy. CARDIOVASCULAR: Regular rate and rhythm without murmurs, gallops, or rubs. RESPIRATORY: Breath sounds equal bilaterally. No accessory muscle use. GASTROINTESTINAL: Abdomen soft, non-tender, nondistended. MUSCULOSKELETAL: No cyanosis, or edema. BACK: Nontender without obvious deformity. No CVA tenderness. Procedures 06/27/2017 EEG Abnormal EEG due to some moderate slowing of background consistent with encephalopathic process of various etiology, without any epileptiform features in this one recording. Clinical correlation. 06/20/2017 EEG Some mild to moderate diffuse slowing, but no focal abnormality was noted. No seizure activity was seen, especially on the right hemisphere. No seizure activity noted. A/P Problem List: (1) Frontal lobe contusion ICD Code: S06.339A - Contusion and laceration of cerebrum, unspecified, with loss of consciousness of unspecified duration, initial encounter Status: Acute (2) Rib fracture ICD Code: S22.39XA - Fracture of one rib, unspecified side, initial encounter for closed fracture Status: Acute (3) Diabetes ICD Code: E11.9 - Type 2 diabetes mellitus without complications Status: Chronic (4) HTN (hypertension) ICD Code: I10 - Essential (primary) hypertension Assessment and Plan On 06/18/2017, Mr. Abebe, a 66-year-old male who presented to the emergency department after a fall. He had an episode of loss of consciousness. He reported that he has been evaluated at [facility] for multiple falls. Apparently the reason was possible low blood pressure. The CT of the head performed in the emergency department shows right frontal hematoma, left medial frontal hemorrhage. He was admitted to the neurosurgical service. On 06/19/2017 patient had generalized seizure activity and altered mental status. Due to inability to protect airways, patient was emergently intubated. Patient was extubated on 06/26/2017. Fall Traumatic brain injury Intra-parenchymal hemorrhage -Neurosurgery is following. Patient is currently on Keppra 1000 mg every 12 hours. -Repeat CT head 06/28 improved ICH Hypertension -Continue HCTZ 12.5 mg daily, lisinopril 20 mg daily. Labetalol IV as needed. -Continue metoprolol 50 mg twice daily Diabetes mellitus - continue sliding scale insulin. Acute respiratory failure hypoxia Probable aspiration pneumonia - Currently on 4L of O2 via NC. We will try to wean off O2 requirements. - CXR on 06/29/2017 shows increased fluid build up. - Lasix 20mg BID. - CT PE shows no PE but some airspace disease. We will continue Zosyn. In the next 1-2 days, consider switching to Augmentin Liq to continue abx for 7-10 days Nutrition - Patient was on tube feed. He was not tolerating well and residual was significant. - Continue Tube feed. Full code. Lovenox. Problem Qualifiers (1) Frontal lobe contusion: Qualified Codes: S06.331A - Contusion and laceration of cerebrum, unspecified, with loss of consciousness of 30 minutes or less, initial encounter (2) Rib fracture: Qualified Codes: S22.32XA - Fracture of one rib, left side, initial encounter for closed fracture (3) Diabetes: Jerald Gardiner DO July 04, 2017 16:14
[2017-07-04] MEDS: ZOLPIDEM TARTRATE 5 MG TAB NG PRN (21:46)
[2017-07-05] VITALS (14 sets, daily range): BP systolic 107–142; BP diastolic 60–94; PULSE 64–101; RESP 17–27; TEMP 97.7–98.3; O2SAT 96–99
[2017-07-05] MEDS: DEXTROSE 5%-LACTATED RING INJ 1,000 ML IV SCH ×3 (00:31→23:04)
[2017-07-05] MEDS: ACETAMINOPHEN/HYDROcodone 325 MG/10 MG TAB NG PRN ×2 (00:31→20:52)
[2017-07-05] MEDS: PIPERACIL-TAZO 4.5 GM PREMIX 100 ML IV SCH ×3 (03:12→20:51)
[2017-07-05 06:16] LABS: BICARBONATE 32.3 MEQ/L (21.0-32.0); CALCIUM 8.8 MG/DL (8.5-10.1); CREATININE 0.73 MG/DL (0.60-1.30)
[2017-07-05] MEDS: INSULIN NovoLIN REGULAR SUPPLEMENTAL SCALE SQ SCH ×4 (08:00→20:52)
[2017-07-05] MEDS: CHLORHEXIDINE 0.12% (ORAL KIT) 15 ML CUP MT SCH ×2 (08:00→20:00)
[2017-07-05] MEDS: SODIUM CHLORIDE 0.9% FLUSH 10 ML FLUSH IV FLUSH SCH ×2 (09:00→20:51)
[2017-07-05] MEDS: LISINOPRIL 20 MG TAB NG SCH (09:00)
[2017-07-05] MEDS: BACITRACIN TOP OINT 15 GM TUBE TOP SCH ×2 (09:00→20:52)
[2017-07-05 10:09] LABS: AUTOMATED NEUTROPHIL # 5.7 TH/MM3 (1.8-7.7); BASOPHIL % 0.6 % (0.0-2.0); EOSINOPHIL # 0.2 TH/MM3 (0-0.4); EOSINOPHIL % 2.6 % (0.0-4.0); HEMATOCRIT 40.7 % (39.0-51.0); LYMPH % 8.8 % (9.0-44.0); LYMPHOCYTE # 0.6 TH/MM3 (1.0-4.8); MEAN CELL VOLUME 108.2 FL (80.0-100.0); MEAN CORPUSCULAR HEMOGLOBIN 37.2 PG (27.0-34.0); MEAN CORPUSCULAR HGB CONC 34.4 % (32.0-36.0); MEAN PLATELET VOLUME 8.7 FL (7.0-11.0); MONO % 9.2 % (0.0-8.0); MONOCYTE # 0.7 TH/MM3 (0-0.9); NEUT % 78.8 % (16.0-70.0); PLATELET COUNT 259 TH/MM3 (150-450); RED BLOOD COUNT 3.76 MIL/MM3 (4.50-5.90); RED CELL DISTRIBUTION WIDTH 16.6 % (11.6-17.2); WHITE BLOOD COUNT 7.3 TH/MM3 (4.0-11.0)
[2017-07-05] MEDS: LANSOPRAZOLE SOLUTAB 15 MG TAB NG SCH (11:10)
[2017-07-05] MEDS: FUROSEMIDE 20 MG/2 ML VIAL IV PUSH SCH ×2 (11:10→17:59)
[2017-07-05] MEDS: SERTRALINE HCL 50 MG TAB NG SCH (11:10)
[2017-07-05] MEDS: levETIRAcetam 500 MG/5 ML UDC NG SCH ×2 (11:10→20:51)
[2017-07-05] MEDS: ALLOPURINOL 100 MG TAB NG SCH (11:11)
[2017-07-05] MEDS: METOPROLOL TARTRATE 50 MG TAB NG SCH ×2 (11:14→20:51)
[2017-07-05] MEDS: MORPHINE SULFATE 4 MG/ML INJ IV PUSH PRN ×2 (15:36→23:23)
[2017-07-05] MEDS: ENOXAPARIN SODIUM 40 MG/0.4 ML SYRINGE SQ SCH (15:37)
--- NOTE | 2017-07-05 16:26 | HHI.PR ---
Subjective Remarks Pt seen and examined. AFVSS. Pt continually asking for a bag but does not tell me what he wants to do with it. Appears agitated at times. Denies CP, SOB, N/V. Objective Vitals Vital Signs Date Time Temp Pulse Resp B/P (MAP) Pulse Ox O2 Delivery O2 Flow Rate FiO2 07/05/17 08:01 96 Nasal Cannula 3.00 07/05/17 06:00 96 07/05/17 04:00 101 07/05/17 04:00 97.8 92 18 107/66 (80) 98 07/05/17 02:00 96 07/05/17 01:31 20 07/05/17 00:00 98.0 101 22 126/71 (89) 96 07/05/17 00:00 101 07/04/17 23:00 20 07/04/17 20:33 95 Nasal Cannula 4.00 07/04/17 20:00 106 07/04/17 20:00 98.0 106 22 120/77 (91) 96 07/04/17 19:00 96 Nasal Cannula 4.00 07/04/17 18:00 96 I/O 07/04/17 07/04/17 07/04/17 07/05/17 07/05/17 07/05/17 06:59 14:59 22:59 06:59 14:59 22:59 Intake Total 102 ml 450 ml 1587 ml Output Total 250 ml 850 ml 450 ml Balance -148 ml -400 ml 1137 ml IV Total 100 ml 1000 ml Tube Feeding 42 ml 150 ml 587 ml Tube Irrigant 60 ml Other 200 ml Output Urine Total 250 ml 850 ml 450 ml Gastric Drainage Total 0 ml 0 ml # Voids 1 3 2 # Bowel Movements 0 0 Result Diagram: 07/05/17 0906 07/05/[address] Angiography 07/03/17 0000 Signed Impressions: Service Date/Time: June 16:24 - CONCLUSION: 1. No CT evidence for pulmonary artery embolism to the proximal segmental level. 2. Left lower lobe airspace consolidation and adjacent trace left pleural effusion. 3. Minimal right lung base airspace consolidation, likely atelectasis. Differential consideration includes aspiration. 4. Patchy groundglass opacities likely reflecting trace alveolar edema. 5. Coronary artery calcifications. 6. 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 Denzel Kelly MD Chest X-Ray 06/29/17 0000 Signed Impressions: Service Date/Time: Thursday, June 29, 2017 10:56 - CONCLUSION: Persistent left lower lobe airspace consolidation and findings suggestive of volume overload versus congestive heart failure.. Elif Shaw MD Head CT 06/28/17 0800 Signed Impressions: Service Date/Time: Wednesday, June 28, 2017 04:00 - CONCLUSION: 1. Interval decrease in the size of the high density right frontal hematoma. 2. Interval resolution of previously noted smaller left frontal hematoma. 3. No acute hemorrhage or mass effect. Marek Pope MD Abdomen X-Ray 06/28/17 0000 Signed Impressions: Service Date/Time: Wednesday, June 28, 2017 17:25 - CONCLUSION: NG tube in the stomach. Les Liao MD Upper Extremity Ultrasound 06/24/17 0000 Signed Impressions: Service Date/Time: Saturday, June 24, 2017 21:57 - CONCLUSION: Positive thrombus in the mid and distal cephalic vein which is enlarged and noncompressible suspicious for an acute venous thrombosis. Norberto Sandra MD Cervical Spine CT 06/18/17 1153 Signed Impressions: Service Date/Time: Sunday, June 18, 2017 13:43 - CONCLUSION: 1. No acute bony fracture. 2. Primary bony degenerative changes involving the cervical spine. Les Liao MD Shoulder X-Ray 06/18/17 0000 Signed Impressions: Service Date/Time: Sunday, June 18, 2017 16:45 - CONCLUSION: No acute fracture or joint dislocation. Les Liao MD Objective Remarks GENERAL: male laying in bed in [facility]. SKIN: Warm and dry. NECK: Supple, trachea midline. No JVD or lymphadenopathy. CARDIOVASCULAR: Regular rate and rhythm without murmurs, gallops, or rubs. RESPIRATORY: Breath sounds equal bilaterally. No accessory muscle use. GASTROINTESTINAL: Abdomen soft, non-tender, nondistended. MUSCULOSKELETAL: No cyanosis, or edema. NEURO: Confused and at times agitated. Procedures 06/27/2017 EEG Abnormal EEG due to some moderate slowing of background consistent with encephalopathic process of various etiology, without any epileptiform features in this one recording. Clinical correlation. 06/20/2017 EEG Some mild to moderate diffuse slowing, but no focal abnormality was noted. No seizure activity was seen, especially on the right hemisphere. No seizure activity noted. A/P Problem List: (1) Frontal lobe contusion ICD Code: S06.339A - Contusion and laceration of cerebrum, unspecified, with loss of consciousness of unspecified duration, initial encounter Status: Acute (2) Rib fracture ICD Code: S22.39XA - Fracture of one rib, unspecified side, initial encounter for closed fracture Status: Acute (3) Diabetes ICD Code: E11.9 - Type 2 diabetes mellitus without complications Status: Chronic (4) HTN (hypertension) ICD Code: I10 - Essential (primary) hypertension Assessment and Plan 66 year old male with frequent falls, DM, and HTN admitted 06/18 for loss of consciousness after falling and found to have right frontal hematoma and left medial frontal hemorrhage on CT. He was admitted to the neurosurgical service and the following day he was transferred to the railroad purchasing agent service requiring emergent intubation after suffering a generalized seizure with significant AMS. Care transferred to the hospitalist on 06/28. Fall Traumatic brain injury Intraparenchymal hemorrhage - Neurosurgery following - Continue Keppra 1000 mg BID - Repeat CT head 06/28 with improved ICH Hypertension - Continue HCTZ 12.5 mg daily - Continue Lisinopril 20 mg daily - Continue metoprolol 50 mg BID - Labetalol PRN Diabetes mellitus - SSI per protocol Acute respiratory failure hypoxia Probable aspiration pneumonia Rib fracture - Supplemental O2 PRN - CXR 06/29 showing increased fluid build up - Continue Lasix 20mg BID - CTA shows no PE but some airspace disease - Change Zosyn to Augmentin tomorrow AM - Pain control FEN: Continue TFs DVT prophylaxis: Lovenox Problem Qualifiers (1) Frontal lobe contusion: Qualified Codes: S06.331A - Contusion and laceration of cerebrum, unspecified, with loss of consciousness of 30 minutes or less, initial encounter (2) Rib fracture: Qualified Codes: S22.32XA - Fracture of one rib, left side, initial encounter for closed fracture (3) Diabetes: Maria Luisa Sepulveda MD July 05, 2017 16:26
[2017-07-05] MEDS: DOCUSATE SODIUM 50 MG/SENNA 8.6 MG TAB NG SCH ×2 (20:51→21:00)
[2017-07-05] MEDS: ZOLPIDEM TARTRATE 5 MG TAB NG PRN (20:52)
[2017-07-06] VITALS (14 sets, daily range): BP systolic 117–157; BP diastolic 74–95; PULSE 58–72; RESP 14–26; TEMP 97.6–98.8; O2SAT 96–100
[2017-07-06] MEDS: ACETAMINOPHEN/HYDROcodone 325 MG/10 MG TAB NG PRN ×2 (01:01→05:59)
[2017-07-06] MEDS: PIPERACIL-TAZO 4.5 GM PREMIX 100 ML IV SCH (03:27)
[2017-07-06] MEDS: INSULIN NovoLIN REGULAR SUPPLEMENTAL SCALE SQ SCH ×4 (08:00→21:00)
[2017-07-06] MEDS: CHLORHEXIDINE 0.12% (ORAL KIT) 15 ML CUP MT SCH ×2 (08:00→20:00)
[2017-07-06] MEDS: LANSOPRAZOLE SOLUTAB 15 MG TAB NG SCH (08:04)
[2017-07-06] MEDS: FUROSEMIDE 20 MG/2 ML VIAL IV PUSH SCH (08:04)
[2017-07-06] MEDS: SODIUM CHLORIDE 0.9% FLUSH 10 ML FLUSH IV FLUSH SCH ×2 (08:04→20:24)
[2017-07-06] MEDS: DOCUSATE SODIUM 50 MG/SENNA 8.6 MG TAB NG SCH ×2 (08:04→20:24)
[2017-07-06] MEDS: SERTRALINE HCL 50 MG TAB NG SCH (08:04)
[2017-07-06] MEDS: BACITRACIN TOP OINT 15 GM TUBE TOP SCH ×2 (08:05→20:25)
[2017-07-06] MEDS: ALLOPURINOL 100 MG TAB NG SCH (08:05)
[2017-07-06] MEDS: LISINOPRIL 20 MG TAB NG SCH (08:06)
[2017-07-06] MEDS: METOPROLOL TARTRATE 50 MG TAB NG SCH ×2 (08:06→20:24)
[2017-07-06] MEDS: levETIRAcetam 500 MG/5 ML UDC NG SCH ×2 (08:06→20:23)
[2017-07-06] MEDS: AMOXICILLIN/CLAVULANATE K 875 MG TAB PO SCH ×2 (08:27→20:23)
[2017-07-06] MEDS: DEXTROSE 5%-LACTATED RING INJ 1,000 ML IV SCH (12:09)
--- NOTE | 2017-07-06 12:19 | HHI.PR ---
Subjective Remarks Patient seen and examined in follow-up for TBI and ICH. AFVSS. Pt alert and oriented to person, place, and time. He endorses no complaints. Denies CP, SOB, abdominal pain, N/V. Objective Vitals Vital Signs Date Time Temp Pulse Resp B/P (MAP) Pulse Ox O2 Delivery O2 Flow Rate FiO2 07/06/17 12:00 65 07/06/17 12:00 98.4 65 23 146/88 (107) 100 07/06/17 10:00 63 07/06/17 08:17 96 Nasal Cannula 3.00 07/06/17 08:00 67 07/06/17 08:00 98.8 67 24 157/81 (106) 97 07/06/17 07:15 97 Nasal Cannula 3.00 07/06/17 06:00 67 07/06/17 04:00 58 07/06/17 04:00 98.2 59 16 117/74 (88) 97 07/06/17 02:00 59 07/06/17 00:00 65 07/06/17 00:00 97.9 68 26 141/84 (103) 98 07/05/17 22:00 64 07/05/17 21:50 97 Nasal Cannula 3.00 07/05/17 20:00 Nasal Cannula 3.00 07/05/17 20:00 92 07/05/17 20:00 97.7 82 17 142/94 (110) 99 07/05/17 18:00 83 07/05/17 16:00 98.3 72 24 139/60 (86) 99 07/05/17 16:00 72 07/05/17 14:00 80 I/O 07/05/17 07/05/17 07/05/17 07/06/17 07/06/17 07/06/17 07:00 15:00 23:00 07:00 15:00 23:00 Intake Total 1587 ml 332 ml 2444 ml Output Total 450 ml 1500 ml 1400 ml Balance 1137 ml -1168 ml 1044 ml Intake Oral 0 ml IV Total 1000 ml 1762 ml Tube Feeding 587 ml 332 ml 562 ml Other 120 ml Output Urine Total 450 ml 1500 ml 1400 ml # Voids 2 0 # Bowel Movements 0 0 Result Diagram: 07/05/17 0906 07/05/17 0440 Objective Remarks GENERAL: WN, WD male resting in bed in NAD. SKIN: Warm and dry. HEENT: AT/NC. Pupils equal and round. MMM. NG tube in place. NECK: Supple no tender LAD or JVD. HEART: RRR no m/r/g. LUNGS: Course breath sounds. ABDOMEN: +BS, soft, NT, ND. EXTREMITIES: No LE edema. In 4 point restraints. NEURO: Awake and alert. Procedures 06/27/2017 EEG Abnormal EEG due to some moderate slowing of background consistent with encephalopathic process of various etiology, without any epileptiform features in this one recording. Clinical correlation. 06/20/2017 EEG Some mild to moderate diffuse slowing, but no focal abnormality was noted. No seizure activity was seen, especially on the right hemisphere. No seizure activity noted. A/P Problem List: (1) Frontal lobe contusion ICD Code: S06.339A - Contusion and laceration of cerebrum, unspecified, with loss of consciousness of unspecified duration, initial encounter Status: Acute (2) Rib fracture ICD Code: S22.39XA - Fracture of one rib, unspecified side, initial encounter for closed fracture Status: Acute (3) Diabetes ICD Code: E11.9 - Type 2 diabetes mellitus without complications Status: Chronic (4) HTN (hypertension) ICD Code: I10 - Essential (primary) hypertension Assessment and Plan 66 year old male with frequent falls, DM, and HTN admitted 06/18 for loss of consciousness after falling and found to have right frontal hematoma and left medial frontal hemorrhage on CT. He was admitted to the neurosurgical service and the following day he was transferred to the principal technical specialist service requiring emergent intubation after suffering a generalized seizure with significant AMS. Care transferred to the hospitalist on 06/28. Fall Traumatic brain injury Intraparenchymal hemorrhage - Neurosurgery following - Continue Keppra 1000 mg BID - Repeat CT head 06/28 with improved ICH - PT/OT Hypertension - Continue HCTZ 12.5 mg daily - Continue Lisinopril 20 mg daily - Continue metoprolol 50 mg BID - Labetalol PRN Diabetes mellitus - SSI per protocol Acute respiratory failure hypoxia Probable aspiration pneumonia Rib fracture - Supplemental O2 PRN - CXR 06/29 showing increased fluid build up - Change Lasix to 40 PO daily - CTA shows no PE but some airspace disease - Discontinued Zosyn and started Augmentin today - Pain control FEN: Continue TFs DVT prophylaxis: Lovenox Problem Qualifiers (1) Frontal lobe contusion: Qualified Codes: S06.331A - Contusion and laceration of cerebrum, unspecified, with loss of consciousness of 30 minutes or less, initial encounter (2) Rib fracture: Qualified Codes: S22.32XA - Fracture of one rib, left side, initial encounter for closed fracture (3) Diabetes: Maria Luisa Sepulveda MD July 06, 2017 12:19
[2017-07-06] MEDS: SODIUM CHLOR 0.9% 1000 ML INJ 1,000 ML IV SCH (14:45)
[2017-07-06] MEDS: ENOXAPARIN SODIUM 40 MG/0.4 ML SYRINGE SQ SCH (14:47)
[2017-07-06] MEDS: ZOLPIDEM TARTRATE 5 MG TAB NG PRN (22:47)
[2017-07-07] VITALS (12 sets, daily range): BP systolic 124–162; BP diastolic 69–99; PULSE 69–82; RESP 16–28; TEMP 97.7–98.5; O2SAT 93–100
[2017-07-07] MEDS: INSULIN NovoLIN REGULAR SUPPLEMENTAL SCALE SQ SCH ×4 (08:00→20:59)
[2017-07-07] MEDS: CHLORHEXIDINE 0.12% (ORAL KIT) 15 ML CUP MT SCH ×2 (08:08→20:00)
[2017-07-07] MEDS: levETIRAcetam 500 MG/5 ML UDC NG SCH ×2 (08:08→20:59)
[2017-07-07] MEDS: SERTRALINE HCL 50 MG TAB NG SCH (08:09)
[2017-07-07] MEDS: LISINOPRIL 20 MG TAB NG SCH (08:09)
[2017-07-07] MEDS: ALLOPURINOL 100 MG TAB NG SCH (08:09)
[2017-07-07] MEDS: DOCUSATE SODIUM 50 MG/SENNA 8.6 MG TAB NG SCH ×2 (08:09→20:59)
[2017-07-07] MEDS: METOPROLOL TARTRATE 50 MG TAB NG SCH ×2 (08:09→20:59)
[2017-07-07] MEDS: AMOXICILLIN/CLAVULANATE K 875 MG TAB PO SCH ×2 (08:09→20:59)
[2017-07-07] MEDS: SODIUM CHLORIDE 0.9% FLUSH 10 ML FLUSH IV FLUSH SCH ×2 (08:10→20:58)
[2017-07-07] MEDS: LANSOPRAZOLE SOLUTAB 15 MG TAB NG SCH (08:13)
[2017-07-07] MEDS: FUROSEMIDE 40 MG TAB PO SCH (08:13)
[2017-07-07] MEDS: BACITRACIN TOP OINT 15 GM TUBE TOP SCH ×2 (08:14→21:00)
--- NOTE | 2017-07-07 08:20 | HHI.PR ---
Subjective Remarks Patient seen and examined in follow-up for TBI, frontal lobe hematoma, and PNA. AFVSS. He is awake and oriented to person only. Thinks its 2013 and he's in [place]. He is conversant and answers some questions appropriately but is otherwise disinhibited with his speech. Denies pain anywhere. Denies CP, SOB, abdominal pain. Objective Vitals Vital Signs Date Time Temp Pulse Resp B/P (MAP) Pulse Ox O2 Delivery O2 Flow Rate FiO2 07/07/17 06:00 75 07/07/17 04:00 98.2 72 24 149/93 (111) 97 07/07/17 04:00 72 07/07/17 02:00 70 07/07/17 00:00 72 07/07/17 00:00 97.8 72 28 162/99 (120) 100 07/06/17 22:00 68 07/06/17 21:32 100 Nasal Cannula 3.00 07/06/17 20:00 97.6 72 18 145/90 (108) 99 07/06/17 20:00 72 07/06/17 19:00 97 Nasal Cannula 3.00 07/06/17 18:00 70 07/06/17 16:00 98.4 68 14 150/95 (113) 100 07/06/17 16:00 68 07/06/17 14:00 70 07/06/17 12:00 65 07/06/17 12:00 98.4 65 23 146/88 (107) 100 07/06/17 10:00 63 07/06/17 08:17 96 Nasal Cannula 3.00 07/06/17 08:00 67 07/06/17 08:00 98.8 67 24 157/81 (106) 97 I/O 07/06/17 07/06/17 07/06/17 07/07/17 07/07/17 07/07/17 07:00 15:00 23:00 07:00 15:00 23:00 Intake Total 2444 ml 294 ml 655 ml 776 ml Output Total 1400 ml 1200 ml Balance 1044 ml 294 ml 655 ml -424 ml Intake Oral 0 ml IV Total 1762 ml 294 ml Tube Feeding 562 ml 555 ml 656 ml Other 120 ml 100 ml 120 ml Output Urine Total 1400 ml 1200 ml # Bowel Movements 0 1 1 Result Diagram: 07/05/17 0906 07/05/17 0440 Objective Remarks GENERAL: WN, WD male in bed in NAD. SKIN: Warm and dry. HEENT: AT/NC. Pupils equal and round. Sluggish to react. MMM. NG tube in place. NECK: Supple no tender LAD or JVD. HEART: RRR no m/r/g. LUNGS: Anterior breath sounds CTAB. ABDOMEN: +BS, soft, NT, ND. EXTREMITIES: No LE edema. 2+ pedal pulses. Moves all extremities. NEURO: Awake and alert. Follows simple commands. Conversant but speech disinhibited. Procedures 06/27/2017 EEG Abnormal EEG due to some moderate slowing of background consistent with encephalopathic process of various etiology, without any epileptiform features in this one recording. Clinical correlation. 06/20/2017 EEG Some mild to moderate diffuse slowing, but no focal abnormality was noted. No seizure activity was seen, especially on the right hemisphere. No seizure activity noted. A/P Problem List: (1) Frontal lobe contusion ICD Code: S06.339A - Contusion and laceration of cerebrum, unspecified, with loss of consciousness of unspecified duration, initial encounter Status: Acute (2) Rib fracture ICD Code: S22.39XA - Fracture of one rib, unspecified side, initial encounter for closed fracture Status: Acute (3) Diabetes ICD Code: E11.9 - Type 2 diabetes mellitus without complications Status: Chronic (4) HTN (hypertension) ICD Code: I10 - Essential (primary) hypertension Assessment and Plan 66 year old male with frequent falls, DM, and HTN admitted 06/18 for loss of consciousness after falling and found to have right frontal hematoma and left medial frontal hemorrhage on CT. He was admitted to the neurosurgical service and the following day he was transferred to the cytogenetic technician service requiring emergent intubation after suffering a generalized seizure with significant AMS. Care transferred to the hospitalist on 06/28. Fall Traumatic brain injury Frontal hematoma and hemorrhage - Head CT 06/18 showing bilateral frontal lobes with hemorrhagic contusions - R frontal hemoatoma increased in size on repeat CT on 06/19 and by 06/28 CT imaging demonstrated interval decrease in size of the R frontal hematoma and resolution of smaller L frontal hematoma. No hemorrhage or mass effect - Neurosurgery following - Continue Keppra 1000 mg BID - Repeat CT head 06/28 with improved ICH - PT/OT Hypertension - BPs consistently elevated - Start amlodipine 5 mg - Continue Lisinopril 20 mg daily - Continue metoprolol 50 mg BID - Continue Lasix 40 mg daily - Labetalol PRN Diabetes mellitus - Holding home metformin - SSI with Accuchecks per protocol Acute respiratory failure hypoxia Probable aspiration pneumonia Rib fracture - Supplemental O2 PRN - CXR 06/29 showing increased fluid build up, repeat CXR today - Lasix to 40 PO daily - CTA 07/03 shows no PE but some airspace disease - Continue Augmentin (started 07/06) - Prior antibiotics Zosyn 06/22-06/26 then 07/03-07/06 - Pain control - Incentive spirometer Depression - Continue home sertraline Gout - Continue home allopurinol FEN: Continue TFs, repeat swallow eval today. If patient continues to be NPO may have to consider PEG tube placement GI prophylaxis: Prevacid DVT prophylaxis: Lovenox Discharge Planning PT recommending rehab on discharge, case management to assist with D/C needs. Patient can likely be medically cleared for discharged over next few days pending swallow eval as we need a plan in place for his nutritional needs Problem Qualifiers (1) Frontal lobe contusion: Qualified Codes: S06.331A - Contusion and laceration of cerebrum, unspecified, with loss of consciousness of 30 minutes or less, initial encounter (2) Rib fracture: Qualified Codes: S22.32XA - Fracture of one rib, left side, initial encounter for closed fracture (3) Diabetes: Maria Luisa Sepulveda MD July 07, 2017 08:20
[2017-07-07] MEDS: amLODIPine BESYLATE 5 MG TAB PO SCH (09:00)
--- NOTE | 2017-07-07 09:13 | HHI.NSPN ---
History Chief Complaint: Confusion s/p TBI. Interval History 66-year-old gentleman who presented to [facility] emergency room after a fall. He relates a positive loss of consciousness and complains of severe left- sided chest wall pain and initially had left shoulder pain which has improved along with mild headache. He has a history of frequent falls and states that he is undergone extensive workup including evaluation at the [facility] and the only thing they could relate this to was possibly low blood pressure. He denies feeling lightheaded or dizzy or any chest pain prior to these falls and relates that his legs just give out on him and usually occurs about once a month. He had a similar episode today and [place] Denies any nausea or vomiting and states that he is hungry. Denies any numbness or paresthesias in the upper lower extremities or any neck or back pain. 06/19/17: Pt awake and alert. Complains of headache but mild. No n/v. No paresthesias. Complains of left rib pain. 06/20/17: Pt sedated on Diprivan. He was intubated yesterday. He had a seizure yesterday. History of ETOH use. 06/21/17: Pt sedated and intubated. He follows commands in all 4 extremities but not opening his eyes. 06/22/17: Pt sedated on Diprivan. He is intubated. He was off sedation yesterday and placed on Diprivan last night. He follows commands when off sedation. 06/23/17: Pt opens eyes slightly to voice. He follows some commands intermittently. Pupils equal. 06/24/17: Pt lethargic but does open his eyes slightly. He Follows simple commands. He is on Diprivan which when held for prolonged period pt reportedly becomes tachypneic. 06/25/17: Pt opens eyes slightly to voice. He follows some simple commands more easily than others. Intubated. 06/26/17: Pt extubated this morning. He awakens to voice. Follows simple commands. Difficult to get much of history currently. 06/30/17: Pt extubated confused. He is on O2 via mask. He follows some simple commands. Not able to verbalize much but he denies headaches. 07/01/17: Pt resting in bed. He is confused but verbalizing more. He has O2 via NC. He is following more simple commands. 07/02/17: Pt awake but confused. He continues to verbalize more. He follows simple commands in all 4. 07/03/17: Pt lethargic but awakens to voice. He is mumbling. Got IV morphine last night. Not answering questions well. He follows commands. 07/04/17: Pt lethargic but awakens and becomes agitated. He is confused but states he is in hospital. He answers simple questions but periods of agitation and yelling out. 07/07/17: Pt remains lethargic and confused when woken up. He is talking nonsensical. Mumbles a lot with periods of agitation and yelling out. System Review Comments Not able to obtain given clinical condition. Exam Results Vital Signs Date Time Temp Pulse Resp B/P (MAP) Pulse Ox O2 Delivery O2 Flow Rate FiO2 07/07/17 06:00 75 07/07/17 04:00 98.2 24 149/93 (111) 97 07/06/17 21:32 Nasal Cannula 3.00 07/04/17 07:00 50 Intake and Output 07/07/17 07/07/17 07/08/17 08:00 16:00 00:00 Intake Total 776 ml Output Total 1200 ml Balance -424 ml Physical Examination General: Lethargic but gets agitated when woken up. Opens eyes some and follows simple commands. VSS. Eyes: Pupils equal 3mm bilaterally reactive bilaterally. Sclera anicteric. Resp: Extubated, mild coarse bs bilaterally. Heart: NSR no murmurs Abd: Soft positive bs. NG tube in place. Skin: No cyanosis or erythema. Muscle: moves all four extremities. Requires soft restraints secondary to confusion. Neuro: Lethargic but opens eyes to voice. He is confused and yells out. He tends to mumble. Talking to no one in room. Pupils 3mm bilaterally, reactive bilaterally. Follows commands in all 4 extremities. Lab, Micro, Other Results Last Impressions CT Angiography 07/03/17 0000 Signed Impressions: Service Date/Time: June 16:24 - CONCLUSION: 1. No CT evidence for pulmonary artery embolism to the proximal segmental level. 2. Left lower lobe airspace consolidation and adjacent trace left pleural effusion. 3. Minimal right lung base airspace consolidation, likely atelectasis. Differential consideration includes aspiration. 4. Patchy groundglass opacities likely reflecting trace alveolar edema. 5. Coronary artery calcifications. 6. 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 Denzel Kelly MD Chest X-Ray 06/29/17 0000 Signed Impressions: Service Date/Time: Thursday, June 29, 2017 10:56 - CONCLUSION: Persistent left lower lobe airspace consolidation and findings suggestive of volume overload versus congestive heart failure.. Elif Shaw MD Head CT 06/28/17 0800 Signed Impressions: Service Date/Time: Wednesday, June 28, 2017 04:00 - CONCLUSION: 1. Interval decrease in the size of the high density right frontal hematoma. 2. Interval resolution of previously noted smaller left frontal hematoma. 3. No acute hemorrhage or mass effect. Marek Pope MD Abdomen X-Ray 06/28/17 0000 Signed Impressions: Service Date/Time: Wednesday, June 28, 2017 17:25 - CONCLUSION: NG tube in the stomach. Les Liao MD Upper Extremity Ultrasound 06/24/17 0000 Signed Impressions: Service Date/Time: Saturday, June 24, 2017 21:57 - CONCLUSION: Positive thrombus in the mid and distal cephalic vein which is enlarged and noncompressible suspicious for an acute venous thrombosis. Norberto Sandra MD Cervical Spine CT 06/18/17 1153 Signed Impressions: Service Date/Time: Sunday, June 18, 2017 13:43 - CONCLUSION: 1. No acute bony fracture. 2. Primary bony degenerative changes involving the cervical spine. Les Liao MD Shoulder X-Ray 06/18/17 0000 Signed Impressions: Service Date/Time: Sunday, June 18, 2017 16:45 - CONCLUSION: No acute fracture or joint dislocation. Les Liao MD Medical Decision Making Impression and Plan Diagnosis: (1) HTN (hypertension) ICD Codes: I10 - Essential (primary) hypertension (2) Diabetes ICD Codes: E11.9 - Type 2 diabetes mellitus without complications Status: Chronic (3) Frontal lobe contusion ICD Codes: S06.339A - Contusion and laceration of cerebrum, unspecified, with loss of consciousness of unspecified duration, initial encounter Status: Acute (4) Rib fracture ICD Codes: S22.39XA - Fracture of one rib, unspecified side, initial encounter for closed fracture Status: Acute Assessment and Plan 66-year-old gentleman with a chronic history of falls who apparently fell on 06/18 with positive loss of consciousness with bilateral small frontal lobe contusions. Had extensive workup for his falls including evaluation at [facility] without any concrete underlying etiology other than what he states he relates that this could be related to possibly his blood pressure fluctuation. He has unregulated hypertension which is now controlled with the as needed medications and Cardene drip if needed to keep the systolic blood pressure less than 160. Insulin sliding scale coverage for his diabetes. Pain control for left-sided chest wall pain from rib fracture. He has had some expansion of his cerebral contusions. Follow up CT head with improvement. Pt had seizures while he was in the ICU and was intubated. Follow up CT head was stable. He is on Keppra Pt has history of ETOH use and is in impending alcohol withdrawal. He has finished his Librium. He is very confused. Mason Parker July 07, 2017 9:13 am
[2017-07-07] MEDS: SODIUM CHLOR 0.9% 1000 ML INJ 1,000 ML IV SCH ×2 (10:00→11:32)
--- NOTE | 2017-07-07 14:39 | RADRPT ---
EXAM DATE/TIME: 07/07/2017 13:36 [place] COMPARISON: CT PULMONARY ANGIOGRAM, July 03, 2017, 16:24. CHEST PA & LAT, June 18, 2017, 13:32. INDICATIONS : Short of breath, evaluate pneumonia MEDICAL HISTORY : Hypertension. Cardiovascular disease. Traumatic brain injury SURGICAL HISTORY : Tonsillectomy. Appendectomy. ENCOUNTER: Subsequent ACUITY: 1 week PAIN SCORE: Non-responsive. LOCATION: Bilateral chest FINDINGS: Interstitial prominence and airspace disease is evident in the left base. Left-sided rib fractures ar e again noted. Heart and mediastinal structures appear stable. Nasogastric tube is in good position. CONCLUSION: 1. Left basilar airspace disease 2. Nasogastric tube in good position 3. Left-sided rib fractures 4. Otherwise stable chest Panfilo Garcia MD on July 07, 2017 at 14:34 Board Certified Radiologist. This report was verified electronically.
[2017-07-07] MEDS: ENOXAPARIN SODIUM 40 MG/0.4 ML SYRINGE SQ SCH (15:35)
[2017-07-07] MEDS: ZOLPIDEM TARTRATE 5 MG TAB NG PRN (21:00)
[2017-07-08] VITALS (11 sets, daily range): BP systolic 113–163; BP diastolic 70–100; PULSE 66–86; RESP 20–30; TEMP 97.8–98.5; O2SAT 92–98
[2017-07-08] MEDS: ZOLPIDEM TARTRATE 5 MG TAB NG PRN (00:04)
[2017-07-08 04:55] LABS: BICARBONATE 27.3 MEQ/L (21.0-32.0); CALCIUM 9.2 MG/DL (8.5-10.1); CREATININE 0.59 MG/DL (0.60-1.30)
[2017-07-08 06:43] LABS: AUTOMATED NEUTROPHIL # 3.7 TH/MM3 (1.8-7.7); BASOPHIL # 0.1 TH/MM3 (0-0.2); BASOPHIL % 1.1 % (0.0-2.0); EOSINOPHIL # 0.1 TH/MM3 (0-0.4); EOSINOPHIL % 2.4 % (0.0-4.0); HEMATOCRIT 43.3 % (39.0-51.0); HEMOGLOBIN 14.9 GM/DL (13.0-17.0); LYMPH % 24.9 % (9.0-44.0); LYMPHOCYTE # 1.5 TH/MM3 (1.0-4.8); MEAN CELL VOLUME 106.5 FL (80.0-100.0); MEAN CORPUSCULAR HEMOGLOBIN 36.7 PG (27.0-34.0); MEAN CORPUSCULAR HGB CONC 34.4 % (32.0-36.0); MEAN PLATELET VOLUME 9.1 FL (7.0-11.0); MONO % 9.4 % (0.0-8.0); MONOCYTE # 0.6 TH/MM3 (0-0.9); NEUT % 62.2 % (16.0-70.0); PLATELET COUNT 250 TH/MM3 (150-450); RED BLOOD COUNT 4.07 MIL/MM3 (4.50-5.90); RED CELL DISTRIBUTION WIDTH 16.8 % (11.6-17.2); WHITE BLOOD COUNT 5.9 TH/MM3 (4.0-11.0)
[2017-07-08] MEDS: INSULIN NovoLIN REGULAR SUPPLEMENTAL SCALE SQ SCH ×3 (08:00→21:00)
[2017-07-08] MEDS: CHLORHEXIDINE 0.12% (ORAL KIT) 15 ML CUP MT SCH ×2 (08:00→20:00)
[2017-07-08] MEDS: LISINOPRIL 20 MG TAB NG SCH (08:18)
[2017-07-08] MEDS: SERTRALINE HCL 50 MG TAB NG SCH (08:18)
[2017-07-08] MEDS: AMOXICILLIN/CLAVULANATE K 875 MG TAB PO SCH ×2 (08:18→22:33)
[2017-07-08] MEDS: levETIRAcetam 500 MG/5 ML UDC NG SCH ×2 (08:18→22:32)
[2017-07-08] MEDS: METOPROLOL TARTRATE 50 MG TAB NG SCH ×2 (08:19→22:32)
[2017-07-08] MEDS: ALLOPURINOL 100 MG TAB NG SCH (08:19)
[2017-07-08] MEDS: FUROSEMIDE 40 MG TAB PO SCH (08:19)
[2017-07-08] MEDS: LANSOPRAZOLE SOLUTAB 15 MG TAB NG SCH (08:19)
[2017-07-08] MEDS: amLODIPine BESYLATE 5 MG TAB PO SCH (08:19)
[2017-07-08] MEDS: SODIUM CHLORIDE 0.9% FLUSH 10 ML FLUSH IV FLUSH SCH ×2 (09:00→21:00)
[2017-07-08] MEDS: DOCUSATE SODIUM 50 MG/SENNA 8.6 MG TAB NG SCH ×2 (09:00→21:00)
[2017-07-08] MEDS: BACITRACIN TOP OINT 15 GM TUBE TOP SCH ×2 (09:00→21:00)
--- NOTE | 2017-07-08 09:04 | HHI.NSPN ---
History Chief Complaint: Confusion s/p TBI. Interval History 66-year-old gentleman who presented to [facility] emergency room after a fall. He relates a positive loss of consciousness and complains of severe left- sided chest wall pain and initially had left shoulder pain which has improved along with mild headache. He has a history of frequent falls and states that he is undergone extensive workup including evaluation at the [facility] and the only thing they could relate this to was possibly low blood pressure. He denies feeling lightheaded or dizzy or any chest pain prior to these falls and relates that his legs just give out on him and usually occurs about once a month. He had a similar episode today and [place] Denies any nausea or vomiting and states that he is hungry. Denies any numbness or paresthesias in the upper lower extremities or any neck or back pain. 06/19/17: Pt awake and alert. Complains of headache but mild. No n/v. No paresthesias. Complains of left rib pain. 06/20/17: Pt sedated on Diprivan. He was intubated yesterday. He had a seizure yesterday. History of ETOH use. 06/21/17: Pt sedated and intubated. He follows commands in all 4 extremities but not opening his eyes. 06/22/17: Pt sedated on Diprivan. He is intubated. He was off sedation yesterday and placed on Diprivan last night. He follows commands when off sedation. 06/23/17: Pt opens eyes slightly to voice. He follows some commands intermittently. Pupils equal. 06/24/17: Pt lethargic but does open his eyes slightly. He Follows simple commands. He is on Diprivan which when held for prolonged period pt reportedly becomes tachypneic. 06/25/17: Pt opens eyes slightly to voice. He follows some simple commands more easily than others. Intubated. 06/26/17: Pt extubated this morning. He awakens to voice. Follows simple commands. Difficult to get much of history currently. 06/30/17: Pt extubated confused. He is on O2 via mask. He follows some simple commands. Not able to verbalize much but he denies headaches. 07/01/17: Pt resting in bed. He is confused but verbalizing more. He has O2 via NC. He is following more simple commands. 07/02/17: Pt awake but confused. He continues to verbalize more. He follows simple commands in all 4. 07/03/17: Pt lethargic but awakens to voice. He is mumbling. Got IV morphine last night. Not answering questions well. He follows commands. 07/04/17: Pt lethargic but awakens and becomes agitated. He is confused but states he is in hospital. He answers simple questions but periods of agitation and yelling out. 07/07/17: Pt remains lethargic and confused when woken up. He is talking nonsensical. Mumbles a lot with periods of agitation and yelling out. 07/08/17: Pt more awake today and appropriate. He is now making sense in his conversation. He is still with some confusion but much better. Review of Systems General: Negative for: fever, chills, insomnia Respiratory: Negative for: shortness of breath, cough, sputum Cardiovascular: Negative for: chest pain Gastrointestinal: Negative for: nausea, vomitting, diarrhea, constipation Exam Results Vital Signs Date Time Temp Pulse Resp B/P (MAP) Pulse Ox O2 Delivery O2 Flow Rate FiO2 07/08/17 08:24 98 21 07/08/17 06:00 66 07/08/17 04:00 98.5 22 163/96 (118) 07/07/17 19:00 Room Air 07/07/17 07:00 3.00 Intake and Output 07/08/17 07/08/17 07/08/17 07:59 15:59 23:59 Intake Total 680 ml Output Total 1175 ml Balance -495 ml Physical Examination General: More awake today. Opens eyes some and follows simple commands. VSS. Eyes: Pupils equal 3mm bilaterally reactive bilaterally. Sclera anicteric. Resp: Extubated, CTA bilaterally. Heart: NSR no murmurs Abd: Soft positive bs. NG tube in place. Skin: No cyanosis or erythema. Muscle: Moves all four extremities. Requires soft restraints secondary to confusion. Neuro: Pt more awake today and able to have a normal conversation. He is confused requiring soft restraints but more appropriate. Pupils 3mm bilaterally , reactive bilaterally. Follows commands in all 4 extremities. Lab, Micro, Other Results Last Impressions Chest X-Ray 07/07/17 0000 Signed Impressions: Service Date/Time: Friday, July 07, 2017 13:36 - CONCLUSION: 1. Left basilar airspace disease 2. Nasogastric tube in good position 3. Left-sided rib fractures 4. Otherwise stable chest Panfilo Garcia MD CT Angiography 07/03/17 0000 Signed Impressions: Service Date/Time: June 16:24 - CONCLUSION: 1. No CT evidence for pulmonary artery embolism to the proximal segmental level. 2. Left lower lobe airspace consolidation and adjacent trace left pleural effusion. 3. Minimal right lung base airspace consolidation, likely atelectasis. Differential consideration includes aspiration. 4. Patchy groundglass opacities likely reflecting trace alveolar edema. 5. Coronary artery calcifications. 6. 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 Denzel Kelly MD Head CT 06/28/17 0800 Signed Impressions: Service Date/Time: Wednesday, June 28, 2017 04:00 - CONCLUSION: 1. Interval decrease in the size of the high density right frontal hematoma. 2. Interval resolution of previously noted smaller left frontal hematoma. 3. No acute hemorrhage or mass effect. Marek Pope MD Abdomen X-Ray 06/28/17 0000 Signed Impressions: Service Date/Time: Wednesday, June 28, 2017 17:25 - CONCLUSION: NG tube in the stomach. Les Liao MD Upper Extremity Ultrasound 06/24/17 0000 Signed Impressions: Service Date/Time: Saturday, June 24, 2017 21:57 - CONCLUSION: Positive thrombus in the mid and distal cephalic vein which is enlarged and noncompressible suspicious for an acute venous thrombosis. Norberto Sandra MD Cervical Spine CT 06/18/17 1153 Signed Impressions: Service Date/Time: Sunday, June 18, 2017 13:43 - CONCLUSION: 1. No acute bony fracture. 2. Primary bony degenerative changes involving the cervical spine. Les Liao MD Shoulder X-Ray 06/18/17 0000 Signed Impressions: Service Date/Time: Sunday, June 18, 2017 16:45 - CONCLUSION: No acute fracture or joint dislocation. Les Liao MD Laboratory Tests Test 07/08/17 04:01 White Blood Count 5.9 TH/MM3 Red Blood Count 4.07 MIL/MM3 Hemoglobin 14.9 GM/DL Hematocrit 43.3 % Mean Corpuscular Volume 106.5 FL Mean Corpuscular Hemoglobin 36.7 PG Mean Corpuscular Hemoglobin Concent 34.4 % Red Cell Distribution Width 16.8 % Platelet Count 250 TH/MM3 Mean Platelet Volume 9.1 FL Neutrophils (%) (Auto) 62.2 % Lymphocytes (%) (Auto) 24.9 % Monocytes (%) (Auto) 9.4 % Eosinophils (%) (Auto) 2.4 % Basophils (%) (Auto) 1.1 % Neutrophils # (Auto) 3.7 TH/MM3 Lymphocytes # (Auto) 1.5 TH/MM3 Monocytes # (Auto) 0.6 TH/MM3 Eosinophils # (Auto) 0.1 TH/MM3 Basophils # (Auto) 0.1 TH/MM3 CBC Comment DIFF FINAL Differential Comment Blood Urea Nitrogen 14 MG/DL Creatinine 0.59 MG/DL Random Glucose 117 MG/DL Calcium Level 9.2 MG/DL Sodium Level 138 MEQ/L Potassium Level 4.1 MEQ/L Chloride Level 102 MEQ/L Carbon Dioxide Level 27.3 MEQ/L Anion Gap 9 MEQ/L Estimat Glomerular Filtration Rate 138 ML/MIN Medical Decision Making Impression and Plan Diagnosis: (1) HTN (hypertension) ICD Codes: I10 - Essential (primary) hypertension (2) Diabetes ICD Codes: E11.9 - Type 2 diabetes mellitus without complications Status: Chronic (3) Frontal lobe contusion ICD Codes: S06.339A - Contusion and laceration of cerebrum, unspecified, with loss of consciousness of unspecified duration, initial encounter Status: Acute (4) Rib fracture ICD Codes: S22.39XA - Fracture of one rib, unspecified side, initial encounter for closed fracture Status: Acute Assessment and Plan 66-year-old gentleman with a chronic history of falls who apparently fell on 06/18 with positive loss of consciousness with bilateral small frontal lobe contusions. Had extensive workup for his falls including evaluation at [facility] without any concrete underlying etiology other than what he states he relates that this could be related to possibly his blood pressure fluctuation. He has unregulated hypertension which is now controlled with the as needed medications and Cardene drip if needed to keep the systolic blood pressure less than 160. Insulin sliding scale coverage for his diabetes. Pain control for left-sided chest wall pain from rib fracture. He has had some expansion of his cerebral contusions. Follow up CT head with improvement. Pt had seizures while he was in the ICU and was intubated. Follow up CT head was stable. He is on Keppra Pt has history of ETOH use and is in impending alcohol withdrawal. He has finished his Librium. He is confused but improved today. Mason Parker July 08, 2017 9:04 am
--- NOTE | 2017-07-08 09:04 | HHI.PR ---
Subjective Remarks Patient continues to be agitated requiring restraints. Discussed with RN. Objective Vitals Vital Signs Date Time Temp Pulse Resp B/P (MAP) Pulse Ox O2 Delivery O2 Flow Rate FiO2 07/08/17 08:24 98 21 07/08/17 06:00 66 07/08/17 04:00 68 07/08/17 04:00 98.5 68 22 163/96 (118) 98 07/08/17 02:00 70 07/08/17 00:00 98.5 70 30 153/97 (115) 97 07/08/17 00:00 70 07/07/17 22:00 72 07/07/17 20:00 82 07/07/17 20:00 97.9 82 19 139/92 (108) 97 07/07/17 19:00 98 Room Air 07/07/17 18:00 80 07/07/17 16:00 76 07/07/17 16:00 97.8 76 16 124/69 (87) 93 07/07/17 14:00 69 07/07/17 12:00 97.7 74 26 129/90 (103) 97 07/07/17 12:00 74 07/07/17 10:00 78 I/O 07/07/17 07/07/17 07/07/17 07/08/17 07/08/17 07/08/17 07:00 15:00 23:00 07:00 15:00 23:00 Intake Total 776 ml 565 ml 680 ml Output Total 1200 ml 1100 ml 1175 ml Balance -424 ml -535 ml -495 ml Tube Feeding 656 ml 565 ml 530 ml Other 120 ml 150 ml Output Urine Total 1200 ml 1100 ml 1175 ml # Bowel Movements 1 1 Result Diagram: 07/08/17 0401 07/08/17 0401 Objective Remarks GENERAL: Patient is an restraint, confused. Follow some commands. CARDIOVASCULAR: Normal rate and regular rhythm without murmurs, gallops, or rubs. RESPIRATORY: Good respiratory efforts. Breath sounds equal and clear to auscultation bilaterally. NEURO: Awake and alert. Follows some commands otherwise very confused. Restless. Procedures 06/27/2017 EEG Abnormal EEG due to some moderate slowing of background consistent with encephalopathic process of various etiology, without any epileptiform features in this one recording. Clinical correlation. 06/20/2017 EEG Some mild to moderate diffuse slowing, but no focal abnormality was noted. No seizure activity was seen, especially on the right hemisphere. No seizure activity noted. A/P Problem List: (1) Frontal lobe contusion ICD Code: S06.339A - Contusion and laceration of cerebrum, unspecified, with loss of consciousness of unspecified duration, initial encounter Status: Acute (2) Rib fracture ICD Code: S22.39XA - Fracture of one rib, unspecified side, initial encounter for closed fracture Status: Acute (3) Diabetes ICD Code: E11.9 - Type 2 diabetes mellitus without complications Status: Chronic (4) HTN (hypertension) ICD Code: I10 - Essential (primary) hypertension Assessment and Plan 66 year old male with frequent falls, DM, and HTN admitted 06/18 for loss of consciousness after falling and found to have right frontal hematoma and left medial frontal hemorrhage on CT. He was admitted to the neurosurgical service and the following day he was transferred to the naphthalene operator helper service requiring emergent intubation after suffering a generalized seizure with significant AMS. Care transferred to the hospitalist on 06/28. Fall Traumatic brain injury Frontal hematoma and hemorrhage - Head CT 06/18 showing bilateral frontal lobes with hemorrhagic contusions - R frontal hemoatoma increased in size on repeat CT on 06/19 and by 06/28 CT imaging demonstrated interval decrease in size of the R frontal hematoma and resolution of smaller L frontal hematoma. No hemorrhage or mass effect - Neurosurgery following - Continue Keppra 1000 mg BID - Repeat CT head 06/28 with improved ICH - PT/OT - Add Seroquel to help with agitation. Ativan PRN Hypertension - Continue amlodipine 5 mg - Continue Lisinopril 20 mg daily - Continue metoprolol 50 mg BID - Continue Lasix 40 mg daily - Labetalol PRN Diabetes mellitus - Holding home metformin - SSI with Accuchecks per protocol Acute respiratory failure hypoxia Probable aspiration pneumonia Rib fracture - Supplemental O2 PRN - CXR 06/29 showing increased fluid build up, repeat CXR today - Lasix to 40 PO daily - CTA 07/03 shows no PE but some airspace disease - Continue Augmentin (started 07/06) - Prior antibiotics Zosyn 06/22-06/26 then 07/03-07/06 - Pain control - Incentive spirometer Depression - Continue home sertraline Gout - Continue home allopurinol Dysphagia: Continue NGTFs, speech therapy following. Hopefully he will start taking oral soon otherwise he may need more permanent feeding tube such as PEG. GI prophylaxis: Prevacid DVT prophylaxis: Lovenox Discharge Planning Will need SNF Problem Qualifiers (1) Frontal lobe contusion: Qualified Codes: S06.331A - Contusion and laceration of cerebrum, unspecified, with loss of consciousness of 30 minutes or less, initial encounter (2) Rib fracture: Qualified Codes: S22.32XA - Fracture of one rib, left side, initial encounter for closed fracture (3) Diabetes: Adriana Kearney MD July 08, 2017 09:04
[2017-07-08] MEDS ORDERED: QUEtiapine FUMARATE 25 MG TAB PO ONE (14:45)
[2017-07-08] MEDS: ENOXAPARIN SODIUM 40 MG/0.4 ML SYRINGE SQ SCH (16:26)
[2017-07-09] VITALS: BP 135/90; PULSE 67; RESP 18; TEMP 97.6; O2SAT 98
[2017-07-09 04:00] VITALS: BP 139/89; PULSE 78; RESP 18; TEMP 98; O2SAT 92
[2017-07-09 08:00] VITALS: BP 125/76; PULSE 72; RESP 18; TEMP 98; O2SAT 97
[2017-07-09] MEDS: DOCUSATE SODIUM 50 MG/SENNA 8.6 MG TAB NG SCH ×2 (09:00→20:20)
[2017-07-09] MEDS: SODIUM CHLORIDE 0.9% FLUSH 10 ML FLUSH IV FLUSH SCH ×2 (09:00→20:20)
[2017-07-09] MEDS: INSULIN NovoLIN REGULAR SUPPLEMENTAL SCALE SQ SCH ×2 (09:00→20:35)
[2017-07-09] MEDS: BACITRACIN TOP OINT 15 GM TUBE TOP SCH ×2 (09:00→20:20)
[2017-07-09] MEDS: CHLORHEXIDINE 0.12% (ORAL KIT) 15 ML CUP MT SCH ×2 (09:22→20:00)
[2017-07-09] MEDS: SODIUM CHLOR 0.9% 1000 ML INJ 1,000 ML IV SCH ×2 (09:23→22:00)
[2017-07-09] MEDS: FUROSEMIDE 40 MG TAB PO SCH (09:24)
[2017-07-09] MEDS: LISINOPRIL 20 MG TAB NG SCH (09:24)
[2017-07-09] MEDS: amLODIPine BESYLATE 5 MG TAB PO SCH (09:24)
[2017-07-09] MEDS: QUEtiapine FUMARATE 25 MG TAB PO SCH ×2 (09:24→13:30)
[2017-07-09] MEDS: AMOXICILLIN/CLAVULANATE K 875 MG TAB PO SCH ×2 (09:24→20:20)
[2017-07-09] MEDS: ALLOPURINOL 100 MG TAB NG SCH (09:24)
[2017-07-09] MEDS: METOPROLOL TARTRATE 50 MG TAB NG SCH ×2 (09:24→20:20)
[2017-07-09] MEDS: LANSOPRAZOLE SOLUTAB 15 MG TAB NG SCH (09:24)
[2017-07-09] MEDS: levETIRAcetam 500 MG/5 ML UDC NG SCH ×2 (09:24→20:20)
[2017-07-09] MEDS: SERTRALINE HCL 50 MG TAB NG SCH (09:24)
[2017-07-09 12:00] VITALS: BP 106/69; PULSE 72; RESP 18; TEMP 97.2; O2SAT 97
--- NOTE | 2017-07-09 12:33 | HHI.PR ---
Subjective Remarks Patient is more alert today. He is still very confused. He is finally able to tolerate some oral intake per speech therapy. Objective Vitals Vital Signs Date Time Temp Pulse Resp B/P (MAP) Pulse Ox O2 Delivery O2 Flow Rate FiO2 07/09/17 08:00 97 Room Air 07/09/17 08:00 98.0 72 18 125/76 (92) 97 07/09/17 04:00 98.0 78 18 139/89 (106) 92 07/09/17 00:00 97.6 67 18 135/90 (105) 98 07/08/17 20:45 96 07/08/17 20:38 Room Air 07/08/17 20:00 97.9 86 20 113/73 (86) 92 07/08/17 14:00 81 I/O 07/08/17 07/08/17 07/08/17 07/09/17 07/09/17 07/09/17 07:00 15:00 23:00 07:00 15:00 23:00 Intake Total 680 ml Output Total 1175 ml 1100 ml Balance -495 ml -1100 ml Tube Feeding 530 ml Other 150 ml Output Urine Total 1175 ml 1100 ml # Voids 3 # Bowel Movements 1 3 Result Diagram: 07/08/17 0401 07/08/17 0401 Objective Remarks GENERAL: Patient is sitting up in the chair. Still requiring restraint. Follow some commands. CARDIOVASCULAR: Normal rate and regular rhythm without murmurs, gallops, or rubs. RESPIRATORY: Good respiratory efforts. Breath sounds equal and clear to auscultation bilaterally. NEURO: Awake and alert. Follows some commands otherwise very confused. Restless. Procedures 06/27/2017 EEG Abnormal EEG due to some moderate slowing of background consistent with encephalopathic process of various etiology, without any epileptiform features in this one recording. Clinical correlation. 06/20/2017 EEG Some mild to moderate diffuse slowing, but no focal abnormality was noted. No seizure activity was seen, especially on the right hemisphere. No seizure activity noted. A/P Problem List: (1) Frontal lobe contusion ICD Code: S06.339A - Contusion and laceration of cerebrum, unspecified, with loss of consciousness of unspecified duration, initial encounter Status: Acute (2) Rib fracture ICD Code: S22.39XA - Fracture of one rib, unspecified side, initial encounter for closed fracture Status: Acute (3) Diabetes ICD Code: E11.9 - Type 2 diabetes mellitus without complications Status: Chronic (4) HTN (hypertension) ICD Code: I10 - Essential (primary) hypertension Assessment and Plan 66 year old male with frequent falls, DM, and HTN admitted 06/18 for loss of consciousness after falling and found to have right frontal hematoma and left medial frontal hemorrhage on CT. He was admitted to the neurosurgical service and the following day he was transferred to the telephone operators supervisor service requiring emergent intubation after suffering a generalized seizure with significant AMS. Care transferred to the hospitalist on 06/28. Fall Traumatic brain injury Frontal hematoma and hemorrhage - Head CT 06/18 showing bilateral frontal lobes with hemorrhagic contusions - R frontal hemoatoma increased in size on repeat CT on 06/19 and by 06/28 CT imaging demonstrated interval decrease in size of the R frontal hematoma and resolution of smaller L frontal hematoma. No hemorrhage or mass effect - Neurosurgery following - Continue Keppra 1000 mg BID - Repeat CT head 06/28 with improved ICH - PT/OT -Continue Seroquel to help with agitation. Ativan PRN Hypertension - Continue amlodipine 5 mg - Continue Lisinopril 20 mg daily - Continue metoprolol 50 mg BID - Continue Lasix 40 mg daily - Labetalol PRN Diabetes mellitus - Holding home metformin - SSI with Accuchecks per protocol Acute respiratory failure hypoxia Probable aspiration pneumonia Rib fracture - Supplemental O2 PRN - CXR 06/29 showing increased fluid build up, repeat CXR today - Lasix to 40 PO daily - CTA 07/03 shows no PE but some airspace disease - Continue Augmentin (started 07/06) - Prior antibiotics Zosyn 06/22-06/26 then 07/03-07/06 - Pain control - Incentive spirometer Depression - Continue home sertraline Gout - Continue home allopurinol Dysphagia: Much improved. May discontinue NGT. Advance diet as tolerated. GI prophylaxis: Prevacid DVT prophylaxis: Lovenox Discharge Planning Will need SNF Problem Qualifiers (1) Frontal lobe contusion: Qualified Codes: S06.331A - Contusion and laceration of cerebrum, unspecified, with loss of consciousness of 30 minutes or less, initial encounter (2) Rib fracture: Qualified Codes: S22.32XA - Fracture of one rib, left side, initial encounter for closed fracture (3) Diabetes: Adriana Kearney MD July 09, 2017 12:33
[2017-07-09] MEDS: ENOXAPARIN SODIUM 40 MG/0.4 ML SYRINGE SQ SCH (13:34)
[2017-07-09 14:00] VITALS: BP 114/70; PULSE 73; RESP 18; TEMP 97.2; O2SAT 96
[2017-07-09 20:00] VITALS: BP 117/79; PULSE 84; RESP 18; TEMP 97.9; O2SAT 96
[2017-07-09] MEDS: ZOLPIDEM TARTRATE 5 MG TAB NG PRN (20:20)
[2017-07-09] MEDS: LORazepam 2 MG/ML VIAL IV PUSH PRN ×3 (20:21→23:55)
[2017-07-10 00:13] VITALS: BP 128/80; PULSE 70; RESP 18; TEMP 97.7; O2SAT 96
[2017-07-10 04:00] VITALS: BP 128/89; PULSE 72; RESP 18; TEMP 97.4; O2SAT 97
[2017-07-10] MEDS: CHLORHEXIDINE 0.12% (ORAL KIT) 15 ML CUP MT SCH ×2 (08:00→20:00)
[2017-07-10] MEDS: AMOXICILLIN/CLAVULANATE K 875 MG TAB PO SCH ×2 (08:10→20:51)
[2017-07-10] MEDS: ALLOPURINOL 100 MG TAB NG SCH (08:10)
[2017-07-10] MEDS: METOPROLOL TARTRATE 50 MG TAB NG SCH ×2 (08:10→20:51)
[2017-07-10] MEDS: FUROSEMIDE 40 MG TAB PO SCH (08:10)
[2017-07-10] MEDS: LANSOPRAZOLE SOLUTAB 15 MG TAB NG SCH (08:10)
[2017-07-10] MEDS: SODIUM CHLORIDE 0.9% FLUSH 10 ML FLUSH IV FLUSH SCH ×2 (08:10→20:50)
[2017-07-10] MEDS: LISINOPRIL 20 MG TAB NG SCH (08:10)
[2017-07-10] MEDS: DOCUSATE SODIUM 50 MG/SENNA 8.6 MG TAB NG SCH ×2 (08:10→20:51)
[2017-07-10] MEDS: amLODIPine BESYLATE 5 MG TAB PO SCH (08:10)
[2017-07-10] MEDS: levETIRAcetam 500 MG/5 ML UDC NG SCH ×2 (08:10→20:51)
[2017-07-10] MEDS: QUEtiapine FUMARATE 25 MG TAB PO SCH ×2 (08:10→11:47)
[2017-07-10] MEDS: SERTRALINE HCL 50 MG TAB NG SCH (08:10)
[2017-07-10 08:14] VITALS: BP 131/75; PULSE 82; RESP 20; TEMP 97.5; O2SAT 93
[2017-07-10] MEDS: INSULIN NovoLIN REGULAR SUPPLEMENTAL SCALE SQ SCH ×2 (08:15→20:51)
[2017-07-10] MEDS: BACITRACIN TOP OINT 15 GM TUBE TOP SCH ×2 (08:15→23:22)
[2017-07-10] MEDS: LORazepam 2 MG/ML VIAL IV PUSH PRN (10:57)
--- NOTE | 2017-07-10 11:36 | HHI.PR ---
Objective Vitals Vital Signs Date Time Temp Pulse Resp B/P (MAP) Pulse Ox O2 Delivery O2 Flow Rate FiO2 07/10/17 08:14 97.5 82 20 131/75 (93) 93 07/10/17 04:00 97.4 72 18 128/89 (102) 97 07/10/17 00:13 97.7 70 18 128/80 (96) 96 07/09/17 20:00 97.9 84 18 117/79 (92) 96 07/09/17 14:00 97.2 73 18 114/70 (85) 96 07/09/17 12:00 97.2 72 18 106/69 (81) 97 I/O 07/09/17 07/09/17 07/09/17 07/10/17 07/10/17 07/10/17 07:00 15:00 23:00 07:00 15:00 23:00 # Voids 3 1 3 1 # Bowel Movements 3 Result Diagram: 07/08/17 04007/08/17400 Objective Remarks GENERAL: Patient is sitting up in the chair. Still requiring restraint. Follow some commands. CARDIOVASCULAR: Normal rate and regular rhythm without murmurs, gallops, or rubs. RESPIRATORY: Good respiratory efforts. Breath sounds equal and clear to auscultation bilaterally. NEURO: Awake and alert. Follows some commands otherwise very confused. Restless. Procedures 06/27/2017 EEG Abnormal EEG due to some moderate slowing of background consistent with encephalopathic process of various etiology, without any epileptiform features in this one recording. Clinical correlation. 06/20/2017 EEG Some mild to moderate diffuse slowing, but no focal abnormality was noted. No seizure activity was seen, especially on the right hemisphere. No seizure activity noted. A/P Problem List: (1) Frontal lobe contusion ICD Code: S06.339A - Contusion and laceration of cerebrum, unspecified, with loss of consciousness of unspecified duration, initial encounter Status: Acute (2) Rib fracture ICD Code: S22.39XA - Fracture of one rib, unspecified side, initial encounter for closed fracture Status: Acute (3) Diabetes ICD Code: E11.9 - Type 2 diabetes mellitus without complications Status: Chronic (4) HTN (hypertension) ICD Code: I10 - Essential (primary) hypertension Assessment and Plan 66 year old male with frequent falls, DM, and HTN admitted 06/18 for loss of consciousness after falling and found to have right frontal hematoma and left medial frontal hemorrhage on CT. He was admitted to the neurosurgical service and the following day he was transferred to the in classroom tutor service requiring emergent intubation after suffering a generalized seizure with significant AMS. Care transferred to the hospitalist on 06/28. Fall Traumatic brain injury Frontal hematoma and hemorrhage - Head CT 06/18 showing bilateral frontal lobes with hemorrhagic contusions - R frontal hemoatoma increased in size on repeat CT on 06/19 and by 06/28 CT imaging demonstrated interval decrease in size of the R frontal hematoma and resolution of smaller L frontal hematoma. No hemorrhage or mass effect - Neurosurgery following - Continue Keppra 1000 mg BID - Repeat CT head 06/28 with improved ICH - PT/OT -Continue Seroquel to help with agitation. Ativan PRN Hypertension - Continue amlodipine 5 mg - Continue Lisinopril 20 mg daily - Continue metoprolol 50 mg BID - Continue Lasix 40 mg daily - Labetalol PRN Diabetes mellitus - Holding home metformin - SSI with Accuchecks per protocol Acute respiratory failure hypoxia Probable aspiration pneumonia Rib fracture - Supplemental O2 PRN - CXR 06/29 showing increased fluid build up, repeat CXR today - Lasix to 40 PO daily - CTA 07/03 shows no PE but some airspace disease - Continue Augmentin (started 07/06) - Prior antibiotics Zosyn 06/22-06/26 then 07/03-07/06 - Pain control - Incentive spirometer Depression - Continue home sertraline Gout - Continue home allopurinol Dysphagia: Much improved. May discontinue NGT. Advance diet as tolerated. GI prophylaxis: Prevacid DVT prophylaxis: Lovenox Discharge Planning Will need SNF Problem Qualifiers (1) Frontal lobe contusion: Qualified Codes: S06.331A - Contusion and laceration of cerebrum, unspecified, with loss of consciousness of 30 minutes or less, initial encounter (2) Rib fracture: Qualified Codes: S22.32XA - Fracture of one rib, left side, initial encounter for closed fracture (3) Diabetes: Adriana Kearney MD July 10, 2017 11:36
[2017-07-10 12:19] VITALS: BP 123/80; PULSE 71; RESP 20; TEMP 97.7; O2SAT 98
[2017-07-10] MEDS: ENOXAPARIN SODIUM 40 MG/0.4 ML SYRINGE SQ SCH (14:37)
[2017-07-10] MEDS ORDERED: SERO25TA PO (15:31)
[2017-07-10] MEDS ORDERED: AMLO5 PO (15:31)
[2017-07-10] MEDS ORDERED: KEPP10002 PO (15:31)
[2017-07-10] MEDS ORDERED: METO1TAB9 PO (15:31)
[2017-07-10] MEDS ORDERED: LORA-474 PO (15:35)
--- NOTE | 2017-07-10 15:38 | HHI.DS ---
Discharge Summary Admission Date June 18, 2017 at 16:29 Discharge Date: July 10, 2017 Admitting Diagnosis bilateral frontal lobe contusions, left rib fx (1) Frontal lobe contusion ICD Code: S06.339A - Contusion and laceration of cerebrum, unspecified, with loss of consciousness of unspecified duration, initial encounter Status: Acute (2) Rib fracture ICD Code: S22.39XA - Fracture of one rib, unspecified side, initial encounter for closed fracture Status: Acute (3) Diabetes ICD Code: E11.9 - Type 2 diabetes mellitus without complications Status: Chronic (4) HTN (hypertension) ICD Code: I10 - Essential (primary) hypertension Procedures 06/27/2017 EEG Abnormal EEG due to some moderate slowing of background consistent with encephalopathic process of various etiology, without any epileptiform features in this one recording. Clinical correlation. 06/20/2017 EEG Some mild to moderate diffuse slowing, but no focal abnormality was noted. No seizure activity was seen, especially on the right hemisphere. No seizure activity noted. Brief History - From Admission HPI from the admitting physician This is a 66-year-old male with a history of hypertension and type 2 diabetes who fell at a grocery store yesterday. He fell onto his head causing loss of consciousness and suffered soft tissue injuries of the left shoulder as well as a left fractured rib. Due to head trauma he was admitted to neurosurgery, initial CT scan showed hematoma of the frontal lobe. Follow-up CT today shows worsening of his hematoma with expansion from 1.2 cm to 1.9 cm. He states that he still has a headache. He denies photophobia. Further history reveals that this is not his first fall. He had a small fall approximately 2 months ago and had a larger fall approximately 1 year ago. From his fall a year ago he suffered postconcussive syndrome for a few months, mostly exhibited as headaches and difficulty with concentration. His chief complaint at this time is left rib pain. CBC/BMP: 07/08/17 0401 07/08/17 0401 Significant Findings Laboratory Tests Test 07/08/17 04:01 Red Blood Count 4.07 MIL/MM3 (4.50-5.90) Mean Corpuscular Volume 106.5 FL (80.0-100.0) Mean Corpuscular Hemoglobin 36.7 PG (27.0-34.0) Monocytes (%) (Auto) 9.4 % (0.0-8.0) Creatinine 0.59 MG/DL (0.60-1.30) Random Glucose 117 MG/DL (74-106) Imaging Last Impressions Chest X-Ray 07/07/17 0000 Signed Impressions: Service Date/Time: Friday, July 07, 2017 13:36 - CONCLUSION: 1. Left basilar airspace disease 2. Nasogastric tube in good position 3. Left-sided rib fractures 4. Otherwise stable chest Panfilo Garcia MD CT Angiography 07/03/17 0000 Signed Impressions: Service Date/Time: June 16:24 - CONCLUSION: 1. No CT evidence for pulmonary artery embolism to the proximal segmental level. 2. Left lower lobe airspace consolidation and adjacent trace left pleural effusion. 3. Minimal right lung base airspace consolidation, likely atelectasis. Differential consideration includes aspiration. 4. Patchy groundglass opacities likely reflecting trace alveolar edema. 5. Coronary artery calcifications. 6. 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 Denzel Kelly MD Head CT 06/28/17 0800 Signed Impressions: Service Date/Time: Wednesday, June 28, 2017 04:00 - CONCLUSION: 1. Interval decrease in the size of the high density right frontal hematoma. 2. Interval resolution of previously noted smaller left frontal hematoma. 3. No acute hemorrhage or mass effect. Marek Pope MD Abdomen X-Ray 06/28/17 0000 Signed Impressions: Service Date/Time: Wednesday, June 28, 2017 17:25 - CONCLUSION: NG tube in the stomach. Les Liao MD Upper Extremity Ultrasound 06/24/17 0000 Signed Impressions: Service Date/Time: Saturday, June 24, 2017 21:57 - CONCLUSION: Positive thrombus in the mid and distal cephalic vein which is enlarged and noncompressible suspicious for an acute venous thrombosis. Norberto Sandra MD Cervical Spine CT 06/18/17 1153 Signed Impressions: Service Date/Time: Sunday, June 18, 2017 13:43 - CONCLUSION: 1. No acute bony fracture. 2. Primary bony degenerative changes involving the cervical spine. Les Liao MD Shoulder X-Ray 06/18/17 0000 Signed Impressions: Service Date/Time: Sunday, June 18, 2017 16:45 - CONCLUSION: No acute fracture or joint dislocation. Les Liao MD PE at Discharge GENERAL: Patient is laying in bed. Follow some commands. Still confused. CARDIOVASCULAR: Normal rate and regular rhythm without murmurs, gallops, or rubs. RESPIRATORY: Good respiratory efforts. Breath sounds equal and clear to auscultation bilaterally. NEURO: Awake and alert. Confused. Pt update on day of discharge Patient reports he is doing okay. Still having confusion, thinking he is in an airplane. Hospital Course 66 year old male with frequent falls, DM, and HTN admitted 06/18 for loss of consciousness after falling and found to have right frontal hematoma and left medial frontal hemorrhage on CT. He was admitted to the neurosurgical service and the following day he was transferred to the soapstoner service requiring emergent intubation after suffering a generalized seizure with significant AMS. Care transferred to the hospitalist on 06/28. Treatment course detailed below: Fall Traumatic brain injury Frontal hematoma and hemorrhage - Head CT 06/18 showing bilateral frontal lobes with hemorrhagic contusions - R frontal hematoma increased in size on repeat CT on 06/19 and by 06/28 CT imaging demonstrated interval decrease in size of the R frontal hematoma and resolution of smaller L frontal hematoma. No hemorrhage or mass effect - Neurosurgery following - Continue Keppra 1000 mg BID - Repeat CT head 06/28 with improved ICH - PT/OT - Continue Seroquel to help with agitation. Ativan as needed to help with agitation. Hypertension - Continue amlodipine 5 mg - Continue Lisinopril 20 mg daily - Continue metoprolol 50 mg BID - Continue Lasix 40 mg daily Diabetes mellitus -Resume home dose metformin on discharge. Acute respiratory failure hypoxia Probable aspiration pneumonia Rib fracture - Supplemental O2 PRN -Patient treated with antibiotics. Respiratory symptoms improved. Depression - Continue home sertraline Gout - Continue home allopurinol Dysphagia: Much improved. NG tube was discontinued and the patient's diet was advanced. Pt Condition on Discharge: Stable Discharge Disposition: Discharge to SNF Discharge Time: > 30 minutes Discharge Instructions DIET: Follow Instructions for: Heart Healthy Diet Activities you can perform: See Additionl Instruction Other Activity Instructions: Use assistance New Medications: Lorazepam (Ativan) 1 Mg Tab 1 MG PO Q6H PRN for ANXIETY AND/OR AGITATION, #10 TAB 0 Refills Amlodipine (Norvasc) 5 Mg Tab 5 MG PO DAILY, #30 TAB Levetiracetam (Keppra) 1,000 Mg Tab 1000 MG PO BID for Control Seizures, #60 TAB 0 Refills Quetiapine (Seroquel) 25 Mg Tab 25 MG PO BID@,12, #60 TAB Changed Medications: Metoprolol Succinate ER 24 HR (Metoprolol Succinate ER 24 HR) 50 Mg Tab 50 MG PO DAILY, #30 TAB 0 Refills (Changed from: Metoprolol Succinate ER 24 HR 100 Mg Tab 100 Mg PO DAILY #30 TAB Ref 0) Continued Medications: Allopurinol (Allopurinol) 100 Mg Tab 100 MG PO DAILY for Gout, #30 TAB 0 Refills Hydrochlorothiazide (Hydrochlorothiazide) 12.5 Mg Cap 12.5 MG PO DAILY, #30 CAP 0 Refills Lisinopril (Lisinopril) 10 Mg Tab 10 MG PO DAILY, #30 TAB 0 Refills Metformin (Metformin) 500 Mg Tab 500 MG PO DAILY for Blood Sugar Management, #30 TAB 0 Refills With a meal Omeprazole (Omeprazole) 20 Mg Tab 20 MG PO DAILY, #30 TAB 0 Refills Sertraline (Sertraline) 50 Mg Tab 50 MG PO DAILY, #30 TAB 0 Refills Discontinued Medications: Aspirin DR (Aspirin EC) 81 Mg Tabdr 81 MG PO DAILY, TAB 0 Refills Ciprofloxacin (Cipro) 500 Mg Tab 500 MG PO BID for Infection for 10 Days, #20 TAB 0 Refills Hydrocodone-Acetaminophen (Hydrocodone-Acetaminophen) 5-325 mg Tab 1 TAB PO Q6H PRN for PAIN, #15 TAB 0 Refills Metronidazole (Flagyl) 500 Mg Tab 500 MG PO BID for Infection for 10 Days, #20 TAB 0 Refills Ondansetron Odt (Zofran Odt) 4 Mg Tab 4 MG SL Q6HR PRN for Nausea/Vomiting, #15 TAB 0 Refills Adriana Kearney MD July 10, 2017 15:38
[2017-07-10 15:47] VITALS: BP 110/65; PULSE 72; RESP 20; TEMP 97.8; O2SAT 100
[2017-07-10 20:00] VITALS: BP 107/72; PULSE 88; RESP 18; TEMP 98.1; O2SAT 96
[2017-07-10] MEDS: ZOLPIDEM TARTRATE 5 MG TAB NG PRN (21:11)
[2017-07-11] VITALS: BP 110/73; PULSE 79; RESP 20; TEMP 97.5; O2SAT 96
[2017-07-11] MEDS: LORazepam 2 MG/ML VIAL IV PUSH PRN (01:26)
[2017-07-11 04:00] VITALS: BP 133/74; PULSE 80; RESP 18; TEMP 97.8; O2SAT 96
[2017-07-11 07:40] VITALS: BP 125/76; PULSE 77; RESP 16; TEMP 98.4; O2SAT 97
[2017-07-11] MEDS: CHLORHEXIDINE 0.12% (ORAL KIT) 15 ML CUP MT SCH (07:41)
[2017-07-11] MEDS: INSULIN NovoLIN REGULAR SUPPLEMENTAL SCALE SQ SCH (07:42)
[2017-07-11] MEDS: FUROSEMIDE 40 MG TAB PO SCH (07:43)
[2017-07-11] MEDS: AMOXICILLIN/CLAVULANATE K 875 MG TAB PO SCH (07:43)
[2017-07-11] MEDS: amLODIPine BESYLATE 5 MG TAB PO SCH (07:43)
[2017-07-11] MEDS: ALLOPURINOL 100 MG TAB NG SCH (07:43)
[2017-07-11] MEDS: LISINOPRIL 20 MG TAB NG SCH (07:43)
[2017-07-11] MEDS: QUEtiapine FUMARATE 25 MG TAB PO SCH ×2 (07:43→11:38)
[2017-07-11] MEDS: LANSOPRAZOLE SOLUTAB 15 MG TAB NG SCH (07:43)
[2017-07-11] MEDS: METOPROLOL TARTRATE 50 MG TAB NG SCH (07:43)
[2017-07-11] MEDS: SODIUM CHLORIDE 0.9% FLUSH 10 ML FLUSH IV FLUSH SCH (07:43)
[2017-07-11] MEDS: BACITRACIN TOP OINT 15 GM TUBE TOP SCH (07:44)
[2017-07-11] MEDS: levETIRAcetam 500 MG/5 ML UDC NG SCH (07:44)
[2017-07-11] MEDS: DOCUSATE SODIUM 50 MG/SENNA 8.6 MG TAB NG SCH (07:44)
[2017-07-11] MEDS: SERTRALINE HCL 50 MG TAB NG SCH (07:44)
[2017-07-11 12:00] VITALS: BP 124/68; PULSE 80; RESP 18; TEMP 98.4; O2SAT 96
[2017-07-11] MEDS: ENOXAPARIN SODIUM 40 MG/0.4 ML SYRINGE SQ SCH (14:12)
== END 2017-07-11 17:15 | DRG 963 ==
LOC: NEPE 10:25 → NEDA 15:08 → OBSVTOIN 16:29 → N03A 20:40 → N05B 07-08 16:07
PROVIDERS: ADMIT Family Medicine; ATTEND Family Medicine
PROC: 5A1955Z Respiratory Ventilation, Greater than 96 Consecutive Hours (ICD-10-PCS; principal; 2017-06-19)
PROC: 0BH17EZ Insertion of Endotracheal Airway into Trachea, Via Natural or Artificial Opening (ICD-10-PCS; 2017-06-19)
PROC: 0DH67UZ Insertion of Feeding Device into Stomach, Via Natural or Artificial Opening (ICD-10-PCS; 2017-06-29)
DX: S06.331A Contusion and laceration of cerebrum, unspecified, with loss of consciousness of 30 minutes or less, initial encounter (principal); J96.01 Acute respiratory failure with hypoxia; S27.1XXA Traumatic hemothorax, initial encounter; J69.0 Pneumonitis due to inhalation of food and vomit; G93.40 Encephalopathy, unspecified; R56.9 Unspecified convulsions; S22.32XA Fracture of one rib, left side, initial encounter for closed fracture; F10.239 Alcohol dependence with withdrawal, unspecified; J98.11 Atelectasis; R47.01 Aphasia; R13.10 Dysphagia, unspecified; W18.30XA Fall on same level, unspecified, initial encounter; Y93.89 Activity, other specified; Y92.512 Supermarket, store or market as the place of occurrence of the external cause; M19.90 Unspecified osteoarthritis, unspecified site; H91.90 Unspecified hearing loss, unspecified ear; I10 Essential (primary) hypertension; F17.210 Nicotine dependence, cigarettes, uncomplicated; Z96.652 Presence of left artificial knee joint; Z80.3 Family history of malignant neoplasm of breast; Z80.51 Family history of malignant neoplasm of kidney; S01.112A Laceration without foreign body of left eyelid and periocular area, initial encounter; M25.512 Pain in left shoulder; M10.9 Gout, unspecified; E11.9 Type 2 diabetes mellitus without complications; Z79.84 Long term (current) use of oral hypoglycemic drugs; Z78.1 Physical restraint status; Z91.81 History of falling; E87.6 Hypokalemia; F32.9 Major depressive disorder, single episode, unspecified; E87.70 Fluid overload, unspecified
CPT/HCPCS: 31500; 36600; 70450; 71045; 71046; 71275; 72125; 73030; 74018; 80048; 80053; 81001; 82805; 82948; 83735; 84100; 84132; 84484; 85007; 85025; 85027; 85610; 85730; 86403; 87040; 87070; 87205; 87641; 93005; 93971; 94002; 94003; 94150; 94664; 95819; 96374; 96375; J0330; J1650; J1940; J1953; J2060; J2270; J2405; J2543; J3475; J3480; J7030; J7040; J7121; J7613; Q9967

== ENCOUNTER 2017-08-29 10:48 | Inpatient (IN) ==
[2017-08-29] MEDS ORDERED: Sod Chloride 0.9% Inj 1,000 ML IV.SIG ONE (15:29)
[2017-08-29] MEDS ORDERED: HYDROmorphone PF Inj 1 MG/ML Ampul IV.PUSH ONE (15:29)
[2017-08-29] MEDS ORDERED: HYDROmorphone PF Inj 2 MG/ML Vial IV.PUSH ONE ×2 (15:46→18:00)
[2017-08-29 16:06] LABS: Baso % (Auto) 0.4 % (0.0-2.0); Eos # (Auto) 0.2 th/mm3 (0.0-0.4); Eos % (Auto) 1.8 % (0.0-4.0); Hematocrit 40.5 % (39.0-51.0); Hemoglobin 13.8 gm/dL (13.0-17.0); Lymph # (Auto) 1.5 th/mm3 (1.0-4.8); Mean Corpuscular Hemoglobin 33.1 pg (27.0-34.0); Mean Corpuscular Volume 97.3 fL (80.0-100.0); Mean Platelet Volume 7.8 fL (7.0-11.0); Mono # (Auto) 0.9 th/mm3 (0.0-0.9); Mono % (Auto) 9.5 % (0.0-8.0); Neut # (Auto) 7.2 th/mm3 (1.8-7.7); Neut % (Auto) 73.3 % (16.0-70.0); Platelet Count 338 th/mm3 (150-450); Red Blood Count 4.16 mil/mm3 (4.50-5.90); Red Cell Distribution Width 14.5 % (11.6-17.2); White Blood Count 9.9 th/mm3 (4.0-11.0)
--- NOTE | 2017-08-29 16:07 | ED ---
HPI General Chief Complaint: Abdominal Pain Stated Complaint: Follow up Time Seen by Provider: 08/29/17 15:29 Source: patient, family, RN notes reviewed and old records reviewed Mode of arrival: ambulatory History of Present Illness HPI narrative: 67yM presenting with abdominal pain. The patient was seen in our ED 2 days ago for similar symptoms, diagnosed with colitis, and discharged home on cipro/ flagyl, which he has been taking as prescribed. He states that since being discharged, his pain has not improved and today is somewhat worsened. He describes the pain as right middle/ lower abdomen, "sharp", radiating to his back, intermittent, worse with movement and not improved by anything, associated with loss of appetite and nausea. Denies fever or chills, vomiting, diarrhea, or blood in stool. He has had numerous episodes of colitis in the past , once requiring colon resection several years ago in [place]. Family history non-contributory. Related Data Home Medications Medication Instructions Recorded Confirmed amlodipine 10 mg PO DAILY 08/27/17 08/29/17 divalproex 125 mg PO BID 08/27/17 08/29/17 levetiracetam 1,000 mg PO Q12H 08/27/17 08/29/17 metformin 500 mg PO DAILY 08/27/17 08/29/17 metoprolol tartrate 50 mg PO DAILY 08/27/17 08/29/17 omeprazole 20 mg PO DAILY 08/27/17 08/29/17 quetiapine 25 mg PO TID 08/27/17 08/29/17 sertraline 50 mg PO DAILY 08/27/17 08/29/17 Previous Rx's Medication Instructions Recorded ciprofloxacin HCl [Cipro] 500 mg PO Q12H #20 tab 08/27/17 hydrocodone-acetaminophen 1 tab PO Q6H PRN 3 Days #12 tab 08/27/17 metronidazole [Flagyl] 500 mg PO Q8H 7 Days #21 tab 08/27/17 Allergies Allergy/AdvReac Type Severity Reaction Status Date / Time No Known Allergies Allergy Verified 08/27/17 02:42 Review of Systems Except as stated in HPI: all other systems reviewed are negative Constitutional Denies fever(s) Eyes Denies blurry vision ENT Reports nasal congestion Cardiovascular Denies chest pain Respiratory Denies cough Gastrointestinal Denies diarrhea and Reports nausea Genitourinary Denies dysuria Integumentary/Breasts Denies rash Neurologic Denies confusion Psychiatric Denies confusion PMFSH History History Provided By: Patient Medical History Medical History Anxiety (Acute) Colitis (Acute) Depression (Acute) Diabetes mellitus (Acute) Hypertension (Acute) Seizure (Acute) Surgical History Surgical History H/O arthroscopy of right knee (Acute) History of appendectomy (Acute) History of bowel resection (Acute) History of left knee replacement (Acute) Hx of tonsillectomy (Acute) Social History Social History Substance History: No History of Abuse Second Hand Smoke Exposure: No Smoking Status: Former smoker Tobacco Type: Cigarettes How Often Do You Have a Drink Containing Alcohol: 2 to 4 times a month Recent Travel in [facility] within the Last 8 Weeks: No Recent Out of Country Travel within the Last 8 Weeks: No Immunization History Tetanus Immunization: Unsure Hx Influenza Vaccine This Season: Yes Exam Const Other: Appears uncomfortable, not distressed [facility] Head: normocephalic and atraumatic Face and sinus: normal facial exam Eyes General: appearance normal, both eyes and all related structures Pupils: PERRL Chest Chest: normal inspection of the chest Resp Effort & Inspection: normal respiratory effort Auscultation: no rhonchi and no wheezes Cardio Rate: regular rate Rhythm: regular rhythm GI Other: Abdomen soft, non-distended, moderately tender in right lower/ mid- abdomen, no guarding or rebound, negative Hathaway's sign Skin General: no rashes or lesions noted Neuro General: alert, awake, oriented x3 and no focal motor deficits Psych Affect: normal affect Course Initial Documented Vital Signs Temperature 98.2 F 08/29/17 11:42 Pulse Rate 82 08/29/17 11:42 Respiratory Rate 16 08/29/17 11:42 Blood Pressure 128/71 08/29/17 11:42 Pulse Oximetry 97 08/29/17 11:42 Last Documented Vital Signs Temperature 98.2 F 08/29/17 11:42 Pulse Rate 79 08/29/17 17:27 Respiratory Rate 18 08/29/17 17:27 Blood Pressure 136/75 08/29/17 17:27 Pulse Oximetry 98 07/13/18 17:27 Medical Decision Making MDM Narrative Medical decision making narrative: Assessment: 67yM returning with abdominal pain, recent diagnosis of colitis Plan: Pain control IV fluids Labs, including lipase CT abd/ pelvis Reassess Addendum: Patient found to have continued colitis and pain despite appropriate outpatient therapy. He will need IV antibiotics, IV fluids, and re-evaluation at frequent intervals. I discussed the results of all labs and imaging as well as plan to keep the patient for observation; he understands and agrees with plan. Case discussed with Dr. Howard of [facility]. Differential Diagnosis Differential Diagnosis: Differential diagnosis includes, but is not limited to: colitis, diverticulitis, colonic perforation, volvulus, pancreatitis Medical Records Medical records reviewed: Yes I reviewed the patient's medical records. Lab Data Lab results reviewed: Yes I reviewed the patient's lab results. Result diagrams: 08/29/17 15:30 08/29/17 15:30 Lab Results 08/29/17 08/29/17 08/29/17 Range/Units 15:30 15:30 15:30 WBC 9.9 (4.0-11.0) th/mm3 RBC 4.16 L (4.50-5.90) mil/mm3 Hgb 13.8 (13.0-17.0) gm/dL Hct 40.5 (39.0-51.0) % MCV 97.3 (80.0-100.0) fL MCH 33.1 (27.0-34.0) pg MCHC 34.0 (32.0-36.0) % RDW 14.5 (11.6-17.2) % Plt Count 338 D (150-450) th/mm3 MPV 7.8 (7.0-11.0) fL Neut % (Auto) 73.3 H (16.0-70.0) % Lymph % (Auto) 15.0 (9.0-44.0) % [place] % (Auto) 9.5 H (0.0-8.0) % Eos % (Auto) 1.8 (0.0-4.0) % Baso % (Auto) 0.4 (0.0-2.0) % Neut # (Auto) 7.2 (1.8-7.7) th/mm3 Lymph # (Auto) 1.5 (1.0-4.8) th/mm3 [place] # (Auto) 0.9 (0.0-0.9) th/mm3 Eos # (Auto) 0.2 (0.0-0.4) th/mm3 Baso # (Auto) 0.0 (0.0-0.2) th/mm3 WBC Differential . Differential Comment Auto diff final PT 12.0 H (9.8-11.6) sec INR 1.2 Ratio Sodium 138 (136-145) meq/L Potassium 4.1 (3.5-5.1) meq/L Chloride 102 (98-107) meq/L Carbon Dioxide 25.5 (21.0-32.0) meq/L Anion Gap 11 (5-15) meq/L BUN 20 H (7-18) mg/dL Creatinine 0.82 (0.60-1.30) mg/dL Estimated GFR Greater than 89 (>89) mL/min Random Glucose 107 H (74-106) mg/dL Calcium 9.7 (8.5-10.1) mg/dL Total Bilirubin 0.8 (0.2-1.0) mg/dL AST 15 (15-37) U/L ALT 18 (12-78) U/L Alkaline Phosphatase 97 (45-117) U/L Total Protein 8.3 H D (6.4-8.2) g/dL Albumin 3.6 (3.4-5.0) g/dL Lipase 140 (73-393) U/L Urine Color (Yellw/Straw) Urine Clarity (Clear) Urine pH (5.0-8.5) Ur Specific [place] (1.002-1.035) Urine Protein (Neg-Trace) mg/dL Urine Glucose (UA) (Negative) mg/dL Urine Ketones (Negative) mg/dL Urine Occult Blood (Negative) Urine Nitrate (Negative) Urine Bilirubin (Negative) Urine Urobilinogen (Less than 2) mg/dL Ur Leukocyte Esterase (Negative) Urine WBC (0-5) /hpf Micro UA Comment Urine Culture Comments 08/29/17 Range/Units 15:40 WBC (4.0-11.0) th/mm3 RBC (4.50-5.90) mil/mm3 Hgb (13.0-17.0) gm/dL Hct (39.0-51.0) % MCV (80.0-100.0) fL MCH (27.0-34.0) pg MCHC (32.0-36.0) % RDW (11.6-17.2) % Plt Count (150-450) th/mm3 MPV (7.0-11.0) fL Neut % (Auto) (16.0-70.0) % Lymph % (Auto) (9.0-44.0) % [place] % (Auto) (0.0-8.0) % Eos % (Auto) (0.0-4.0) % Baso % (Auto) (0.0-2.0) % Neut # (Auto) (1.8-7.7) th/mm3 Lymph # (Auto) (1.0-4.8) th/mm3 [place] # (Auto) (0.0-0.9) th/mm3 Eos # (Auto) (0.0-0.4) th/mm3 Baso # (Auto) (0.0-0.2) th/mm3 WBC Differential Differential Comment PT (9.8-11.6) sec INR Ratio Sodium (136-145) meq/L Potassium (3.5-5.1) meq/L Chloride (98-107) meq/L Carbon Dioxide (21.0-32.0) meq/L Anion Gap (5-15) meq/L BUN (7-18) mg/dL Creatinine (0.60-1.30) mg/dL Estimated GFR (>89) mL/min Random Glucose (74-106) mg/dL Calcium (8.5-10.1) mg/dL Total Bilirubin (0.2-1.0) mg/dL AST (15-37) U/L ALT (12-78) U/L Alkaline Phosphatase (45-117) U/L Total Protein (6.4-8.2) g/dL Albumin (3.4-5.0) g/dL Lipase (73-393) U/L Urine Color Yellow (Yellw/Straw) Urine Clarity Clear (Clear) Urine pH 5.0 (5.0-8.5) Ur Specific [place] 1.020 (1.002-1.035) Urine Protein Negative (Neg-Trace) mg/dL Urine Glucose (UA) Negative (Negative) mg/dL Urine Ketones Negative (Negative) mg/dL Urine Occult Blood Negative (Negative) Urine Nitrate Negative (Negative) Urine Bilirubin Negative (Negative) Urine Urobilinogen 2.0 H (Less than 2) mg/dL Ur Leukocyte Esterase Trace H (Negative) Urine WBC 1 (0-5) /hpf Micro UA Comment Culture not ind Urine Culture Comments Culture not ind Imaging Data Radiologist's impression: Abdomen/Pelvis CT 08/29/17 15:29 CONCLUSION: 1. Probable hernia at site of old appendectomy scar at does contain fat. 2. There are inflammatory changes or postsurgical changes in the pericecal fat. 3. Patient has history of previous appendicitis. 4. Extensive vascular calcifications 5. Prominent gallbladder with trace ascites. Discharge Plan Discharge Disposition Patient Disposition: 30 Still Patient Discharge Condition Condition: Stable Discharge Details Diagnosis: Colitis, Acute dehydration Physicians Team ED Provider: Becky Escobar Primary Care Provider: Siri Rodriguez Attending Provider: Neeta Howard Other Providers: Angela Coy Discharge Interventions Interventions: Vital Signs Last Done: 08/29/17 17:27 Status ED Status: Admitted Observation Patient
[2017-08-29 16:13] LABS: Bilirubin,Urine Negative (Negative); Clarity,Urine Clear (Clear); Color,Urine Yellow (Yellw/Straw); Glucose,Urine (UA) Negative (Negative); Leukocyte Esterase,Urine Trace (Negative); Nitrite,Urine Negative (Negative)
[2017-08-29 16:16] LABS: Alanine Aminotransferase 18 U/L (12-78); Albumin 3.6 g/dL (3.4-5.0); Anion Gap 11 meq/L (5-15); Aspartate Aminotransferase 15 U/L (15-37); Blood Urea Nitrogen 20 mg/dL (7-18); Calcium 9.7 mg/dL (8.5-10.1); Carbon Dioxide 25.5 meq/L (21.0-32.0); Chloride 102 meq/L (98-107); Glomerular Filtration Rate Greater Than 89 mL/min (>89); Glucose,Random 107 mg/dL (74-106); INR 1.2 Ratio; Lipase 140 U/L (73-393); Potassium 4.1 meq/L (3.5-5.1); Sodium 138 meq/L (136-145)
[2017-08-29 16:19] LABS: Alkaline Phosphatase 97 U/L (45-117); Total Protein 8.3 g/dL (6.4-8.2)
--- NOTE | 2017-08-29 17:41 | CT ---
EXAM DATE: 08/29/2017 5:32 PM EDT AGE/SEX: 67 years / Male INDICATIONS: Abdominal pain in right lower quadrant. CLINICAL DATA: This is the patient's initial encounter. Patient reports that signs and symptoms have been present for 1 day and indicates a pain score of 3/10. MEDICAL/SURGICAL HISTORY: . Colitis, diabetes, hypertension, seizures. Appendectomy. Tonsille ctomy. Bowel resection. Left knee replacement, right knee arthroscopy. ORAL CONTRAST: No oral contrast ingested. RADIATION DOSE: 9.21 CTDI (mGy) COMPARISON: [facility] [place]BDOM[place] & PELVIS W CONTRAST, 08/27/2017. . TECHNIQUE: Multiple contiguous axial images were obtained through the abdomen and pelvis following b olus infusion of 93 ml Omnipaque 350 (iohexol) nonionic water-soluble contrast as a single exam dos e. No oral contrast ingested. Using automated exposure control and adjustment of the mA and/or kV ac cording to patient size, radiation dose was kept as low as reasonably achievable to obtain optimal di agnostic quality images. DICOM format image data is available electronically for review and comparis on. FINDINGS: Minimal parental changes right base. Mild cardiomegaly without pericardial effusion 2 small less than 1 cm hypodensities in liver too small to characterize. Trace ascites Prominent gallbladder without inflammatory changes Pancreas and spleen unremarkable Adrenal glands appear normal Symmetrical renal function without renal mass. Large amount of stool is seen in the right lower quadrant. There is a small rectus hernia containing only fat evident. There are either inflammatory changes or postsurgical changes just above the right iliac crest. This may be a small hernia for no foraminal appendectomy scar. Extensive vascular calcifications are seen. Multiple diverticuli are present in sigmoid colon without diverticulitis. CONCLUSION: 1. Probable hernia at site of old appendectomy scar at does contain fat. 2. There are inflammatory changes or postsurgical changes in the pericecal fat. 3. Patient has history of previous appendicitis. 4. Extensive vascular calcifications 5. Prominent gallbladder with trace ascites. Electronically signed by: Zachariah Domingo MD 08/29/2017 5:40 PM EDT
[2017-08-29] MEDS ORDERED: Piperacil/Tazo 3.375 GM Premix 50 ML IV.SIG ONE (18:01)
[2017-08-29] MEDS ORDERED: Temazepam 15 MG Capsule PO PRN (19:12)
[2017-08-29] MEDS ORDERED: Acetaminophen 325 MG Tablet PO PRN (19:12)
[2017-08-29] MEDS ORDERED: Bisacodyl 10 MG Supp RECTAL PRN (19:12)
--- NOTE | 2017-08-29 19:14 | P.HPIM ---
History of Present Illness Primary Care Physician: Siri Rodriguez MD History of Present Illness: This is a 67-year-old male with a PMH of Diverticulitis s/p Resection, HTN, DM and Seizure Disorder who presented to the ER w/ complaints of abdominal pain. Seen in ER on 08/27/17 for similar complaints, CT Abd/Pelvis 08/27/17 w/ evidence of colitis, d/c'd home on Cipro/Flagyl, reports compliance w/ medications, however no improvement in pain complaints. Pain is intermittent, sharp, severe , 10/10, non-radiating. No associated nausea, vomiting or diarrhea. On arrival , BP 161/70, HR 78, O2 sat 98% on RA, Afebrile. CBC essentially unremarkable. Chemistry essentially unremarkable. UA negative. CT Abdomen/Pelvis with probable hernia at site of previous appendectomy, inflammatory changes. S/p multiple doses of pain medication w/ minimal improvement. - Diagnosis (1) Intractable abdominal pain (2) DM (diabetes mellitus) (3) Seizure disorder Inpatient Certification: I certify that the inpatient services were ordered in accordance with Medicare regulations governing the order. This includes certification that hospital inpatient services are reasonable and necessary and in the case of services not specified as inpatient-only under 42 CFR 419.22(n), that they are appropriately provided as inpatient services in accordance to with the 2-midnight benchmark under 43 CFR 412.3(e) Review of Systems All other systems reviewed negative except as stated in HPI PMFSH - History History Provided By: Patient - Medical History Medical History: Medical History (Last Reviewed 08/29/17 @ 16:16 by Becky Escobar DO) Anxiety Colitis Depression Diabetes mellitus Hypertension Seizure - Surgical History Surgical History: Surgical History (Last Reviewed 08/29/17 @ 16:16 by Becky Escobar DO) H/O arthroscopy of right knee History of appendectomy History of bowel resection History of left knee replacement Hx of tonsillectomy - Tobacco History Second Hand Smoke Exposure: No Tobacco Use In Past 30 Days: No Smoking Status: Former smoker Tobacco Type: Cigarettes - Alcohol History How Often Do You Have a Drink Containing Alcohol: 2 to 4 times a month - Substance Use History Substance History: No History of Abuse - Travel History Recent Travel in the [place] Within the Last 8 Weeks: No Recent Travel Out of the Country Within the Last 8 Weeks: No - Immunization History Tetanus Immunization: Unsure Hx Influenza Vaccine This Season: Yes Medications and Allergies Active Medications: Active Medications Sodium Chloride (Ns Inj) 1,000 mls @ 100 mls/hr IV.CONT .Q10H JULIANN Allergies Allergy/AdvReac Type Severity Reaction Status Date / Time No Known Allergies Allergy Verified 08/27/17 02:42 Home Medications Medication Instructions Recorded Confirmed Type amlodipine 10 mg PO DAILY 08/27/17 08/29/17 History divalproex 125 mg PO BID 08/27/17 08/29/17 History levetiracetam 1,000 mg PO Q12H 08/27/17 08/29/17 History metformin 500 mg PO DAILY 08/27/17 08/29/17 History metoprolol tartrate 50 mg PO DAILY 08/27/17 08/29/17 History omeprazole 20 mg PO DAILY 08/27/17 08/29/17 History quetiapine 25 mg PO TID 08/27/17 08/29/17 History sertraline 50 mg PO DAILY 08/27/17 08/29/17 History Exam Vital signs: Vital Signs 08/29/17 11:42 08/29/17 11:52 08/29/17 15:52 Temperature 98.2 F Pulse Rate 82 81 78 Respiratory Rate 16 18 18 Blood Pressure 128/71 161/78 H 161/78 H Pulse Oximetry 97 97 98 08/29/17 17:27 Temperature Pulse Rate 79 Respiratory Rate 18 Blood Pressure 136/75 Pulse Oximetry 98 Intake & Output 08/29/17 08/29/17 08/30/17 06:59 18:59 06:59 Weight 79.379 kg Narrative: PE: GENERAL: Pleasant middle-aged white male in no acute distress. HEENT: PERRLA, EOMI. No scleral icterus or conjunctival pallor. No lid lag or facial droop. CARDIOVASCULAR: Regular rate and rhythm. No obvious murmurs to auscultation. No chest tenderness to palpation. RESPIRATORY: No obvious rhonchi or wheezing. Clear to auscultation. Breath sounds equal bilaterally. GASTROINTESTINAL: Abdomen soft, RLQ tenderness to palpation, nondistended. BS normal. MUSCULOSKELETAL: Extremities without clubbing, cyanosis, or edema. No obvious deformities. NEUROLOGICAL: Awake, alert and oriented x4. No focal neurologic deficits. Moving both upper and lower extremities spontaneously. Results - Labs CBC & Chem 7: 08/29/17 15:30 08/29/17 15:30 Labs: Short CBC 08/29/17 Range/Units 15:30 WBC 9.9 (4.0-11.0) th/mm3 Hgb 13.8 (13.0-17.0) gm/dL Hct 40.5 (39.0-51.0) % Plt Count 338 D (150-450) th/mm3 BMP 08/29/17 15:30 Sodium 138 Potassium 4.1 Chloride 102 Carbon Dioxide 25.5 BUN 20 H Creatinine 0.82 Calcium 9.7 Liver Function 08/29/17 Range/Units 15:30 Total Bilirubin 0.8 (0.2-1.0) mg/dL AST 15 (15-37) U/L ALT 18 (12-78) U/L Alkaline Phosphatase 97 (45-117) U/L Albumin 3.6 (3.4-5.0) g/dL Urine 08/29/17 Range/Units 15:40 Urine Color Yellow (Yellw/Straw) Urine Clarity Clear (Clear) Urine pH 5.0 (5.0-8.5) Ur Specific [place] 1.020 (1.002-1.035) Urine Protein Negative (Neg-Trace) mg/dL Urine Glucose (UA) Negative (Negative) mg/dL - Imaging Impressions Abdomen/Pelvis CT 08/29/17 15:29 CONCLUSION: 1. Probable hernia at site of old appendectomy scar at does contain fat. 2. There are inflammatory changes or postsurgical changes in the pericecal fat. 3. Patient has history of previous appendicitis. 4. Extensive vascular calcifications 5. Prominent gallbladder with trace ascites. Caprini VTE Risk Assessment Caprini VTE Risk Assessment: No/Low Risk (score <= 1) Caprini Risk Assessment Model: Point Value = 1 Point Value = 2 Point Value = 3 Point Value = 5 Age 41-60 Minor surgery BMI > 25 kg/m2 Swollen legs Varicose veins or History of unexplained or recurrent spontaneous Oral contraceptives or hormone replacement Sepsis (< 1 month) Serious lung disease, including pneumonia (< 1 month) Abnormal pulmonary function Acute myocardial infarction Congestive heart failure (< 1 month) History of inflammatory bowel disease Medical patient at bed rest Age 61-74 Arthroscopic surgery Major open surgery (> 45 min) Laparoscopic surgery (> 45 min) Malignancy Confined to bed (> 72 hours) Immobilizing plaster cast Central venous access Age >= 75 History of VTE Family history of VTE Factor V Leiden Prothrombin [id number] Lupus anticoagulant Anticardiolipin antibodies Elevated serum homocysteine Heparin-induced thrombocytopenia Other congenital or acquired thrombophilia Stroke (< 1 month) Elective arthroplasty Hip, pelvis, or leg fracture Acute spinal cord injury (< 1 month) Prophylaxis Regimen: Total Risk Factor Score Risk Level Prophylaxis Regimen 0-1 Low Early ambulation 2 Moderate Order ONE of the following: *Sequential Compression Device (SCD) *Heparin 5000 units SQ BID 3-4 Higher Order ONE of the following medications: *Heparin 5000 units SQ TID *Enoxaparin/Lovenox 40 mg SQ daily (WT < 150 kg, CrCl > 30 mL/min) *Enoxaparin/Lovenox 30 mg SQ daily (WT < 150 kg, CrCl > 10-29 mL/min) *Enoxaparin/Lovenox 30 mg SQ BID (WT < 150 kg, CrCl > 30 mL/min) AND/OR *Sequential Compression Device (SCD) 5 or more Highest Order ONE of the following medications: *Heparin 5000 units SQ TID (Preferred with Epidurals) *Enoxaparin/Lovenox 40 mg SQ daily (WT < 150 kg, CrCl > 30 mL/min) *Enoxaparin/Lovenox 30 mg SQ daily (WT < 150 kg, CrCl > 10-29 mL/min) *Enoxaparin/Lovenox 30 mg SQ BID (WT < 150 kg, CrCl > 30 mL/min) AND *Sequential Compression Device (SCD) Assessment and Plan - Assessment (1) Intractable abdominal pain Code(s): R10.9 - Unspecified abdominal pain Status: Acute (2) DM (diabetes mellitus) Code(s): E11.9 - Type 2 diabetes mellitus without complications Status: Acute (3) Seizure disorder Code(s): G40.909 - Epilepsy, unspecified, not intractable, without status epilepticus Status: Acute - Plan A/P: 1. Intractable Abd Pain: secondary to persistent colitis, recent ER presentation 08/27/17 s/p Cipro/Flagyl, CT Abd/Pelvis today w/ some inflammatory changes, images reviewed by me. Will Consult GI for eval/possible colonoscopy due to persistent colitis. S/p Zosyn, will continue w/ IV Abx. IVF, analgesics /antiemetics as needed. 2. 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 3. DM: Sliding scale w/ Accu-cheks. Hold Metformin for now. 4. DVT Prophylaxis: SCD/Teds 5. Social work for d/c planning as needed. 6. Case discussed w/ ER physician at length, labs/records/imaging reviewed by me.
[2017-08-29] MEDS ORDERED: Dextrose 50% in Water 50 ML Vial IV.PUSH PRN (20:27)
[2017-08-29] MEDS: Sod Chloride 0.9% Inj 1,000 ML IV.CONT SCH ×2 (20:35→20:37)
[2017-08-29] MEDS: levETIRAcetam 500 MG Tablet PO SCH (21:02)
[2017-08-29] MEDS: Divalproex 125 MG Sprinkles Capsule PO SCH (21:03)
[2017-08-29] MEDS: Senna/Docusate Sodium 8.6/50 MG Tablet PO SCH (21:03)
[2017-08-29] MEDS: Insulin NovoLOG Aspart Correctional Sugar Inj SQ SCH (21:18)
[2017-08-29] MEDS: HYDROmorphone PF Inj 2 MG/ML Vial IV.PUSH PRN (23:27)
[2017-08-30] MEDS: Piperacil/Tazo 4.5 GM Premix 4.5 GM/100 ML BAG IV.SIG SCH ×4 (01:00→18:43)
[2017-08-30] MEDS: Sod Chloride 0.9% Inj 1,000 ML IV.CONT SCH ×4 (03:29→16:51)
[2017-08-30] MEDS: HYDROmorphone PF Inj 2 MG/ML Vial IV.PUSH PRN ×5 (03:32→22:33)
[2017-08-30 07:14] LABS: Baso % (Auto) 0.4 % (0.0-2.0); Eos # (Auto) 0.1 th/mm3 (0.0-0.4); Eos % (Auto) 2.5 % (0.0-4.0); Hemoglobin 12.1 gm/dL (13.0-17.0); Lymph # (Auto) 1.1 th/mm3 (1.0-4.8); Lymph % (Auto) 18.6 % (9.0-44.0); Mean Corpuscular HGB Conc 33.7 % (32.0-36.0); Mean Corpuscular Hemoglobin 33.2 pg (27.0-34.0); Mean Corpuscular Volume 98.5 fL (80.0-100.0); Mean Platelet Volume 7.8 fL (7.0-11.0); Mono # (Auto) 0.6 th/mm3 (0.0-0.9); Mono % (Auto) 10.2 % (0.0-8.0); Neut # (Auto) 3.9 th/mm3 (1.8-7.7); Neut % (Auto) 68.3 % (16.0-70.0); Platelet Count 281 th/mm3 (150-450); Red Blood Count 3.66 mil/mm3 (4.50-5.90); Red Cell Distribution Width 14.2 % (11.6-17.2); White Blood Count 5.8 th/mm3 (4.0-11.0)
[2017-08-30 08:17] LABS: Alanine Aminotransferase 14 U/L (12-78); Albumin 2.9 g/dL (3.4-5.0); Alkaline Phosphatase 78 U/L (45-117); Anion Gap 12 meq/L (5-15); Aspartate Aminotransferase 9 U/L (15-37); Blood Urea Nitrogen 15 mg/dL (7-18); Calcium 8.8 mg/dL (8.5-10.1); Carbon Dioxide 23.1 meq/L (21.0-32.0); Chloride 104 meq/L (98-107); Glomerular Filtration Rate Greater Than 89 mL/min (>89); Glucose,Random 92 mg/dL (74-106); Potassium 3.9 meq/L (3.5-5.1); Sodium 139 meq/L (136-145); Total Protein 6.7 g/dL (6.4-8.2)
[2017-08-30] MEDS: Insulin NovoLOG Aspart Correctional Sugar Inj SQ SCH ×4 (08:32→21:16)
[2017-08-30] MEDS: Sertraline 50 MG Tablet PO SCH (08:33)
[2017-08-30] MEDS: levETIRAcetam 500 MG Tablet PO SCH ×2 (08:33→20:18)
[2017-08-30] MEDS: amLODIPine 10 MG Tablet PO SCH (08:33)
[2017-08-30] MEDS: QUEtiapine 25 MG Tablet PO SCH ×3 (08:33→18:40)
[2017-08-30] MEDS: Senna/Docusate Sodium 8.6/50 MG Tablet PO SCH ×2 (08:33→20:17)
[2017-08-30] MEDS: Metoprolol Tartrate 50 MG Tablet PO SCH (08:33)
[2017-08-30] MEDS: Pantoprazole Sodium 20 MG DR Tablet PO SCH (08:33)
[2017-08-30] MEDS: Divalproex 125 MG Sprinkles Capsule PO SCH ×2 (09:00→20:17)
--- NOTE | 2017-08-30 09:56 | P.PN ---
Subjective Interval history: Follow up for colitis, failed outpatient therapy. The patient reports continued abdominal pain, worse at RLQ, described as sharp pains. Denies any nausea/ vomiting. Tolerating oral intake. Denies fevers/chills. Denies any other medical complaints at this time. Physical Exam Vital signs: Vital Signs 08/29/17 11:42 08/29/17 11:52 08/29/17 15:52 Temperature 98.2 F Pulse Rate 82 81 78 Respiratory Rate 16 18 18 Blood Pressure 128/71 161/78 H 161/78 H Pulse Oximetry 97 97 98 08/29/17 17:27 08/29/17 19:15 08/29/17 21:08 Temperature Pulse Rate 79 80 76 Respiratory Rate 18 18 18 Blood Pressure 136/75 137/88 140/83 Pulse Oximetry 98 96 08/29/17 23:25 08/30/17 00:31 08/30/17 02:46 Temperature 98.5 F 97.7 F Pulse Rate 79 77 Respiratory Rate 16 16 16 Blood Pressure 128/82 119/77 Pulse Oximetry 95 96 08/30/17 05:16 08/30/17 05:23 08/30/17 08:38 Temperature 98.2 F Pulse Rate 68 Respiratory Rate 16 16 20 Blood Pressure 117/75 Pulse Oximetry 98 Intake & Output 08/29/17 08/30/17 08/30/17 18:59 06:59 18:59 Intake Total 1150 / 1150 Output Total 1800 / 1800 Balance -650 / -650 Weight 79.379 kg Intake: IV 1150 / 1150 NS Inj 1,000 ML @ 100 mls/hr IV 1000 / 1000 .CONT .Q10H JULIANN Rx#:[id number] Zosyn 3.375 GM Premix 50 ML @ 50 / 50 100 mls/hr IV.SIG ONCE ONE Rx#: [id number] Zosyn 4.5 GM Premix 4.5 gm In 100 / 100 100 ml @ 200 mls/hr IV.SIG Q6H JULIANN Rx#:[id number] Output: Urine 1800 / 1800 Narrative: GENERAL: Well-nourished, well-developed pleasant male patient in [facility]. SKIN: Warm and dry. No rash. HEENT: Normocephalic. Atraumatic. Pupils equal and round. Mucous membranes pink and moist. CARDIOVASCULAR: Regular rate and rhythm. No murmur appreciated. RESPIRATORY: No accessory muscle use. Clear to auscultation. Breath sounds equal bilaterally. GASTROINTESTINAL: Abdomen soft, nondistended, moderate TTP at RLQ. Normoactive bowel sounds x4. MUSCULOSKELETAL: No obvious deformities. Extremities without clubbing, cyanosis , or edema. NEUROLOGICAL: Awake and alert. No obvious cranial nerve deficits. Motor grossly within normal limits. Moving all extremities spontaneously. Normal speech. PSYCHIATRIC: Appropriate mood and affect; insight and judgment normal. Results - Labs CBC & Chem 7: 08/30/17 05:10 08/30/17 05:10 Laboratory Results - last 24 hr 08/29/17 08/29/17 08/29/17 15:30 15:30 15:30 WBC 9.9 RBC 4.16 L Hgb 13.8 Hct 40.5 MCV 97.3 MCH 33.1 MCHC 34.0 RDW 14.5 Plt Count 338 D MPV 7.8 Neut % (Auto) 73.3 H Lymph % (Auto) 15.0 [place] % (Auto) 9.5 H Eos % (Auto) 1.8 Baso % (Auto) 0.4 Neut # (Auto) 7.2 Lymph # (Auto) 1.5 [place] # (Auto) 0.9 Eos # (Auto) 0.2 Baso # (Auto) 0.0 WBC Differential . Differential Comment Auto diff final PT 12.0 H INR 1.2 Sodium 138 Potassium 4.1 Chloride 102 Carbon Dioxide 25.5 Anion Gap 11 BUN 20 H Creatinine 0.82 Estimated GFR Greater than 89 POC Glucose Random Glucose 107 H Calcium 9.7 Total Bilirubin 0.8 AST 15 ALT 18 Alkaline Phosphatase 97 Total Protein 8.3 H D Albumin 3.6 Lipase 140 Urine Color Urine Clarity Urine pH Ur Specific [place] Urine Protein Urine Glucose (UA) Urine Ketones Urine Occult Blood Urine Nitrate Urine Bilirubin Urine Urobilinogen Ur Leukocyte Esterase Urine WBC Micro UA Comment Urine Culture Comments 08/29/17 08/29/17 08/30/17 15:40 21:15 05:10 WBC 5.8 RBC 3.66 L Hgb 12.1 L Hct 36.0 L MCV 98.5 MCH 33.2 MCHC 33.7 RDW 14.2 Plt Count 281 MPV 7.8 Neut % (Auto) 68.3 Lymph % (Auto) 18.6 [place] % (Auto) 10.2 H Eos % (Auto) 2.5 Baso % (Auto) 0.4 Neut # (Auto) 3.9 Lymph # (Auto) 1.1 [place] # (Auto) 0.6 Eos # (Auto) 0.1 Baso # (Auto) 0.0 WBC Differential . Differential Comment Auto diff final PT INR Sodium Potassium Chloride Carbon Dioxide Anion Gap BUN Creatinine Estimated GFR POC Glucose 111 H Random Glucose Calcium Total Bilirubin AST ALT Alkaline Phosphatase Total Protein Albumin Lipase Urine Color Yellow Urine Clarity Clear Urine pH 5.0 Ur Specific [place] 1.020 Urine Protein Negative Urine Glucose (UA) Negative Urine Ketones Negative Urine Occult Blood Negative Urine Nitrate Negative Urine Bilirubin Negative Urine Urobilinogen 2.0 H Ur Leukocyte Esterase Trace H Urine WBC 1 Micro UA Comment Culture not ind Urine Culture Comments Culture not ind 08/30/17 08/30/17 05:10 08:00 WBC RBC Hgb Hct MCV MCH MCHC RDW Plt Count MPV Neut % (Auto) Lymph % (Auto) [place] % (Auto) Eos % (Auto) Baso % (Auto) Neut # (Auto) Lymph # (Auto) [place] # (Auto) Eos # (Auto) Baso # (Auto) WBC Differential Differential Comment PT INR Sodium 139 Potassium 3.9 Chloride 104 Carbon Dioxide 23.1 Anion Gap 12 BUN 15 Creatinine 0.70 Estimated GFR Greater than 89 POC Glucose 125 H Random Glucose 92 Calcium 8.8 D Total Bilirubin 0.8 AST 9 L ALT 14 Alkaline Phosphatase 78 Total Protein 6.7 D Albumin 2.9 L D Lipase Urine Color Urine Clarity Urine pH Ur Specific [place] Urine Protein Urine Glucose (UA) Urine Ketones Urine Occult Blood Urine Nitrate Urine Bilirubin Urine Urobilinogen Ur Leukocyte Esterase Urine WBC Micro UA Comment Urine Culture Comments - Imaging Impressions Abdomen/Pelvis CT 08/29/17 15:29 CONCLUSION: 1. Probable hernia at site of old appendectomy scar at does contain fat. 2. There are inflammatory changes or postsurgical changes in the pericecal fat. 3. Patient has history of previous appendicitis. 4. Extensive vascular calcifications 5. Prominent gallbladder with trace ascites. Assessment and Plan - Assessment (1) Intractable abdominal pain Code(s): R10.9 - Unspecified abdominal pain Status: Acute (2) DM (diabetes mellitus) Code(s): E11.9 - Type 2 diabetes mellitus without complications Status: Acute (3) Seizure disorder Code(s): G40.909 - Epilepsy, unspecified, not intractable, without status epilepticus Status: Acute - Plan 67-year-old male with a PMH of Diverticulitis s/p Resection, HTN, DM and Seizure Disorder who presented to the ER w/ complaints of abdominal pain. Seen in ER on 08/27/17 for similar complaints, CT Abd/Pelvis 08/27/17 w/ evidence of colitis, d/c'd home on Cipro/Flagyl, reports compliance w/ medications, however no improvement in pain complaints. Acute Colitis, Failed Outpatient Therapy: with intractable abdominal pain. Recent ER presentation 08/27/17 s/p Cipro/Flagyl, returns with continued abdominal pain. -CT Abd/Pelvis upon arrival w/ some inflammatory changes, images reviewed by me. 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 DM: chronic -Sliding scale w/ Accu-cheks. -Hold Metformin for now. DVT Prophylaxis: SCD/Teds Discharge Planning: Plan for colonoscopy on Friday 09/01.
--- NOTE | 2017-08-30 10:05 | P.CONGI ---
History of Present Illness Consult date: 08/30/17 Consult reason: Recurrent colitis Chief complaint: Colitis History of Present Illness: This is a 67 yo M with GI history significant for diverticulitis S/P resection he states approximately 25 years ago in [place]. He reports no issues with his bowels after the surgery until the beginning of this year. Since the beginning of this year he has had intermittent abdominal pains that he has been seen in the ER for. Imaging in March revealed colitis as well as imaging done three days ago in the ER. Pt is complaining of pain to his RLQ, that he states is sharp, intermittent. Pain is worse with movement. Denies any changes in bowel habits, blood in stool, nausea, vomiting. Does reports an unintentional weight loss of 30 lbs over the past 9 months. Pt reports a colonoscopy a year and a half ago as well as EGD, states both exams were normal. He is unsure who or where procedures were done. Denies family history of UC, Crohns, and colon cancer. Pt reports was previously drinking alcohol daily until he quit on June 18. Also quit smoking at that same time. Denies illicit drug use. <Nataly Zhong - Last Filed: 08/30/17 09:50> Review of Systems Gastrointestinal: Reports abdominal pain, Denies black, tarry stools, Denies bright, red blood in stools, Denies change in bowel habits, Denies nausea, Denies vomiting Comments: unintentional weight loss <Nataly Zhong - Last Filed: 08/30/17 09:50> [facility] - History History Provided By: Patient - Medical History Medical History: Medical History (Last Reviewed 08/29/17 @ 16:16 by Becky Escobar DO) Anxiety Colitis Depression Diabetes mellitus Hypertension Seizure - Surgical History Surgical History: Surgical History (Last Reviewed 08/29/17 @ 16:16 by Becky Escobar DO) H/O arthroscopy of right knee History of appendectomy History of bowel resection History of left knee replacement Hx of tonsillectomy - Tobacco History Second Hand Smoke Exposure: No Tobacco Use In Past 30 Days: No Smoking Status: Former smoker Tobacco Type: Cigarettes - Alcohol History How Often Do You Have a Drink Containing Alcohol: 2 to 4 times a month - Substance Use History Substance History: No History of Abuse - Travel History Recent Travel in the [facility] [place] Within the Last 8 Weeks: No Recent Travel Out of the Country Within the Last 8 Weeks: No - Immunization History Tetanus Immunization: Unsure Hx Influenza Vaccine This Season: Yes <Nataly Zhong - Last Filed: 08/30/17 09:50> - Medical History Medical History: Medical History (Last Reviewed 08/29/17 @ 16:16 by Becky Escobar DO) Anxiety Colitis Depression Diabetes mellitus Hypertension Seizure - Surgical History Surgical History: Surgical History (Last Reviewed 08/29/17 @ 16:16 by Becky Escobar DO) H/O arthroscopy of right knee History of appendectomy History of bowel resection History of left knee replacement Hx of tonsillectomy <Angela Coy - Last Filed: 08/30/17 20:47> Medications and Allergies Active Medications: Active Medications Acetaminophen (Tylenol) 650 mg PO Q4H PRN PRN Reason: Temp > 100.4 Al Hydroxide/Mg Hydroxide (Milk Of Magnopal Liq) 30 ml PO Q12H PRN PRN Reason: Mild Constipation Amlodipine Besylate (Norvasc) 10 mg PO DAILY [facility] Last Admin: 08/30/17 08:33 Dose: 10 mg Bisacodyl (Dulcolax Supp) 10 mg RECTAL DAILY PRN PRN Reason: SEVERE CONSITIPATION Dextrose (D50w Vial) 50 ml IV.PUSH UNSCH PRN PRN Reason: PER HYPOGLYCEMIA PROTOCOL Divalproex Sodium (Depakote Sprinkles) 125 mg PO BID [facility] Last Admin: 08/29/17 21:03 Dose: 125 mg Glucagon (Glucagon Inj) 1 mg OTHER PRN PRN PRN Reason: for Hypoglycemia Protocol Hydromorphone HCl (Dilaudid Pf Inj) 1 mg IV.PUSH Q4H PRN PRN Reason: PAIN 6-10 Last Admin: 08/30/17 07:42 Dose: 1 mg Sodium Chloride (Ns Inj) 1,000 mls @ 100 mls/hr IV.CONT .Q10H [facility] Last Admin: 08/30/17 03:29 Dose: 100 mls/hr Sodium Chloride (Ns Inj) 1,000 mls @ 100 mls/hr IV.CONT .Q10H [facility] Last Admin: 08/30/17 05:40 Dose: Not Given Piperacillin/Tazobactam/Dextrose (Zosyn 4.5 Gm Premix) 4.5 gm in 100 mls @ 200 mls/hr IV.SIG Q6H [facility] Last Admin: 08/30/17 05:27 Dose: 200 mls/hr Insulin Aspart (Novolog Insulin Suppl Scale Inj) 0 unit SQ ACHS [facility]; Protocol Last Admin: 08/30/17 08:32 Dose: Not Given Lactulose (Lactulose Liq) 30 ml PO DAILY PRN PRN Reason: SEVERE CONSITIPATION Levetiracetam (Keppra) 1,000 mg PO BID [facility] Last Admin: 08/30/17 08:33 Dose: 1,000 mg Metoprolol Tartrate (Lopressor) 50 mg PO DAILY [facility] Last Admin: 08/30/17 08:33 Dose: 50 mg Oxycodone HCl (Roxicodone) 10 mg PO Q4H PRN PRN Reason: PAIN 3-5 Pantoprazole Sodium (Protonix) 20 mg PO DAILY [facility] Last Admin: 08/30/17 08:33 Dose: 20 mg Quetiapine Fumarate (Seroquel) 25 mg PO TID [facility] Last Admin: 08/30/17 08:33 Dose: 25 mg Senna/Docusate Sodium (Jennifer-Colace) 1 tab PO BID [facility] Last Admin: 08/30/17 08:33 Dose: 1 tab Sennosides (Senokot) 17.2 mg PO Q12H PRN PRN Reason: Moderate Constipation Sertraline HCl (Zoloft) 50 mg PO DAILY [facility] Last Admin: 08/30/17 08:33 Dose: 50 mg Temazepam (Restoril) 15 mg PO HS PRN PRN Reason: INSOMNIA <Nataly Zhong - Last Filed: 08/30/17 09:50> Active Medications: Active Medications Acetaminophen (Tylenol) 650 mg PO Q4H PRN PRN Reason: Temp > 100.4 Al Hydroxide/Mg Hydroxide (Milk Of Magnesia Liq) 30 ml PO Q12H PRN PRN Reason: Mild Constipation Amlodipine Besylate (Norvasc) 10 mg PO DAILY [facility] Last Admin: 08/30/17 08:33 Dose: 10 mg Bisacodyl (Dulcolax Supp) 10 mg RECTAL DAILY PRN PRN Reason: SEVERE CONSITIPATION Dextrose (D50w Vial) 50 ml IV.PUSH UNSCH PRN PRN Reason: PER HYPOGLYCEMIA PROTOCOL Divalproex Sodium (Depakote Sprinkles) 125 mg PO BID [facility] Last Admin: 08/30/17 20:17 Dose: 125 mg Glucagon (Glucagon Inj) 1 mg OTHER PRN PRN PRN Reason: for Hypoglycemia Protocol Hydromorphone HCl (Dilaudid Pf Inj) 1 mg IV.PUSH Q4H PRN PRN Reason: PAIN 6-10 Last Admin: 08/30/17 18:40 Dose: 1 mg Sodium Chloride (Ns Inj) 1,000 mls @ 100 mls/hr IV.CONT .Q10H [facility] Last Admin: 08/30/17 14:31 Dose: 100 mls/hr Sodium Chloride (Ns Inj) 1,000 mls @ 100 mls/hr IV.CONT .Q10H [facility] Last Admin: 08/30/17 16:51 Dose: 100 mls/hr Piperacillin/Tazobactam/Dextrose (Zosyn 4.5 Gm Premix) 4.5 gm in 100 mls @ 200 mls/hr IV.SIG Q6H [facility] Last Admin: 08/30/17 18:43 Dose: 200 mls/hr Insulin Aspart (Novolog Insulin Suppl Scale Inj) 0 unit SQ ACHS [facility]; Protocol Last Admin: 08/30/17 17:00 Dose: Not Given Lactulose (Lactulose Liq) 30 ml PO DAILY PRN PRN Reason: SEVERE CONSITIPATION Levetiracetam (Keppra) 1,000 mg PO BID [facility] Last Admin: 08/30/17 20:18 Dose: 1,000 mg Metoprolol Tartrate (Lopressor) 50 mg PO DAILY [facility] Last Admin: 08/30/17 08:33 Dose: 50 mg Nicotine (Habitrol 14 Mg Patch.24 Hr) 1 patch T-DERMAL DAILY [facility] Last Admin: 08/30/17 10:00 Dose: 1 patch Oxycodone HCl (Roxicodone) 10 mg PO Q4H PRN PRN Reason: PAIN 3-5 Pantoprazole Sodium (Protonix) 20 mg PO DAILY [facility] Last Admin: 08/30/17 08:33 Dose: 20 mg Patch Removal (Remove Old Patch) 1 each T-DERMAL DAILY [facility] Polyethylene Glycol/Electrolytes (Colyte Liq) 0 ml PO ONCE ONE Stop: 08/31/17 16:01 Quetiapine Fumarate (Seroquel) 25 mg PO TID [facility] Last Admin: 08/30/17 18:40 Dose: 25 mg Senna/Docusate Sodium (Jennifer-Colace) 1 tab PO BID [facility] Last Admin: 08/30/17 20:17 Dose: 1 tab Sennosides (Senokot) 17.2 mg PO Q12H PRN PRN Reason: Moderate Constipation Sertraline HCl (Zoloft) 50 mg PO DAILY [facility] Last Admin: 08/30/17 08:33 Dose: 50 mg Temazepam (Restoril) 15 mg PO HS PRN PRN Reason: INSOMNIA <Angela Coy A - Last Filed: 08/30/17 20:47> Allergies Allergy/AdvReac Type Severity Reaction Status Date / Time No Known Allergies Allergy Verified 08/27/17 02:42 Home Medications Medication Instructions Recorded Confirmed Type amlodipine 10 mg PO DAILY 08/27/17 08/29/17 History divalproex 125 mg PO BID 08/27/17 08/29/17 History levetiracetam 1,000 mg PO Q12H 08/27/17 08/29/17 History metformin 500 mg PO DAILY 08/27/17 08/29/17 History metoprolol tartrate 50 mg PO DAILY 08/27/17 08/29/17 History omeprazole 20 mg PO DAILY 08/27/17 08/29/17 History quetiapine 25 mg PO TID 08/27/17 08/29/17 History sertraline 50 mg PO DAILY 08/27/17 08/29/17 History Exam Vital signs: Vital Signs 08/29/17 11:42 08/29/17 11:52 08/29/17 15:52 Temperature 98.2 F Pulse Rate 82 81 78 Respiratory Rate 16 18 18 Blood Pressure 128/71 161/78 H 161/78 H Pulse Oximetry 97 97 98 08/29/17 17:27 08/29/17 19:15 08/29/17 21:08 Temperature Pulse Rate 79 80 76 Respiratory Rate 18 18 18 Blood Pressure 136/75 137/88 140/83 Pulse Oximetry 98 96 08/29/17 23:25 08/30/17 00:31 08/30/17 02:46 Temperature 98.5 F 97.7 F Pulse Rate 79 77 Respiratory Rate 16 16 16 Blood Pressure 128/82 119/77 Pulse Oximetry 95 96 08/30/17 05:16 08/30/17 05:23 08/30/17 08:38 Temperature 98.2 F Pulse Rate 68 Respiratory Rate 16 16 20 Blood Pressure 117/75 Pulse Oximetry 98 Intake & Output 08/29/17 08/30/17 08/30/17 18:59 06:59 18:59 Intake Total 1150 / 1150 Output Total 1800 / 1800 Balance -650 / -650 Weight 79.379 kg Intake: IV 1150 / 1150 NS Inj 1,000 ML @ 100 mls/hr IV 1000 / 1000 .CONT .Q10H [facility] Rx#:[id number] Zosyn 3.375 GM Premix 50 ML @ 50 / 50 100 mls/hr IV.SIG ONCE ONE Rx#: [id number] Zosyn 4.5 GM Premix 4.5 gm In 100 / 100 100 ml @ 200 mls/hr IV.SIG Q6H [facility] Rx#:[id number] Output: Urine 1800 / 1800 - Constitutional no acute distress - Routine HEENT Exam Head: Present: normocephalic, atraumatic - Routine Cardiovascular Exam Present: RRR - Routine Abdominal Exam Present: soft, normoactive bowel sounds, tenderness (RLQ tenderness ), hernia ( RLQ ). Absent: distended, rebound, guarding, firm, rigid - Routine Skin Exam Present: dry, warm - Routine Neurological Exam Present: alert, oriented X3 <Nataly Zhong - Last Filed: 08/30/17 09:50> Vital signs: Vital Signs 08/29/17 21:08 08/29/17 23:25 08/30/17 00:31 Temperature 98.5 F Pulse Rate 76 79 Respiratory Rate 18 16 16 Blood Pressure 140/83 128/82 Pulse Oximetry 96 95 08/30/17 02:46 08/30/17 05:16 08/30/17 05:23 Temperature 97.7 F Pulse Rate 77 Respiratory Rate 16 16 16 Blood Pressure 119/77 Pulse Oximetry 96 08/30/17 08:38 08/30/17 12:53 08/30/17 16:48 Temperature 98.2 F 99.0 F 98.2 F Pulse Rate 68 70 80 Respiratory Rate 20 18 18 Blood Pressure 117/75 120/60 120/60 Pulse Oximetry 98 98 07/14/18 19:41 08/30/17 20:19 Temperature 98.1 F Pulse Rate 80 Respiratory Rate 18 16 Blood Pressure 111/73 Pulse Oximetry 94 L Intake & Output 08/30/17 08/30/17 08/31/17 06:59 18:59 06:59 Intake Total 1250 / 1250 1100 / 1100 Output Total 1800 / 1800 Balance -550 / -550 1100 / 1100 Intake: IV 1250 / 1250 1100 / 1100 NS Inj 1,000 ML @ 100 mls/hr IV 1000 / 1000 1000 / 1000 .CONT .Q10H [facility] Rx#:[id number] Zosyn 3.375 GM Premix 50 ML @ 50 / 50 100 mls/hr IV.SIG ONCE ONE Rx#: [id number] Zosyn 4.5 GM Premix 4.5 gm In 200 / 200 100 / 100 100 ml @ 200 mls/hr IV.SIG Q6H [facility] Rx#:[id number] Output: Urine 1800 / 1800 <Angela Coy A - Last Filed: 08/30/17 20:47> Results - Labs CBC & Chem 7: 08/30/17 05:10 08/30/17 05:10 Labs: Laboratory Results - last 24 hr 08/29/17 08/29/17 08/29/17 15:30 15:30 15:30 WBC 9.9 RBC 4.16 L Hgb 13.8 Hct 40.5 MCV 97.3 MCH 33.1 MCHC 34.0 RDW 14.5 Plt Count 338 D MPV 7.8 Neut % (Auto) 73.3 H Lymph % (Auto) 15.0 [place] % (Auto) 9.5 H Eos % (Auto) 1.8 Baso % (Auto) 0.4 Neut # (Auto) 7.2 Lymph # (Auto) 1.5 [place] # (Auto) 0.9 Eos # (Auto) 0.2 Baso # (Auto) 0.0 WBC Differential . Differential Comment Auto diff final PT 12.0 H INR 1.2 Sodium 138 Potassium 4.1 Chloride 102 Carbon Dioxide 25.5 Anion Gap 11 BUN 20 H Creatinine 0.82 Estimated GFR Greater than 89 POC Glucose Random Glucose 107 H Calcium 9.7 Total Bilirubin 0.8 AST 15 ALT 18 Alkaline Phosphatase 97 Total Protein 8.3 H D Albumin 3.6 Lipase 140 Urine Color Urine Clarity Urine pH Ur Specific [place] Urine Protein Urine Glucose (UA) Urine Ketones Urine Occult Blood Urine Nitrate Urine Bilirubin Urine Urobilinogen Ur Leukocyte Esterase Urine WBC Micro UA Comment Urine Culture Comments 08/29/17 08/29/17 08/30/17 15:40 21:15 05:10 WBC 5.8 RBC 3.66 L Hgb 12.1 L Hct 36.0 L MCV 98.5 MCH 33.2 MCHC 33.7 RDW 14.2 Plt Count 281 MPV 7.8 Neut % (Auto) 68.3 Lymph % (Auto) 18.6 [place] % (Auto) 10.2 H Eos % (Auto) 2.5 Baso % (Auto) 0.4 Neut # (Auto) 3.9 Lymph # (Auto) 1.1 [place] # (Auto) 0.6 Eos # (Auto) 0.1 Baso # (Auto) 0.0 WBC Differential . Differential Comment Auto diff final PT INR Sodium Potassium Chloride Carbon Dioxide Anion Gap BUN Creatinine Estimated GFR POC Glucose 111 H Random Glucose Calcium Total Bilirubin AST ALT Alkaline Phosphatase Total Protein Albumin Lipase Urine Color Yellow Urine Clarity Clear Urine pH 5.0 Ur Specific [place] 1.020 Urine Protein Negative Urine Glucose (UA) Negative Urine Ketones Negative Urine Occult Blood Negative Urine Nitrate Negative Urine Bilirubin Negative Urine Urobilinogen 2.0 H Ur Leukocyte Esterase Trace H Urine WBC 1 Micro UA Comment Culture not ind Urine Culture Comments Culture not ind 08/30/17 08/30/17 05:10 08:00 WBC RBC Hgb Hct MCV MCH MCHC RDW Plt Count MPV Neut % (Auto) Lymph % (Auto) [place] % (Auto) Eos % (Auto) Baso % (Auto) Neut # (Auto) Lymph # (Auto) [place] # (Auto) Eos # (Auto) Baso # (Auto) WBC Differential Differential Comment PT INR Sodium 139 Potassium 3.9 Chloride 104 Carbon Dioxide 23.1 Anion Gap 12 BUN 15 Creatinine 0.70 Estimated GFR Greater than 89 POC Glucose 125 H Random Glucose 92 Calcium 8.8 D Total Bilirubin 0.8 AST 9 L ALT 14 Alkaline Phosphatase 78 Total Protein 6.7 D Albumin 2.9 L D Lipase Urine Color Urine Clarity Urine pH Ur Specific [place] Urine Protein Urine Glucose (UA) Urine Ketones Urine Occult Blood Urine Nitrate Urine Bilirubin Urine Urobilinogen Ur Leukocyte Esterase Urine WBC Micro UA Comment Urine Culture Comments - Imaging Impressions Abdomen/Pelvis CT 08/29/17 15:29 CONCLUSION: 1. Probable hernia at site of old appendectomy scar at does contain fat. 2. There are inflammatory changes or postsurgical changes in the pericecal fat. 3. Patient has history of previous appendicitis. 4. Extensive vascular calcifications 5. Prominent gallbladder with trace ascites. <Nataly Zhong - Last Filed: 08/30/17 09:50> - Labs CBC & Chem 7: 08/30/17 05:10 08/30/17 05:10 Labs: Laboratory Results - last 24 hr 08/29/17 08/30/17 08/30/17 21:15 05:10 05:10 WBC 5.8 RBC 3.66 L Hgb 12.1 L Hct 36.0 L MCV 98.5 MCH 33.2 MCHC 33.7 RDW 14.2 Plt Count 281 MPV 7.8 Neut % (Auto) 68.3 Lymph % (Auto) 18.6 [place] % (Auto) 10.2 H Eos % (Auto) 2.5 Baso % (Auto) 0.4 Neut # (Auto) 3.9 Lymph # (Auto) 1.1 [place] # (Auto) 0.6 Eos # (Auto) 0.1 Baso # (Auto) 0.0 WBC Differential . Differential Comment Auto diff final Sodium 139 Potassium 3.9 Chloride 104 Carbon Dioxide 23.1 Anion Gap 12 BUN 15 Creatinine 0.70 Estimated GFR Greater than 89 POC Glucose 111 H Random Glucose 92 Calcium 8.8 D Total Bilirubin 0.8 AST 9 L ALT 14 Alkaline Phosphatase 78 Total Protein 6.7 D Albumin 2.9 L D 08/30/17 08/30/17 08/30/17 08:00 12:14 17:26 WBC RBC Hgb Hct MCV MCH MCHC RDW Plt Count MPV Neut % (Auto) Lymph % (Auto) [place] % (Auto) Eos % (Auto) Baso % (Auto) Neut # (Auto) Lymph # (Auto) [place] # (Auto) Eos # (Auto) Baso # (Auto) WBC Differential Differential Comment Sodium Potassium Chloride Carbon Dioxide Anion Gap BUN Creatinine Estimated GFR POC Glucose 125 H 121 H 121 H Random Glucose Calcium Total Bilirubin AST ALT Alkaline Phosphatase Total Protein Albumin <Angela Coy - Last Filed: 08/30/17 20:47> Assessment and Plan (1) Colitis Status: Acute Code(s): K52.9 - Noninfective gastroenteritis and colitis, unspecified - Plan Assessment: - Recurrent colitis- Pt with GI history significant for diverticulitis S/P partial colon resection (he is unsure which part) 25 years ago in [place]. States no abdominal issues until earlier this year and now has been seen multiple times for colitis. Pt had a CT done in March in the ER consistent with colitis and another CT done 4 days ago as well as yesterday. Complaining of RLQ abdominal pain, intermittent, sharp, worse with movement. Denies changes in bowel habits, nausea, vomiting. Also report a 30 lbs unintentional weight loss over the past 9 months. Denies family history of UC, Crohns, Colon cancer Last EGD and colonoscopy reported a year and a half ago, states both exams were normal. Was previously drinking alcohol daily and smoking cigarettes, but stopped both of these on June 18. CT abdomen and pelvis W IV contrast (08/29) Probable hernia at site of old appendectomy scar at does contain fat. There are inflammatory changes or postsurgical changes in the pericecal fat. Patient has history of previous appendicitis. Extensive vascular calcifications. Prominent gallbladder with trace ascites. Plan: Colonoscopy on Friday Obtain consent Clear liquids tomorrow Goltyely prep NPO after MN Friday Zosyn Stool studies Consider surgical consult regarding hernia Further recommendations based on clinical course and results of above Pt has been seen and examined by myself and Dr. Coy and this note is written on his behalf <Nataly Zhong - Last Filed: 08/30/17 09:50> (1) Colitis Status: Acute Code(s): K52.9 - Noninfective gastroenteritis and colitis, unspecified - Attending Attestation Seen and examined, plan as above, will schedule Colonoscopy Friday. Thank you for the consult. <Angela Coy - Last Filed: 08/30/17 20:47>
[2017-08-31] MEDS: Piperacil/Tazo 4.5 GM Premix 4.5 GM/100 ML BAG IV.SIG SCH ×4 (01:08→17:57)
[2017-08-31] MEDS: Sod Chloride 0.9% Inj 1,000 ML IV.CONT SCH ×6 (01:30→22:50)
[2017-08-31] MEDS: HYDROmorphone PF Inj 2 MG/ML Vial IV.PUSH PRN ×4 (04:19→22:54)
[2017-08-31] MEDS: Insulin NovoLOG Aspart Correctional Sugar Inj SQ SCH ×4 (07:49→22:49)
[2017-08-31] MEDS: levETIRAcetam 500 MG Tablet PO SCH ×2 (08:59→20:24)
[2017-08-31] MEDS: Pantoprazole Sodium 20 MG DR Tablet PO SCH (09:00)
[2017-08-31] MEDS: Divalproex 125 MG Sprinkles Capsule PO SCH ×2 (09:00→20:23)
[2017-08-31] MEDS: amLODIPine 10 MG Tablet PO SCH (09:00)
[2017-08-31] MEDS: QUEtiapine 25 MG Tablet PO SCH ×3 (09:00→17:57)
[2017-08-31] MEDS: Sertraline 50 MG Tablet PO SCH (09:00)
[2017-08-31] MEDS: Metoprolol Tartrate 50 MG Tablet PO SCH (09:00)
[2017-08-31] MEDS: Senna/Docusate Sodium 8.6/50 MG Tablet PO SCH ×2 (09:00→20:23)
--- NOTE | 2017-08-31 09:46 | P.PNGI ---
Subjective Interval history: Pt complaining of continued RLQ pain. Aware of plan for colonoscopy tomorrow. <FarheenNataly - Last Filed: 08/31/17 09:44> Physical Exam Vital signs: Vital Signs 08/30/17 12:53 08/30/17 16:48 08/30/17 19:41 Temperature 99.0 F 98.2 F 98.1 F Pulse Rate 70 80 80 Respiratory Rate 18 18 18 Blood Pressure 120/60 120/60 111/73 Pulse Oximetry 98 94 L 08/30/17 20:19 08/31/17 00:00 08/31/17 01:24 Temperature 98.7 F Pulse Rate 78 Respiratory Rate 16 16 16 Blood Pressure 120/72 Pulse Oximetry 97 08/31/17 03:19 08/31/17 06:20 08/31/17 07:59 Temperature 97.9 F 98.5 F Pulse Rate 77 72 Respiratory Rate 16 14 16 Blood Pressure 110/67 123/80 Pulse Oximetry 95 95 Intake & Output 08/30/17 08/31/17 08/31/17 18:59 06:59 18:59 Intake Total 1100 / 1100 1200 / 1200 Balance 1100 / 1100 1200 / 1200 Intake: IV 1100 / 1100 1200 / 1200 NS Inj 1,000 ML @ 100 mls/hr IV 1000 / 1000 1000 / 1000 .CONT .Q10H [facility] Rx#:[id number] Zosyn 4.5 GM Premix 4.5 gm In 100 / 100 200 / 200 100 ml @ 200 mls/hr IV.SIG Q6H [facility] Rx#:[id number] - Constitutional no acute distress - Routine HEENT Exam Head: Present: normocephalic, atraumatic - Routine Respiratory Exam Absent: accessory muscle use - Routine Cardiovascular Exam Present: RRR - Routine Abdominal Exam Present: soft, normoactive bowel sounds, tenderness (RLQ), hernia (RLQ). Absent : distended, rebound, guarding, firm, rigid - Routine Skin Exam Present: dry, warm - Routine Neurological Exam Present: alert, oriented X3 <FarheenNataly - Last Filed: 08/31/17 09:44> Vital signs: Vital Signs 08/31/17 00:00 08/31/17 01:24 08/31/17 03:19 Temperature 98.7 F 97.9 F Pulse Rate 78 77 Respiratory Rate 16 16 16 Blood Pressure 120/72 110/67 Pulse Oximetry 97 95 08/31/17 06:20 08/31/17 07:59 08/31/17 11:57 Temperature 98.5 F 97.6 F Pulse Rate 72 68 Respiratory Rate 14 16 16 Blood Pressure 123/80 130/79 Pulse Oximetry 95 96 08/31/17 16:00 08/31/17 20:00 Temperature 98.3 F 98.1 F Pulse Rate 70 78 Respiratory Rate 16 17 Blood Pressure 140/82 114/74 Pulse Oximetry 95 96 Intake & Output 08/31/17 08/31/17 09/01/17 06:59 18:59 06:59 Intake Total 2300 / 2300 2100 / 2100 Balance 2300 / 2300 2100 / 2100 Intake: IV 2300 / 2300 2100 / 2100 NS Inj 1,000 ML @ 100 mls/hr IV 1999 / 1999 .CONT .Q10H [facility] Rx#:[id number] Zosyn 4.5 GM Premix 4.5 gm In 300 / 300 100 / 100 100 ml @ 200 mls/hr IV.SIG Q6H [facility] Rx#:[id number] <Angela Coy - Last Filed: 08/31/17 21:49> Results - Labs CBC & Chem 7: 08/30/17 05:10 08/30/17 05:10 Laboratory Results - last 24 hr 08/30/17 08/30/17 08/30/17 12:14 17:26 21:11 POC Glucose 121 H 121 H 116 H 08/31/17 07:38 POC Glucose 119 H <Nataly Zhong - Last Filed: 08/31/17 09:44> - Labs CBC & Chem 7: 08/30/17 05:10 08/30/17 05:10 Laboratory Results - last 24 hr 08/31/17 08/31/17 08/31/17 07:38 12:23 17:33 POC Glucose 119 H 136 H 109 08/31/17 20:28 POC Glucose 166 H <Angela Coy - Last Filed: 08/31/17 21:49> Assessment and Plan (1) Colitis Status: Acute Code(s): K52.9 - Noninfective gastroenteritis and colitis, unspecified - Plan Assessment: - Recurrent colitis- Pt with GI history significant for diverticulitis S/P partial colon resection (he is unsure which part) 25 years ago in [place]. States no abdominal issues until earlier this year and now has been seen multiple times for colitis. Pt had a CT done in March in the ER consistent with colitis and another CT done 4 days ago as well as yesterday. Complaining of RLQ abdominal pain, intermittent, sharp, worse with movement. Denies changes in bowel habits, nausea, vomiting. Also report a 30 lbs unintentional weight loss over the past 9 months. Denies family history of UC, Crohns, Colon cancer Last EGD and colonoscopy reported a year and a half ago, states both exams were normal. Was previously drinking alcohol daily and smoking cigarettes, but stopped both of these on June 18. CT abdomen and pelvis W IV contrast (08/29) Probable hernia at site of old appendectomy scar at does contain fat. There are inflammatory changes or postsurgical changes in the pericecal fat. Patient has history of previous appendicitis. Extensive vascular calcifications. Prominent gallbladder with trace ascites. (08/31) Pt continues to have RLQ pain. Aware of plan for colonoscopy tomorrow. Plan: Colonoscopy tomorrow Obtain consent Clear liquids today Goltyely prep NPO after MN Zosyn Stool studies Consider surgical consult regarding hernia Further recommendations based on clinical course and results of above Pt has been seen and examined by myself and Dr. Coy and this note is written on his behalf <Nataly Zhong - Last Filed: 08/31/17 09:44> (1) Colitis Status: Acute Code(s): K52.9 - Noninfective gastroenteritis and colitis, unspecified - Attending Attestation Consent obtained for Colonoscopy in AM. Will follow up with you. <Angela Coy - Last Filed: 08/31/17 21:49>
--- NOTE | 2017-08-31 13:51 | P.PN ---
Subjective Interval history: Follow up for colitis. The patient reports feeling better today. Abdominal pain improved, denies any abdominal pain while lying still, but does have increased RLQ pain upon moving in bed. Had some nausea this morning, no vomiting. He cannot recall his last BM. He tolerated oral intake yesterday. Denies fevers/ chills. Denies any other medical complaints at this time. Going for colonoscopy tomorrow. Physical Exam Vital signs: Vital Signs 08/30/17 16:48 08/30/17 19:41 08/30/17 20:19 Temperature 98.2 F 98.1 F Pulse Rate 80 80 Respiratory Rate 18 18 16 Blood Pressure 120/60 111/73 Pulse Oximetry 94 L 08/31/17 00:00 08/31/17 01:24 08/31/17 03:19 Temperature 98.7 F 97.9 F Pulse Rate 78 77 Respiratory Rate 16 16 16 Blood Pressure 120/72 110/67 Pulse Oximetry 97 95 08/31/17 06:20 08/31/17 07:59 08/31/17 11:57 Temperature 98.5 F 97.6 F Pulse Rate 72 68 Respiratory Rate 14 16 16 Blood Pressure 123/80 130/79 Pulse Oximetry 95 96 Intake & Output 08/30/17 08/31/17 08/31/17 18:59 06:59 18:59 Intake Total 1100 / 1100 2300 / 2300 1100 / 1100 Balance 1100 / 1100 2300 / 2300 1100 / 1100 Intake: IV 1100 / 1100 2300 / 2300 1100 / 1100 NS Inj 1,000 ML @ 100 mls/hr IV 1000 / 1000 2000 / 2000 1000 / 1000 .CONT .Q10H [facility] Rx#:[id number] Zosyn 4.5 GM Premix 4.5 gm In 100 / 100 300 / 300 100 / 100 100 ml @ 200 mls/hr IV.SIG Q6H [facility] Rx#:[id number] Narrative: GENERAL: Well-nourished, well-developed pleasant male patient in [facility]. SKIN: Warm and dry. No rash. HEENT: Normocephalic. Atraumatic. Pupils equal and round. Mucous membranes pink and moist. CARDIOVASCULAR: Regular rate and rhythm. No murmur appreciated. RESPIRATORY: No accessory muscle use. Clear to auscultation. Breath sounds equal bilaterally. GASTROINTESTINAL: Abdomen soft, nondistended, nontender today. Normoactive bowel sounds x4. MUSCULOSKELETAL: No obvious deformities. Extremities without clubbing, cyanosis , or edema. NEUROLOGICAL: Awake and alert. No obvious cranial nerve deficits. Motor grossly within normal limits. Moving all extremities spontaneously. Normal speech. PSYCHIATRIC: Appropriate mood and affect; insight and judgment normal. Results - Labs CBC & Chem 7: 08/30/17 05:10 08/30/17 05:10 Laboratory Results - last 24 hr 08/30/17 08/30/17 08/31/17 17:26 21:11 07:38 POC Glucose 121 H 116 H 119 H 08/31/17 12:23 POC Glucose 136 H Assessment and Plan - Assessment (1) Intractable abdominal pain Code(s): R10.9 - Unspecified abdominal pain Status: Acute (2) DM (diabetes mellitus) Code(s): E11.9 - Type 2 diabetes mellitus without complications Status: Acute (3) Seizure disorder Code(s): G40.909 - Epilepsy, unspecified, not intractable, without status epilepticus Status: Acute - Plan 67-year-old male with a PMH of Diverticulitis s/p Resection, HTN, DM and Seizure Disorder who presented to the ER w/ complaints of abdominal pain. Seen in ER on 08/27/17 for similar complaints, CT Abd/Pelvis 08/27/17 w/ evidence of colitis, d/c'd home on Cipro/Flagyl, reports compliance w/ medications, however no improvement in pain complaints. Acute Colitis, Failed Outpatient Therapy: with intractable abdominal pain. Recent ER presentation 08/27/17 s/p Cipro/Flagyl, returns with continued abdominal pain. -CT Abd/Pelvis upon arrival w/ some inflammatory changes, images reviewed by me. 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 DM: chronic -Sliding scale w/ Accu-cheks. -Hold Metformin for now. DVT Prophylaxis: SCD/Teds; avoid chemoprophylaxis with upcoming procedure. Discharge Planning: Plan for colonoscopy on Friday 09/01.
[2017-08-31] MEDS ORDERED: PEG 3350/E-Lyte Soln 4000 ML Bottle PO ONE (16:00)
[2017-09-01] MEDS: HYDROmorphone PF Inj 2 MG/ML Vial IV.PUSH PRN ×3 (05:01→21:06)
[2017-09-01] MEDS: Piperacil/Tazo 4.5 GM Premix 4.5 GM/100 ML BAG IV.SIG SCH ×4 (06:11→18:28)
[2017-09-01] MEDS: Sod Chloride 0.9% Inj 1,000 ML IV.CONT SCH ×4 (06:13→16:52)
[2017-09-01] MEDS: Insulin NovoLOG Aspart Correctional Sugar Inj SQ SCH ×4 (08:32→23:25)
--- NOTE | 2017-09-01 09:58 | P.PN ---
Subjective Interval history: Follow up for colitis. The patient is sleeping upon my arrival, easily awakens. He denies any specific abdominal pains today. Denies any nausea/vomiting. Multiple nonbloody BMs overnight s/p bowel prep. Denies fevers/chills. Going for colonoscopy today. Physical Exam Vital signs: Vital Signs 08/31/17 11:57 08/31/17 16:00 08/31/17 20:00 Temperature 97.6 F 98.3 F 98.1 F Pulse Rate 68 70 78 Respiratory Rate 16 16 17 Blood Pressure 130/79 140/82 114/74 Pulse Oximetry 96 95 96 09/01/17 00:00 09/01/17 00:30 09/01/17 04:00 Temperature 97.9 F 98.5 F Pulse Rate 80 75 Respiratory Rate 17 16 17 Blood Pressure 117/71 124/78 Pulse Oximetry 96 97 09/01/17 06:11 09/01/17 08:00 Temperature 97.9 F Pulse Rate 76 Respiratory Rate 16 18 Blood Pressure 122/76 Pulse Oximetry 94 L Intake & Output 08/31/17 09/01/17 09/01/17 18:59 06:59 18:59 Intake Total 2100 / 2100 1200 / 1200 1100 / 1100 Balance 2100 / 2100 1200 / 1200 1100 / 1100 Intake: IV 2100 / 2100 1200 / 1200 1100 / 1100 NS Inj 1,000 ML @ 100 mls/hr IV 2000 / 2000 1000 / 1000 .CONT .Q10H [facility] Rx#:[id number] Zosyn 4.5 GM Premix 4.5 gm In 100 / 100 200 / 200 100 / 100 100 ml @ 200 mls/hr IV.SIG Q6H [facility] Rx#:[id number] Narrative: GENERAL: Well-nourished, well-developed pleasant male patient in [facility]. SKIN: Warm and dry. No rash. HEENT: Normocephalic. Atraumatic. Pupils equal and round. Mucous membranes pink and moist. CARDIOVASCULAR: Regular rate and rhythm. No murmur appreciated. RESPIRATORY: No accessory muscle use. Clear to auscultation. Breath sounds equal bilaterally. GASTROINTESTINAL: Abdomen soft, nondistended, nontender today. Normoactive bowel sounds x4. MUSCULOSKELETAL: No obvious deformities. Extremities without clubbing, cyanosis , or edema. NEUROLOGICAL: Awake and alert. No obvious cranial nerve deficits. Motor grossly within normal limits. Moving all extremities spontaneously. Normal speech. PSYCHIATRIC: Appropriate mood and affect; insight and judgment normal. Results - Labs CBC & Chem 7: 08/30/17 05:10 08/30/17 05:10 Laboratory Results - last 24 hr 08/31/17 08/31/17 08/31/17 12:23 17:33 20:28 POC Glucose 136 H 109 166 H 09/01/17 08:03 POC Glucose 99 Assessment and Plan - Assessment (1) Intractable abdominal pain Code(s): R10.9 - Unspecified abdominal pain Status: Acute (2) DM (diabetes mellitus) Code(s): E11.9 - Type 2 diabetes mellitus without complications Status: Acute (3) Seizure disorder Code(s): G40.909 - Epilepsy, unspecified, not intractable, without status epilepticus Status: Acute - Plan 67-year-old male with a PMH of Diverticulitis s/p Resection, HTN, DM and Seizure Disorder who presented to the ER w/ complaints of abdominal pain. Seen in ER on 08/27/17 for similar complaints, CT Abd/Pelvis 08/27/17 w/ evidence of colitis, d/c'd home on Cipro/Flagyl, reports compliance w/ medications, however no improvement in pain complaints. Acute Colitis, Failed Outpatient Therapy: with intractable abdominal pain. Recent ER presentation 08/27/17 s/p Cipro/Flagyl, returns with continued abdominal pain. -CT Abd/Pelvis upon arrival w/ some inflammatory changes, images reviewed by me. 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 DM: chronic -Sliding scale w/ Accu-cheks. -Hold Metformin for now. DVT Prophylaxis: SCD/Teds; avoid chemoprophylaxis with upcoming procedure. Discharge Planning: Plan for colonoscopy today. Further disposition to follow. Will need GI clearance for discharge.
[2017-09-01] MEDS: Metoprolol Tartrate 50 MG Tablet PO SCH (10:31)
[2017-09-01] MEDS: Senna/Docusate Sodium 8.6/50 MG Tablet PO SCH ×2 (10:31→21:11)
[2017-09-01] MEDS: QUEtiapine 25 MG Tablet PO SCH ×3 (10:32→18:28)
[2017-09-01] MEDS: amLODIPine 10 MG Tablet PO SCH (10:32)
[2017-09-01] MEDS: Pantoprazole Sodium 20 MG DR Tablet PO SCH (10:32)
[2017-09-01] MEDS: Sertraline 50 MG Tablet PO SCH (10:32)
[2017-09-01] MEDS: levETIRAcetam 500 MG Tablet PO SCH ×2 (10:32→21:08)
[2017-09-01] MEDS: Divalproex 125 MG Sprinkles Capsule PO SCH ×2 (10:33→21:07)
--- NOTE | 2017-09-01 15:48 | P.PCN ---
Date of procedure: 09/01/17 Pre-op diagnosis: Abdominal pain, abnormal CT Post-op diagnosis: other Procedure: PROCEDURE PERFORMED Colonoscopy with snare polypectomy INDICATION FOR PROCEDURE Abdominal pain with abnormal findings noted on CT PROCEDURE: The procedure, risks and benefits were discussed with Patient/POA and informed consent was obtained. Anesthesia sedated Patient with Diprivan. Patient was placed in the left lateral decubitus position. Colonoscopy: The Pentax videoscope was introduced through the rectum and advanced to cecum where the ileocecal valve and appendiceal orifice were identified. Retroflexion was performed in the rectum. Colonic prep was good FINDINGS: Colonic withdrawal time greater than 6 minutes. As the scope was slowly withdrawn colonic mucosa was carefully inspected patient was noted to have 3 polyps in the descending colon all were excised using cold snare technique polyps appeared to be benign and probably adenomatous the patient was also noted to have mild diverticulosis of the sigmoid region retroflexion in the rectum did reveal moderate size internal hemorrhoids rectal examination was otherwise unremarkable ESTIMATED BLOOD LOSS: None SPECIMENS REMOVED: Colon biopsies COMPLICATIONS: None IMPRESSION: Colon polyps Diverticulosis Internal hemorrhoids PLAN: Await biopsies High-fiber diet Colonoscopy in 5 years Continue with present supportive care Anesthesia: MAC Surgeon: Leonides August Pathology: other Condition: stable Disposition: floor
[2017-09-02] MEDS: Piperacil/Tazo 4.5 GM Premix 4.5 GM/100 ML BAG IV.SIG SCH ×3 (00:57→14:22)
[2017-09-02] MEDS: Sod Chloride 0.9% Inj 1,000 ML IV.CONT SCH ×4 (03:04→15:09)
[2017-09-02] MEDS: Insulin NovoLOG Aspart Correctional Sugar Inj SQ SCH ×2 (08:15→13:01)
[2017-09-02 08:51] VITALS: TEMP 97.9
[2017-09-02] MEDS: levETIRAcetam 500 MG Tablet PO SCH (09:10)
[2017-09-02] MEDS: Divalproex 125 MG Sprinkles Capsule PO SCH (09:10)
[2017-09-02] MEDS: Senna/Docusate Sodium 8.6/50 MG Tablet PO SCH (09:11)
[2017-09-02] MEDS: QUEtiapine 25 MG Tablet PO SCH ×2 (09:11→14:22)
[2017-09-02] MEDS: Sertraline 50 MG Tablet PO SCH (09:11)
[2017-09-02] MEDS: Metoprolol Tartrate 50 MG Tablet PO SCH (09:11)
[2017-09-02] MEDS: amLODIPine 10 MG Tablet PO SCH (09:11)
[2017-09-02] MEDS: Pantoprazole Sodium 20 MG DR Tablet PO SCH (09:11)
--- NOTE | 2017-09-02 09:59 | P.PN ---
Subjective Interval history: Patient is seen sitting up in bed reading newspaper. Reports that he is feeling well with no acute concerns. Does continue to have some mild right- sided lower quadrant abdominal pain however it is much better than before. He tells me that he is hungry and looking forward to breakfast. Denies any nausea or vomiting. Has not had a bowel movement since colonoscopy but does report that he has been passing gas and his belly is "bubbly". Voiding normally. No chest pain or shortness of breath. Physical Exam Vital signs: Vital Signs 09/01/17 11:53 09/01/17 14:53 09/01/17 15:07 Temperature 98.2 F 97.0 F L Pulse Rate 76 70 72 Respiratory Rate 20 16 16 Blood Pressure 131/80 106/69 107/66 Pulse Oximetry 96 96 96 09/01/17 16:00 09/01/17 17:37 09/01/17 21:15 Temperature 97.9 F Pulse Rate 70 76 Respiratory Rate 20 16 17 Blood Pressure 136/75 105/69 Pulse Oximetry 96 97 09/02/17 00:00 09/02/17 04:00 09/02/17 08:00 Temperature 97.9 F 98.0 F 97.9 F Pulse Rate 68 69 74 Respiratory Rate 17 16 16 Blood Pressure 102/67 133/75 137/79 Pulse Oximetry 96 96 96 Intake & Output 09/01/17 09/02/17 09/02/17 18:59 06:59 18:59 Intake Total 1350 / 1350 200 / 200 100 / 100 Output Total 0 / 0 Balance 1350 / 1350 200 / 200 100 / 100 Intake: IV 1100 / 1100 200 / 200 100 / 100 Zosyn 4.5 GM Premix 4.5 gm In 100 / 100 200 / 200 100 / 100 100 ml @ 200 mls/hr IV.SIG Q6H [facility] Rx#:[id number] Anesthesia Amount 250 / 250 Output: Urine 0 / 0 Stool 0 / 0 Narrative: GENERAL: Well-nourished, well-developed adult male in no obvious distress. SKIN: Warm and dry. HEAD: Atraumatic. Normocephalic. CARDIOVASCULAR: Regular rate and rhythm. RESPIRATORY: No accessory muscle use. Clear to auscultation. Breath sounds equal bilaterally. GASTROINTESTINAL: Abdomen soft, mildly tender right lower quadrant, no guarding , non-distended. Positive bowel sounds. MUSCULOSKELETAL: Extremities without clubbing, cyanosis, or edema. No obvious deformities. NEUROLOGICAL: Awake and alert. No obvious cranial nerve deficits. Motor grossly within normal limits. Normal speech. PSYCHIATRIC: Appropriate mood and affect; insight and judgment good. Results - Labs CBC & Chem 7: 08/30/17 05:10 08/30/17 05:10 Laboratory Results - last 24 hr 09/01/17 09/01/17 09/01/17 12:15 16:48 22:55 POC Glucose 118 H 104 148 H 09/02/17 08:14 POC Glucose 110 Assessment and Plan - Assessment (1) Intractable abdominal pain Code(s): R10.9 - Unspecified abdominal pain Status: Resolved (2) DM (diabetes mellitus) Code(s): E11.9 - Type 2 diabetes mellitus without complications Status: Chronic (3) Seizure disorder Code(s): G40.909 - Epilepsy, unspecified, not intractable, without status epilepticus Status: Chronic - Plan 67-year-old male with a PMH of Diverticulitis s/p Resection, HTN, DM and Seizure Disorder who presented to the ER w/ complaints of abdominal pain. Seen in ER on 08/27/17 for similar complaints, CT Abd/Pelvis 08/27/17 w/ evidence of colitis, d/c'd home on Cipro/Flagyl, reports compliance w/ medications, however no improvement in pain complaints. Acute Colitis, Failed Outpatient Therapy: with intractable abdominal pain. Recent ER presentation 08/27/17 s/p Cipro/Flagyl, returns with continued abdominal pain. -CT Abd/Pelvis upon arrival w/ some inflammatory changes. 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 DM: chronic -Sliding scale w/ Accu-cheks. -Hold Metformin for now. DVT Prophylaxis: SCD/Teds; avoid chemoprophylaxis with upcoming procedure. Discharge Planning: Possible discharge today- Will need to tolerate diet and get GI clearance for discharge. F/U with PCP and GI
--- NOTE | 2017-09-02 10:03 | P.PNGI ---
Subjective Interval history: Pt resting in bed. Denies abdominal pain, nausea, vomiting. Tolerating PO, had dinner last night without issues and is currently waiting on breakfast. No BM since colonoscopy. <Nataly Zhong - Last Filed: 09/02/17 10:00> Physical Exam Vital signs: Vital Signs 09/01/17 11:53 09/01/17 14:53 09/01/17 15:07 Temperature 98.2 F 97.0 F L Pulse Rate 76 70 72 Respiratory Rate 20 16 16 Blood Pressure 131/80 106/69 107/66 Pulse Oximetry 96 96 96 09/01/17 16:00 09/01/17 17:37 09/01/17 21:15 Temperature 97.9 F Pulse Rate 70 76 Respiratory Rate 20 16 17 Blood Pressure 136/75 105/69 Pulse Oximetry 96 97 09/02/17 00:00 09/02/17 04:00 09/02/17 08:00 Temperature 97.9 F 98.0 F 97.9 F Pulse Rate 68 69 74 Respiratory Rate 17 16 16 Blood Pressure 102/67 133/75 137/79 Pulse Oximetry 96 96 96 Intake & Output 09/01/17 09/02/17 09/02/17 18:59 06:59 18:59 Intake Total 1350 / 1350 200 / 200 100 / 100 Output Total 0 / 0 Balance 1350 / 1350 200 / 200 100 / 100 Intake: IV 1100 / 1100 200 / 200 100 / 100 Zosyn 4.5 GM Premix 4.5 gm In 100 / 100 200 / 200 100 / 100 100 ml @ 200 mls/hr IV.SIG Q6H [facility] Rx#:[id number] Anesthesia Amount 250 / 250 Output: Urine 0 / 0 Stool 0 / 0 - Constitutional no acute distress - Routine HEENT Exam Head: Present: normocephalic, atraumatic - Routine Respiratory Exam Present: CTA bilaterally. Absent: accessory muscle use - Routine Cardiovascular Exam Present: RRR - Routine Abdominal Exam Present: soft, normoactive bowel sounds. Absent: tenderness, distended, rebound , guarding, firm - Routine Skin Exam Present: dry, warm - Routine Neurological Exam Present: alert, oriented X3 <Nataly Zhong - Last Filed: 09/02/17 10:00> Vital signs: Vital Signs 09/01/17 21:15 09/02/17 00:00 09/02/17 04:00 Temperature 97.9 F 98.0 F Pulse Rate 76 68 69 Respiratory Rate 17 17 16 Blood Pressure 105/69 102/67 133/75 Pulse Oximetry 97 96 96 09/02/17 08:00 09/02/17 12:00 09/02/17 14:02 Temperature 97.9 F 97.9 F Pulse Rate 74 63 Respiratory Rate 16 18 16 Blood Pressure 137/79 107/66 Pulse Oximetry 96 95 Intake & Output 09/02/17 09/02/17 09/03/17 06:59 18:59 06:59 Intake Total 200 / 200 1200 / 1200 Balance 200 / 200 1200 / 1200 Intake: IV 200 / 200 1200 / 1200 NS Inj 1,000 ML @ 100 mls/hr IV 1000 / 1000 .CONT .Q10H [facility] Rx#:[id number] Zosyn 4.5 GM Premix 4.5 gm In 200 / 200 200 / 200 100 ml @ 200 mls/hr IV.SIG Q6H [facility] Rx#:[id number] <Leonides August E - Last Filed: 09/02/17 19:14> Results - Labs CBC & Chem 7: 08/30/17 05:10 08/30/17 05:10 Laboratory Results - last 24 hr 09/01/17 09/01/17 09/01/17 12:15 16:48 22:55 POC Glucose 118 H 104 148 H 09/02/17 08:14 POC Glucose 110 <Nataly Zhong - Last Filed: 09/02/17 10:00> - Labs CBC & Chem 7: 08/30/17 05:10 08/30/17 05:10 Laboratory Results - last 24 hr 09/01/17 09/02/17 09/02/17 22:55 08:14 12:58 POC Glucose 148 H 110 139 H <Leonides August - Last Filed: 09/02/17 19:14> Assessment and Plan (1) Colitis Status: Acute Code(s): K52.9 - Noninfective gastroenteritis and colitis, unspecified - Plan Assessment: - Recurrent colitis- Pt with GI history significant for diverticulitis S/P partial colon resection (he is unsure which part) 25 years ago in [place]. States no abdominal issues until earlier this year and now has been seen multiple times for colitis. Pt had a CT done in March in the ER consistent with colitis and another CT done 4 days ago as well as yesterday. Complaining of RLQ abdominal pain, intermittent, sharp, worse with movement. Denies changes in bowel habits, nausea, vomiting. Also report a 30 lbs unintentional weight loss over the past 9 months. Denies family history of UC, Crohns, Colon cancer Last EGD and colonoscopy reported a year and a half ago, states both exams were normal. Was previously drinking alcohol daily and smoking cigarettes, but stopped both of these on June 18. CT abdomen and pelvis W IV contrast (08/29) Probable hernia at site of old appendectomy scar at does contain fat. There are inflammatory changes or postsurgical changes in the pericecal fat. Patient has history of previous appendicitis. Extensive vascular calcifications. Prominent gallbladder with trace ascites. (08/31) Pt continues to have RLQ pain. Aware of plan for colonoscopy tomorrow. (09/02) Pt S/P colonoscopy yesterday. Denies any nausea, vomiting, abdominal pain today. Tolerating PO, had dinner last night without any issues and is waiting for breakfast Colonoscopy --> 3 polyps in the descending colon, mild diverticulosis in the sigmoid region, internal hemorrhoids Plan: High fiber diet Colon biopsy pending Cardiac diet GI will sign off, have pt follow up with GI after DC Pt has been seen and examined by myself and Dr. Coy and this note is written on his behalf <Nataly Zhong - Last Filed: 09/02/17 10:00> (1) Colitis Status: Chronic Code(s): K52.9 - Noninfective gastroenteritis and colitis, unspecified - Attending Attestation Patient seen and examined agree with above Continue with current supportive care Monitor labs <Leonides August - Last Filed: 09/02/17 19:14>
[2017-09-02 12:40] VITALS: BP 107/66; PULSE 63; O2SAT 95
[2017-09-02 14:03] VITALS: RESP 16
--- NOTE | 2017-09-02 15:25 | P.DS ---
<Emely King - Last Filed: 09/02/17 15:08> Date of admission: 08/30/17 15:47 Primary care physician: Siri Rodriguez MD Attending physician on discharge: Jose David Chandler Anticipated date of discharge: 09/02/17 Brief History from admission: This is a 67-year-old male with a PMH of Diverticulitis s/p Resection, HTN, DM and Seizure Disorder who presented to the ER w/ complaints of abdominal pain. Seen in ER on 08/27/17 for similar complaints, CT Abd/Pelvis 08/27/17 w/ evidence of colitis, d/c'd home on Cipro/Flagyl, reports compliance w/ medications, however no improvement in pain complaints. Pain is intermittent, sharp, severe , 10/10, non-radiating. No associated nausea, vomiting or diarrhea. On arrival , BP 161/70, HR 78, O2 sat 98% on RA, Afebrile. CBC essentially unremarkable. Chemistry essentially unremarkable. UA negative. CT Abdomen/Pelvis with probable hernia at site of previous appendectomy, inflammatory changes. S/p multiple doses of pain medication w/ minimal improvement. DS: Diagnosis - Discharge Diagnosis (1) Colitis Status: Chronic (2) Intractable abdominal pain Status: Resolved (3) DM (diabetes mellitus) Status: Chronic (4) Seizure disorder Status: Chronic DS: Summary Hospital Course: 67-year-old male with a PMH of Diverticulitis s/p Resection, HTN, DM and Seizure Disorder who presented to the ER w/ complaints of abdominal pain. Seen in ER on 08/27/17 for similar abdominal complaints, CT Abd/Pelvis 08/27/17 w/ evidence of colitis, d/c'd home on Cipro/Flagyl, reports compliance w/ medications; failed outpatient therapy. CT abdomen and pelvis was repeated on arrival with inflammatory changes. Patient underwent colonoscopy on 09/02/17 which noted only 3 polyps in the descending colon (biopsy pending), mild diverticulosis in the sigmoid region and internal hemorrhoids. Patient evaluated by GI who recommends high-fiber cardiac diet. - Time Spent with Patient Total time spent providing and/or coordinating discharge services: - Quality: VTE Deep Vein Thrombosis/Pulmonary Embolism Present on Admission: No Exam Vital signs: Vital Signs 09/01/17 16:00 09/01/17 17:37 09/01/17 21:15 Temperature 97.9 F Pulse Rate 70 76 Respiratory Rate 20 16 17 Blood Pressure 136/75 105/69 Pulse Oximetry 96 97 09/02/17 00:00 09/02/17 04:00 09/02/17 08:00 Temperature 97.9 F 98.0 F 97.9 F Pulse Rate 68 69 74 Respiratory Rate 17 16 16 Blood Pressure 102/67 133/75 137/79 Pulse Oximetry 96 96 96 09/02/17 12:00 09/02/17 14:02 Temperature 97.9 F Pulse Rate 63 Respiratory Rate 18 16 Blood Pressure 107/66 Pulse Oximetry 95 Intake & Output 09/01/17 09/02/17 09/02/17 18:59 06:59 18:59 Intake Total 1350 / 1350 200 / 200 1100 / 1100 Output Total 0 / 0 Balance 1350 / 1350 200 / 200 1100 / 1100 Intake: IV 1100 / 1100 200 / 200 1100 / 1100 NS Inj 1,000 ML @ 100 mls/hr IV 1000 / 1000 .CONT .Q10H [facility] Rx#:[id number] Zosyn 4.5 GM Premix 4.5 gm In 100 / 100 200 / 200 100 / 100 100 ml @ 200 mls/hr IV.SIG Q6H [facility] Rx#:[id number] Anesthesia Amount 250 / 250 Output: Urine 0 / 0 Stool 0 / 0 Narrative: GENERAL: Well-nourished, well-developed pleasant male patient in [facility]. SKIN: Warm and dry. No rash. HEENT: Normocephalic. Atraumatic. Pupils equal and round. Mucous membranes pink and moist. CARDIOVASCULAR: Regular rate and rhythm. No murmur appreciated. RESPIRATORY: No accessory muscle use. Clear to auscultation. Breath sounds equal bilaterally. GASTROINTESTINAL: Abdomen soft, nondistended, nontender today. Normoactive bowel sounds x4. MUSCULOSKELETAL: No obvious deformities. Extremities without clubbing, cyanosis , or edema. NEUROLOGICAL: Awake and alert. No obvious cranial nerve deficits. Motor grossly within normal limits. Moving all extremities spontaneously. Normal speech. PSYCHIATRIC: Appropriate mood and affect; insight and judgment normal. Results Procedures completed during hospitalization: Colonoscopy with snare polypectomy - 09/01/17 Pending studies at discharge: Pending at discharge 09/01/17 15:30 Surgical [PTH] Routine Labs on day of discharge: Labs from last 24 hours 09/02/17 09/02/17 09/01/17 12:58 08:14 22:55 POC Glucose 139 H 110 148 H 09/01/17 16:48 POC Glucose 104 - Impressions ITS Impressions Abdomen/Pelvis CT 08/29/17 15:29 CONCLUSION: 1. Probable hernia at site of old appendectomy scar at does contain fat. 2. There are inflammatory changes or postsurgical changes in the pericecal fat. 3. Patient has history of previous appendicitis. 4. Extensive vascular calcifications 5. Prominent gallbladder with trace ascites. <Jose David Chandler - Last Filed: 09/08/17 16:51> Date of admission: 08/30/17 15:47 Primary care physician: Siri Rodriguez MD DS: Summary - Time Spent with Patient Total time spent providing and/or coordinating discharge services: Results Completed studies during hospitalization: Pending at discharge 09/01/17 15:30 Surgical [PTH] Routine - Impressions ITS Impressions Abdomen/Pelvis CT 08/29/17 15:29 CONCLUSION: 1. Probable hernia at site of old appendectomy scar at does contain fat. 2. There are inflammatory changes or postsurgical changes in the pericecal fat. 3. Patient has history of previous appendicitis. 4. Extensive vascular calcifications 5. Prominent gallbladder with trace ascites. Discharge Plan - Discharge Order Discharge Orders: Discharge Order (Routine); Ordered 09/02/17 Ordered By: Melchor Sheffield - Discharge Details Anticipated Discharge Date: 09/02/17 Discharge Comment: DC when GI clears patient - Physicians Team Primary Care Provider: Siri Rodriguez Attending Provider: Jose David Chandler Other Providers: Angela Coy MD
== END 2017-09-02 16:49 | disposition home or self-care (01) ==
LOC: NEDA 10:48 → NEPC 10:48 → NEPGCP 21:54
PROVIDERS: ADMIT Internal Medicine; ATTEND Internal Medicine

== ENCOUNTER 2018-04-05 11:27 | Inpatient (IN) ==
[2018-04-05] MEDS: Sod Chloride 0.9% Inj 1,000 ML IV.SIG SCH ×2 (11:58→12:44)
--- NOTE | 2018-04-05 12:13 | ED ---
HPI General Chief complaint: Head Injury Stated complaint: Fall/Head Injury Time Seen by Provider: 04/05/18 11:35 Source: patient, family and old records reviewed Mode of arrival: ambulatory Limitations: no limitations History of Present Illness HPI Narrative: Is a 67-year-old man who [facility]. He reports he drinks alcohol daily, 2 scotches. He also takes CBD oil, hydrocodone intermittently, Valium but not for some time, and diphenhydramine 75 mg each night for sleep. He states last night he was watching TV at about 1030 he fell. His heard him fall but was sleeping already. He does not recall the fall. In any case he was able to crawl to bed. He woke up this morning when he sat up he felt very lightheaded and dizzy. States he had a lot of bleeding from the back of his head. Related Data Home Medications Medication Instructions Recorded Confirmed omeprazole 20 mg PO DAILY 08/27/17 04/05/18 quetiapine 25 mg PO TID 08/27/17 04/05/18 sertraline 50 mg PO DAILY 08/27/17 04/05/18 diphenhydramine HCl 25 mg PO HS 04/05/18 04/05/18 hydrocodone-acetaminophen 5 - 325 mg PO Q4-6H PRN 04/05/18 04/05/18 Previous Rx's Medication Instructions Recorded levetiracetam [Keppra] 500 mg PO BID #60 tab 04/07/18 Allergies Allergy/AdvReac Type Severity Reaction Status Date / Time No Known Allergies Allergy Verified 04/05/18 12:51 Review of Systems ROS: all other systems reviewed are negative [facility] Medical History Medical History Anxiety (Chronic) Colitis (Chronic) Depression (Chronic) Diabetes mellitus (Chronic) Hypertension (Chronic) Seizure (Chronic) Surgical History Surgical History History of appendectomy (Chronic) History of bowel resection (Chronic) H/O arthroscopy of right knee (Inactive) History of left knee replacement (Inactive) Hx of tonsillectomy (Inactive) Social History Social History Substance History: No History of Abuse Second Hand Smoke Exposure: No Smoking Status: Former smoker Tobacco Type: Cigarettes How Often Do You Have a Drink Containing Alcohol: 4 or more times a week Recent Travel in [facility] within the Last 8 Weeks: No Recent Out of Country Travel within the Last 8 Weeks: No Immunization History Tetanus Immunization: <5 Years Exam Narrative Exam Narrative: GENERAL: 67-year-old man, a little bit chronically ill-appearing , nontoxic. SKIN: Decreased skin turgor. HEAD: Normocephalic. There is an abrasion/contusion on the posterior occiput. No active bleeding. I do not see any laceration. EYES: Pupils equal and round. No scleral icterus. No injection or drainage. ENT: No nasal bleeding or discharge. Mucous membranes pink and moist. NECK: Trachea midline. No JVD. CARDIOVASCULAR: Heart rates a little bit rapid. No murmurs. RESPIRATORY: No accessory muscle use. Clear to auscultation. Breath sounds equal bilaterally. GASTROINTESTINAL: Abdomen soft, non-tender, nondistended. Hepatic and splenic margins not palpable. MUSCULOSKELETAL: No obvious deformities. Decreased muscle bulk. NEUROLOGICAL: Awake and alert. Some slight confusion. No obvious cranial nerve deficits. Motor grossly within normal limits. Normal speech. Course Initial Documented Vital Signs Temperature 97.2 F L 04/05/18 11:31 Pulse Rate 109 H 04/05/18 11:31 Respiratory Rate 18 04/05/18 11:31 Blood Pressure 89/57 L 04/05/18 11:31 Pulse Oximetry 100 04/05/18 11:31 Last Documented Vital Signs Temperature 97.4 F L 04/07/18 04:00 Pulse Rate 75 04/07/18 12:00 Respiratory Rate 18 04/07/18 04:00 Blood Pressure 109/68 04/07/18 04:00 Pulse Oximetry 96 04/07/18 10:49 Medical Decision Making MDM Narrative Medical decision making narrative: 67-year-old man, fall, lightheaded, hypotensive here, likely orthostatic, did not take blood pressure medicine this morning. Denies melena or hematochezia. Initially said he was on blood thinners but I do not see any asthma medication collection. He is on multiple meds that could contribute to falls. He had a history of bilateral frontal lobe contusions after a fall in June of last year. Sounds like he had a seizure in the hospital per his report. Reviewing is unclear if he has seizure disorder not. It seems like he is not on seizure medication now he does drink daily now. He is on CBD oil as well as 75 mill, and took a pain pill yesterday also. This may contributed to the falls. Will check labs, CT head, IV fluid rehydration. Patient is a difficult historian but it does not sound like he is been acutely ill recently. No other acute symptoms. Medical Screen Exam Complete: Yes Emergency Medical Condition: Yes Lab Data Result diagrams: 04/07/18 07:31 04/07/18 07:31 Lab Results 04/05/18 04/05/18 04/05/18 Range/Units 12:15 12:15 12:15 WBC 12.3 H (4.0-11.0) th/mm3 RBC 4.27 L (4.50-5.90) mil/mm3 Hgb 16.6 (13.0-17.0) gm/dL Hct 47.4 (39.0-51.0) % MCV 111.0 H (80.0-100.0) fL MCH 38.9 H (27.0-34.0) pg MCHC 35.1 (32.0-36.0) % RDW 13.5 (11.6-17.2) % Plt Count 233 (150-450) th/mm3 MPV 8.1 (7.0-11.0) fL Neut % (Auto) 72.2 H (16.0-70.0) % Lymph % (Auto) 19.1 (9.0-44.0) % [place] % (Auto) 8.0 (0.0-8.0) % Eos % (Auto) 0.4 (0.0-4.0) % Baso % (Auto) 0.3 (0.0-2.0) % Neut # (Auto) 8.9 H (1.8-7.7) th/mm3 Lymph # (Auto) 2.3 (1.0-4.8) th/mm3 [place] # (Auto) 1.0 H (0.0-0.9) th/mm3 Eos # (Auto) 0.0 (0.0-0.4) th/mm3 Baso # (Auto) 0.0 (0.0-0.2) th/mm3 WBC Differential . Differential Comment Auto diff final PT 10.3 (9.8-11.6) sec INR 1.0 Ratio APTT 29.8 (23.4-31.7) sec Sodium 132 L (136-145) meq/L Potassium 5.3 H (3.5-5.1) meq/L Chloride 99 (98-107) meq/L Carbon Dioxide 20.2 L (21.0-32.0) meq/L Anion Gap 13 (5-15) meq/L BUN 60 H (7-18) mg/dL Creatinine 3.45 H (0.60-1.30) mg/dL Estimated GFR 18 L (>89) mL/min POC Glucose (68-110) mg/dl Random Glucose 112 H (74-106) mg/dL Lactic Acid (0.4-2.0) mmol/L Calcium 9.9 (8.5-10.1) mg/dL Magnesium 2.3 (1.5-2.5) mg/dL Total Bilirubin 1.0 (0.2-1.0) mg/dL AST 24 (15-37) U/L ALT 37 (12-78) U/L Alkaline Phosphatase 90 (45-117) U/L Total Creatine Kinase (39-308) U/L Troponin I Less than 0.02 L (0.02-0.05) ng/mL Total Protein 8.3 H (6.4-8.2) g/dL Albumin 4.4 (3.4-5.0) g/dL Vitamin B12 (193-986) pg/mL Folate (3.1-17.5) ng/mL Urine Color (Yellw/Straw) Urine Clarity (Clear) Urine pH (5.0-8.5) Ur Specific [place] (1.002-1.035) Urine Protein (Neg-Trace) mg/dL Urine Glucose (UA) (Negative) mg/dL Urine Ketones (Negative) mg/dL Urine Occult Blood (Negative) Urine Nitrate (Negative) Urine Bilirubin (Negative) Urine Urobilinogen (Less than 2) mg/dL Ur Leukocyte Esterase (Negative) Urine WBC (0-5) /hpf Hyaline Casts (0-3) /lpf Micro UA Comment Ur Microscopic Review Urine Culture Comments Urine Opiates Screen (Neg) Ur Barbiturates Screen (Neg) Ur Amphetamines Screen (Neg) U Benzodiazepines Scrn (Neg) Urine Cocaine Screen (Neg) U Cannabinoids Screen (Neg) Serum Alcohol Less than 3 (0-5) mg/dL Blood Type Blood Type Recheck Antibody Screen 04/05/18 04/05/18 04/05/18 Range/Units 12:15 12:15 12:15 WBC (4.0-11.0) th/mm3 RBC (4.50-5.90) mil/mm3 Hgb (13.0-17.0) gm/dL Hct (39.0-51.0) % MCV (80.0-100.0) fL MCH (27.0-34.0) pg MCHC (32.0-36.0) % RDW (11.6-17.2) % Plt Count (150-450) th/mm3 MPV (7.0-11.0) fL Neut % (Auto) (16.0-70.0) % Lymph % (Auto) (9.0-44.0) % Hoke % (Auto) (0.0-8.0) % Eos % (Auto) (0.0-4.0) % Baso % (Auto) (0.0-2.0) % Neut # (Auto) (1.8-7.7) th/mm3 Lymph # (Auto) (1.0-4.8) th/mm3 [place] # (Auto) (0.0-0.9) th/mm3 Eos # (Auto) (0.0-0.4) th/mm3 Baso # (Auto) (0.0-0.2) th/mm3 WBC Differential Differential Comment PT (9.8-11.6) sec INR Ratio APTT (23.4-31.7) sec Sodium (136-145) meq/L Potassium (3.5-5.1) meq/L Chloride (98-107) meq/L Carbon Dioxide (21.0-32.0) meq/L Anion Gap (5-15) meq/L BUN (7-18) mg/dL Creatinine (0.60-1.30) mg/dL Estimated GFR (>89) mL/min POC Glucose (68-110) mg/dl Random Glucose (74-106) mg/dL Lactic Acid 1.2 (0.4-2.0) mmol/L Calcium (8.5-10.1) mg/dL Magnesium (1.5-2.5) mg/dL Total Bilirubin (0.2-1.0) mg/dL AST (15-37) U/L ALT (12-78) U/L Alkaline Phosphatase (45-117) U/L Total Creatine Kinase 45 (39-308) U/L Troponin I (0.02-0.05) ng/mL Total Protein (6.4-8.2) g/dL Albumin (3.4-5.0) g/dL Vitamin B12 (193-986) pg/mL Folate (3.1-17.5) ng/mL Urine Color (Yellw/Straw) Urine Clarity (Clear) Urine pH (5.0-8.5) Ur Specific [place] (1.002-1.035) Urine Protein (Neg-Trace) mg/dL Urine Glucose (UA) (Negative) mg/dL Urine Ketones (Negative) mg/dL Urine Occult Blood (Negative) Urine Nitrate (Negative) Urine Bilirubin (Negative) Urine Urobilinogen (Less than 2) mg/dL Ur Leukocyte Esterase (Negative) Urine WBC (0-5) /hpf Hyaline Casts (0-3) /lpf Micro UA Comment Ur Microscopic Review Urine Culture Comments Urine Opiates Screen (Neg) Ur Barbiturates Screen (Neg) Ur Amphetamines Screen (Neg) U Benzodiazepines Scrn (Neg) Urine Cocaine Screen (Neg) U Cannabinoids Screen (Neg) Serum Alcohol (0-5) mg/dL Blood Type A Positive Blood Type Recheck Required Antibody Screen Negative 04/05/18 04/05/18 04/05/18 Range/Units 12:17 13:45 13:45 WBC (4.0-11.0) th/mm3 RBC (4.50-5.90) mil/mm3 Hgb (13.0-17.0) gm/dL Hct (39.0-51.0) % MCV (80.0-100.0) fL MCH (27.0-34.0) pg MCHC (32.0-36.0) % RDW (11.6-17.2) % Plt Count (150-450) th/mm3 MPV (7.0-11.0) fL Neut % (Auto) (16.0-70.0) % Lymph % (Auto) (9.0-44.0) % Hoke % (Auto) (0.0-8.0) % Eos % (Auto) (0.0-4.0) % Baso % (Auto) (0.0-2.0) % Neut # (Auto) (1.8-7.7) th/mm3 Lymph # (Auto) (1.0-4.8) th/mm3 [place] # (Auto) (0.0-0.9) th/mm3 Eos # (Auto) (0.0-0.4) th/mm3 Baso # (Auto) (0.0-0.2) th/mm3 WBC Differential Differential Comment PT (9.8-11.6) sec INR Ratio APTT (23.4-31.7) sec Sodium (136-145) meq/L Potassium (3.5-5.1) meq/L Chloride (98-107) meq/L Carbon Dioxide (21.0-32.0) meq/L Anion Gap (5-15) meq/L BUN (7-18) mg/dL Creatinine (0.60-1.30) mg/dL Estimated GFR (>89) mL/min POC Glucose 119 H (68-110) mg/dl Random Glucose (74-106) mg/dL Lactic Acid (0.4-2.0) mmol/L Calcium (8.5-10.1) mg/dL Magnesium (1.5-2.5) mg/dL Total Bilirubin (0.2-1.0) mg/dL AST (15-37) U/L ALT (12-78) U/L Alkaline Phosphatase (45-117) U/L Total Creatine Kinase (39-308) U/L Troponin I (0.02-0.05) ng/mL Total Protein (6.4-8.2) g/dL Albumin (3.4-5.0) g/dL Vitamin B12 (193-986) pg/mL Folate (3.1-17.5) ng/mL Urine Color Yellow (Yellw/Straw) Urine Clarity Clear (Clear) Urine pH 5.0 (5.0-8.5) Ur Specific [place] 1.015 (1.002-1.035) Urine Protein Negative (Neg-Trace) mg/dL Urine Glucose (UA) 150 H (Negative) mg/dL Urine Ketones Trace H (Negative) mg/dL Urine Occult Blood Negative (Negative) Urine Nitrate Negative (Negative) Urine Bilirubin Negative (Negative) Urine Urobilinogen Less than 2 (Less than 2) mg/dL Ur Leukocyte Esterase Negative (Negative) Urine WBC 1 (0-5) /hpf Hyaline Casts 20 (0-3) /lpf Micro UA Comment Culture not ind Ur Microscopic Review Not Reportable Urine Culture Comments Culture not ind Urine Opiates Screen Neg (Neg) Ur Barbiturates Screen Neg (Neg) Ur Amphetamines Screen Neg (Neg) U Benzodiazepines Scrn Neg (Neg) Urine Cocaine Screen Neg (Neg) U Cannabinoids Screen Neg (Neg) Serum Alcohol (0-5) mg/dL Blood Type Blood Type Recheck Antibody Screen 04/05/18 04/06/18 04/06/18 Range/Units 17:40 06:00 06:00 WBC 5.2 D (4.0-11.0) th/mm3 RBC 3.42 L (4.50-5.90) mil/mm3 Hgb 13.1 D (13.0-17.0) gm/dL Hct 37.8 L (39.0-51.0) % MCV 110.7 H (80.0-100.0) fL MCH 38.4 H (27.0-34.0) pg MCHC 34.7 (32.0-36.0) % RDW 13.2 (11.6-17.2) % Plt Count 129 L D (150-450) th/mm3 MPV 7.9 (7.0-11.0) fL Neut % (Auto) 55.1 (16.0-70.0) % Lymph % (Auto) 35.9 (9.0-44.0) % [place] % (Auto) 7.6 (0.0-8.0) % Eos % (Auto) 1.0 (0.0-4.0) % Baso % (Auto) 0.4 (0.0-2.0) % Neut # (Auto) 2.9 (1.8-7.7) th/mm3 Lymph # (Auto) 1.9 (1.0-4.8) th/mm3 [place] # (Auto) 0.4 (0.0-0.9) th/mm3 Eos # (Auto) 0.1 (0.0-0.4) th/mm3 Baso # (Auto) 0.0 (0.0-0.2) th/mm3 WBC Differential . Differential Comment Auto diff final PT (9.8-11.6) sec INR Ratio APTT (23.4-31.7) sec Sodium 136 140 (136-145) meq/L Potassium 4.3 D 4.2 (3.5-5.1) meq/L Chloride 105 110 H (98-107) meq/L Carbon Dioxide 20.0 L 22.5 (21.0-32.0) meq/L Anion Gap 11 8 (5-15) meq/L BUN 59 H 48 H (7-18) mg/dL Creatinine 2.45 H 1.50 H (0.60-1.30) mg/dL Estimated GFR 27 L 47 L (>89) mL/min POC Glucose (68-110) mg/dl Random Glucose 89 102 (74-106) mg/dL Lactic Acid (0.4-2.0) mmol/L Calcium 8.6 D 7.9 L (8.5-10.1) mg/dL Magnesium (1.5-2.5) mg/dL Total Bilirubin 0.6 (0.2-1.0) mg/dL AST 20 (15-37) U/L ALT 26 (12-78) U/L Alkaline Phosphatase 66 (45-117) U/L Total Creatine Kinase (39-308) U/L Troponin I (0.02-0.05) ng/mL Total Protein 6.0 L D (6.4-8.2) g/dL Albumin 3.1 L D (3.4-5.0) g/dL Vitamin B12 426 (193-986) pg/mL Folate Greater than 20.0 H (3.1-17.5) ng/mL Urine Color (Yellw/Straw) Urine Clarity (Clear) Urine pH (5.0-8.5) Ur Specific [place] (1.002-1.035) Urine Protein (Neg-Trace) mg/dL Urine Glucose (UA) (Negative) mg/dL Urine Ketones (Negative) mg/dL Urine Occult Blood (Negative) Urine Nitrate (Negative) Urine Bilirubin (Negative) Urine Urobilinogen (Less than 2) mg/dL Ur Leukocyte Esterase (Negative) Urine WBC (0-5) /hpf Hyaline Casts (0-3) /lpf Micro UA Comment Ur Microscopic Review Urine Culture Comments Urine Opiates Screen (Neg) Ur Barbiturates Screen (Neg) Ur Amphetamines Screen (Neg) U Benzodiazepines Scrn (Neg) Urine Cocaine Screen (Neg) U Cannabinoids Screen (Neg) Serum Alcohol (0-5) mg/dL Blood Type Blood Type Recheck Antibody Screen 04/07/18 04/07/18 Range/Units 07:31 07:31 WBC 4.3 (4.0-11.0) th/mm3 RBC 3.28 L (4.50-5.90) mil/mm3 Hgb 12.8 L (13.0-17.0) gm/dL Hct 36.6 L (39.0-51.0) % MCV 111.6 H (80.0-100.0) fL MCH 39.0 H (27.0-34.0) pg MCHC 35.0 (32.0-36.0) % RDW 13.5 (11.6-17.2) % Plt Count 121 L (150-450) th/mm3 MPV 8.0 (7.0-11.0) fL Neut % (Auto) 55.2 (16.0-70.0) % Lymph % (Auto) 34.9 (9.0-44.0) % [place] % (Auto) 7.9 (0.0-8.0) % Eos % (Auto) 1.6 (0.0-4.0) % Baso % (Auto) 0.4 (0.0-2.0) % Neut # (Auto) 2.4 (1.8-7.7) th/mm3 Lymph # (Auto) 1.5 (1.0-4.8) th/mm3 [place] # (Auto) 0.3 (0.0-0.9) th/mm3 Eos # (Auto) 0.1 (0.0-0.4) th/mm3 Baso # (Auto) 0.0 (0.0-0.2) th/mm3 WBC Differential . Differential Comment Auto diff final PT (9.8-11.6) sec INR Ratio APTT (23.4-31.7) sec Sodium 141 (136-145) meq/L Potassium 4.0 (3.5-5.1) meq/L Chloride 111 H (98-107) meq/L Carbon Dioxide 22.9 (21.0-32.0) meq/L Anion Gap 7 (5-15) meq/L BUN 27 H (7-18) mg/dL Creatinine 0.87 (0.60-1.30) mg/dL Estimated GFR 88 L (>89) mL/min POC Glucose (68-110) mg/dl Random Glucose 107 H (74-106) mg/dL Lactic Acid (0.4-2.0) mmol/L Calcium 7.7 L (8.5-10.1) mg/dL Magnesium (1.5-2.5) mg/dL Total Bilirubin 0.5 (0.2-1.0) mg/dL AST 19 (15-37) U/L ALT 24 (12-78) U/L Alkaline Phosphatase 60 (45-117) U/L Total Creatine Kinase (39-308) U/L Troponin I (0.02-0.05) ng/mL Total Protein 6.0 L (6.4-8.2) g/dL Albumin 3.0 L (3.4-5.0) g/dL Vitamin B12 (193-986) pg/mL Folate (3.1-17.5) ng/mL Urine Color (Yellw/Straw) Urine Clarity (Clear) Urine pH (5.0-8.5) Ur Specific [place] (1.002-1.035) Urine Protein (Neg-Trace) mg/dL Urine Glucose (UA) (Negative) mg/dL Urine Ketones (Negative) mg/dL Urine Occult Blood (Negative) Urine Nitrate (Negative) Urine Bilirubin (Negative) Urine Urobilinogen (Less than 2) mg/dL Ur Leukocyte Esterase (Negative) Urine WBC (0-5) /hpf Hyaline Casts (0-3) /lpf Micro UA Comment Ur Microscopic Review Urine Culture Comments Urine Opiates Screen (Neg) Ur Barbiturates Screen (Neg) Ur Amphetamines Screen (Neg) U Benzodiazepines Scrn (Neg) Urine Cocaine Screen (Neg) U Cannabinoids Screen (Neg) Serum Alcohol (0-5) mg/dL Blood Type Blood Type Recheck Antibody Screen Imaging Data Radiologist's impression: Abdomen/Bladder Ultrasound 04/05/18 00:00 CONCLUSION: 1. Mildly echogenic kidneys characteristic of medical renal disease. No hydronephrosis. No acute findings. Bladder unremarkable. Chest X-Ray 04/05/18 11:53 CONCLUSION: Minimal basilar atelectasis. Head CT 04/05/18 11:53 CONCLUSION: 1. No acute intracranial abnormalities. Chronic white matter ischemic changes are stable. . . ECG Data Attestation: I personally reviewed and interpreted this ECG as follows: Interpretation: Normal sinus rhythm at a rate of 85, normal axis, n [place] interval 220, no acute ischemia . Discharge Plan Discharge Disposition Patient Disposition: ED Admit(ED Internal Use Only) Discharge Condition Condition: Stable Discharge Order Discharge Orders: Discharge Order (Routine); Ordered 04/07/18 Ordered By: Leah Wallace ED Use Only Admit Order (Routine); Ordered 04/05/18 Ordered By: Norberto Carbajal Discharge Details Anticipated Discharge Date: 04/07/18 Physicians Team ED Provider: Norberto Carbajal Primary Care Provider: UNKNOWN, Attending Provider: Marek Castaneda Status ED Status: Left Department Discharge Information Discharge Date/Time: 04/05/18 15:20
[2018-04-05 12:33] LABS: Baso % (Auto) 0.3 % (0.0-2.0); Eos % (Auto) 0.4 % (0.0-4.0); Hematocrit 47.4 % (39.0-51.0); Hemoglobin 16.6 gm/dL (13.0-17.0); Lymph # (Auto) 2.3 th/mm3 (1.0-4.8); Lymph % (Auto) 19.1 % (9.0-44.0); Mean Corpuscular HGB Conc 35.1 % (32.0-36.0); Mean Corpuscular Hemoglobin 38.9 pg (27.0-34.0); Mean Platelet Volume 8.1 fL (7.0-11.0); Neut # (Auto) 8.9 th/mm3 (1.8-7.7); Neut % (Auto) 72.2 % (16.0-70.0); Platelet Count 233 th/mm3 (150-450); Red Blood Count 4.27 mil/mm3 (4.50-5.90); Red Cell Distribution Width 13.5 % (11.6-17.2); White Blood Count 12.3 th/mm3 (4.0-11.0)
[2018-04-05 12:40] LABS: Activated Partial Thrombo Time 29.8 sec (23.4-31.7); Prothrombin Time 10.3 sec (9.8-11.6)
[2018-04-05 12:48] LABS: Alanine Aminotransferase 37 U/L (12-78); Albumin 4.4 g/dL (3.4-5.0); Anion Gap 13 meq/L (5-15); Aspartate Aminotransferase 24 U/L (15-37); Blood Urea Nitrogen 60 mg/dL (7-18); Calcium 9.9 mg/dL (8.5-10.1); Carbon Dioxide 20.2 meq/L (21.0-32.0); Chloride 99 meq/L (98-107); Glomerular Filtration Rate 18 mL/min (>89); Glucose,Random 112 mg/dL (74-106); Magnesium 2.3 mg/dL (1.5-2.5); Potassium 5.3 meq/L (3.5-5.1); Sodium 132 meq/L (136-145)
[2018-04-05 12:51] LABS: Alkaline Phosphatase 90 U/L (45-117); Total Protein 8.3 g/dL (6.4-8.2)
--- NOTE | 2018-04-05 12:51 | XR ---
EXAM DATE: 04/05/2018 12:21 PM EST AGE/SEX: 67 years / Male INDICATIONS: Syncope episode and dizziness. CLINICAL DATA: This is the patient's initial encounter. Patient reports that signs and symptoms have been present for 1 day and indicates a pain score of 0/10. MEDICAL/SURGICAL HISTORY: Hypertension. None. COMPARISON: [facility] – [place], CHEST 1V SINGLE AP, 08/27/2017. . FINDINGS: A single AP view of the chest demonstrates minimal basilar atelectasis. Tortuous aorta. No significan t effusion. No pneumothorax. CONCLUSION: Minimal basilar atelectasis. Electronically signed by: Jonathan Jim MD Board Certified Radiologist 04/05/2018 12:49 PM EST
--- NOTE | 2018-04-05 12:58 | CT ---
EXAM DATE: 04/05/2018 12:26 PM EST AGE/SEX: 67 years / Male INDICATIONS: Trauma, facial injury CLINICAL DATA: This is the patient's initial encounter. Patient reports that signs and symptoms have been present for 1 day and indicates a pain score of 5/10. MEDICAL/SURGICAL HISTORY: Diabetes. Hypertension. Seizures. Anxiety, colitis None. RADIATION DOSE: 64.63 CTDI (mGy) COMPARISON: [facility], CT BRAIN W/O CONTRAST, 07/14/2017. . TECHNIQUE: CT of the head without contrast. Using automated exposure control and adjustment of the mA and/or kV according to patient size, radiation dose was kept as low as reasonably achievable to ob tain optimal diagnostic quality images. DICOM format image data is available electronically for revi ew and comparison. FINDINGS: Cerebrum: The ventricles are normal for age. No evidence of midline shift, mass lesion, hemorrhage or acute infarction. No extraaxial fluid collections are seen. Posterior Fossa: The cerebellum and brainstem are intact. The 4th ventricle is midline. The cerebe llopontine angle is unremarkable. Extracranial: The visualized portion of the orbits is intact. Skull: The calvaria is intact. No evidence of skull fracture. CONCLUSION: 1. No acute intracranial abnormalities. Chronic white matter ischemic changes are stable. . . Electronically signed by: Jonathan Jim MD Board Certified Radiologist 04/05/2018 12:56 PM EST
[2018-04-05 14:01] LABS: Bilirubin,Urine Negative (Negative); Clarity,Urine Clear (Clear); Color,Urine Yellow (Yellw/Straw); Glucose,Urine (UA) 150 mg/dL (Negative); Hyaline Casts,Urine 20 /lpf (0-3); Leukocyte Esterase,Urine Negative (Negative); Nitrite,Urine Negative (Negative); Specific Gravity,Urine 1.015 (1.002-1.035)
--- NOTE | 2018-04-05 14:09 | P.HPFP ---
History of Present Illness Primary Care Physician: UNKNOWN Chief Complaint: fall last night, head injury History of Present Illness: 67-year-old male with history of seizure disorder and recurrent falls presented to the ED for fall that occurred last night, status post occipital contusion. Patient states that there were no preceding symptoms such as palpitations, nausea, dizziness, vision changes, or weakness prior to the fall. He states that he fell backwards and hit the back of his head, but is unsure what he hit his head on. Denies loss of consciousness but does state that he was unable to get up from the fall. He is unsure of how long he was on the floor but states it was probably about an hour. Notes some nausea currently and admits to vomiting multiple times following the fall, overnight. Notes vomiting yellow/ green liquid and denies any grossly bloody emesis. He notes mild, dull pain at the site of the contusion on the back of his head. He also admits to a sore neck, but has normal range of motion. He notes single episode of dizziness when moving from the hospital bed to the CT machine today. He has been tolerating fluids and solids normally following the fall. He normally walks unassisted but used to use a cane prior to undergoing physical therapy. Denies vision changes, weakness, numbness, or tingling, shortness of breath, palpitations or chest pain. He presented to the ED at request of a friend who is a nurse. He has a history of approximately 5 falls in the last 2 years. Most recent fall occurred on June 182017 where he fell forward and hit his head on cement pavement outside of a grocery store. Patient sustained a traumatic brain injury , and was noted to have bilateral frontal hematomas and was in the ICU for 2 weeks. Patient states that he had a seizure while in the ICU. Patient states that he is unsure if there are any presenting symptoms from the prior fall but does admit to loss of consciousness with possible bowel and bladder loss at the time. Patient was discharged from the ICU to inpatient [facility] and was recommended to take Keppra 1000 mg twice daily, but was never prescribed that medication. He never followed up with a neurologist following this hospital stay. Past medical hx: Colitis, HTN, seizure, traumatic brain injury Surgical hx: Left total knee replacement, arthroscopic repair of right knee, small bowel resection, vasectomy, tonsillectomy, appendectomy Social history: Lives with , who helps him with his activities of daily living. Former ~1PPD smoker since he was a teenager. Quit in June 2017 during last hospitalization. ETOH: Drinks 2 scotches everyday, for years. Substance use: Uses CBD oil a couple of times a week for anxiety and sleep Prescribed PRN medications per patient: Hydrocodone, last took 1 pill yesterday. SOMA last taken "quite a while ago, Valium PRN last over a year ago In the process of changing PCPs. Last seen by Dr. Siri Rodriguez - Diagnosis (1) CHYNA (acute kidney injury) (2) Status post fall (3) History of seizure (4) Hyperkalemia (5) Anemia, macrocytic (6) Alcohol use (7) History of depression (8) Hx of diabetes mellitus (9) Hypertension (10) Nutrition, metabolism, and development symptoms (11) DVT prophylaxis Review of Systems Constitutional: Denies fever(s), Denies weakness PMFSH - History History Provided By: Patient, Family Member - Medical History Medical History: Medical History (Last Reviewed 04/05/18 @ 14:03 by Marek Castaneda MD) Anxiety Colitis Depression Diabetes mellitus Hypertension Seizure - Surgical History Surgical History: Surgical History (Last Reviewed 04/05/18 @ 14:04 by Marek Castaneda MD) History of appendectomy History of bowel resection H/O arthroscopy of right knee History of left knee replacement Hx of tonsillectomy - Tobacco History Second Hand Smoke Exposure: No Tobacco Use In Past 30 Days: No Smoking Status: Former smoker Tobacco Type: Cigarettes - Alcohol History How Often Do You Have a Drink Containing Alcohol: 4 or more times a week - Substance Use History Substance History: No History of Abuse - Travel History Recent Travel in the [place] Within the Last 8 Weeks: No Recent Travel Out of the Country Within the Last 8 Weeks: No - Immunization History Tetanus Immunization: <5 Years Medications and Allergies Active Medications: Active Medications Sodium Chloride (Ns Flush) 2 ml IV.FLUSH PRN PRN PRN Reason: FLUSH AFTER USING IV ACCESS Allergies Allergy/AdvReac Type Severity Reaction Status Date / Time No Known Allergies Allergy Verified 04/05/18 12:51 Home Medications Medication Instructions Recorded Confirmed Type omeprazole 20 mg PO DAILY 08/27/17 04/05/18 History quetiapine 25 mg PO TID 08/27/17 04/05/18 History sertraline 50 mg PO DAILY 08/27/17 04/05/18 History diphenhydramine HCl 25 mg PO HS 04/05/18 04/05/18 History hydrochlorothiazide 12.5 mg PO DAILY 04/05/18 04/05/18 History hydrocodone-acetaminophen 5 - 325 mg PO Q4-6H PRN 04/05/18 04/05/18 History lisinopril 20 mg PO DAILY 04/05/18 04/05/18 History Exam Vital signs: Vital Signs 04/05/18 11:31 04/05/18 11:52 04/05/18 11:53 Temperature 97.2 F L Pulse Rate 109 H 102 H 100 H Respiratory Rate 18 20 Blood Pressure 89/57 L 85/59 L Pulse Oximetry 100 97 98 04/05/18 12:33 Temperature Pulse Rate 89 Respiratory Rate 18 Blood Pressure 120/63 Pulse Oximetry 99 Intake & Output 04/04/18 04/05/18 04/05/18 18:59 06:59 18:59 Intake Total 1000 / 1000 Balance 1000 / 1000 Weight 88.451 kg Intake: IV 1000 / 1000 NS Inj 1,000 ML @ 2000 mls/hr 1000 / 1000 IV.SIG Q30M [facility] Rx#:[id number] Narrative: GENERAL: 67-year-old, well nourished, well developed male laying down comfortably in bed. In no acute distress. SKIN: Warm and dry. HEAD: Normocephalic. Small scalp abrasion at the apex of the posterior head approximately 1.5-2 cm in diameter. No active bleeding. Mild tenderness to palpation. EYES: EMOI. PERRLA. No scleral icterus. No injection or drainage. ENT: No nasal bleeding or discharge. Mucous membranes pink and moist. Airway patent. Trachea midline. Poor dentition. CARDIOVASCULAR: Regular rate and rhythm. No murmur. No carotid bruits. PT and DP pulses 2+ bilaterally. RESPIRATORY: No accessory muscle use. Clear to auscultation with equal breath sounds. No crackles, wheeze, rales or rhonchi. GASTROINTESTINAL: Abdomen soft, non-tender, nondistended. Hepatic and splenic margins not palpable. MUSCULOSKELETAL: Extremities without clubbing, cyanosis, or edema. No obvious deformities. No calf tenderness. NEUROLOGICAL: Awake and alert. No obvious cranial nerve deficits. Motor grossly within normal limits. Finger to nose normal. Rapid alternating movements normal. Five out of 5 muscle strength in the arms and legs. Normal speech. PSYCHIATRIC: Appropriate mood and affect; insight and judgment normal. Results - Labs Result diagrams: 04/05/18 12:15 04/05/18 17:40 Abnormal lab results 04/05/18 04/05/18 04/05/18 Range/Units 12:15 12:15 12:17 WBC 12.3 H (4.0-11.0) th/mm3 RBC 4.27 L (4.50-5.90) mil/mm3 MCV 111.0 H (80.0-100.0) fL MCH 38.9 H (27.0-34.0) pg Neut % (Auto) 72.2 H (16.0-70.0) % Neut # (Auto) 8.9 H (1.8-7.7) th/mm3 [place] # (Auto) 1.0 H (0.0-0.9) th/mm3 Sodium 132 L (136-145) meq/L Potassium 5.3 H (3.5-5.1) meq/L Carbon Dioxide 20.2 L (21.0-32.0) meq/L BUN 60 H (7-18) mg/dL Creatinine 3.45 H (0.60-1.30) mg/dL Estimated GFR 18 L (>89) mL/min POC Glucose 119 H (68-110) mg/dl Random Glucose 112 H (74-106) mg/dL Troponin I Less than 0.02 L (0.02-0.05) ng/mL Total Protein 8.3 H (6.4-8.2) g/dL Short CBC 04/05/18 Range/Units 12:15 WBC 12.3 H (4.0-11.0) th/mm3 Hgb 16.6 (13.0-17.0) gm/dL Hct 47.4 (39.0-51.0) % Plt Count 233 (150-450) th/mm3 BMP 04/05/18 12:15 Sodium 132 L Potassium 5.3 H Chloride 99 Carbon Dioxide 20.2 L BUN 60 H Creatinine 3.45 H Calcium 9.9 Cardiac Enzymes 04/05/18 Range/Units 12:15 Troponin I Less than 0.02 L (0.02-0.05) ng/mL Liver Function 04/05/18 Range/Units 12:15 Total Bilirubin 1.0 (0.2-1.0) mg/dL AST 24 (15-37) U/L ALT 37 (12-78) U/L Alkaline Phosphatase 90 (45-117) U/L Albumin 4.4 (3.4-5.0) g/dL - Imaging Impressions Chest X-Ray 04/05/18 11:53 CONCLUSION: Minimal basilar atelectasis. Head CT 04/05/18 11:53 CONCLUSION: 1. No acute intracranial abnormalities. Chronic white matter ischemic changes are stable. . . Caprini VTE Risk Assessment Caprini VTE Risk Assessment: Moderate/High Risk (score >= 2) Caprini Risk Assessment Model: Point Value = 1 Point Value = 2 Point Value = 3 Point Value = 5 Age 41-60 Minor surgery BMI > 25 kg/m2 Swollen legs Varicose veins or History of unexplained or recurrent spontaneous Oral contraceptives or hormone replacement Sepsis (< 1 month) Serious lung disease, including pneumonia (< 1 month) Abnormal pulmonary function Acute myocardial infarction Congestive heart failure (< 1 month) History of inflammatory bowel disease Medical patient at bed rest Age 61-74 Arthroscopic surgery Major open surgery (> 45 min) Laparoscopic surgery (> 45 min) Malignancy Confined to bed (> 72 hours) Immobilizing plaster cast Central venous access Age >= 75 History of VTE Family history of VTE Factor V Leiden Prothrombin [id number] Lupus anticoagulant Anticardiolipin antibodies Elevated serum homocysteine Heparin-induced thrombocytopenia Other congenital or acquired thrombophilia Stroke (< 1 month) Elective arthroplasty Hip, pelvis, or leg fracture Acute spinal cord injury (< 1 month) Prophylaxis Regimen: Total Risk Factor Score Risk Level Prophylaxis Regimen 0-1 Low Early ambulation 2 Moderate Order ONE of the following: *Sequential Compression Device (SCD) *Heparin 5000 units SQ BID 3-4 Higher Order ONE of the following medications: *Heparin 5000 units SQ TID *Enoxaparin/Lovenox 40 mg SQ daily (WT < 150 kg, CrCl > 30 mL/min) *Enoxaparin/Lovenox 30 mg SQ daily (WT < 150 kg, CrCl > 10-29 mL/min) *Enoxaparin/Lovenox 30 mg SQ BID (WT < 150 kg, CrCl > 30 mL/min) AND/OR *Sequential Compression Device (SCD) 5 or more Highest Order ONE of the following medications: *Heparin 5000 units SQ TID (Preferred with Epidurals) *Enoxaparin/Lovenox 40 mg SQ daily (WT < 150 kg, CrCl > 30 mL/min) *Enoxaparin/Lovenox 30 mg SQ daily (WT < 150 kg, CrCl > 10-29 mL/min) *Enoxaparin/Lovenox 30 mg SQ BID (WT < 150 kg, CrCl > 30 mL/min) AND *Sequential Compression Device (SCD) Assessment and Plan - Assessment (1) CHYNA (acute kidney injury) Code(s): N17.9 - Acute kidney failure, unspecified Status: Acute (2) Status post fall Code(s): Z91.81 - History of falling Status: Acute (3) History of seizure Code(s): Z87.898 - Personal history of other specified conditions Status: Chronic (4) Hyperkalemia Code(s): E87.5 - Hyperkalemia Status: Acute (5) Anemia, macrocytic Code(s): D53.9 - Nutritional anemia, unspecified Status: Acute (6) Alcohol use Code(s): Z78.9 - Other specified health status Status: Acute (7) History of depression Code(s): Z86.59 - Personal history of other mental and behavioral disorders Status: Chronic (8) Hx of diabetes mellitus Code(s): Z86.39 - Personal history of other endocrine, nutritional and metabolic disease Status: Chronic (9) Hypertension Code(s): I10 - Essential (primary) hypertension Status: Chronic (10) Nutrition, metabolism, and development symptoms Code(s): R63.8 - Other symptoms and signs concerning food and fluid intake Status: Acute (11) DVT prophylaxis Status: Acute - Assessment and Plan CHYNA BUN/Cr: 60/3.45, last BUN/Cr in June of 2017 15/0.7 -Given two 1L NS boluses the ED -Repeat BMP ordered -Renal US ordered -CK: 45, WNL -Avoid nephrotoxic agents. Hold antihypertensive medications. S/p Fall with head injury, hx of recurrent falls Hx of seizure in June 2017, TBI s/p bilateral frontal hemorrhage Not currently on anti-convulsant medications No LOC. -CT head negative for acute abnormality -EEG ordered due to history of seizures -UDS ordered -Cardiac telemetry ordered -Orthostatic blood pressures -Neuro checks q4hr -PT/OT ordered -To start Keppra 250 mg twice daily, due to renal insufficiency. Recommended to be placed on Keppra 1000 mg twice daily at discharge in June, however patient was never placed on this medication. Plan to increase if patient tolerates medication well. Mild Anemia, Macrocytic -Folate level ordered -Vitamin B12 level ordered Daily Alcohol use -CIWA protocol initiated -Thiamine, folate and multivitamin started Hx of depression -Continue home sertraline Hx of hypertension, on Lisinopril and HCTZ BP in ED 116/75 -Hold hypertensive medications History of DM, not on metformin. Blood glucose levels not elevated at this time. -Continue to monitor FEN - Fluids: Tolerating PO. IVF NS @ 125ml/hr at maintenance - Electrolytes: Mild hyponatremia and hyperkalemia noted on CMP. Continue to monitor and replete as needed following fluid boluses. - Regular diet DVT prophylaxis - Bilateral lower extremity SCDs and compression hose dw Dr. Castaneda and Dr. Contreras
[2018-04-05] MEDS ORDERED: Senna/Docusate Sodium 8.6/50 MG Tablet PO PRN (14:26)
[2018-04-05] MEDS ORDERED: LORazepam 1 MG Tablet PO PRN (15:02)
[2018-04-05] MEDS ORDERED: Haloperidol Inj 5 MG/ML Ampul IV.PUSH PRN (15:02)
[2018-04-05] MEDS: Sod Chloride 0.9% Inj 1,000 ML IV.CONT SCH (15:08)
[2018-04-05] MEDS: Acetaminophen 325 MG Tablet PO PRN (16:00)
[2018-04-05] MEDS: Folic Acid 1 MG Tablet PO SCH (16:00)
--- NOTE | 2018-04-05 16:45 | P.PNFP ---
Subjective Interval history: Agree with histories as recorded by Dr Marion in H&P today 04/05/18. Reviewed with her and discussed. 67 yo M with history of falls including one last May with bilateral frontal lobe hemorrhages and TBI presents with another fall, getting into bed. does not recall well what happened. Was discharged last admission on keppra for seizures following his bleed and TBI but not taking now. no clear seizure like activity or syncopal history however he does not remember well Results - Labs Result diagrams: 04/05/18 12:15 04/05/18 12:15 Abnormal lab results 04/05/18 04/05/18 04/05/18 Range/Units 12:15 12:15 12:17 WBC 12.3 H (4.0-11.0) th/mm3 RBC 4.27 L (4.50-5.90) mil/mm3 MCV 111.0 H (80.0-100.0) fL MCH 38.9 H (27.0-34.0) pg Neut % (Auto) 72.2 H (16.0-70.0) % Neut # (Auto) 8.9 H (1.8-7.7) th/mm3 [place] # (Auto) 1.0 H (0.0-0.9) th/mm3 Sodium 132 L (136-145) meq/L Potassium 5.3 H (3.5-5.1) meq/L Carbon Dioxide 20.2 L (21.0-32.0) meq/L BUN 60 H (7-18) mg/dL Creatinine 3.45 H (0.60-1.30) mg/dL Estimated GFR 18 L (>89) mL/min POC Glucose 119 H (68-110) mg/dl Random Glucose 112 H (74-106) mg/dL Troponin I Less than 0.02 L (0.02-0.05) ng/mL Total Protein 8.3 H (6.4-8.2) g/dL Urine Glucose (UA) (Negative) mg/dL Urine Ketones (Negative) mg/dL 04/05/18 Range/Units 13:45 WBC (4.0-11.0) th/mm3 RBC (4.50-5.90) mil/mm3 MCV (80.0-100.0) fL MCH (27.0-34.0) pg Neut % (Auto) (16.0-70.0) % Neut # (Auto) (1.8-7.7) th/mm3 [place] # (Auto) (0.0-0.9) th/mm3 Sodium (136-145) meq/L Potassium (3.5-5.1) meq/L Carbon Dioxide (21.0-32.0) meq/L BUN (7-18) mg/dL Creatinine (0.60-1.30) mg/dL Estimated GFR (>89) mL/min POC Glucose (68-110) mg/dl Random Glucose (74-106) mg/dL Troponin I (0.02-0.05) ng/mL Total Protein (6.4-8.2) g/dL Urine Glucose (UA) 150 H (Negative) mg/dL Urine Ketones Trace H (Negative) mg/dL Short CBC 04/05/18 Range/Units 12:15 WBC 12.3 H (4.0-11.0) th/mm3 Hgb 16.6 (13.0-17.0) gm/dL Hct 47.4 (39.0-51.0) % Plt Count 233 (150-450) th/mm3 BMP 04/05/18 12:15 Sodium 132 L Potassium 5.3 H Chloride 99 Carbon Dioxide 20.2 L BUN 60 H Creatinine 3.45 H Calcium 9.9 Cardiac Enzymes 04/05/18 04/05/18 Range/Units 12:15 12:15 Total Creatine Kinase 45 (39-308) U/L Troponin I Less than 0.02 L (0.02-0.05) ng/mL Liver Function 04/05/18 Range/Units 12:15 Total Bilirubin 1.0 (0.2-1.0) mg/dL AST 24 (15-37) U/L ALT 37 (12-78) U/L Alkaline Phosphatase 90 (45-117) U/L Albumin 4.4 (3.4-5.0) g/dL Urine 04/05/18 Range/Units 13:45 Urine Color Yellow (Yellw/Straw) Urine Clarity Clear (Clear) Urine pH 5.0 (5.0-8.5) Ur Specific [place] 1.015 (1.002-1.035) Urine Protein Negative (Neg-Trace) mg/dL Urine Glucose (UA) 150 H (Negative) mg/dL - Imaging Impressions Chest X-Ray 04/05/18 11:53 CONCLUSION: Minimal basilar atelectasis. Head CT 04/05/18 11:53 CONCLUSION: 1. No acute intracranial abnormalities. Chronic white matter ischemic changes are stable. . . Physical Exam Vital signs: Vital Signs 04/05/18 11:31 04/05/18 11:52 04/05/18 11:53 Temperature 97.2 F L Pulse Rate 109 H 102 H 100 H Respiratory Rate 18 20 Blood Pressure 89/57 L 85/59 L Pulse Oximetry 100 97 98 04/05/18 12:33 04/05/18 14:00 04/05/18 14:48 Temperature Pulse Rate 89 83 93 H Respiratory Rate 18 18 18 Blood Pressure 120/63 90/63 L 112/70 Pulse Oximetry 99 100 100 04/05/18 15:40 Temperature Pulse Rate Respiratory Rate Blood Pressure Pulse Oximetry 99 Intake & Output 04/04/18 04/05/18 04/05/18 18:59 06:59 18:59 Intake Total 1999 Balance 1999 Weight 84.1 kg Intake: IV 1999 NS Inj 1,000 ML @ 2000 mls/hr 1999 IV.SIG Q30M [facility] Rx#:[id number] Other: Weight On Admission 84.1 kg - Constitutional no acute distress, average body habitus, cooperative - Routine HEENT Exam Head: Present: normocephalic. Absent: atraumatic (3 x 3 cm area of dried blood over occiput, no hematoma) Eye: Present: EOMI, PERRL ENT: Present: mucous membranes moist - Routine Neck Exam Present: supple. Absent: JVD - Routine Respiratory Exam Present: CTA bilaterally. Absent: accessory muscle use - Routine Cardiovascular Exam Present: RRR, S1, S2. Absent: JVD - Routine Abdominal Exam Present: soft, normoactive bowel sounds. Absent: tenderness - Routine Extremities Exam Absent: cyanosis, clubbing, edema Comments: chronic pvd changes - Routine Skin Exam Present: intact. Absent: cyanosis, erythema - Routine Neurological Exam Present: alert, oriented X3, CN II-XII intact. Absent: sensory deficit, motor deficit, pronator drift, altered mental status - Routine Psychiatric Exam Present: normal affect, normal thought process Assessment and Plan - Assessment (1) Status post fall Code(s): Z91.81 - History of falling Status: Acute (2) History of seizure Code(s): Z87.898 - Personal history of other specified conditions Status: Acute (3) Hyperkalemia Code(s): E87.5 - Hyperkalemia Status: Acute (4) CHYNA (acute kidney injury) Code(s): N17.9 - Acute kidney failure, unspecified Status: Acute (5) Anemia, macrocytic Code(s): D53.9 - Nutritional anemia, unspecified Status: Acute (6) Alcohol use Code(s): Z78.9 - Other specified health status Status: Acute (7) Acute dehydration Code(s): E86.0 - Dehydration Status: Acute (8) Nutrition, metabolism, and development symptoms Code(s): R63.8 - Other symptoms and signs concerning food and fluid intake Status: Acute (9) DVT prophylaxis Status: Acute - Assessment and Plan CHYNA BUN/Cr: 60/3.45, last BUN/Cr in June of 2017: -Given two 1L NS boluses the ED -Repeat BMP ordered -Renal US ordered -CK: 45, WNL S/p Fall with head injury Hx of seizure in June 2017, not currently on anti-convulsant medications No LOC. -CT head negative for acute abnormality -EEG ordered -UDS ordered -Cardiac telemetry ordered -Orthostatic blood pressures -Neuro checks q4hr Hx of hypertension, on Lisinopril and HCTZ BP in ED 116/75 -Hold hypertensive medications Mild Anemia, Macrocytic -Folate level -Vitamin B12 level Alcohol use -[facility] protocol -Thiamine, folate and multivitamin started dw Dr. Castaneda and Dr. Contreras - Attending Attestation The exam, history, and the medical decision-making described in the H&P were completed with the assistance of the resident physician. I reviewed and agree with the findings presented. I attest that I had a [id number] encounter with the patient on the same day, and personally performed and documented my assessment and findings in the medical record. 1. CHYNA repeat s/p IVF and get renal/bladder Ultrasound hold NSAIDs and anti hypertensives 2. Recurrent Falls telemetry fall precautions EEG given seizure disorder OS vitals UDS re-examine meds/EtOH use no murmur/no bruit PT/OT 3. Seizure d/o 2/2 TBI s/p traumatic hemorrhage restart keppra for now as rec by neurology outpatient follow up unless has seizure activity in hospital 4. HyperK no EKG changes, expect to improve with kidney function 5. Hyponatremia recheck after NS resus 6. MDD/ISHMAEL cont home meds 7. Macrocytosis check b12, folate, may be EtOH related 8. DM monitor, BG ok here not on metformin 9. HTN hold meds for now and monitor, suspicion for chronic med induced hypotension
[2018-04-05 17:50] LABS: Amphetamine Screen,Urine Neg (Neg); Barbiturate Screen,Urine Neg (Neg); Cannabinoid Screen,Urine Neg (Neg); Cocaine Screen,Urine Neg (Neg)
[2018-04-05 17:53] LABS: Opiate Screen,Urine Neg (Neg)
[2018-04-05] MEDS ORDERED: Sertraline 50 MG Tablet PO SCH (18:00)
[2018-04-05 19:17] LABS: Anion Gap 11 meq/L (5-15); Blood Urea Nitrogen 59 mg/dL (7-18); Calcium 8.6 mg/dL (8.5-10.1); Chloride 105 meq/L (98-107); Glomerular Filtration Rate 27 mL/min (>89); Glucose,Random 89 mg/dL (74-106); Potassium 4.3 meq/L (3.5-5.1); Sodium 136 meq/L (136-145)
[2018-04-05 19:44] LABS: Vitamin B12 426 pg/mL (193-986)
--- NOTE | 2018-04-05 21:54 | US ---
EXAM DATE: 04/05/2018 9:45 PM EST AGE/SEX: 67 years / Male INDICATIONS: Abnormal labs. CLINICAL DATA: This is the patient's subsequent encounter. Patient reports that signs and symptoms h ave been present for 1 day and indicates a pain score of 1/10. MEDICAL/SURGICAL HISTORY: Hypertension. Diabetes. Seizure. Colitis. Appendectomy. Tonsillect tobin. Arthroscopy of right knee. Bowel resection. Left knee replacement. COMPARISON: [facility] [place], CT ABDOMEN & PELVIS W CONTRAST, 08/29/2017. . MEASUREMENTS: Right Kidney:__11.2 x 4.5 x 4.6 cm Left Kidney:__11.8 x 4.7 x 5.5 cm FINDINGS: Right Kidney: Increased echogenicity. No mass or hydronephrosis. Left Kidney: Increased echogenicity. No mass or hydronephrosis. Bladder: Within normal limits given the degree of distension. Other: None. CONCLUSION: 1. Mildly echogenic kidneys characteristic of medical renal disease. No hydronephrosis. No acute fin dings. Bladder unremarkable. Electronically signed by: Jonathan Jim MD Board Certified Radiologist 04/05/2018 9:52 PM EST
[2018-04-05] MEDS: levETIRAcetam 250 MG Tablet PO SCH (22:43)
[2018-04-06] MEDS: Sod Chloride 0.9% Inj 1,000 ML IV.CONT SCH ×3 (00:05→16:43)
[2018-04-06] MEDS: Acetaminophen 325 MG Tablet PO PRN (01:23)
[2018-04-06] MEDS: Morphine Inj 4 MG/ML Vial IV.PUSH PRN ×3 (06:13→16:42)
[2018-04-06 07:22] LABS: Baso % (Auto) 0.4 % (0.0-2.0); Eos # (Auto) 0.1 th/mm3 (0.0-0.4); Hematocrit 37.8 % (39.0-51.0); Hemoglobin 13.1 gm/dL (13.0-17.0); Lymph # (Auto) 1.9 th/mm3 (1.0-4.8); Lymph % (Auto) 35.9 % (9.0-44.0); Mean Corpuscular HGB Conc 34.7 % (32.0-36.0); Mean Corpuscular Hemoglobin 38.4 pg (27.0-34.0); Mean Corpuscular Volume 110.7 fL (80.0-100.0); Mean Platelet Volume 7.9 fL (7.0-11.0); Mono # (Auto) 0.4 th/mm3 (0.0-0.9); Mono % (Auto) 7.6 % (0.0-8.0); Neut # (Auto) 2.9 th/mm3 (1.8-7.7); Neut % (Auto) 55.1 % (16.0-70.0); Platelet Count 129 th/mm3 (150-450); Red Blood Count 3.42 mil/mm3 (4.50-5.90); Red Cell Distribution Width 13.2 % (11.6-17.2); White Blood Count 5.2 th/mm3 (4.0-11.0)
[2018-04-06 08:11] LABS: Albumin 3.1 g/dL (3.4-5.0); Anion Gap 8 meq/L (5-15); Aspartate Aminotransferase 20 U/L (15-37); Blood Urea Nitrogen 48 mg/dL (7-18); Calcium 7.9 mg/dL (8.5-10.1); Carbon Dioxide 22.5 meq/L (21.0-32.0); Chloride 110 meq/L (98-107); Glomerular Filtration Rate 47 mL/min (>89); Glucose,Random 102 mg/dL (74-106); Potassium 4.2 meq/L (3.5-5.1); Sodium 140 meq/L (136-145)
[2018-04-06] MEDS: Folic Acid 1 MG Tablet PO SCH (08:14)
[2018-04-06] MEDS: levETIRAcetam 250 MG Tablet PO SCH ×2 (08:14→20:17)
[2018-04-06 08:19] LABS: Alanine Aminotransferase 26 U/L (12-78); Alkaline Phosphatase 66 U/L (45-117)
[2018-04-06] MEDS ORDERED: Acetaminophen Inj 650 MG/65 ML VIAL IV.SIG PRN (12:31)
[2018-04-06] MEDS ORDERED: Acetaminophen 325 MG Tablet PO PRN (12:33)
--- NOTE | 2018-04-06 12:40 | P.PNFP ---
Subjective Interval history: 67-year-old male with history of recurrent falls and seizure admitted with acute renal insufficiency, status post fall with mild contusion to the back of head. Patient seen examined this morning. He states that he is feeling well today. Denies nausea or vomiting. Does note some mild dizziness when moving from lying down to sitting and sitting to standing positions. Denies any dizziness when turning his head to either side. Denies headache, but notes increased neck soreness bilaterally. No neck stiffness or decreased range of motion. Denies chest pain, shortness of breath, leg pain. Patient states that he would like Dr. Hahn to be contacted, as he was seen by him during his last hospitalization and [place]. Per patient EEG was performed earlier today. All questions answered. <Leah Vigil - 04/06/18 12:40> Results - Labs Result diagrams: 04/06/18 06:00 04/06/18 06:00 <Marek Castaneda - 04/06/18 16:29> Abnormal lab results 04/05/18 04/06/18 04/06/18 Range/Units 17:40 06:00 06:00 RBC 3.42 L (4.50-5.90) mil/mm3 Hct 37.8 L (39.0-51.0) % MCV 110.7 H (80.0-100.0) fL MCH 38.4 H (27.0-34.0) pg Plt Count 129 L D (150-450) th/mm3 Chloride 110 H (98-107) meq/L Carbon Dioxide 20.0 L (21.0-32.0) meq/L BUN 59 H 48 H (7-18) mg/dL Creatinine 2.45 H 1.50 H (0.60-1.30) mg/dL Estimated GFR 27 L 47 L (>89) mL/min Calcium 7.9 L (8.5-10.1) mg/dL Total Protein 6.0 L D (6.4-8.2) g/dL Albumin 3.1 L D (3.4-5.0) g/dL Folate Greater than 20.0 H (3.1-17.5) ng/mL Short CBC 04/06/18 Range/Units 06:00 WBC 5.2 D (4.0-11.0) th/mm3 Hgb 13.1 D (13.0-17.0) gm/dL Hct 37.8 L (39.0-51.0) % Plt Count 129 L D (150-450) th/mm3 BMP 04/05/18 04/06/18 17:40 06:00 Sodium 136 140 Potassium 4.3 D 4.2 Chloride 105 110 H Carbon Dioxide 20.0 L 22.5 BUN 59 H 48 H Creatinine 2.45 H 1.50 H Calcium 8.6 D 7.9 L Liver Function 04/06/18 Range/Units 06:00 Total Bilirubin 0.6 (0.2-1.0) mg/dL AST 20 (15-37) U/L ALT 26 (12-78) U/L Alkaline Phosphatase 66 (45-117) U/L Albumin 3.1 L D (3.4-5.0) g/dL <Marek Castaneda - 04/06/18 16:29> Abnormal lab results 04/05/18 04/05/18 04/05/18 Range/Units 12:15 12:15 12:17 WBC 12.3 H (4.0-11.0) th/mm3 RBC 4.27 L (4.50-5.90) mil/mm3 Hct (39.0-51.0) % MCV 111.0 H (80.0-100.0) fL MCH 38.9 H (27.0-34.0) pg Plt Count (150-450) th/mm3 Neut % (Auto) 72.2 H (16.0-70.0) % Neut # (Auto) 8.9 H (1.8-7.7) th/mm3 [place] # (Auto) 1.0 H (0.0-0.9) th/mm3 Sodium 132 L (136-145) meq/L Potassium 5.3 H (3.5-5.1) meq/L Chloride (98-107) meq/L Carbon Dioxide 20.2 L (21.0-32.0) meq/L BUN 60 H (7-18) mg/dL Creatinine 3.45 H (0.60-1.30) mg/dL Estimated GFR 18 L (>89) mL/min POC Glucose 119 H (68-110) mg/dl Random Glucose 112 H (74-106) mg/dL Calcium (8.5-10.1) mg/dL Troponin I Less than 0.02 L (0.02-0.05) ng/mL Total Protein 8.3 H (6.4-8.2) g/dL Albumin (3.4-5.0) g/dL Folate (3.1-17.5) ng/mL Urine Glucose (UA) (Negative) mg/dL Urine Ketones (Negative) mg/dL 04/05/18 04/05/18 04/06/18 Range/Units 13:45 17:40 06:00 WBC (4.0-11.0) th/mm3 RBC 3.42 L (4.50-5.90) mil/mm3 Hct 37.8 L (39.0-51.0) % MCV 110.7 H (80.0-100.0) fL MCH 38.4 H (27.0-34.0) pg Plt Count 129 L D (150-450) th/mm3 Neut % (Auto) (16.0-70.0) % Neut # (Auto) (1.8-7.7) th/mm3 [place] # (Auto) (0.0-0.9) th/mm3 Sodium (136-145) meq/L Potassium (3.5-5.1) meq/L Chloride (98-107) meq/L Carbon Dioxide 20.0 L (21.0-32.0) meq/L BUN 59 H (7-18) mg/dL Creatinine 2.45 H (0.60-1.30) mg/dL Estimated GFR 27 L (>89) mL/min POC Glucose (68-110) mg/dl Random Glucose (74-106) mg/dL Calcium (8.5-10.1) mg/dL Troponin I (0.02-0.05) ng/mL Total Protein (6.4-8.2) g/dL Albumin (3.4-5.0) g/dL Folate Greater than 20.0 H (3.1-17.5) ng/mL Urine Glucose (UA) 150 H (Negative) mg/dL Urine Ketones Trace H (Negative) mg/dL 04/06/18 Range/Units 06:00 WBC (4.0-11.0) th/mm3 RBC (4.50-5.90) mil/mm3 Hct (39.0-51.0) % MCV (80.0-100.0) fL MCH (27.0-34.0) pg Plt Count (150-450) th/mm3 Neut % (Auto) (16.0-70.0) % Neut # (Auto) (1.8-7.7) th/mm3 [place] # (Auto) (0.0-0.9) th/mm3 Sodium (136-145) meq/L Potassium (3.5-5.1) meq/L Chloride 110 H (98-107) meq/L Carbon Dioxide (21.0-32.0) meq/L BUN 48 H (7-18) mg/dL Creatinine 1.50 H (0.60-1.30) mg/dL Estimated GFR 47 L (>89) mL/min POC Glucose (68-110) mg/dl Random Glucose (74-106) mg/dL Calcium 7.9 L (8.5-10.1) mg/dL Troponin I (0.02-0.05) ng/mL Total Protein 6.0 L D (6.4-8.2) g/dL Albumin 3.1 L D (3.4-5.0) g/dL Folate (3.1-17.5) ng/mL Urine Glucose (UA) (Negative) mg/dL Urine Ketones (Negative) mg/dL Short CBC 04/05/18 04/06/18 Range/Units 12:15 06:00 WBC 12.3 H 5.2 D (4.0-11.0) th/mm3 Hgb 16.6 13.1 D (13.0-17.0) gm/dL Hct 47.4 37.8 L (39.0-51.0) % Plt Count 233 129 L D (150-450) th/mm3 BMP 04/05/18 04/05/18 04/06/18 12:15 17:40 06:00 Sodium 132 L 136 140 Potassium 5.3 H 4.3 D 4.2 Chloride 99 105 110 H Carbon Dioxide 20.2 L 20.0 L 22.5 BUN 60 H 59 H 48 H Creatinine 3.45 H 2.45 H 1.50 H Calcium 9.9 8.6 D 7.9 L Cardiac Enzymes 04/05/18 04/05/18 Range/Units 12:15 12:15 Total Creatine Kinase 45 (39-308) U/L Troponin I Less than 0.02 L (0.02-0.05) ng/mL Liver Function 04/05/18 04/06/18 Range/Units 12:15 06:00 Total Bilirubin 1.0 0.6 (0.2-1.0) mg/dL AST 24 20 (15-37) U/L ALT 37 26 (12-78) U/L Alkaline Phosphatase 90 66 (45-117) U/L Albumin 4.4 3.1 L D (3.4-5.0) g/dL Urine 04/05/18 Range/Units 13:45 Urine Color Yellow (Yellw/Straw) Urine Clarity Clear (Clear) Urine pH 5.0 (5.0-8.5) Ur Specific [place] 1.015 (1.002-1.035) Urine Protein Negative (Neg-Trace) mg/dL Urine Glucose (UA) 150 H (Negative) mg/dL <Leah Vigil - 04/06/18 12:40> - Imaging Impressions Abdomen/Bladder Ultrasound 04/05/18 00:00 CONCLUSION: 1. Mildly echogenic kidneys characteristic of medical renal disease. No hydronephrosis. No acute findings. Bladder unremarkable. <Marek Castaneda - 04/06/18 16:29> Impressions Abdomen/Bladder Ultrasound 04/05/18 00:00 CONCLUSION: 1. Mildly echogenic kidneys characteristic of medical renal disease. No hydronephrosis. No acute findings. Bladder unremarkable. Chest X-Ray 04/05/18 11:53 CONCLUSION: Minimal basilar atelectasis. Head CT 04/05/18 11:53 CONCLUSION: 1. No acute intracranial abnormalities. Chronic white matter ischemic changes are stable. . . <Leah Vigil - 04/06/18 12:40> Physical Exam Vital signs: Vital Signs 04/05/18 20:00 04/06/18 00:00 04/06/18 02:00 Temperature 98.6 F 98.2 F Pulse Rate 93 H 77 Respiratory Rate 18 18 20 Blood Pressure 88/51 L 107/70 Pulse Oximetry 99 99 04/06/18 04:00 04/06/18 08:00 04/06/18 08:10 Temperature 98.0 F 97.5 F L Pulse Rate 77 75 93 H Respiratory Rate 18 16 Blood Pressure 102/63 111/72 Pulse Oximetry 98 98 04/06/18 10:16 04/06/18 12:00 Temperature 98.1 F Pulse Rate 81 Respiratory Rate 17 Blood Pressure 120/69 Pulse Oximetry 95 97 Intake & Output 04/05/18 04/06/18 04/06/18 18:59 06:59 18:59 Intake Total 1999 233 / 233 Output Total 375 / 375 Balance 1999 1592 / 1592 233 / 233 Weight 84.1 kg 84.5 kg Intake: IV 1999 1767 / 1767 233 / 233 NS Inj 1,000 ML @ 125 mls/hr IV 1767 / 1767 233 / 233 .CONT .Q8H JULIANN Rx#:[id number] NS Inj 1,000 ML @ 2000 mls/hr 1999 IV.SIG Q30M JULIANN Rx#:[id number] Oral 200 / 200 Output: Urine 375 / 375 Other: # Voids 1 Date of Last Bowel Movement 04/05/18 # Bowel Movements 1 Weight On Admission 84.1 kg <Marek Castaneda - 04/06/18 16:29> Vital Signs 04/05/18 12:33 04/05/18 14:00 04/05/18 14:48 Temperature Pulse Rate 89 83 93 H Respiratory Rate 18 18 18 Blood Pressure 120/63 90/63 L 112/70 Pulse Oximetry 99 100 100 04/05/18 15:40 04/05/18 16:00 04/05/18 20:00 Temperature 98.0 F 98.6 F Pulse Rate 89 93 H Respiratory Rate 17 18 Blood Pressure 115/76 88/51 L Pulse Oximetry 99 100 99 04/06/18 00:00 04/06/18 02:00 04/06/18 04:00 Temperature 98.2 F 98.0 F Pulse Rate 77 77 Respiratory Rate 18 20 18 Blood Pressure 107/70 102/63 Pulse Oximetry 99 98 04/06/18 08:10 04/06/18 10:16 Temperature Pulse Rate 93 H Respiratory Rate Blood Pressure Pulse Oximetry 95 Intake & Output 04/05/18 04/06/18 04/06/18 18:59 06:59 18:59 Intake Total 1999 233 / 233 Output Total 375 / 375 Balance 1999 1592 / 1592 233 / 233 Weight 84.1 kg 84.5 kg Intake: IV 1999 1767 / 1767 233 / 233 NS Inj 1,000 ML @ 125 mls/hr IV 1767 / 1767 233 / 233 .CONT .Q8H JULIANN Rx#:[id number] NS Inj 1,000 ML @ 2000 mls/hr 1999 IV.SIG Q30M JULIANN Rx#:[id number] Oral 200 / 200 Output: Urine 375 / 375 Other: # Voids 1 Date of Last Bowel Movement 04/05/18 # Bowel Movements 1 Weight On Admission 84.1 kg <Leah Vigil 04/06/18 12:40> Narrative: GENERAL: 67-year-old, well nourished, well developed male laying down comfortably in bed. In no acute distress. SKIN: Warm and dry. HEAD: Normocephalic. Small scalp abrasion at the apex of the posterior head approximately 1.5-2 cm in diameter. No active bleeding. EYES: EMOI. No scleral icterus. No injection or drainage. ENT: No nasal bleeding or discharge. Mucous membranes pink and moist. Airway patent. Trachea midline. Poor dentition. CARDIOVASCULAR: Regular rate and rhythm. No murmur. RESPIRATORY: No accessory muscle use. Clear to auscultation with equal breath sounds. No crackles, wheeze, rales or rhonchi. MUSCULOSKELETAL: Extremities without clubbing, cyanosis, or edema. No obvious deformities. No calf tenderness. NEUROLOGICAL: Awake and alert. No obvious cranial nerve deficits. Motor grossly within normal limits. Normal speech. PSYCHIATRIC: Appropriate mood and affect; insight and judgment normal. <Leah Vigil 04/06/18 12:40> Assessment and Plan - Assessment (1) CHYNA (acute kidney injury) Code(s): N17.9 - Acute kidney failure, unspecified Status: Acute (2) Status post fall Code(s): Z91.81 - History of falling Status: Acute (3) History of seizure Code(s): Z87.898 - Personal history of other specified conditions Status: Chronic (4) Neck pain Code(s): M54.2 - Cervicalgia Status: Acute (5) Anemia, macrocytic Code(s): D53.9 - Nutritional anemia, unspecified Status: Acute (6) Alcohol use Code(s): Z78.9 - Other specified health status Status: Acute (7) History of depression Code(s): Z86.59 - Personal history of other mental and behavioral disorders Status: Chronic (8) Hx of diabetes mellitus Code(s): Z86.39 - Personal history of other endocrine, nutritional and metabolic disease Status: Chronic (9) Hypertension Code(s): I10 - Essential (primary) hypertension Status: Chronic (10) Hyperkalemia Code(s): E87.5 - Hyperkalemia Status: Resolved (11) Nutrition, metabolism, and development symptoms Code(s): R63.8 - Other symptoms and signs concerning food and fluid intake Status: Acute (12) DVT prophylaxis Status: Acute <KriscandiceMarek - 04/06/18 16:29> (1) CHYNA (acute kidney injury) Code(s): N17.9 - Acute kidney failure, unspecified Status: Acute (2) Status post fall Code(s): Z91.81 - History of falling Status: Acute (3) History of seizure Code(s): Z87.898 - Personal history of other specified conditions Status: Chronic (4) Neck pain Code(s): M54.2 - Cervicalgia Status: Acute (5) Anemia, macrocytic Code(s): D53.9 - Nutritional anemia, unspecified Status: Acute (6) Alcohol use Code(s): Z78.9 - Other specified health status Status: Acute (7) History of depression Code(s): Z86.59 - Personal history of other mental and behavioral disorders Status: Chronic (8) Hx of diabetes mellitus Code(s): Z86.39 - Personal history of other endocrine, nutritional and metabolic disease Status: Chronic (9) Hypertension Code(s): I10 - Essential (primary) hypertension Status: Chronic (10) Hyperkalemia Code(s): E87.5 - Hyperkalemia Status: Resolved (11) Nutrition, metabolism, and development symptoms Code(s): R63.8 - Other symptoms and signs concerning food and fluid intake Status: Acute (12) DVT prophylaxis Status: Acute <Leah Vigil - 04/06/18 14:52> - Assessment and Plan CHYNA, resolving BUN/Cr: 60/3.45 on admission, last BUN/Cr in June of 2017 15/0.7 -Given two 1L NS boluses the ED -BUN/Cr downtrending from 60/3.45 to 59/2.45 to 48/1.5 -CK: 45, WNL -Renal US showed: mildly echogenic kidneys characteristic of medical renal disease. No hydronephrosis. No acute findings. Bladder unremarkable -Avoid nephrotoxic agents. Hold antihypertensive medications. S/p Fall with head injury, hx of recurrent falls Hx of seizure in June 2017, TBI s/p bilateral frontal hemorrhage Not currently on anti-convulsant medications No LOC. -CT head negative for acute abnormality -UDS negative -Cardiac telemetry ordered -Neuro checks q4hr -EEG ordered due to history of seizures, report pending. -Orthostatic blood pressures to be performed to be PT -PT/OT ordered -To start Keppra 250 mg twice daily, due to renal insufficiency. Recommended to be placed on Keppra 1000 mg twice daily at discharge in June, however patient was never placed on this medication. Neck pain Describes dull, aching posterior neck soreness, worsening this morning -Avoid NSAIDs due to renal insufficiency -Tylenol 650mg PO for pain scale 1-5 -Ofirmev 650 mg IV for pain scale 6-10 Mild Anemia, Macrocytic -Folate level elevated at >20 -Vitamin B12 level WNL Daily Alcohol use -CIWA protocol initiated -Thiamine, folate and multivitamin started on 04/05 Hx of depression -Continue home sertraline Hx of hypertension, on Lisinopril and HCTZ BP in ED 116/75 -Continue to hold hypertensive medications History of DM, not on metformin. Blood glucose levels not elevated at this time. -Continue to monitor FEN - Fluids: Tolerating PO. IVF NS @ 125ml/hr at maintenance - Electrolytes: Mild hyponatremia and hyperkalemia noted on CMP. Continue to monitor and replete as needed following fluid boluses. - Regular diet DVT prophylaxis - Bilateral lower extremity SCDs and compression hose At patient's request, Dr. Hahn was informed of the patient's admission to the hospital, who plans to stop by the patient later today. yuliana Castaneda and Dr. Mota <Leah Vigil - 04/06/18 14:52> - Attending Attestation The exam, history, and the medical decision-making described in the above note were completed with the assistance of the resident physician. I reviewed and agree with the findings presented. I attest that I had a [id number] encounter with the patient on the same day, and personally performed and documented my assessment and findings in the medical record. Feeling well today, wants to see Dr Hahn. BPs completely normal even on low side some without BP meds US show some chronic atrophic changes Cr improving today I suspect he has been chronically overmedicated in terms of hypertension and falls and renal hypoperfusion a result of this. today will get Pt eval and hopefully can go home tomorrow if does not need further care recheck Cr tomorrow which may establish new baseline at least temporarily. suspect ATN with chronic hypotension and will take time to see where Cr is. if EEG normal will just send out on keppra he was on before with outpatient neuro follow up. hopeful d/c tomorrow. <Marek Castaneda - 04/06/18 16:29>
--- NOTE | 2018-04-06 13:01 | MG ---
cc: Prem Maier MD, PhD DATE OF STUDY: 04/06/2018 TEST NUMBER: [id number] A 17-channel EEG. DESCRIPTION: Background rhythm reveals symmetrical alpha activity. Frequency is 8-10 Hz, amplitude is 30-40 microvolts. There is the expected anterior decrement to the response. There is rare muscle artifact present. No epileptiform features are identified. No lateralizing features are seen. Photic stimulation results in a normal driving response. INTERPRETATION: Normal electroencephalogram. Prem Maier MD, PhD OBINNA/ll , 12:41 PM , 12:45 PM
--- NOTE | 2018-04-06 15:24 | ECG ---
Date Performed: 04/05/2018 Time Performed: 12:40:23 PTAGE: 67 years EKG: Sinus rhythm WITH FIRST DEGREE AV BLOCK POSSIBLE RIGHT VENTRICULAR CONDUCTION DELAY ABNORMAL ECG Since PREVIOUS TRACING , no significant change noted PREVIOUS TRACIN06/18/2017 11.05 DOCTOR: Hiro Butler Interpretating Date/Time 04/06/2018 15:23:05
[2018-04-06 21:31] VITALS: RESP 18
[2018-04-07] MEDS: Sod Chloride 0.9% Inj 1,000 ML IV.CONT SCH ×2 (00:52→08:23)
[2018-04-07 05:54] VITALS: BP 109/68; TEMP 97.4; O2SAT 96
--- NOTE | 2018-04-07 08:14 | P.PNFP ---
Subjective Interval history: 67-year-old male with history of recurrent falls and seizure admitted with acute renal insufficiency, status post fall with mild contusion to the back of head. Patient seen and examined this morning. Patient states that he is feeling much better compared to admission. Denies significant dizziness with change of position, nausea, vomiting, headache, chest pain or shortness of breath overnight. Patient states that his insurance recently changed, and he has not yet established with PCP. Patient given information to [facility] to establish care. All questions answered. <Leah Vigil B - 04/07/18 20:56> Results - Labs Result diagrams: 04/07/18 07:31 04/07/18 07:31 <Marek Castaneda - 04/07/18 21:12> Abnormal lab results 04/07/18 04/07/18 Range/Units 07:31 07:31 RBC 3.28 L (4.50-5.90) mil/mm3 Hgb 12.8 L (13.0-17.0) gm/dL Hct 36.6 L (39.0-51.0) % MCV 111.6 H (80.0-100.0) fL MCH 39.0 H (27.0-34.0) pg Plt Count 121 L (150-450) th/mm3 Chloride 111 H (98-107) meq/L BUN 27 H (7-18) mg/dL Estimated GFR 88 L (>89) mL/min Random Glucose 107 H (74-106) mg/dL Calcium 7.7 L (8.5-10.1) mg/dL Total Protein 6.0 L (6.4-8.2) g/dL Albumin 3.0 L (3.4-5.0) g/dL Short CBC 04/07/18 Range/Units 07:31 WBC 4.3 (4.0-11.0) th/mm3 Hgb 12.8 L (13.0-17.0) gm/dL Hct 36.6 L (39.0-51.0) % Plt Count 121 L (150-450) th/mm3 BMP 04/07/18 07:31 Sodium 141 Potassium 4.0 Chloride 111 H Carbon Dioxide 22.9 BUN 27 H Creatinine 0.87 Calcium 7.7 L Liver Function 04/07/18 Range/Units 07:31 Total Bilirubin 0.5 (0.2-1.0) mg/dL AST 19 (15-37) U/L ALT 24 (12-78) U/L Alkaline Phosphatase 60 (45-117) U/L Albumin 3.0 L (3.4-5.0) g/dL <Marek Castaneda - 04/07/18 21:12> Abnormal lab results 04/06/18 Range/Units 06:00 Total Protein 6.0 L D (6.4-8.2) g/dL Liver Function 04/06/18 Range/Units 06:00 Total Bilirubin 0.6 (0.2-1.0) mg/dL ALT 26 (12-78) U/L Alkaline Phosphatase 66 (45-117) U/L <Leah Vigil Clarice - 04/07/18 08:14> Physical Exam Vital signs: Vital Signs 04/07/18 00:00 04/07/18 04:00 04/07/18 08:00 Temperature 97.6 F 97.4 F L Pulse Rate 75 74 Respiratory Rate 18 18 Blood Pressure 123/86 109/68 Pulse Oximetry 98 96 96 04/07/18 10:49 04/07/18 12:00 Temperature Pulse Rate 75 Respiratory Rate Blood Pressure Pulse Oximetry 96 Intake & Output 04/07/18 04/07/18 04/08/18 06:59 18:59 06:59 Intake Total 2600 / 2600 1000 / 1000 Output Total 850 / 850 Balance 1750 / 1750 1000 / 1000 Weight 84.5 kg Intake: IV 1100 / 1100 1000 / 1000 NS Inj 1,000 ML @ 125 mls/hr IV 1000 / 1000 1000 / 1000 .CONT .Q8H JULIANN Rx#:[id number] Ofirmev Inj 650 mg In 65 ml @ 100 / 100 400 mls/hr IV.SIG Q6H PRN Rx#: [id number] Oral 1500 / 1500 Output: Urine 850 / 850 Other: # Voids 3 Date of Last Bowel Movement 04/06/18 04/06/18 <Marek Castaneda - 04/07/18 21:12> Vital Signs 04/06/18 10:16 04/06/18 12:00 04/06/18 16:00 Temperature 98.1 F 97.3 F L Pulse Rate 81 82 Respiratory Rate 17 17 Blood Pressure 120/69 106/66 Pulse Oximetry 95 97 98 04/06/18 20:00 04/07/18 00:00 04/07/18 04:00 Temperature 97.9 F 97.6 F 97.4 F L Pulse Rate 76 75 74 Respiratory Rate 18 18 18 Blood Pressure 115/74 123/86 109/68 Pulse Oximetry 97 98 96 Intake & Output 04/06/18 04/07/18 04/07/18 18:59 06:59 18:59 Intake Total 466 / 466 2600 / 2600 Output Total 600 / 600 850 / 850 Balance -134 / -134 1750 / 1750 Weight 84.5 kg Intake: IV 466 / 466 1100 / 1100 NS Inj 1,000 ML @ 125 mls/hr IV 466 / 466 1000 / 1000 .CONT .Q8H JULIANN Rx#:[id number] Ofirmev Inj 650 mg In 65 ml @ 100 / 100 400 mls/hr IV.SIG Q6H PRN Rx#: [id number] Oral 1500 / 1500 Output: Urine 600 / 600 850 / 850 Other: # Voids 3 Date of Last Bowel Movement 04/05/18 04/06/18 <Leah Vigil 04/07/18 08:14> Narrative: GENERAL: 67-year-old, well nourished, well developed male laying down comfortably in bed. In no acute distress. SKIN: Warm and dry. HEAD: Normocephalic. Small, healing scalp abrasion at the apex of the posterior head approximately 1.5-2 cm in diameter. No active bleeding. EYES: EMOI. No scleral icterus. No injection or drainage. ENT: No nasal bleeding or discharge. Mucous membranes pink and moist. Airway patent. Poor dentition. CARDIOVASCULAR: Regular rate and rhythm. No murmur. RESPIRATORY: No accessory muscle use. Clear to auscultation with equal breath sounds. No crackles, wheeze, rales or rhonchi. MUSCULOSKELETAL: Extremities without clubbing, cyanosis, or edema. No obvious deformities. No calf tenderness. NEUROLOGICAL: Awake and alert. No obvious cranial nerve deficits. Motor grossly within normal limits. Normal speech. PSYCHIATRIC: Appropriate mood and affect; insight and judgment normal. <Leah Vigil - 04/07/18 20:56> Assessment and Plan - Assessment (1) CHYNA (acute kidney injury) Code(s): N17.9 - Acute kidney failure, unspecified Status: Acute (2) Status post fall Code(s): Z91.81 - History of falling Status: Acute (3) History of seizure Code(s): Z87.898 - Personal history of other specified conditions Status: Chronic (4) Neck pain Code(s): M54.2 - Cervicalgia Status: Acute (5) Anemia, macrocytic Code(s): D53.9 - Nutritional anemia, unspecified Status: Acute (6) Alcohol use Code(s): Z78.9 - Other specified health status Status: Acute (7) History of depression Code(s): Z86.59 - Personal history of other mental and behavioral disorders Status: Chronic (8) Hx of diabetes mellitus Code(s): Z86.39 - Personal history of other endocrine, nutritional and metabolic disease Status: Chronic (9) Hypertension Code(s): I10 - Essential (primary) hypertension Status: Chronic (10) Hyperkalemia Code(s): E87.5 - Hyperkalemia Status: Resolved (11) Nutrition, metabolism, and development symptoms Code(s): R63.8 - Other symptoms and signs concerning food and fluid intake Status: Acute (12) DVT prophylaxis Status: Acute <Marek Castaneda - 04/07/18 21:12> (1) CHYNA (acute kidney injury) Code(s): N17.9 - Acute kidney failure, unspecified Status: Acute (2) Status post fall Code(s): Z91.81 - History of falling Status: Acute (3) History of seizure Code(s): Z87.898 - Personal history of other specified conditions Status: Chronic (4) Neck pain Code(s): M54.2 - Cervicalgia Status: Acute (5) Anemia, macrocytic Code(s): D53.9 - Nutritional anemia, unspecified Status: Acute (6) Alcohol use Code(s): Z78.9 - Other specified health status Status: Acute (7) History of depression Code(s): Z86.59 - Personal history of other mental and behavioral disorders Status: Chronic (8) Hx of diabetes mellitus Code(s): Z86.39 - Personal history of other endocrine, nutritional and metabolic disease Status: Chronic (9) Hypertension Code(s): I10 - Essential (primary) hypertension Status: Chronic (10) Hyperkalemia Code(s): E87.5 - Hyperkalemia Status: Resolved (11) Nutrition, metabolism, and development symptoms Code(s): R63.8 - Other symptoms and signs concerning food and fluid intake Status: Acute (12) DVT prophylaxis Status: Acute <Leah Vigil - 04/07/18 20:47> - Assessment and Plan CHYNA, resolving BUN/Cr: 60/3.45 on admission, last BUN/Cr in June of 2017 15/0.7 -Given two 1L NS boluses the ED -BUN/Cr downtrending from 60/3.45 to 27/0.87 -CK: 45, WNL -Renal US showed: mildly echogenic kidneys characteristic of medical renal disease. No hydronephrosis. No acute findings. Bladder unremarkable -Avoid nephrotoxic agents. Hold antihypertensive medications. S/p Fall with head injury, hx of recurrent falls Hx of seizure in June 2017, TBI s/p bilateral frontal hemorrhage Not currently on anti-convulsant medications No LOC. -CT head negative for acute abnormality -UDS negative -Cardiac telemetry ordered -Neuro checks q4hr -EEG ordered due to history of seizures, showed no seizure activity. -Orthostatic blood pressures negative for orthostatic hypotension -PT/OT evaluation noted home without PT -Keppra 500 mg BID at discharge. Recommended to be placed on Keppra 1000 mg twice daily at discharge in June, however patient was never placed on this medication. Recommend titration to aforementioned dosage as tolerated by patient. Neck pain Describes dull, aching posterior neck soreness, worsening this morning -Avoid NSAIDs due to renal insufficiency -Tylenol 650mg PO for pain scale 1-5 -Ofirmev 650 mg IV for pain scale 6-10 Mild Anemia, Macrocytic -Folate level elevated at >20 -Vitamin B12 level WNL Daily Alcohol use -[facility] protocol initiated -Thiamine, folate and multivitamin started on 04/05 Hx of depression -Continue home sertraline Hx of hypertension, on Lisinopril and HCTZ BP in ED 116/75 -Continue to hold hypertensive medications History of DM, not on metformin. Blood glucose levels not elevated at this time. -Continue to monitor FEN - Fluids: Tolerating PO. IVF NS @ 125ml/hr at maintenance - Electrolytes: Mild hyponatremia and hyperkalemia noted on CMP. Continue to monitor and replete as needed following fluid boluses. - Regular diet DVT prophylaxis - Bilateral lower extremity SCDs and compression hose Patient stable for discharge to home today. Blood pressure medications held. Recommend hospital follow-up in 1-2 weeks for further titration of Keppra dosage , and follow-up of blood pressure. dw Dr. Castaneda and Dr. Contreras <Leah Vigil - 04/07/18 20:56> - Attending Attestation The exam, history, and the medical decision-making described in the above note were completed with the assistance of the resident physician. I reviewed and agree with the findings presented. I attest that I had a [id number] encounter with the patient on the same day, and personally performed and documented my assessment and findings in the medical record. Cr normal now, and BP normal still off anti hypertensives. can d/c to follow up with PCP. still needs follow up of his macrocytosis as an outpatient too. described nathen seals which he has done at home for his sudden dizzyness with head movements. I believe mostly this was a problem of orthostasis and hope it does better now without anti hypertensives. will d/c with keppra 500mg PO BID as recommended last hospitalization. f/u neuro outpt too <Marek Castaneda - 04/07/18 21:12>
[2018-04-07] MEDS: Folic Acid 1 MG Tablet PO SCH (08:21)
[2018-04-07] MEDS: levETIRAcetam 250 MG Tablet PO SCH (08:21)
[2018-04-07 09:33] LABS: Baso % (Auto) 0.4 % (0.0-2.0); Eos # (Auto) 0.1 th/mm3 (0.0-0.4); Eos % (Auto) 1.6 % (0.0-4.0); Hematocrit 36.6 % (39.0-51.0); Hemoglobin 12.8 gm/dL (13.0-17.0); Lymph # (Auto) 1.5 th/mm3 (1.0-4.8); Lymph % (Auto) 34.9 % (9.0-44.0); Mean Corpuscular Volume 111.6 fL (80.0-100.0); Mono # (Auto) 0.3 th/mm3 (0.0-0.9); Mono % (Auto) 7.9 % (0.0-8.0); Neut # (Auto) 2.4 th/mm3 (1.8-7.7); Neut % (Auto) 55.2 % (16.0-70.0); Platelet Count 121 th/mm3 (150-450); Red Blood Count 3.28 mil/mm3 (4.50-5.90); Red Cell Distribution Width 13.5 % (11.6-17.2); White Blood Count 4.3 th/mm3 (4.0-11.0)
[2018-04-07 10:19] LABS: Alanine Aminotransferase 24 U/L (12-78); Alkaline Phosphatase 60 U/L (45-117); Anion Gap 7 meq/L (5-15); Aspartate Aminotransferase 19 U/L (15-37); Blood Urea Nitrogen 27 mg/dL (7-18); Calcium 7.7 mg/dL (8.5-10.1); Carbon Dioxide 22.9 meq/L (21.0-32.0); Chloride 111 meq/L (98-107); Glomerular Filtration Rate 88 mL/min (>89); Glucose,Random 107 mg/dL (74-106); Sodium 141 meq/L (136-145)
[2018-04-07 12:29] VITALS: PULSE 75
--- NOTE | 2018-04-08 11:04 | P.DS ---
Date of admission: 04/05/18 14:38 Primary care physician: UNKNOWN Brief History from admission: 67-year-old male with history of seizure disorder and recurrent falls presented to the ED for fall that occurred last night, status post occipital contusion. Patient states that there were no preceding symptoms such as palpitations, nausea, dizziness, vision changes, or weakness prior to the fall. He states that he fell backwards and hit the back of his head, but is unsure what he hit his head on. Denies loss of consciousness but does state that he was unable to get up from the fall. He is unsure of how long he was on the floor but states it was probably about an hour. Notes some nausea currently and admits to vomiting multiple times following the fall, overnight. Notes vomiting yellow/ green liquid and denies any grossly bloody emesis. He notes mild, dull pain at the site of the contusion on the back of his head. He also admits to a sore neck, but has normal range of motion. He notes single episode of dizziness when moving from the hospital bed to the CT machine today. He has been tolerating fluids and solids normally following the fall. He normally walks unassisted but used to use a cane prior to undergoing physical therapy. Denies vision changes, weakness, numbness, or tingling, shortness of breath, palpitations or chest pain. He presented to the ED at request of a friend who is a nurse. He has a history of approximately 5 falls in the last 2 years. Most recent fall occurred on June 182017 where he fell forward and hit his head on cement pavement outside of a grocery store. Patient sustained a traumatic brain injury , and was noted to have bilateral frontal hematomas and was in the ICU for 2 weeks. Patient states that he had a seizure while in the ICU. Patient states that he is unsure if there are any presenting symptoms from the prior fall but does admit to loss of consciousness with possible bowel and bladder loss at the time. Patient was discharged from the ICU to inpatient [facility] and was recommended to take Keppra 1000 mg twice daily, but was never prescribed that medication. He never followed up with a neurologist following this hospital stay. Past medical hx: Colitis, HTN, seizure, traumatic brain injury Surgical hx: Left total knee replacement, arthroscopic repair of right knee, small bowel resection, vasectomy, tonsillectomy, appendectomy Social history: Lives with , who helps him with his activities of daily living. Former ~1PPD smoker since he was a teenager. Quit in June 2017 during last hospitalization. ETOH: Drinks 2 scotches everyday, for years. Substance use: Uses CBD oil a couple of times a week for anxiety and sleep Prescribed PRN medications per patient: Hydrocodone, last took 1 pill yesterday. SOMA last taken "quite a while ago, Valium PRN last over a year ago In the process of changing PCPs. Last seen by Dr. Siri Rodriguez DS: Diagnosis - Discharge Diagnosis (1) CHYNA (acute kidney injury) Status: Acute (2) Status post fall Status: Acute (3) History of seizure Status: Chronic (4) Neck pain Status: Acute (5) Anemia, macrocytic Status: Acute (6) Alcohol use Status: Acute (7) History of depression Status: Chronic (8) Hx of diabetes mellitus Status: Chronic (9) Hypertension Status: Chronic (10) Hyperkalemia Status: Resolved (11) Nutrition, metabolism, and development symptoms Status: Acute (12) DVT prophylaxis Status: Acute DS: Medications - Discharge Medications Prescriptions: levetiracetam [Keppra] 500 mg PO BID #60 tab DS: Summary Hospital Course: 67-year-old male with history of recurrent falls and seizure admitted with acute renal insufficiency, status post fall with mild contusion to the back of head. Patient's kidney function resolved quickly following IVF as he was worked up further for causes of likely syncopal episode associated with a fall causing a superficial posterior head injury the day prior to admission. CT of the head showed no acute abnormalites. EEG was performed due to patient's history of seizures and lack of prophylactic treatment with Keppra that was recommended on prior hospital discharge in June 2017, which showed no abnormalities. Patient was started on low-dose Keppra due to renal insufficiency on admission, and was discharged with Keppra 500 mg twice daily with recommendation to follow-up with neurology as an outpatient. Cardiac telemetry showed no arrhythmias. Orthostatic blood pressures on my physical therapy showed no significant change with blood pressure upon position change. Patient did have a history significant for hypertension, on antihypertensive medications including lisinopril and HCTZ, which were held on admission. Despite this change, blood pressures while in the hospital remained within normal range without medical management, which suggests overtreatment of his hypertension is likely the cause of his recurrent falls. Patient discharged in stable condition with recommendations to follow up at [facility] to establish care. Discharged with prescription for Keppra and recommended to hold hypertensive medications. - Time Spent with Patient Total time spent providing and/or coordinating discharge services: Greater than 30 minutes - Quality: VTE Deep Vein Thrombosis/Pulmonary Embolism Present on Admission: No Exam Vital signs: Vital Signs 04/07/18 10:49 04/07/18 12:00 Pulse Rate 75 Pulse Oximetry 96 Intake & Output 04/07/18 04/08/18 04/08/18 18:59 06:59 18:59 Intake Total 1000 / 1000 Balance 1000 / 1000 Intake: IV 1000 / 1000 NS Inj 1,000 ML @ 125 mls/hr IV 1000 / 1000 .CONT .Q8H [facility] Rx#:[id number] Other: Date of Last Bowel Movement 04/06/18 Narrative: GENERAL: 67-year-old, well nourished, well developed male laying down comfortably in bed. In no acute distress. SKIN: Warm and dry. HEAD: Normocephalic. Small, healing scalp abrasion at the apex of the posterior head approximately 1.5-2 cm in diameter. No active bleeding. EYES: EMOI. No scleral icterus. No injection or drainage. ENT: No nasal bleeding or discharge. Mucous membranes pink and moist. Airway patent. Poor dentition. CARDIOVASCULAR: Regular rate and rhythm. No murmur. RESPIRATORY: No accessory muscle use. Clear to auscultation with equal breath sounds. No crackles, wheeze, rales or rhonchi. MUSCULOSKELETAL: Extremities without clubbing, cyanosis, or edema. No obvious deformities. No calf tenderness. NEUROLOGICAL: Awake and alert. No obvious cranial nerve deficits. Motor grossly within normal limits. Normal speech. PSYCHIATRIC: Appropriate mood and affect; insight and judgment normal. Results Procedures completed during hospitalization: none Labs on day of discharge: Preliminary micro results at discharge 04/05/18 12:00 Aerobic Blood Culture - Preliminary Blood - Peripheral No growth in 2 days Anaerobic Blood Culture - Preliminary No growth in 2 days 04/05/18 12:15 Aerobic Blood Culture - Preliminary Blood - Peripheral No growth in 2 days Anaerobic Blood Culture - Preliminary No growth in 2 days - Impressions ITS Impressions Abdomen/Bladder Ultrasound 04/05/18 00:00 CONCLUSION: 1. Mildly echogenic kidneys characteristic of medical renal disease. No hydronephrosis. No acute findings. Bladder unremarkable. Chest X-Ray 04/05/18 11:53 CONCLUSION: Minimal basilar atelectasis. Head CT 04/05/18 11:53 CONCLUSION: 1. No acute intracranial abnormalities. Chronic white matter ischemic changes are stable. . . Discharge Plan - Discharge Disposition Patient Disposition: Discharge Home - Discharge Condition Condition: Stable - Discharge Order Discharge Orders: Discharge Order (Routine); Ordered 04/07/18 Ordered By: Leah Marion R1 - Discharge Details Anticipated Discharge Date: 04/07/18 - Physicians Team Primary Care Provider: UNKNOWN, Attending Provider: Marek Castaneda
== END 2018-04-07 14:53 | disposition home or self-care (01) | DRG 683 ==
LOC: NEPE 11:27 → NEDA 14:38 → N07 15:20
PROVIDERS: ADMIT Family Medicine; ATTEND Family Medicine
CPT/HCPCS: 70450; 71010; 71045; 76775; 80048; 80053; 80307; 81001; 82550; 82607; 82746; 82948; 82962; 83605; 83735; 84484; 85025; 85610; 85730; 86850; 86900; 86901; 87040; 90760; 93005; 95819; 96360; 97163; 97166; 99285; J0131; J2270; J7030